=== PATIENT | female | born 1985 | race Caucasian/White ===

== ENCOUNTER 2019-10-21 14:04 | Emergency (ER) | payer OTHER, SELFPAY ==
--- NOTE | 2019-10-21 14:21 | ED.SKABFB ---
HPI - Skin/Abscess/Foreign Bdy General Chief complaint: Skin/Abscess/Foreign Body Stated complaint: Cellulitis under left arm Time Seen by Provider: 10/21/19 14:25 Source: patient and RN notes reviewed Mode of arrival: ambulatory Limitations: no limitations History of Present Illness HPI narrative: 34-year-old female presents with concern for possible cellulitis under her left arm. 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 Reports 2-day history of redness, tenderness under her left arm. MD complaint: abscess/boil Related Data Allergies Allergy/AdvReac Type Severity Reaction Status Date / Time No Known Drug Allergies Allergy Unknown Verified 04/20/18 14:35 Review of Systems Review of Systems: Narrative: CONSTITUTIONAL: Denies malaise, chills, sweats, or fever. CARDIOVASCULAR: Denies chest pain, palpitations, or edema. RESPIRATORY: Denies cough or dyspnea. GASTROINTESTINAL: Denies nausea, vomiting, diarrhea SKIN: Reports redness, tenderness under her left arm MUSCULOSKELETAL: Denies myalgia. NEUROLOGIC: Denies headache. All systems reviewed & are unremarkable except as noted in HPI and below PMFSH Comments At time of signature, agree with nursing past medical, surgical, social and family history. There is no relevant family history pertinent to the presenting complaint Exam Narrative: Exam Narrative: GENERAL: Well-appearing, well-nourished, and in no acute distress. HEAD: Normocephalic EYES: PERRLA, conjunctivae clear ENT: Mucous membranes moist. NECK: Supple. CHEST: No respiratory distress. Speaks in full sentences. HEART: Regular rate and rhythm. No murmur heard. Normal peripheral pulses. AEXTREMITIES: Left arm hands gross normal range of motion, grossly normal strength and sensation. SKIN: Warm, dry. 7 cm x 5 cm area of erythema, warmth, tenderness with palpable nonfluctuant nodule approximate 1.5 cm. NEURO: Alert and oriented x3. PSYCH: Normal mood and affect Course Course Emergency Course: Patient is aware of diagnosis, understands and agrees to treatment plan. Anticipatory guidance given. Patient agrees to follow-up as directed and is aware of reasons to seek care at the emergency department. Portions of this record may have been created with voice recognition software Vital Signs Vital signs: Vital Signs Temperature 97.7 F 10/21/19 14:28 Pulse Rate 98 10/21/19 14:28 Respiratory Rate 16 10/21/19 14:28 Blood Pressure 139/80 10/21/19 14:28 Pulse Oximetry 100 10/21/19 14:28 Temperature 97.7 F 10/21/19 14:28 Pulse Rate 98 10/21/19 14:28 Respiratory Rate 16 10/21/19 14:28 Blood Pressure 139/80 10/21/19 14:28 Pulse Oximetry 100 10/21/19 14:28 Reviewed. Patient has been instructed to follow up with her primary care provider within the next week regarding her elevated blood pressure today. MDM - Skin/Abscess/Foreign Bdy MDM Narrative Medical decision making narrative: Does not appear at this time to be erythema multiforme, bullous, SJS, TEN; no evidence at this time to suggest RMSF, endocarditis or Lyme disease; patient looks well, nontoxic and is tolerating oral intake; no neurologic signs or symptoms; no headache, photophobia or neck pain; afebrile; appropriate for initial outpatient treatment; discussed the importance of follow-up, patient agrees; question, viral exanthema, contact dermatitis, allergic dermatitis, eczema, urticaria, cellulitis, abscess. No soft palate or uvula edema, no tongue, lip edema or other mucosal involvement, no respiratory compromise, no stridor, no wheezing, no wheezing, no history of syncope, no hypotension, no nausea, vomiting, or diarrhea. Instructed patient to go to nearest ER immediately for any worsening symptoms including but not limited to: fever, spreading rash, pain, sore throat, headache, dizziness, chest pain, trouble breathing, or any symptoms concerning to the patient. Critical Care Time Critical Care Time Critical Car
[2019-10-21 14:28] VITALS: BP 139/80; PULSE 98; RESP 16; TEMP 36.5; O2SAT 100
== END 2019-10-21 14:37 | disposition home or self-care (01) ==
PROVIDERS: Emergency Provider Nurse Practitioner; PCP Nurse Practitioner Family
DX: L03.112 Cellulitis of left axilla (principal); R03.0 Elevated blood-pressure reading, without diagnosis of hypertension
CPT/HCPCS: 99213; G0463

== ENCOUNTER 2020-03-04 09:48 | Emergency (ER) | payer OTHER, SELFPAY ==
[2020-03-04 09:54] VITALS: BP 148/85; PULSE 110; RESP 16; TEMP 37.5; O2SAT 99
--- NOTE | 2020-03-04 10:13 | ED.GENADULT ---
HPI - General Adult General Chief complaint: Upper Respiratory Infection Stated complaint: sore throat/chest congestion/cough Source: patient and RN notes reviewed Mode of arrival: ambulatory Limitations: no limitations History of Present Illness HPI narrative: 34-year-old female presents with complaints of sore throat, body aches, fever, and post nasal drainage for the past 3 days. Josselyn says she received a NEGATIVE COVID-19 test this morning. Tylenol and Noelle with little to no relief. High fevers, highest 102 Fahrenheit, orally. No drooling, neck or throat swelling. Pain is bilateral. Hurts to swallow. Exacerbation factors consist of eating and drinking. No rhinorrhea. Nasal congestion. No voice change. No nausea, vomiting, or abdominal pain. Tolerating liquids well. Denies chills, dyspnea, difficulty swallowing, jaw pain, dental pain, facial pain, foreign body sensation, and rash. LMP 3 weeks ago. Remains active. The patient reports she have not been diagnosed with COVID-19. The patient reports she is not waiting for the results of a COVID-19 lab test. The patient reports she do not have chills, weakness, or fatigue. The patient reports she do not have a new or worsening cough or shortness of breath. Denies chest pain. The patient reports she do not have any loss of taste or diarrhea. Denies recent traveling. Denies concerns for COVID-19 or exposures been home with limited outdoor exposure except for essential household needs, work, and return home. At this time, patient is not suspected of having COVID-19. Some parts of this dictation were generated by voice recognition software and may contain typographical and/or grammatical inaccuracies. Related Data Allergies Allergy/AdvReac Type Severity Reaction Status Date / Time No Known Allergies Allergy Verified 03/04/20 10:07 Review of Systems Review of Systems: Narrative: CONSTITUTIONAL: Denies chills, sweats. Complains of fever. EYES: Denies visual changes, redness, discharge. ENT: Denies rhinorrhea, otalgia. Complains of sore throat, congestion. CARDIOVASCULAR: Denies chest pain, palpitations, edema. RESPIRATORY: Denies dyspnea, wheezing, cough. GASTROINTESTINAL: Denies abdominal pain, nausea, vomiting, diarrhea. GENITOURINARY: Denies dysuria, hematuria, abnormal discharge. SKIN: Denies rash or itching. MUSCULOSKELETAL: Denies acute back pain or myalgia. Complains of body aches. NEUROLOGIC: Denies numbness or focal weakness. PSYCHIATRIC: Denies anxiety or depression. All systems reviewed & are unremarkable except as noted in HPI and below. [facility] Past Medical History Medical History (Updated 03/05/20 @ 00:00 by Aaron Becker) Acid reflux Allergies Migraines Vaginal delivery 03/19/08, , full term, male, 8#3 09/23/11, , full term, male, 9#15 09/10/14, , full term, female, 8#13 Surgical History Surgical History (Updated 03/04/20 @ 11:27 by SHIVA Montaño) History of adenoidectomy History of ovarian cystectomy History of tonsillectomy Family History Family History Mother Cancer when she was diagnosed it was spread all over her body, origin unknown Grandparent Cervical cancer Breast cancer Ovarian cancer Social History Social History (Updated 03/04/20 @ 11:27 by SHIVA Montaño) Smoking status: Former smoker Tobacco type: cigarettes Second hand tobacco smoke exposure: No Additional smoking assessment comments: Off and on since 2009 Alcohol intake: current Drinks per week: 1 Substance use: never Living arrangements: with family Occupation/Education: occupation Gender identity (if verbalized by the patient): Female Comments At time of signature, agree with nurse past medical, surgical, social, and family history. There is no relevant family history pertinent to the presenting complaint. Exam Narrative: Exam Na
== END 2020-03-04 10:40 | disposition home or self-care (01) ==
PROVIDERS: Emergency Provider Nurse Practitioner Family; PCP Nurse Practitioner Family
DX: J02.9 Acute pharyngitis, unspecified (principal); Z87.891 Personal history of nicotine dependence; K21.9 Gastro-esophageal reflux disease without esophagitis
CPT/HCPCS: 87081; 87804; 87880; 99213; G0463

== ENCOUNTER 2024-04-30 14:37 | Emergency (ER) | payer OTHER, SELFPAY ==
[2024-04-30] VITALS (9 sets, daily range): BP systolic 121–157; BP diastolic 63–105; PULSE 89–108; RESP 12–19; TEMP 36.4; O2SAT 96–100
--- NOTE | ~2024-04-30 | XR_ITS ---
EXAMINATION: XR chest 1V portable Exam Date/Time: 04/30/2024 16:44 [employer] SERVICES CONSULTANT HISTORY: cough Comparison: 08/13/2023. RESULT: Lines, tubes, and devices: None. Lungs and pleura: Clear. Cardiomediastinal silhouette: Stable. Other: No acute osseous or upper abdominal finding. IMPRESSION: No acute cardiopulmonary process. Reviewed, dictated and finalized at location [facility]. [employer]
--- NOTE | 2024-04-30 15:44 | ED_ITS ---
HPI - General Adult General Chief complaint: Allergic Reaction Stated complaint: allergic reaction to clindamycin Time Seen by Provider: 04/30/24 15:26 History of Present Illness HPI narrative: patient is a 38-year-old female who presents ER with skin rash. Mainly over the trunk and arms and also proximal legs. She also has it over the dorsums of her feet. Began 2 hours after taking clindamycin. Originally diagnosed with walking pneumonia given prednisone and azithromycin. On day 4 she was switched to clindamycin for possible strep throat as well as influenza being here infection. She is not on Tamiflu. She was then switched to amoxicillin yesterday. No difficulty breathing/swallowing. Related Data Allergies Allergy/AdvReac Type Severity Reaction Status Date / Time No Known Allergies Allergy Verified 03/04/20 10:07 Review of Systems 2 Review of Systems: All systems reviewed & are unremarkable except as noted in HPI and below Constitutional: Constitutional: Reports no additional constitutional complaints Cardiovascular: Cardiovascular: Reports no additional cardiovascular complaints Respiratory: Respiratory: Reports no additional respiratory complaints Gastrointestinal: Gastrointestinal: Reports no additional gastrointestinal complaints Integumentary/Breasts: Skin/Breast: Reports pruritus, Reports erythema and Reports rash PMFSH Past Medical History Medical History (Updated 04/30/24 @ 18:19 by Wes Reese MD) Allergies Vaginal delivery 03/19/08, , full term, male, 8#3 09/23/11, , full term, male, 9#15 09/10/14, , full term, female, 8#13 Migraines Acid reflux Surgical History Surgical History (Updated 03/04/20 @ 11:27 by SHIVA Montaño) History of adenoidectomy History of tonsillectomy History of ovarian cystectomy Family History Family History Mother Cancer when she was diagnosed it was spread all over her body, origin unknown Grandparent Cervical cancer Breast cancer Ovarian cancer Social History Social History (Updated 03/04/20 @ 11:27 by SHIVA Montaño) Smoking status: Former smoker Tobacco type: cigarettes Second hand tobacco smoke exposure: No Additional smoking assessment comments: Off and on since 2009 Alcohol intake: current Drinks per week: 1 Substance use: never Living arrangements: with family Occupation/Education: occupation Gender identity (if verbalized by the patient): Female Exam 2 Narrative: GENERAL: Well-appearing, well-nourished, and in no acute distress. HEAD: Normocephalic, atraumatic. ENT: Mucous membranes moist. NECK: Supple. CHEST: Clear to auscultation. No respiratory distress. HEART: Regular rate and rhythm. Normal peripheral pulses. EXTREMITIES: Normal range of motion. No edema. SKIN: Warm, dry,. Diffuse erythematous rash that is blanching. No papules / pustules/ vesicles /plaques. No petechiae or bullae. NEURO: No focal deficits. Alert and oriented x3. PSYCH: Normal mood and affect. Course Course Emergency Course: Informed of results. Rash improving. Continue steroids (taper), benadryl, pepcid, and add zyrtec. D/c abx. Vital Signs Vital signs: Vital Signs Temperature 97.6 F 04/30/24 14:40 Pulse Rate 108 H 04/30/24 14:40 Respiratory Rate 18 04/30/24 14:40 Blood Pressure 148/98 H 04/30/24 14:40 Pulse Oximetry 100 04/30/24 14:40 Oxygen Delivery Room Air 04/30/24 14:40 Temperature 97.6 F 04/30/24 14:40 Pulse Rate 99 04/30/24 17:46 Respiratory Rate 12 04/30/24 17:46 Blood Pressure 136/97 H 04/30/24 17:46 Pulse Oximetry 98 04/30/24 17:46 Oxygen Delivery Room Air 04/30/24 16:16 Medical Decision Making Vital Signs Vital Signs: Vital Signs Temperature 97.6 F 04/30/24 14:40 Pulse Rate 108 H 04/30/24 14:40 Respiratory Rate 18 04/30/24 14:40 Blood Pressure 148/98 H 04/30/24 14:40 Pulse Oximetry 100 04/30/24 14:40 Oxygen Delivery Room Air 04/30/24 14:40 Temperature 97.6 F 04/30/24 14:40 Pulse Rate 99 04/30/24 17:46 Respiratory Rate 12 04/30/24 17:46 Blood Pressure 136/97 H 04/30/24 17:46 Pulse Oximetry 98 04/30/24 17:46 Oxygen Delivery Room Air 01/01/25 16:16 Lab Data 04/30/24 16:12 04/30/24 16:12 Labs: Lab Results 04/30/24 Range/Units 16:12 WBC 17.9 H (4.5-10.0) K/mm3 RBC 5.66 H (4.2-5.4) M/mm3 Hgb 15.4 H (12.0-15.0) g/dL Hct 45.6 (37.0-47.0) % MCV 80.6 (80-100) fl MCH 27.2 (26-34) pg MCHC 33.8 (32-36) g/dl RDW 13.5 (11.5-14.5) % Plt Count 361 (150-375) k/mm3 MPV 9.7 (7.4-10.4) fl Immature Gran % (Auto) 0.5 (0-0.5) % Neut % (Auto) 73.5 H (45.5-73.1) % Lymph % (Auto) 18.9 (18.3-44.2) % [place] % (Auto) 6.0 (2.6-8.5) % Eos % (Auto) 0.9 (0-4.4) % Baso % (Auto) 0.2 (0.2-1.2) % Lymph # (Auto) 3.39 H (0.9-3.2) K/mm3 [place] # (Auto) 1.1 H (0.1-0.6) K/mm3 Eos # (Auto) 0.2 (0-0.3) K/mm3 Baso # (Auto) 0.0 (0.0-0.1) K/mm3 Abs Immat Gran (auto) 0.09 H (0.00-0.031) K/mm3 Absolute Neuts (auto) 13.2 H (1.3-6.7) K/mm3 Absolute Nucleated RBC 0.000 (0.0-0.012) K/mm3 Nucleated RBC % 0.0 (0.0-0.2) % Sodium 133 L (137-145) mmol/L Potassium 3.5 (3.4-5.0) mmol/L Chloride 102 (98-107) mmol/L Carbon Dioxide 25 (22-30) mmol/L Anion Gap 6 (4-12) mmol/L BUN 14 (7-17) mg/dL Creatinine 0.80 (0.7-1.0) mg/dL Estim Creat Clear Calc 125 ml/min Estimated GFR > 60 (59 - ) Glucose 105 (65-110) mg/dL Calcium 8.7 (8.4-10.2) mg/dL Total Bilirubin 0.8 (0.2-1.3) mg/dL AST 22 (14-36) U/L ALT 23 (6-35) U/L Alkaline Phosphatase 62 (38-126) U/L Total Protein 7.0 (6.3-8.2) g/dL Albumin 4.0 (3.5-5.1) g/dL Imaging Data Radiologist's impression: ITS Impressions Chest X-Ray 04/30/24 16:56 IMPRESSION: No acute cardiopulmonary process. Discharge Plan Discharge Clinical Impression: Drug rash Patient Disposition: Home, Self-Care Condition: Stable Instructions: Acute Rash (ED) Additional Instructions: Return to the ER if you cannot breathe, you cannot swallow, you lose consciousness, or have other concerns. Patient Language: Slovenian Prescriptions: New famotidine [Pepcid] 20 mg tablet 20 mg PO BID Qty: 14 0RF diphenhydramine HCl [Benadryl Allergy] 25 mg tablet 25 mg PO TID PRN (Reason: allergic reaction) Qty: 20 0RF prednisone 10 mg tablet See Rx Instructions .Route .COMPLEX Qty: 45 0RF Rx Instructions: 50 mg x 3 days, then 40 mg x 3 days, then 30 mg x 3 days, then 20 mg x 3 days, then 10 mg x 3 days. prednisone 10 mg tablet See Rx Instructions .ROUTE .COMPLEX Qty: 45 0RF Rx Instructions: 50 mg x 3 days, then 40 mg x 3 days, then 30 mg x 3 days, then 20 mg x 3 days, then 10 mg x 3 days. No Action fluticasone propionate [Allergy Relief (fluticasone)] 50 mcg/actuation spray,suspension 1 spray NASAL BID Qty: 16 0RF Rx Instructions: administer into each nostril penicillin V potassium 500 mg tablet 500 mg PO BID 10 Days Qty: 20 0RF Follow-up/Referrals: Best,ELODIA Ware [Primary Care Provider] - 1 Week
[2024-04-30] MEDS: SODIUM CHLORIDE 0.9% IV 1,000 ML 999 ML IV CONT (16:06)
[2024-04-30] MEDS: methylPREDNISolone SOD SUCC 125 MG VIAL IV PUSH (16:07)
[2024-04-30] MEDS: diphenhydrAMINE HCl INJ 50 MG/ML VIAL 25 MG IV PUSH (16:08)
[2024-04-30] MEDS: FAMOTIDINE 20 MG/2 ML VIAL IV PUSH (16:11)
[2024-04-30 16:20] LABS: Basophils Percent Auto 0.2 % (0.2-1.2); Eosinophils Absolute Auto 0.2 K/mm3 (0-0.3); Eosinophils Percent Auto 0.9 % (0-4.4); Hematocrit 45.6 % (37.0-47.0); Hemoglobin 15.4 g/dL (12.0-15.0); Immature Granulocyte Absolute 0.09 K/mm3 (0.00-0.031); Immature Granulocyte Percent A 0.5 % (0-0.5); Lymphocytes Absolute Auto 3.39 K/mm3 (0.9-3.2); Lymphocytes Percent Auto 18.9 % (18.3-44.2); Mean Corpuscular HGB Conc 33.8 g/dl (32-36); Mean Corpuscular Hemoglobin 27.2 pg (26-34); Mean Corpuscular Volume 80.6 fl (80-100); Mean Platelet Volume 9.7 fl (7.4-10.4); Monocytes Absolute Auto 1.1 K/mm3 (0.1-0.6); Neutrophils Absolute Auto 13.2 K/mm3 (1.3-6.7); Neutrophils Percent Auto 73.5 % (45.5-73.1); Platelet Count Result 361 k/mm3 (150-375); Red Blood Count 5.66 M/mm3 (4.2-5.4); Red Cell Distribution Width 13.5 % (11.5-14.5); White Blood Count 17.9 K/mm3 (4.5-10.0)
[2024-04-30 16:32] LABS: Alanine Aminotransferase 23 U/L (6-35); Alkaline Phosphatase 62 U/L (38-126); Anion Gap 6 mmol/L (4-12); Aspartate Amino Transferase 22 U/L (14-36); Bilirubin,Total 0.8 mg/dL (0.2-1.3); Blood Urea Nitrogen 14 mg/dL (7-17); Calcium 8.7 mg/dL (8.4-10.2); Carbon Dioxide 25 mmol/L (22-30); Chloride 102 mmol/L (98-107); Estimated CRCL calculation 125 ml/min; Estimated Glomerular Filt Rate > 60; Glucose 105 mg/dL (65-110); Potassium 3.5 mmol/L (3.4-5.0); Sodium 133 mmol/L (137-145)
--- OUTSIDE RECORDS SUMMARY | 2024-05-07 12:16 | XMS_ITS | Clinical Summary ---
Author Organization [facility] Address [address] [place] [address] Phone Care Team Providers Care Astrobiologist Name Role Phone Unavailable Unavailable Unavailable Reason for Visit and Chief Complaint The Chief Complaint is: IUD Check--pt c/o partner feeling string during sex Problems Includes: Problems addressed during this encounter and other active Problems All Visits Onset Date Resolved Date Provider Condition S tatus Ovarian Cyst 05/14/2013 NIEVES TURNER NP-BC Active Last Documented On 05/14/2013 1:06PM ; [facility] Note: History of Obesity 02/12/2013 NIEVES TURNER NP-BC Active Last Documented On 3 10:08AM ; [facility] Plan of Treatment No Plan of Treatment Recorded Assessments Includes: Assessments from this encounter Findings - Contraceptive management - Last Documented On 08/28/2017 10:14AM ; [facility] Medical Equipment - Implanted Devices Includes: Current Devices No Medical Equipment Recorded Medications Includes: Medications discussed during this encounter and other current Medications Current Medications (continue as prescribed) HydroCHLOROthiazide 50MG Oral Tablet 07/31/2017 Prov ider: Diagnosis: Last Documented On 8 9:16AM By JERROD STEPHENS ; [facility] Mirena (52 MG) 20MCG/24HR Intrauterine Intrauterine de vice 07/31/2017 Provider: Diagnosis: Last Documented On 8 10:45AM By JERROD STEPHENS ; [facility] Losartan Potassium 25MG Oral Tablet 06/26/2017 Provi akilah: Diagnosis: Last Documented On 06/26/2017 1:28PM By Kamilah Badillo MA ; [facility] ProAir HFA 108 (90 Base)MCG/ACT Inhalation Aeros ol Solution 06/26/2017 Provider: Diagnosis: PRN-while she is sick. Last Documented On 06/26/2017 1:30PM By Kamilah Badillo MA ; [facility] Past Medications on file Fannie 0.35 MG Tablet 04/17/2016 - 03/19/2017 Provider : REMBERTO ESQUEDA MD Diagnosis: Other ovarian cy sts One tablet daily Last Documented On 04/17/2016 10:21AM By REMBERTO ESQUEDA MD ; [facility] Ferrous Sulfate 325 (65 Fe) MG OR TABS 06/12/2014 - 12/09/2014 Provider: REMBERTO ESQUEDA MD Diagnosis: one po daily at a different time than pnv was phoned to [facility]. Last Documented On 5 3:11PM By XUAN MORALES LPN ; [facility] Colace 100 MG OR CAPS 06/11/2014 - 10/09/2014 Provider : REMBERTO ESQUEDA MD Diagnosis: Last Documented On 06/11/2014 11:09AM By REMBERTO ESQUEDA MD ; [facility] 19 OR TABS 02/19/2014 - 02/14/2015 Provider: REMBERTO ESQUEDA MD Diagnosis: Last Documented On 02/19/2014 10:29AM By REMBERTO ESQUDEA MD ; [facility] Diflucan 150 MG OR TABS 05/14/2013 - 05/15/2013 Provider: NIEVES WINKLER-BC Diagnosis: CANDIDAL VULVOVA GINITIS 1 po x 1 and rpt. in 3 days Last Documented On 4 1:28PM By NIEVES WINKLER-BC ; [facility] Terazol 7 0.4% VA CREA 08/24/2011 - 09/23/2011 Provide r: NIEVES WINKLER-BC Diagnosis: insert 1 applicator vaginally q hs x 7 nocs Last Documented On 2 10:25AM By NIEVES WINKLER-BC ; [facility] Augmentin 875-125 MG OR TABS 08/24/2011 - 09/03/2011 P rovider: NIEVES WINKLER-BC Diagnosis: Last Documented On 2 10:26AM By NIEVES TURNER [facility] ; [facility] Fioricet 50-325-40 MG OR TABS 06/30/2011 - 07/30/2011 Provider: REMBERTO ESQUEDA MD Diagnosis: i-ii po Q 4 hours prn headac he, do not exceed 6 tabs/24 hours Last Documented On 06/30/2011 1:48PM By REMBERTO ESQUEDA MD ; [facility] Zithromax Z-Lincoln 250 MG OR TABS 05/08/2011 - 05/13/2011 Provider: REMBERTO ESQUEDA MD Diagnosis: Last Documented On 05/08/2011 4:52PM By REMBERTO ESQUEDA MD ; [facility] Vitamin B-6 25 MG OR TABS 05/02/2011 - 07/01/2011 Prov ider: REMBERTO ESQUEDA MD Diagnosis: Last Documented On 05/02/2011 1:24PM By REMBERTO ESQUEDA MD ; [facility] Zofran 8 MG OR TABS 05/02/2011 - 06/01/2011 Provider: REMBERTO ESQUEDA MD Diagnosis: Last Documented On 05/02/2011 1:23PM By REMBERTO ESQUEDA MD ; [facility] Flagyl 500 MG OR TABS 08/22/2010 - 08/29/2010 Provider : FABIOLA CRISTOBAL Diagnosis: VAGINITIS NOS no alcohol Last Documented On 08/22/2010 8:22AM By FABIOLA CRISTOBAL ; [facility] NuvaRing 0.12-0.015 MG/24HR VA RING 08/17/2010 - 09/16/2010 Provider: FABIOLA CRISTOBAL Diagnosis: OTHER FAMILY PLANNING ADVICE NEC One ring intravaginally x 3 weeks Last Documented On 08/17/2010 9:04AM By FABIOLA CRISTOBAL ; [facility] Diflucan 150 MG OR TABS 08/16/2010 - 08/17/2010 Provid er: REMBERTO ESQUEDA MD Diagnosis: Last Documented On 08/16/2010 11:50AM By REMBERTO ESQUEDA MD ; [facility] Darvocet-N 100 100-650 MG OR TABS 08/05/2009 - 010 Provider: REMBERTO ESQUEDA MD Diagnosis: Last Documented On 08/05/2009 2:45PM By REMBERTO ESQUEDA MD ; [facility] Medications Administered Includes: Administered Medications from this encounter No Administered Medications Recorded Vital Signs Includes: Vital Signs from this encounter Vital Name 08/28/2017 09:26A 08/28/2017 09: 25A Blood Pressure Sitting (mmHg) 132/90 Height (in) 68 68 Weight (lb) 282.2 Body Mass Index (kg/m2) 42.9 Body Surface Area (m2) 2.4 Last Documented: On 08/28/2017 9:31AM ; [facility] On 08/28/2017 9:25AM ; [facility] Results Includes: Results discussed during this encounter No Results Recorded For Specified Dates History of Present Illness Includes: History of Present Illness from this encounter HPI REMBERTO TRAVIS is a 32 year old female. - Unusual bleeding spotting off and on, not heavy. - No pelvic pain. - No vaginal discharge. c/o partner feeling string during sex and making a red farida on him Social History Description Last Updated Alcohol use: 2 drinks or less per day oc c 08/28/2017 Last Documented On 8 10:14AM ; [facility] Non-smoker 08/28/2017 Last Documented On 8 10:14AM ; [facility] Sexually active 08/28/2017 Last Documented On 8 10:14AM ; [facility] Smoking status : Former smoker 8 Last Documented On 8 10:14AM ; [facility] Procedures and Surgical History Includes: Procedures from this encounter Procedures Code Diagnosis Performing Provider Service L ocation Service Date follow-up visit for annual exam Last Documented On 8 9:43AM ; [facility] Patient reassured IUD in cor rect position and she may rely on it for contraception Last Documented On 8 9:43AM ; [facility] Clinical summary provided to patient Last Documented On 8 9:43AM ; [facility] Medical History Includes: Medical History addressed during this encounter Description Last Updated LMP: 08/02/2017 08/28/2017 Last Documented On 8 10:14AM ; [facility] Contraception: Mirena 08/28/2017 Last Documented On 8 10:14AM ; [facility] 3 08/28/2017 Last Documented On 8 10:14AM ; [facility] Last pap smear date 04/17/2016 8 Last Documented On 8 10:14AM ; [facility] Para 3 08/28/2017 Last Documented On 8 10:14AM ; [facility] Family History Includes: Family History addressed during this encounter Description Last Updated Family history of heart disease mgm 04/30 Last Documented On 8 9:25AM ; [facility] Family history of hypercholesterolemia m gm 05/14/2013 Last Documented On 8 9:25AM ; [facility] Family history of hypertension maternal grandparents, pgf 05/14/2013 Last Documented On 8 9:25AM ; [facility] Family history of malignant neoplasm of the ovary mother at age 36, maternal grandmother, paternal grandmother 05/14/2013 Last Documented On 8 9:25AM ; [facility] Family history of diabetes m ellitus maternal grandmother, paternal grandmother, paternal grandfather 01/05/2011 Last Documented On 8 9:25AM ; [facility] Family history of malignant female breas t neoplasm maternal grandmother 01/05/2011 Last Documented On 8 9:25AM ; [facility] Family history unchanged 01/05/2011 Last Documented On 8 9:25AM ; [facility] Family history of Diabetes 05/12/2009 Last Documented On 8 9:25AM ; [facility] Review of Systems Includes: Review of Systems from this encounter No Review of Systems Recorded Mental Status Includes: Mental Status from this encounter No Mental Status Recorded Functional Status Includes: Functional Status from this encounter No Functional Status Recorded Physical Exam Includes: Physical Exam from this encounter Allergies Includes: Active Allergies No Known Allergies Encounters Encounter Provider Location Date Check-In Time Check-Out Time Diagnosis 1 MONTH CHECK REMBERTO ESQUEDA MD [facility] RADIO STATION ENGINEER 08/29/19 18 9:22AM 10:13AM Contraceptive Management Clinical Notes Includes: Clinical Notes from this encounter No Clinical Notes Recorded
--- OUTSIDE RECORDS SUMMARY | 2024-05-07 12:16 | XMS_ITS | Clinical Summary ---
Author Organization [facility] Address [address] [place] [address] Phone Care Team Providers Care Mobile Solutions Architect Name Role Phone Unavailable Unavailable Unavailable Reason for Visit and Chief Complaint visit for: IUD Insertion - The Chief Complaint is: Mirena insertion Problems Includes: Problems addressed during this encounter and other active Problems All Visits Onset Date Resolved Date Provider Condition S tatus Ovarian Cyst 05/14/2013 NIEVES TURNER ELODIA-BC Active Last Documented On 05/14/2013 1:06PM ; [facility] Note: History of Obesity 02/12/2013 NIEVES TURNER ELODIA-BC Active Last Documented On 3 10:08AM ; [facility] Plan of Treatment Pending Tests Order Diagnosis Results Due Ordering Danielito rodriguez In office procedures - OB IUD Insertion Encounter for insertion of intrauterine contraceptive device 08/14/17 REMBERTO ESQUEDA MD Last Documented On 8 9:36AM ; [facility] Assessments Includes: Assessments from this encounter Findings - Contraceptive management: Insertion of IUD - Last Documented On 07/31/2017 9:36AM ; [facility] Medical Equipment - Implanted Devices Includes: Current Devices No Medical Equipment Recorded Medications Includes: Medications discussed during this encounter and other current Medications Current Medications (continue as prescribed) HydroCHLOROthiazide 50MG Oral Tablet 07/31/2017 Prov ider: Diagnosis: Last Documented On 8 9:16AM By JERROD STEPHENS ; [facility] Mirena (52 MG) 20MCG/24HR Intrauterine Intrauterine de vice 07/31/2017 Provider: Diagnosis: Last Documented On 8 10:45AM By JERROD STEPHENS ; [facility] Losartan Potassium 25MG Oral Tablet 06/26/2017 Provi akilah: Diagnosis: Last Documented On 06/26/2017 1:28PM By Kamilah Badillo MA ; [facility] ProAir HFA 108 (90 Base)MCG/ACT Inhalation Aeros ol Solution 06/26/2017 Provider: Diagnosis: PRN-while she is sick. Last Documented On 06/26/2017 1:30PM By Kamilah Badillo MA ; [facility] Past Medications on file Fannie 0.35 MG Tablet 04/17/2016 - 03/19/2017 Provider : REMBERTO ESQUEDA MD Diagnosis: Other ovarian cy sts One tablet daily Last Documented On 04/17/2016 10:21AM By REMBERTO ESQUEDA MD ; [facility] Ferrous Sulfate 325 (65 Fe) MG OR TABS 06/12/2014 - 12/09/2014 Provider: REMBERTO ESQUEDA MD Diagnosis: one po daily at a different time than pnv was phoned to [facility]. Last Documented On 5 3:11PM By XUAN MORALES LPN ; [facility] Colace 100 MG OR CAPS 06/11/2014 - 10/09/2014 Provider : REMBERTO ESQUEDA MD Diagnosis: Last Documented On 06/11/2014 11:09AM By REMBERTO ESQUEDA MD ; [facility] 19 OR TABS 02/19/2014 - 02/14/2015 Provider: REMBERTO ESQUEDA MD Diagnosis: Last Documented On 02/19/2014 10:29AM By REMBERTO ESQUEDA MD ; [facility] Diflucan 150 MG OR TABS 05/14/2013 - 05/15/2013 Provider: NIEVES WINKLER-BC Diagnosis: CANDIDAL VULVOVA GINITIS 1 po x 1 and rpt. in 3 days Last Documented On 4 1:28PM By NIEVES QUEEN ; [facility] Terazol 7 0.4% VA CREA 08/24/2011 - 09/23/2011 Provide r: NIEVES WINKLER-BC Diagnosis: insert 1 applicator vaginally q hs x 7 nocs Last Documented On 2 10:25AM [facility] Augmentin 875-125 MG OR TABS 08/24/2011 - 09/03/2011 P rovider: NIEVES TURNER [facility] Diagnosis: Last Documented On 2 10:26AM [facility] Fioricet 50-325-40 MG OR TABS 06/30/2011 - 07/30/2011 Provider: REMBERTO ESQUEDA MD Diagnosis: i-ii po Q 4 hours prn headac he, do not exceed 6 tabs/24 hours Last Documented On 06/30/2011 1:48PM By REMBERTO ESQUEDA MD ; [facility] Zithromax Z-Lincoln 250 MG OR TABS 05/08/2011 - 05/13/2011 Provider: REMBERTO ESQUEDA MD Diagnosis: Last Documented On 05/08/2011 4:52PM By REMBERTO ESQUEDA MD ; [facility] Vitamin B-6 25 MG OR TABS 05/02/2011 - 07/01/2011 Prov ider: REMBERTO ESQUEDA MD Diagnosis: Last Documented On 05/02/2011 1:24PM By REMBERTO ESQUEDA MD ; [facility] Zofran 8 MG OR TABS 05/02/2011 - 06/01/2011 Provider: REMBERTO ESQUEDA MD Diagnosis: Last Documented On 05/02/2011 1:23PM By REMBERTO ESQUEDA MD ; [facility] Flagyl 500 MG OR TABS 08/22/2010 - 08/29/2010 Provider : FABIOLA CRISTOBAL Diagnosis: VAGINITIS NOS no alcohol Last Documented On 08/22/2010 8:22AM By FABIOLA CRISTOBAL ; [facility] NuvaRing 0.12-0.015 MG/24HR VA RING 08/17/2010 - 09/16/2010 Provider: FABIOLA CRISTOBAL Diagnosis: OTHER FAMILY PLANNING ADVICE NEC One ring intravaginally x 3 weeks Last Documented On 08/17/2010 9:04AM By FABIOLA CRISTOBLA ; [facility] Diflucan 150 MG OR TABS 08/16/2010 - 08/17/2010 Provid er: REMBERTO ESQUEDA MD Diagnosis: Last Documented On 08/16/2010 11:50AM By REMBERTO ESQUEDA MD ; [facility] Darvocet-N 100 100-650 MG OR TABS 08/05/2009 - 010 Provider: REMBERTO ESQUEDA MD Diagnosis: Last Documented On 08/05/2009 2:45PM By REMBERTO ESQUEDA MD ; [facility] Medications Administered Includes: Administered Medications from this encounter No Administered Medications Recorded Vital Signs Includes: Vital Signs from this encounter Vital Name 07/31/2017 09:16A 07/31/2017 09:12A 07/31 09:11A Blood Pressure Sitting (mmHg) 140/90 Height (in) 68 68 68 Weight (lb) 290.8 290.8 Body Mass Index (kg/m2) 44.2 44.2 Body Surface Area (m2) 2.4 2.4 Last Documented: On 07/31/2017 9:19AM ; [facility] On 07/31/2017 9:16AM ; [facility] On 07/31/2017 9:12AM ; [facility] Results Includes: Results discussed during this encounter No Results Recorded For Specified Dates History of Present Illness Includes: History of Present Illness from this encounter HPI She hasn't had sex in at least 6 months (currently on day 10-11 of cycle) Social History Description Last Updated Smoking status : Former smoker 8 Last Documented On 8 9:36AM ; [facility] Non-smoker 07/31/2017 Last Documented On 8 9:36AM ; [facility] Not sexually active 07/31/2017 Last Documented On 8 9:36AM ; [facility] Procedures and Surgical History Includes: Procedures from this encounter Procedures Code Diagnosis Performing Provider Service L ocation Service Date insertion of intrauterine device (IUD) .Risks versus benefits discussed. Consent signed [id number] Last Documented On 8 9:24AM ; [facility] Sterile speculum inserted Last Documented On 8 9:24AM ; [facility] Cervix easily visualized , cervix swabbe d with Betadine Last Documented On 8 9:24AM ; [facility] Uterus sounded to 9 cm Last Documented On 8 9:35AM ; [facility] Mirena industrial maintenance manager introduced through cervi x to 7 cm Last Documented On 8 9:35AM ; [facility] Mirena released and industrial maintenance manager advanced to 9 cm Last Documented On 8 9:35AM ; [facility] Bar Steward removed. Last Documented On 8 9:24AM ; [facility] IUD strings trimmed to 3-4 cm. Last Documented On 8 9:24AM ; [facility] Patient tolerated procedure well Last Documented On 8 9:24AM ; [facility] Instructed to use non-hormonal, back-up method of control x 1 month Last Documented On 8 9:24AM ; [facility] Patient verbalizes understanding Last Documented On 8 9:24AM ; [facility] RTO in month for IUD check. Last Documented On 8 9:24AM ; [facility] Encouraged to call office with any IUD c oncerns Last Documented On 8 9:24AM ; [facility] Clinical summary provided to patient Last Documented On 8 9:24AM ; [facility] Medical History Includes: Medical History addressed during this encounter Description Last Updated Contraception: none 07/31/2017 Last Documented On 8 9:36AM ; [facility] LMP: 07/21/2017 07/31/2017 Last Documented On 8 9:36AM ; [facility] 3 07/31/2017 Last Documented On 8 9:36AM ; [facility] Last pap smear date 04/17/2016 8 Last Documented On 8 9:36AM ; [facility] Para 3 07/31/2017 Last Documented On 8 9:36AM ; [facility] Family History Includes: Family History addressed during this encounter Description Last Updated Family history of heart disease mgm 04/30 Last Documented On 8 9:11AM ; [facility] Family history of hypercholesterolemia m gm 05/14/2013 Last Documented On 8 9:11AM ; [facility] Family history of hypertension maternal grandparents, pgf 05/14/2013 Last Documented On 8 9:11AM ; [facility] Family history of malignant neoplasm of the ovary mother at age 36, maternal grandmother, paternal grandmother 05/14/2013 Last Documented On 8 9:11AM ; [facility] Family history of diabetes m ellitus maternal grandmother, paternal grandmother, paternal grandfather 01/05/2011 Last Documented On 8 9:11AM ; [facility] Family history of malignant female breas t neoplasm maternal grandmother 01/05/2011 Last Documented On 8 9:11AM ; [facility] Family history unchanged 01/05/2011 Last Documented On 8 9:11AM ; [facility] Family history of Diabetes 05/12/2009 Last Documented On 8 9:11AM ; [facility] Review of Systems Includes: Review of Systems [...] Location Date Check-In Time Check-Out Time Diagnosis PROCEDURE OFFICE REMBERTO ESQUEDA MD [facility] HEDIS ABSTRACTOR 08/01/19 18 9:10AM 9:38AM Contraceptive Management: Insertion of Iud Clinical Notes Includes: Clinical Notes from this encounter No Clinical Notes Recorded
--- OUTSIDE RECORDS SUMMARY | 2024-05-07 12:16 | XMS_ITS ---
Author Organization [facility] Address [address] [place] [address] Phone Care Team Providers Care Property Accountant Name Role Phone Unavailable Unavailable Unavailable Problems Includes: Active, inactive, and resolved Problems All Visits Onset Date Resolved Date Provider Condition S tatus History of Surgical Complications: From General Anesthesia 02/19/2014 Unknown REMBERTO ESQUEDA MD Resolved Last Documented On 10/29/2014 3:39PM ; [facility] Note: was Closed. Ovarian Cyst 05/14/2013 NIEVES TURNER WHNP-BC Active Last Documented On 05/14/2013 1:06PM ; [facility] Note: History of Obesity 02/12/2013 NIEVES TSENP-BC Active Last Documented On 3 10:08AM ; [facility] Exposure To Tuberculosis 03/29/2011 Unknown REMBERTO ROBLES MD Resolved Last Documented On 01/04/2012 11:32AM ; [facility] Note: was Closed. Gestational Hypertension 03/29/2011 Unknown REMBERTO ROBLES MD Resolved Last Documented On 01/04/2012 11:32AM ; [facility] Note: was Closed. Obesity 03/29/2011 Unknown NIEVES TSENP-BC Resolved Last Documented On 01/04/2012 11:32AM ; [facility] Note: was Closed. Tobacco Use 03/29/2011 Unknown REMBERTO ESQUEDA MD Resolve d Last Documented On 01/04/2012 11:32AM ; [facility] Note: was Closed. History of Surgical Complications: From General Anesthesia 09/02/2009 Unknown REMBERTO ESQUEDA MD Resolved Last Documented On 01/04/2012 11:32AM ; [facility] Note: was Closed. History of Essential Hypertension 11/27/2007 Unknown REMBERTO ESQUEDA MD Resolved Last Documented On 01/04/2012 11:32AM ; [facility] Note: was Closed. Plan of Treatment Findings Encounter Date Ordered Clinical summary pro vided to patient POST VISIT with ENRIQUE SCHWARTZ RN [facility] 10/29/2014 Last Documented On 5 10:37AM ; [facility] Ordered Clinical summary pro vided to patient RETURN OB EXAM with NIEVES TURNER [facility] 08/20/2014 Last Documented On 5 9:52AM ; [facility] Ordered Clinical summary pro vided to patient RETURN OB EXAM with NIEVES TURNER [facility] 07/23/2014 Last Documented On 5 9:51AM ; [facility] Ordered Clinical summary pro vided to patient RETURN OB EXAM with NIEVES TURNER [facility] 05/22/2014 Last Documented On 5 10:15AM ; [facility] Ordered Clinical summary pro vided to patient RETURN OB EXAM with NIEVES TURNER [facility] 03/19/2014 Last Documented On 4 11:24AM ; [facility] Ordered Clinical summary pro vided to patient LEAN CONSULTANT EXAM with NIEVSE TURNER [facility] 05/14/2013 Last Documented On 4 1:29PM ; [facility] Ordered follow-up visit 1 ye ar or as needed LEAN CONSULTANT EXAM with NIEVES TURNER [facility] 05/14/2013 Last Documented On 4 1:29PM ; [facility] Ordered a pelvic ultrasound PROBLEM VISIT with Azeb TURNER [facility] 02/12/2013 Last Documented On 3 10:26AM ; [facility] Ordered Clinical summary pro vided to patient ANNUAL WELL WOMEN EXAM with NIEVES TURNER [facility] 03/01/2012 Last Documented On 2 2:15PM ; [facility] Finish antibiotics given to patient in ER. Patient to schedule an appointment with Dr. Esqueda after her ultrasound to go over her results, and discuss with her the possibility of removing the Mirena due to recurrent ovarian cysts PROBLEM VISIT with FABIOLA CRISTOBAL 12/22/2009 Last Documented On 0 2:30PM ; [facility] Instructions to patient Instructions for patient : B reast Self Exam discussed Last Documented On 8 2:35PM ; [facility] Instructions for patient : B reast Self Exam discussed Last Documented On 6 9:49AM ; [facility] Instructions for patient : B reast Self Exam discussed Last Documented On 4 12:59PM ; [facility] Instructions for patient : K eep the area around the vulva dry. Allow the area to have exposure to air. Avoid irritants such as fabric softeners and perfumed soaps.~ Last Documented On 4 1:26PM ; [facility] Lose weight Last Documented On 4 1:00PM ; [facility] Advised d/c scented bath pro ducts Last Documented On 4 1:26PM ; [facility] Gardasil information given a nd series encouraged Last Documented On 4 1:01PM ; [facility] Safe sex counseling Last Documented On 4 1:01PM ; [facility] Instructions for patient : K eep the area around the vulva dry. Allow the area to have exposure to air. Avoid irritants such as fabric softeners and perfumed soaps.~ Last Documented On 3 10:08AM ; [facility] Return to the clinic if cond ition worsens or new symptoms arise Last Documented On 3 10:07AM ; [facility] Advised d/c scented bath pro ducts Last Documented On 3 10:08AM ; [facility] ER/ Pain Precautions Last Documented On 3 10:07AM ; [facility] Instructions for patient : B reast Self Exam discussed Last Documented On 2 1:30PM ; [facility] Lose weight Last Documented On 2 1:31PM ; [facility] Gardasil information given a nd series encouraged Last Documented On 2 1:53PM ; [facility] Instructions for patient : B reast Self Exam discussed Last Documented On 1 4:25PM ; [facility] Recommend annual pap smear e xamination or every three year Last Documented On 1 8:43AM ; [facility] Instructions for patient : B reast Self Exam discussed Last Documented On 0 11:37AM ; [facility] Education and Decision Aids were provided during visit for: STD screening offered and de clined Last Documented On 8 2:35PM ; [facility] STD screening offered and de clined Last Documented On 6 9:49AM ; [facility] Patient Education: Daily jessica cium and vitamin D Last Documented On 4 12:59PM ; [facility] Patient Education: weight be aring exercise Last Documented On 4 12:59PM ; [facility] Candidiasis Vulvovaginitis I nformation Sheet Given Last Documented On 4 1:26PM ; [facility] Patient Education: Daily jessica cium and vitamin D Last Documented On 2 1:30PM ; [facility] Patient Education: weight be aring exercise Last Documented On 2 1:30PM ; [facility] STD screening offered and de clined Last Documented On 1 4:25PM ; [facility] Patient counseling : STD pre vention. I discussed with the patient that condoms can reduce the chance of getting an STD but not eliminate it. Increased exposure from multiple sex partners also discussed Last Documented On 1 8:43AM ; [facility] HPV handout given Last Documented On 1 8:43AM ; [facility] Gardasil handout given Last Documented On 1 8:43AM ; [facility] Counseling for abnormal pap smear Last Documented On 1 8:43AM ; [facility] HIV counseling given d/C yanci strin and start nuva ring ~20 minute appointment with more than 50% face to face time Last Documented On 1 9:06AM ; [facility] STD screening offered and de clined Last Documented On 0 11:37AM ; [facility] Assessments Includes: Assessments for all patient encounters Findings Encounter Date Contraceptive management 1 MONTH CHECK with REMBERTO ESQUEDA MD 08/28/2017 Last Documented On 8 10:14AM ; [facility] Contraceptive management: In sertion of IUD PROCEDURE OFFICE with REMBERTO ESQUEDA MD 07/31/2017 Last Documented On 8 9:36AM ; [facility] Menometrorrhagia LEAN CONSULTANT EXAM with REMBERTO ESQUEDA MD 06/26/2017 Last Documented On 8 2:39PM ; [facility] Routine pelvic exam LEAN CONSULTANT EXAM with REMBERTO ESQUEDA MD 06/26/2017 Last Documented On 8 2:39PM ; [facility] Routine pelvic exam LEAN CONSULTANT EXAM with REMBERTO ESQUEDA MD 04/17/2016 Last Documented On 6 10:11AM ; [facility] Dyspareunia PROBLEM VISIT with REMBERTO ESQUEDA MD 02/07/2016 Last Documented On 6 10:01AM ; [facility] Female pelvic pain PROBLEM VISIT with REMBERTO ACKERMAN MD 02/07/2016 Last Documented On 6 10:01AM ; [facility] Menometrorrhagia PROBLEM VISIT with REMBERTO Lopez MD 02/07/2016 Last Documented On 6 10:01AM ; [facility] Ovarian cyst PROBLEM VISIT with REMBERTO ESQUEDA MD 02/07/2016 Last Documented On 6 10:01AM ; [facility] Contraceptive management POST VISIT with ENRIQUE WINKLER 10/29/2014 Last Documented On 5 10:37AM ; [facility] Normal routine history and p hysical - POST VISIT with ENRIQUE WINKLER 10/29/2014 Last Documented On 5 10:37AM ; [facility] Urinary incontinence POST VISIT with EDGAR WINKLER 10/29/2014 Last Documented On 5 10:37AM ; [facility] Normal checkup (6 - 42 wk) RETURN OB EX AM with REMBERTO ESQUEDA MD 09/08/2014 Last Documented On 5 4:43PM ; [facility] Normal checkup (6 - 42 wk) RETURN OB EX AM with REMBERTO ESQUEDA MD 09/01/2014 Last Documented On 5 10:08AM ; [facility] Normal checkup (6 - 42 wk) RETURN OB EX AM with REMBERTO ESQUEDA MD 08/28/2014 Last Documented On 5 2:13PM ; [facility] Normal checkup (6 - 42 wk) * PHONE CALL with REMBERTO ESQUEDA MD 08/25/2014 Last Documented On 5 11:43AM ; [facility] Normal checkup (6 - 42 wk) * PHONE CALL with REMBERTO ESQUEDA MD 08/24/2014 Last Documented On 5 4:24PM ; [facility] Normal checkup (6 - 42 wk) RETU RN OB EXAM with NIEVES QUEEN 08/20/2014 Last Documented On 5 9:52AM ; [facility] Normal checkup (6 - 42 wk) [Pat ient Encounter] with REMBERTO ESQUEDA MD 08/07/2014 Last Documented On 5 11:41AM ; [facility] Normal checkup (6 - 42 wk) RETURN OB EX AM with REMBERTO ESQUEDA MD 08/06/2014 Last Documented On 5 9:17AM ; [facility] Normal checkup (6 - 42 wk) * PHONE CALL with REMBERTO ESQUEDA MD 07/28/2014 Last Documented On 5 4:28PM ; [facility] Normal checkup (6 - 42 wk) RETU RN OB EXAM with NIEVES QUEEN 07/23/2014 Last Documented On 5 9:51AM ; [facility] Normal checkup (6 - 42 wk) [Pat ient Encounter] with REMBERTO ESQUEDA MD 07/14/2014 Last Documented On 5 9:07AM ; [facility] Normal checkup (6 - 42 wk) RETURN OB EX AM with REMBERTO ESQUEDA MD 07/09/2014 Last Documented On 5 10:26AM ; [facility] Normal checkup (6 - 42 wk) RETU RN OB EXAM with NIEVES QUEEN 06/26/2014 Last Documented On 5 9:34AM ; [facility] Normal checkup (6 - 42 wk) [Pat ient Encounter] with REMBERTO ESQUEDA MD 06/15/2014 Last Documented On 5 11:40AM ; [facility] Normal checkup (6 - 42 wk) RETURN OB EX AM with REMBERTO ESQUEDA MD 06/11/2014 Last Documented On 5 11:31AM ; [facility] Normal checkup (6 - 42 wk) RETU RN OB EXAM with NIEVES QUEEN 05/22/2014 Last Documented On 5 10:15AM ; [facility] Normal checkup (6 - 42 wk) * PHONE CALL with REMBERTO ESQUEDA MD 05/11/2014 Last Documented On 5 2:29PM ; [facility] Normal checkup (6 - 42 wk) * PHONE CALL with REMBERTO ESQUEDA MD 05/08/2014 Last Documented On 5 10:46AM ; [facility] Normal checkup (6 - 42 wk) RETURN OB EX AM with REMBERTO ESQUEDA MD 04/24/2014 Last Documented On 4 1:50PM ; [facility] Normal checkup (6 - 42 wk) RETU RN OB EXAM with NIEVES QUEEN 03/19/2014 Last Documented On 4 11:24AM ; [facility] Normal checkup (6 - 42 wk) * PHONE CALL with REMBERTO ESQUEDA MD 03/05/2014 Last Documented On 4 11:57AM ; [facility] Normal checkup (6 - 42 wk) NEW OB EXAM with REMBERTO ESQUEDA MD 02/19/2014 Last Documented On 4 11:23AM ; [facility] Contraceptive surveillance IMPLANON with REMBERTO ESQUEDA MD 06/10/2013 Last Documented On 4 3:49PM ; [facility] Tegan albicans vulvovaginitis LEAN CONSULTANT EXAM with CA JYOTI QUEEN 05/14/2013 Last Documented On 4 1:29PM ; [facility] NORMAL FEMALE EXAM LEAN CONSULTANT EXAM with NIEVES Black [facility] 05/14/2013 Last Documented On 4 1:29PM ; [facility] Female pelvic pain PROBLEM VISIT with NIEVES LEE [facility] 02/12/2013 Last Documented On 3 10:26AM ; [facility] NORMAL FEMALE EXAM ANNUAL WELL WOMEN EXAM with Azeb TURNER [facility] 03/01/2012 Last Documented On 2 2:15PM ; [facility] Contraceptive surveillance POST VISIT wit yvette ESQUEDA MD 12/12/2011 Last Documented On 2 1:28PM ; [facility] Normal checkup (6 - 42 wk) RETURN OB EX AM with REMBERTO ESQUEDA MD 10/23/2011 Last Documented On 2 10:10AM ; [facility] Normal checkup (6 - 42 wk) RETU RN OB EXAM with KOBY MCKINNON M.D. 10/19/2011 Last Documented On 2 11:19AM ; [facility] Normal checkup (6 - 42 wk) RETU RN OB EXAM with KOBY MCKINNON M.D. 10/12/2011 Last Documented On 2 11:13AM ; [facility] Normal checkup (6 - 42 wk) RETURN OB EX AM with REMBERTO ESQUEDA MD 10/05/2011 Last Documented On 2 3:52PM ; [facility] Normal checkup (6 - 42 wk) * PH ONE CALL with KOBY MCKINNON M.D. 10/04/2011 Last Documented On 2 11:26AM ; [facility] Normal checkup (6 - 42 wk) [Pat ient Encounter] with REMBERTO ESQUEDA MD 09/29/2011 Last Documented On 2 2:21PM ; [facility] Normal checkup (6 - 42 wk) RETURN OB EX AM with REMBERTO ESQUEDA MD 09/28/2011 Last Documented On 2 11:14AM ; [facility] Normal checkup (6 - 42 wk) [Pat ient Encounter] with NIEVES TURNER DEDRICKNP-BC 09/26/2011 Last Documented On 2 11:52AM ; [facility] Normal checkup (6 - 42 wk) RETU RN OB EXAM with NIEVES TURNER NP-BC 09/21/2011 Last Documented On 2 1:41PM ; [facility] Normal checkup (6 - 42 wk) * PH ONE CALL with NIEVES TURNER NP-BC 09/19/2011 Last Documented On 2 12:21PM ; [facility] Normal checkup (6 - 42 wk) RETURN OB EX AM with REMBERTO ESQUEDA MD 09/14/2011 Last Documented On 2 10:19AM ; [facility] Normal checkup (6 - 42 wk) [Pat ient Encounter] with REMBERTO ESQUEDA MD 09/01/2011 Last Documented On 2 3:47PM ; [facility] Normal checkup (6 - 42 wk) RETURN OB EX AM with REMBERTO ESQUEDA MD 08/31/2011 Last Documented On 2 1:36PM ; [facility] Normal checkup (6 - 42 wk) RETU RN OB EXAM with NIEVES TURNER ELODIA-BC 08/24/2011 Last Documented On 2 10:25AM ; [facility] Normal checkup (6 - 42 wk) RETU RN OB EXAM with NIEVES Vaughan YUE NP-BC 08/18/2011 Last Documented On 2 2:36PM ; [facility] Normal checkup (6 - 42 wk) RETURN OB EX AM with REMBERTO ESQUEDA MD 08/04/2011 Last Documented On 2 2:30PM ; [facility] Normal checkup (6 - 42 wk) [Pat ient Encounter] with NIEVES TURNER NP-BC 07/31/2011 Last Documented On 2 10:42AM ; [facility] Normal checkup (6 - 42 wk) RETU RN OB EXAM with NIEVES TURNER NP-BC 07/21/2011 Last Documented On 2 10:21AM ; [facility] Normal checkup (6 - 42 wk) RETURN OB EX AM with REMBERTO ESQUEDA MD 06/30/2011 Last Documented On 2 1:49PM ; [facility] Normal checkup (6 - 42 wk) * PHONE CALL with REMBERTO ESQUEDA MD 06/01/2011 Last Documented On 2 11:22AM ; [facility] Normal checkup (6 - 42 wk) [facility] Last Documented On 2 9:44AM ; [facility] Normal checkup (6 - 42 wk) * PHONE CALL with REMBERTO ESQUEDA MD 05/25/2011 Last Documented On 2 4:48PM ; [facility] Normal checkup (6 - 42 wk) * PHONE CALL with REMBERTO ESQUEDA MD 05/08/2011 Last Documented On 2 4:52PM ; [facility] Normal checkup (6 - 42 wk) NEW OB EXAM with REMBERTO ESQUEDA MD 05/02/2011 Last Documented On 2 3:27PM ; [facility] Normal checkup (6 - 42 wk) * PHONE CALL with REMBERTO ESQUEDA MD 04/10/2011 Last Documented On 1 4:04PM ; [facility] Normal checkup (6 - 42 wk) MISS ED MENSES with NIEVES TERRELL 03/29/2011 Last Documented On 2 1:28PM ; [facility] Routine pelvic exam LEAN CONSULTANT EXAM with REMBERTO ESQUEDA MD 01/05/2011 Last Documented On 1 4:43PM ; [facility] Amenorrhea PROBLEM VISIT with FABIOLA BISWAS 08/17/2010 Last Documented On 1 9:06AM ; [facility] Contraceptive management PROBLEM VISIT with NOE CRISTOBAL 08/17/2010 Last Documented On 1 9:06AM ; [facility] SCREENING FOR STD PROBLEM VISIT with FABIOLA CRISTOBAL 08/17/2010 Last Documented On 1 9:06AM ; [facility] Contraceptive management CONSULTATION with REMBERTO ESQUEDA MD 05/13/2010 Last Documented On 1 2:36PM ; [facility] Female pelvic pain CONSULTATION with REMBERTO ROBLES MD 05/13/2010 Last Documented On 1 2:36PM ; [facility] Ovarian cyst CONSULTATION with REMBERTO ESQUEDA MD 05/13/2010 Last Documented On 1 2:36PM ; [facility] Contraceptive management LEAN CONSULTANT EXAM with REMBERTO KLEIN MD 12/24/2009 Last Documented On 0 11:59AM ; [facility] Routine pelvic exam LEAN CONSULTANT EXAM with REMBERTO ESQUEDA MD 12/24/2009 Last Documented On 0 11:59AM ; [facility] Female pelvic pain PROBLEM VISIT with FABIOLA CRISTOBAL 12/22/2009 Last Documented On 0 2:30PM ; [facility] Ruptured ovarian cyst PROBLEM VISIT with DORON CRISTOBAL 12/22/2009 Last Documented On 0 2:30PM ; [facility] SCREENING FOR STD PROBLEM VISIT with FABIOLA CRISTOBAL 12/22/2009 Last Documented On 0 2:30PM ; [facility] POST OP VISIT doing very wel l, possible mild cellulitis but improved with abx. She knows to finish entire abx rx POST OP VISIT with REMBERTO ESQUEDA MD 09/16/2009 Last Documented On 0 3:40PM ; [facility] Female pelvic pain PROBLEM VISIT with REMBERTO ACKERMAN MD 08/24/2009 Last Documented On 0 9:53AM ; [facility] Ovarian cyst PROBLEM VISIT with REMBERTO ESQUEDA MD 08/24/2009 Last Documented On 0 9:53AM ; [facility] Contraceptive management PROBLEM VISIT with REMBERTO ESQUEDA MD 08/05/2009 Last Documented On 0 2:51PM ; [facility] Female pelvic pain PROBLEM VISIT with REMBERTO ACKERMAN MD 08/05/2009 Last Documented On 0 2:51PM ; [facility] Metrorrhagia PROBLEM VISIT with REMBERTO ESQUEDA MD 08/05/2009 Last Documented On 0 2:51PM ; [facility] Ovarian cyst PROBLEM VISIT with REMBERTO ESQUEDA MD 08/05/2009 Last Documented On 0 2:51PM ; [facility] Instructions Includes: Instructions for all patient encounters Instructions to patient Instructions for patient : B reast Self Exam discussed Last Documented On 8 2:35PM ; [facility] Instructions for patient : B reast Self Exam discussed Last Documented On 6 9:49AM ; [facility] Instructions for patient : B reast Self Exam discussed Last Documented On 4 12:59PM ; [facility] Instructions for patient : K eep the area around the vulva dry. Allow the area to have exposure to air. Avoid irritants such as fabric softeners and perfumed soaps.~ Last Documented On 4 1:26PM ; [facility] Lose weight Last Documented On 4 1:00PM ; [facility] Advised d/c scented bath pro ducts Last Documented On 4 1:26PM ; [facility] Gardasil information given a nd series encouraged Last Documented On 4 1:01PM ; [facility] Safe sex counseling Last Documented On 4 1:01PM ; [facility] Instructions for patient : K eep the area around the vulva dry. Allow the area to have exposure to air. Avoid irritants such as fabric softeners and perfumed soaps.~ Last Documented On 3 10:08AM ; [facility] Return to the clinic if cond ition worsens or new symptoms arise Last Documented On 3 10:07AM ; [facility] Advised d/c scented bath pro ducts Last Documented On 3 10:08AM ; [facility] ER/ Pain Precautions Last Documented On 3 10:07AM ; [facility] Instructions for patient : B reast Self Exam discussed Last Documented On 2 1:30PM ; [facility] Lose weight Last Documented On 2 1:31PM ; [facility] Gardasil information given a nd series encouraged Last Documented On 2 1:53PM ; [facility] Instructions for patient : B reast Self Exam discussed Last Documented On 1 4:25PM ; [facility] Recommend annual pap smear e xamination or every three year Last Documented On 1 8:43AM ; [facility] Instructions for patient : B reast Self Exam discussed Last Documented On 0 11:37AM ; [facility] Education and Decision Aids were provided during visit for: STD screening offered and de clined Last Documented On 8 2:35PM ; [facility] STD screening offered and de clined Last Documented On 6 9:49AM ; [facility] Patient Education: Daily jessica cium and vitamin D Last Documented On 4 12:59PM ; [facility] Patient Education: weight be aring exercise Last Documented On 4 12:59PM ; [facility] [facility] Candidiasis Vulvovaginitis I nformation Sheet Given Last Documented On 4 1:26PM ; [facility] Patient Education: Daily jessica cium and vitamin D Last Documented On 2 1:30PM ; [facility] Patient Education: weight be aring exercise Last Documented On 2 1:30PM ; [facility] STD screening offered and de clined Last Documented On 1 4:25PM ; [facility] Patient counseling : STD pre vention. I discussed with the patient that condoms can reduce the chance of getting an STD but not eliminate it. Increased exposure from multiple sex partners also discussed Last Documented On 1 8:43AM ; [facility] HPV handout given Last Documented On 1 8:43AM ; [facility] Gardasil handout given Last Documented On 1 8:43AM ; [facility] Counseling for abnormal pap smear Last Documented On 1 8:43AM ; [facility] HIV counseling given d/C yanci strin and start nuva ring ~20 minute appointment with more than 50% face to face time Last Documented On 1 9:06AM ; [facility] STD screening offered and de clined Last Documented On 0 11:37AM ; [facility] Medical Equipment - Implanted Devices Includes: Current and historical Devices No Medical Equipment Recorded Medications Includes: Current and historical Medications Current Medications (continue as prescribed) HydroCHLOROthiazide 50MG Oral Tablet 07/31/2017 Prov ider: Diagnosis: Last Documented On 8 9:16AM By JERROD STPEHENS ; [facility] Mirena (52 MG) 20MCG/24HR Intrauterine Intrauterine de vice 07/31/2017 Provider: Diagnosis: Last Documented On 8 10:45AM By JERROD STEPHENS ; [facility] Losartan Potassium 25MG Oral Tablet 06/26/2017 Provi akilah: Diagnosis: Last Documented On 06/26/2017 1:28PM By Kamilah Badillo MA ; [facility] ProAir HFA 108 (90 Base)MCG/ACT Inhalation Aeros ol Solution 06/26/2017 Provider: Diagnosis: PRN-while she is sick. Last Documented On 06/26/2017 1:30PM By Kamilah Badillo MA ; [facility] Past Medications on file Fannie 0.35 MG Tablet 04/17/2016 - 03/19/2017 Provider : REMBERTO ESQUEDA MD Diagnosis: Other ovarian cy sts One tablet daily Last Documented On 04/17/2016 10:21AM By REMBERTO ESQUEDA MD ; [facility] One Daily Womens Tablet 02/07/2016 - 04/17/2016 Provid er: Diagnosis: Last Documented On 6 9:39AM By JERROD STEPHENS ; [facility] Fannie 0.35 MG Tablet 02/07/2016 - 04/17/2016 Provider : REMBERTO ESQUEDA MD Diagnosis: Other ovarian cy sts One tablet daily Last Documented On 04/17/2016 10:08AM By REMBERTO ESQUEDA MD ; [facility] Ferrous Sulfate 325 (65 Fe) MG OR TABS 06/12/2014 - 12/09/2014 Provider: REMBERTO ESQUEDA MD Diagnosis: one po daily at a different time than pnv was phoned to [place]. Last Documented On 5 3:11PM By XUAN MORALES LPN ; [facility] Colace 100 MG OR CAPS 06/11/2014 - 10/09/2014 Provider : REMBERTO ESQUEDA MD Diagnosis: Last Documented On 06/11/2014 11:09AM By REMBERTO ESQUEDA MD ; [facility] 19 OR TABS 02/19/2014 - 02/14/2015 Provider: REMBERTO ESQUEDA MD Diagnosis: Last Documented On 02/19/2014 10:29AM By REMBERTO ESQUEDA MD ; [facility] 19 OR TABS 02/19/2014 - 02/19/2014 Provider: Diagnosis: Last Documented On 02/19/2014 10:28AM By REMBERTO ESQUEDA MD ; [facility] Lo Loestrin Fe 1 MG-10 MCG / 10 MCG OR TABS 10/13/2013 - 02/19/2014 Provider: REMBERTO ESQUEDA MD Diagnosis: Last Documented On 02/19/2014 9:52AM By ARTHUR STEPHENS ; [facility] Diflucan 150 MG OR TABS 05/14/2013 - 05/15/2013 Provider: NIEVES QUEEN Diagnosis: CANDIDAL VULVOVA GINITIS 1 po x 1 and rpt. in 3 days Last Documented On 4 1:28PM By NIEVES QUEEN ; [facility] Ferrous Sulfate 325 (65 Fe) MG OR TABS 12/12/2011 - Provider: Diagnosis: Last Documented On 05/14/2013 1:13PM By SIERRA STEPHENS ; [facility] Implanon 68 MG SC IMPL 12/12/2011 - 07/17/2013 Provide r: REMBERTO ESQUEDA MD Diagnosis: inserted today. Last Documented On 07/17/2013 10:34AM By WINDY PICHARDO ; [facility] Terazol 7 0.4% VA CREA 08/24/2011 - 09/23/2011 Provide r: NIEVES QUEEN Diagnosis: insert 1 applicator vaginally q hs x 7 nocs Last Documented On 2 10:25AM By NIEVES QUEEN ; [facility] Augmentin 875-125 MG OR TABS 08/24/2011 - 09/03/2011 P rovider: NIEVES QUEEN Diagnosis: Last Documented On 2 10:26AM By NIEVES QUEEN ; [facility] Fioricet 50-325-40 MG OR TABS 06/30/2011 - 07/30/2011 Provider: REMBERTO ESQUEDA MD Diagnosis: i-ii po Q 4 hours prn headac he, do not exceed 6 tabs/24 hours Last Documented On 06/30/2011 1:48PM By REMBERTO ESQUEDA MD ; [facility] Zithromax Z-Lincoln 250 MG OR TABS 05/08/2011 - 05/13/2011 Provider: REMBERTO ESQUEDA MD Diagnosis: Last Documented On 05/08/2011 4:52PM By REMBERTO ESQUEDA MD ; [facility] Vitamin B-6 25 MG OR TABS 05/02/2011 - 07/01/2011 Prov ider: REMBERTO ESQUEDA MD Diagnosis: Last Documented On 05/02/2011 1:24PM By REMBERTO ESQUEDA MD ; [facility] Fioricet 50-325-40 MG OR TABS 05/02/2011 - 06/30/2011 Provider: REMBERTO ESQUEDA MD Diagnosis: i-ii po Q 4 hours prn headac he, do not exceed 6 tabs/24 hours Last Documented On 06/30/2011 1:48PM By REMBERTO ESQUEDA MD ; [facility] Zofran 8 MG OR TABS 05/02/2011 - 06/01/2011 Provider: REMBERTO ESQUEDA MD Diagnosis: Last Documented On 05/02/2011 1:23PM By REMBERTO ESQUEDA MD ; [facility] 19 OR TABS 02/28/2011 - 12/12/2011 Provider: REMBERTO ESQUEDA MD Diagnosis: Last Documented On 2 1:29PM By XUAN MORALES LPN ; [facility] Flagyl 500 MG OR TABS 08/22/2010 - 08/29/2010 Provider : FABIOLA CRISTOBAL Diagnosis: VAGINITIS NOS no alcohol Last Documented On 08/22/2010 8:22AM By FABIOLA CRISTOBAL ; [facility] NuvaRing 0.12-0.015 MG/24HR VA RING 08/17/2010 - 09/16/2010 Provider: FABIOLA CRISTOBAL Diagnosis: OTHER FAMILY PLANNING ADVICE NEC One ring intravaginally x 3 weeks Last Documented On 08/17/2010 9:04AM By FABIOLA CRISTOBAL ; [facility] Diflucan 150 MG OR TABS 08/17/2010 - 05/14/2013 Provider: FABIOLA CRISTOBAL Diagnosis: CANDIDAL VULVOVA GINITIS 1 po x 1 day Last Documented On 4 1:28PM By [facility] ; [facility] Diflucan 150 MG OR TABS 08/16/2010 - 08/17/2010 Provid er: REMBERTO ESQUEDA MD Diagnosis: Last Documented On 08/16/2010 11:50AM By REMBERTO ESQUEDA MD ; [facility] Loestrin 24 Fe 1-20 MG-MCG OR TABS 05/13/2010 - 2010 Provider: REMBERTO ESQUEDA MD Diagnosis: Last Documented On 01/05/2011 4:14PM By WINDY PICHARDO ; [facility] Doxycycline Hyclate 100 MG OR CAPS 12/24/2009 - 2010 Provider: Diagnosis: Last Documented On 01/05/2011 4:14PM By WINDY PICHARDO ; [facility] Flagyl 250 MG OR TABS 12/24/2009 - 01/05/2011 Provider : Diagnosis: Last Documented On 01/05/2011 4:14PM By WINDY PICHARDO ; [facility] Darvocet-N 100 100-650 MG OR TABS 08/05/2009 - 010 Provider: REMBERTO ESQUEDA MD Diagnosis: Last Documented On 08/05/2009 2:45PM By REMBERTO ESQUEDA MD ; [facility] Mirena (52 MG) 20 MCG/24HR IU IUD 2008 - 011 Provider: Diagnosis: Last Documented On 08/17/2010 8:29AM By WINDY PICHARDO ; [facility] Medications Administered Includes: Administered Medications in patient's chart Medications Administered Diagnosis Date Pro vider influenza vaccine IM INJ 02/19/2014 DILLON ESQUEDA MD pt tolerated well Last Documented On 4 10:32AM By ARTHUR STEPHENS ; [facility] Gardasil IM SUSP VACCN/INOC VIRAL DIS NEC 09/02/2012 NIEVES TURNER ELODIA- Last Documented On 3 2:41PM By SIERRA STEPHENS ; [facility] Results Includes: Results from 05/07/2023 through 05/07/2024 No Results Recorded For Specified Dates History of Present Illness History of Present Illness not supported for this document type No History of Present Illness Recorded Social History Description Last Updated Alcohol use: 2 drinks or less per day oc c 08/28/2017 Last Documented On 8 10:14AM ; [facility] Non-smoker 08/28/2017 Last Documented On 8 10:14AM ; [facility] Sexually active 08/28/2017 Last Documented On 8 10:14AM ; [facility] Smoking status : Former smoker 8 Last Documented On 8 10:14AM ; [facility] In monogamous relationship 06/26/2017 Last Documented On 8 2:39PM ; [facility] Cigarette smoking Former smoker 06/26/19 18 Last Documented On 8 2:39PM ; [facility] Alcohol use occ 10/29/2014 Last Documented On 5 10:37AM ; [facility] control method Implanon 10/29/2014 Last Documented On 5 10:37AM ; [facility] Exercising regularly 10/29/2014 Last Documented On 5 10:37AM ; [facility] Not sexually active 5 Last Documented On 5 10:37AM ; [facility] Not using drugs 10/29/2014 Last Documented On 5 10:37AM ; [facility] Sexually active with 0 partn ers in the last year has not been sexually active since last child concieved (2 years ago) 10/29/2014 Last Documented On 5 10:37AM ; [facility] Single 10/29/2014 Last Documented On 5 10:37AM ; [facility] Social history unchanged 10/29/2014 Last Documented On 5 10:37AM ; [facility] The racial background white 10/29/2014 Last Documented On 5 10:37AM ; [facility] Procedures and Surgical History Surgical History Last Updated History of surgical complications: from general anesthesia surgery 2009 08/20/2014 Last Documented On 5 9:52AM ; [facility] Surgical / procedural history LT ovarian cystectomy, tonsillectomy 08/20/2014 Last Documented On 5 9:52AM ; [facility] History of surgery 03/01/2012 Last Documented On 2 1:55PM ; [facility] Medical History Includes: Medical History in patient's chart Description Last Updated LMP: 08/02/2017 08/28/2017 Last Documented On 8 10:14AM ; [facility] Contraception: Mirena 08/28/2017 Last Documented On 8 10:14AM ; [facility] 3 08/28/2017 Last Documented On 8 10:14AM ; [facility] Last pap smear date 04/17/2016 8 Last Documented On 8 10:14AM ; [facility] Para 3 08/28/2017 Last Documented On 8 10:14AM ; [facility] Result: normal 06/26/2017 Last Documented On 8 2:39PM ; [facility] Not sexually active ABSTAINING 5 Last Documented On 5 10:37AM ; [facility] RUPTURED CYST 3 DAYS AGO 08/20/2014 Last Documented On 5 9:52AM ; [facility] 1 living children 08/20/2014 Last Documented On 5 9:52AM ; [facility] Condoms 08/20/2014 Last Documented On 5 9:52AM ; [facility] History of Gardasil 08/20/2014 Last Documented On 5 9:52AM ; [facility] IUD 08/20/2014 Last Documented On 5 9:52AM ; [facility] No exposure to STD 08/20/2014 Last Documented On 5 9:52AM ; [facility] No recent change in medical history 07/30 Last Documented On 5 9:52AM ; [facility] Oral contraceptives 08/20/2014 Last Documented On 5 9:52AM ; [facility] Vaginal delivery 08/20/2014 Last Documented On 5 9:52AM ; [facility] History of surgical complications: from general anesthesia surgery 2009 02/19/2014 Last Documented On 4 9:20AM ; [facility] Family History Includes: Family History in patient's chart Description Last Updated Family history of heart disease mgm 04/30 Last Documented On 4 1:29PM ; [facility] Family history of hypercholesterolemia m gm 05/14/2013 Last Documented On 4 1:29PM ; [facility] Family history of hypertension maternal grandparents, pgf 05/14/2013 Last Documented On 4 1:29PM ; [facility] Family history of malignant neoplasm of the ovary mother at age 36, maternal grandmother, paternal grandmother 05/14/2013 Last Documented On 4 1:29PM ; [facility] Family history of diabetes m ellitus maternal grandmother, paternal grandmother, paternal grandfather 01/05/2011 Last Documented On 1 4:43PM ; [facility] Family history of malignant female breas t neoplasm maternal grandmother 01/05/2011 Last Documented On 1 4:43PM ; [facility] Family history unchanged 01/05/2011 Last Documented On 1 4:43PM ; [facility] Family history of Diabetes 05/12/2009 Last Documented On 0 10:23AM ; [facility] Review of Systems Review of Systems not supported for this document type No Review of Systems Recorded Mental Status No Mental Status Recorded Functional Status No Functional Status Recorded Physical Exam Physical Exam not supported for this document type No Physical Exam Recorded Immunizations Includes: Immunizations in patient's chart Vaccine Dose # Date Site Reaction(s) Status Source HPV, (quadrivalent) Gardasil 1 03/01/2012 Right Arm Complete (Administered) [facility] Last Documented On 2 1:57PM ; [facility] HPV, (quadrivalent) Gardasil 2 05/02/2012 Right Arm Complete (Administered) [facility] Last Documented On 3 2:54PM ; [facility] Influenza (Quadrivalent)36 m o.& older PF 0.5ml (SD) 1 02/19/2014 Complete (Reported) Harshad nt Last Documented On 4 10:32AM ; [facility] Allergies Includes: Active, inactive, and resolved Allergies No Known Allergies Clinical Notes Includes: Signed Clinical Notes starting from 05/19/2022 No Clinical Notes Recorded
--- OUTSIDE RECORDS SUMMARY | 2024-05-07 12:16 | XMS_ITS | Clinical Summary ---
Author Organization [facility] Address [address] [place] [address] Phone Care Team Providers Care Bark Scaler Name Role Phone Unavailable Unavailable Unavailable Reason for Visit and Chief Complaint PELVIC W/TVT Problems Includes: Problems addressed during this encounter and other active Problems All Visits Onset Date Resolved Date Provider Condition S tatus Ovarian Cyst 05/14/2013 NIEVES TURNER WHNP-BC Active Last Documented On 05/14/2013 1:06PM ; [facility] Note: History of Obesity 02/12/2013 NIEVES TURNER NP-BC Active Last Documented On 3 10:08AM ; [facility] Plan of Treatment No Plan of Treatment Recorded Assessments Includes: Assessments from this encounter No Assessments Recorded Medical Equipment - Implanted Devices Includes: Current Devices No Medical Equipment Recorded Medications Includes: Medications discussed during this encounter and other current Medications Current Medications (continue as prescribed) HydroCHLOROthiazide 50MG Oral Tablet 07/31/2017 Prov ider: Diagnosis: Last Documented On 8 9:16AM By JERROD STEPHENS ; [facility] Mirena (52 MG) 20MCG/24HR Intrauterine Intrauterine de vice 07/31/2017 Provider: Diagnosis: Last Documented On 8 10:45AM By JERROD STEPHENS ; [facility] Losartan Potassium 25MG Oral Tablet 06/26/2017 Provi akilah: Diagnosis: Last Documented On 06/26/2017 1:28PM By Kamilah Badillo MA ; [facility] ProAir HFA 108 (90 Base)MCG/ACT Inhalation Aeros ol Solution 06/26/2017 Provider: Diagnosis: PRN-while she is sick. Last Documented On 06/26/2017 1:30PM By Kamilah Badillo MA ; [facility] Medications Administered Includes: Administered Medications from this encounter No Administered Medications Recorded Results Includes: Results discussed during this encounter No Results Recorded For Specified Dates History of Present Illness Includes: History of Present Illness from this encounter No History of Present Illness Recorded Social History No Social History Recorded - Smoking Status Unknown Medical History Includes: Medical History addressed during this encounter No Medical History Recorded Family History Includes: Family History addressed during this encounter No Family History Recorded Review of Systems Includes: Review of Systems from this encounter No Review of Systems Recorded Mental Status Includes: Mental Status from this encounter No Mental Status Recorded Functional Status Includes: Functional Status from this encounter No Functional Status Recorded Physical Exam Includes: Physical Exam from this encounter No Physical Exam Recorded Allergies Includes: Active Allergies No Known Allergies Encounters Encounter Provider Location Date Check-In Time Check-Out Time Diagnosis PELVIC W/TVT REMBERTO ESQUEDA MD [facility] [employer] 8 10:48AM 11:05AM Clinical Notes Includes: Clinical Notes from this encounter No Clinical Notes Recorded
--- OUTSIDE RECORDS SUMMARY | 2024-05-07 12:16 | XMS_ITS ---
Care Plan - [facility] Created on: May 07, 2024 THADDEUS REMBERTO R : 1985 Sex: Female Author Organization [facility] Address [address] [place] [id number] Phone Care Team Providers Care Qa Software Test Engineer Name Role Phone Unavailable Unavailable Unavailable
--- OUTSIDE RECORDS SUMMARY | 2024-05-07 12:17 | XMS_ITS | Referral Summary ---
Author Organization [facility] Address [address] [place] [address] Care Team Providers Care Wood Scaler Name Role Phone Jo Cardenas MD Primary Care Provider [phone] Source Comments [facility],non-owned Affiliates and Associated Physician Practices is amultiple site organization consisting of ambulatory clinics and hospital sitesin [place], [place], [place] and [place]. This disclosure is being madepursuant to the Care Everywhere program and may not contain all information available regarding this patient. Last updated 18.[facility] Allergies No known active allergies Medications * Be aware that medications may not be up to date on this document. Alwaysverify current medications with the patient. Medication Sig Dispensed Refills Start Date End Date Status Vit-Fe Fumarate-FA ( VITAMIN) 28-0.8 MG tablet Take 1 Tab by mouth once daily. 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
--- OUTSIDE RECORDS SUMMARY | 2024-05-07 12:17 | XMS_ITS | Data Portability ---
Author Organization [facility] TIMTawana Address [address] [place] [address] Assessment No assessment recorded. Plan of Treatment Reminders Order Date Submit Date Provider Last Modified By Organization Details Last Modified Time Details Appointments None recorded. Lab SARS CoV 2 RNA (COVID-19), QL, jewel diameter gauger-PCR, respiratory specimen - denies having any COVID-19 symptoms. 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 [place].02/03@1200 2019 020 [facility] (Lab), [address] [place], [address], 0 20:21:40 SARS CoV 2 RNA (COVID-19), QL, jewel diameter gauger-PCR, respiratory specimen - cough, sore throat, exposed to pos COVID person. [facility] 1230 2019 020 [facility] (Lab), [address] [place], [address], 0 08:46:03 Referral None recorded. Procedures None recorded. Surgeries None recorded. Imaging None recorded. Medication Orders None recorded. Patient TargetsNo targets recorded. Patient Instructions Encounter Date Encounter Id Patient Instructions Last Modified By Organization Details Last Modified Time 02/03/2020 [id number] Reviewed the following recommendations: -Stay home and separate from others as much as possible. -Monitor your symptoms and seek medical attention for trouble breathing, persistent chest pain, confusion, or bluish lips or face. -Wear a mask if you must be around other people. -Wash your hands often for 20 seconds with soap and water and clean high-touch surfaces daily -You may discontinue home isolation if your symptoms are improving and it has been 10 days since symptoms started. [email or web address] Not available 02/03/2020 14:47:44 03/03/2020 [id number] Reviewed the following recommendations: -Stay home and separate from others as much as possible. -Monitor your symptoms and seek medical attention for trouble breathing, persistent chest pain, confusion, or bluish lips or face. -Wear a mask if you must be around other people. -Wash your hands often for 20 seconds with soap and water and clean high-touch surfaces daily -You may discontinue home isolation if your symptoms are improving and it has been 10 days since symptoms started. [email or web address] Not available 03/03/2020 10:43:43 Reason for Referral None Reported. Results Created Date Observation Date Name Description Value Unit Range Abnormal Flag Note LastModifiedBy Organization Detail LastModifiedTime 02/04/2002/04/2020 SARS CoV 2 RNA (COVI D-19) , QL, jewel diameter gauger-P CR, respi rator y speci men sars - cov - 2 PCR NEGATI VE mL Not Available [facility] (Lab) [address] [place], [address], 02/05/2020 20:21:39 02/04/20 20 02/04/2020 SARS CoV 2 RNA (COVI D-19) , QL, jewel diameter gauger-P CR, respi rator y speci men covidcom1 COMME NTS: This assay is desig justin to detec t the RdRp and N genes of SARS- CoV-2 using nucle ic acid ampli ficat ion. A negat barbara resul t does not precl ude the possi bilit y of 2019- nCoV infec tion since the adequ acy of sampl e colle ction and/o r low viral burde n may resul t in the prese nce of viral nucle ic acids level s below the alondra tical sensi tivit y of this test metho d. Not Available [facility] (Lab) [address] [facility], [place], [address], 02/05/2020 20:21:39 02/04/20 20 02/04/2020 SARS CoV 2 RNA (COVI D-19) , QL, jewel diameter gauger-P CR, respi rator y speci men covidcom2 Posit barbara resul ts are indic ative of the prese nce of SARS- CoV-2 RNA and do not rule out bacte rial infec tion or co-in fecti on with other virus es. Not Available [facility] (Lab) [address] [place], [address], 02/05/2020 20:21:39 02/04/20 20 02/04/2020 SARS CoV 2 RNA (COVI D-19) , QL, jewel diameter gauger-P CR, respi rator y speci men covidcom3 Test resul ts shoul d be used along with other clini jessica obser vatio ns, patie nt histo ry, epide miolo gical infor matio n and labor atory data in [facility] diagn osis. Not Available [facility] (Lab) [address] [facility], [place], [address], 02/05/2020 20:21:39 02/04/20 20 02/04/2020 SARS CoV 2 RNA (COVI D-19) , QL, jewel diameter gauger-P CR, respi rator y speci men covidcom4 This test has recei edu FDA Emerg ency Use Autho rizat ion and has been verif ied by [facility] . This test is only autho rized for the durat ion of the decla ratio n and the circu mstan lisa that exist to justi fy the autho rizat ion of the emerg ency use of in vitro diagn ostic tests for the detec tion of SARS- CoV-2 virus and/o r diagn osis of COVID -19 infec tion under secti on 564 (b) (1) of the Act. 11 U.S.C . 360bb b-3 (b) (1), unles s the autho rizat ion is termi nated or revok ed soone r. Not Available [facility] (Lab) [address] [place], [address], 02/05/2020 20:21:39 02/04/20 20 02/04/2020 SARS CoV 2 RNA (COVI D-19) , QL, jewel diameter gauger-P CR, respi rator y speci men covidcom5 [facility] is certi fied under CLIA- 88 as quali fied to perfo rm high compl exity testi ng. This testi ng was perfo rmed in the [facility] [place] [address] (CLIA Licen se #[id number] [id number], CAP #[id number], AU-ID #[id number]). Not Available [facility] (Lab) [address] [place], [address], 02/05/2020 20:21:39 02/04/20 20 02/04/2020 SARS CoV 2 RNA (COVI D-19) , QL, jewel diameter gauger-P CR, respi rator y speci men covidcom6 Facts heet for healt hcare provi ders: https ://ww w.fda .gov/ media /1362 56/do wnloa d Facts heet for patie nts: https ://Vortal w.fda .gov/ media /1362 57/do wnloa d Not Available [facility] (Lab) [address] [facility], [place], [address], 02/05/2020 20:21:39 03/03/20 20 03/03/2020 SARS CoV 2 RNA (COVI D-19) , QL, jewel diameter gauger-P CR, respi rator y speci men sars - cov - 2 PCR NEGATI VE mL Not Available [facility] (Lab) [address] [place], [address], 03/08/2020 08:46:03 03/03/20 20 03/03/2020 SARS CoV 2 RNA (COVI D-19) , QL, jewel diameter gauger-P CR, respi rator y speci men covidcom1 COMME NTS: This assay is desig justin to detec t the RdRp and N genes of SARS- CoV-2 using nucle ic acid ampli ficat ion. A negat barbara resul t does not precl ude the possi bilit y of 2019- nCoV infec tion since the adequ acy of sampl e colle ction and/o r low viral burde n may resul t in the prese nce of viral nucle ic acids level s below the alondra tical sensi tivit y of this test metho d. Not Available [facility] (Lab) [address] [facility], [place], [address], 03/08/2020 08:46:03 03/03/20 20 03/03/2020 SARS CoV 2 RNA (COVI D-19) , QL, jewel diameter gauger-P CR, respi rator y speci men covidcom2 Posit barbara resul ts are indic ative of the prese nce of SARS- CoV-2 RNA and do not rule out bacte rial infec tion or co-in fecti on with other virus es. Not Available [facility] (Lab) [address] [facility], [place], [address], 03/08/2020 08:46:03 03/03/20 20 03/03/2020 SARS CoV 2 RNA (COVI D-19) , QL, jewel diameter gauger-P CR, respi rator y speci men covidcom3 Test resul ts shoul d be used along with other clini jessica obser vatio ns, patie nt histo ry, epide miolo gical infor matio n and labor atory data in makin g the diagn osis. Not Available [facility] (Lab) [address] [facility], [place], [address], 03/08/2020 08:46:03 03/03/20 20 03/03/2020 SARS CoV 2 RNA (COVI D-19) , QL, jewel diameter gauger-P CR, respi rator y speci men covidcom4 This test has recei edu FDA Emerg ency Use Autho rizat ion and has been verif ied by [facility] . This test is only autho rized for the durat ion of the decla ratio n and the circu mstan lisa that exist to justi fy the autho rizat ion of the emerg ency use of in vitro diagn ostic tests for the detec tion of SARS- CoV-2 virus and/o r diagn osis of COVID -19 infec tion under secti on 564 (b) (1) of the Act. 11 U.S.C . 360bb b-3 (b) (1), unles s the autho lia callejas is termi nated or revok ed soone r. Not Available [facility] (Lab) [address] [place], [address], 03/08/2020 08:46:03 03/03/20 20 03/03/2020 SARS CoV 2 RNA (COVI D-19) , QL, jewel diameter gauger-P CR, respi rator y speci men covidcom5 [facility] certi f[facility] under CLIA- 88 as quali fied to perfo rm high compl exity testi ng. This testi ng was perfo rmed in the [facility] [place] [address] (CLIA Licen se #[id number] 5, CAP #[id number], AU-ID #[id number]). Not Available [facility] (Lab) [address] [place], [address], 03/08/2020 08:46:03 03/03/20 20 03/03/2020 SARS CoV 2 RNA (COVI D-19) , QL, jewel diameter gauger-P CR, respi rator y speci men covidcom6 Facts heet for healt hcare provi ders: https ://ww w.fda .gov/ media /1362 56/do wnloa d Facts heet for patie nts: https ://ww w.fda .gov/ media /1362 57/do wnloa d Not Available [facility] (Lab) [address] [place], [address], 03/08/2020 08:46:03 Result Notes None recorded. Medical Equipment None Reported. Medications Name Sig Start Date Stop Date Status Note LastModified by Organization Details LastModified Time azithromycin 250 mg tablet active Not Available Not Available No t Available fluconazole 150 mg tablet active Not Available Not Available Not Available ciprofloxacin 500 mg tablet active Not Available Not Available No t Available sulfamethoxazole 800 mg-trimethoprim 160 mg tablet active Not Available Not Availabl e Not Available amoxicillin 875 mg tablet active Not Available Not Available Not Available Fluzone Quad (PF) 60 mcg (15 mcg x 4)/0.5 mL IM syringe active Not Available Not Available Not Available Vitals None Recorded Social History None recorded. Functional Status None recorded. Mental Status None recorded. Family History Nothing Reported. Medical History No medical history recorded. Gynecological HistoryNo gynecological history recorded. Obstetrics History GPAL:G 0 P 0 0 0 0 Past Encounters Encounter ID Performer Location Encounter Start Date Encounter Closed Date Diagnosis/Indication Diagnosis SNOMED-CT Code Diagnosis ICD10 Code Diagnosis Note [id number] ELODIA Eason [address] [place] [address] 02/03/2020 14:23:25 02/05/2020 07:32:41 Viral screening 549303375 Z11.59 D/w pt the current pandemic of COVID-19 and call for social isolation in order to blunt the curve and minimize risk and spread. Encouraged patient and family to take restrictio ns seriously. They have verbalized understand ing of such. Viral syndrome 460951563 B34.9 [id number] ELODIA Eason [address] [place] [address] 03/03/2020 09:01:02 03/05/2020 10:35:01 Viral screening 050927960 Z11.59 D/w pt the current pandemic of COVID-19 and call for social isolation in order to blunt the curve and minimize risk and spread. Encouraged patient and family to take restrictio ns seriously. They have verbalized understand ing of such. Health Concerns Section Related Observation LastModified by Organization Detai ls LastModified Time None Recorded Concern Status LastModified by Organization Details LastModified Time None Recorded Advance Directives Directive None Recorded Payers Encounter Date Sequence Insurance Name Policy Number Policy De León Covered Member ID De León Member ID Guarantor Name 02/03/2020 1 [facility] - DOS PRIOR TO 2020 (MEDICAID REPLACEMENT - HMO) Josselyn Arndt [id number] Josselyn Arndt 03/03/2020 1 [facility] - DOS PRIOR TO 2020 (MEDICAID REPLACEMENT - HMO) Josselyn Arndt [id number] Josselyn Arndt Notes Date Note Type Note Provider Name and Address Organization Details Recorded Time 02/03/2020 text/html COVID ScreeningReported bypatient.Onset/Durati on of fever:no fever Associated Symptoms:no cough; no shortness of breathCOVID-19 Symptoms August 2019Reported bypatient.COVID-19 Signs and Symptomscough resolved; fever resolved; shortness of breath resolved; chills resolved; repeated shaking with chills resolved; muscle pain resolved; headache resolved; sore throat resolved; loss of taste or smell resolved; vomiting or diarrhea resolved; fatigue resolved; anorexia resolved 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 ZAHRA Cruz NP Attn: Accounting,[address] [place], [address], [facility] 02/03/2020 14:48:11 03/03/2020 text/html COVID ScreeningReported bypatient.Associated Symptoms:coughCOVID-19 Symptoms August 2019Reported bypatient.COVID-19 Signs and Symptomscough resolved; cough same; fever resolved; shortness of breath resolved; chills resolved; repeated shaking with chills resolved; muscle pain resolved; headache resolved; sore throat resolved; sore throat same; loss of taste or smell resolved; vomiting or diarrhea resolved; fatigue resolved; anorexia resolved Contacts and Exposurepotential exposure in specific settings where COVID-19 cases have been reported Context:chronic bronchitis Associated Symptoms:no sputum production; no wheezing; no runny nose; no vomiting; no diarrhea; no body aches; no nausea; no change in mental status; no hypotension; no tachycardia 34 yo female ,spoke via phone with C/O, cough, sore throat, exposed to pos COVID person. ZAHRA Cruz NP Attn: Accounting,[address] [facility], [place], [address], [facility] 03/03/2020 10:44:11 OBGyn Episode No OBEpisode recorded.
--- OUTSIDE RECORDS SUMMARY | 2024-05-07 12:17 | XMS_ITS | Encounter Summary ---
Author Organization [facility] Address [address] [place] [address] Care Team Providers Care Team Primary Care Physician Name Role Phone Jo Cardenas MD Primary Care Provider [phone] Reason for Visit * Reason Comments Nausea pt is 4 months pregn ant, here with son, very nauseas and having h/a. Encounter Details Date Type Department Care Team (Late st Contact Info) Description 04/02/2014 1:53 PM FUR STORAGE CLERK - 04/02/2014 3:34 PM FUR STORAGE CLERK Emergency ER at [address] [address] Greer Moreland DO [address] [place] [id number] Gastroenteritis Discharge Disposition: Home or Self Care Social History Tobacco Use Types Packs/Day Years Used Date Smoking Tobacco: Never Alcohol Use Standard Drinks/Week Comments No 0 (1 standard drink = 0.6 oz pur e alcohol) Comments Yes Sex and Gender Information Value Date Recorded Sex Assigned at Not on file Gender Identity Not on file Sexual Orientation Not on file documented as of this encounter Last Filed Vital Signs Vital Sign Reading Time Taken Comments Blood Pressure 122/64 04/02/2014 3:33 PM FUR STORAGE CLERK Pulse 124 04/02/2014 3:33 PM FUR STORAGE CLERK Temperature 37.1 ??C (98.8 ??F) 04/02/2014 3:33 PM CS T Respiratory Rate 16 04/02/2014 3:33 PM FUR STORAGE CLERK Oxygen Saturation - - Inhaled Oxygen Concentration - - Weight 131.5 kg (290 lb) 04/02/2014 1:53 PM FUR STORAGE CLERK Height - - Body Mass Index - - documented in this encounter Discharge Instructions * Discharge Instructions* Wes Badillo MD - 04/02/2014 3:13 PM FUR STORAGE CLERK Images from the original note were not included. Follow a BRAT diet. Take your home medication, zofran, as needed. Phone Dr. Dias within 1 days. Follow up in office within 5 days. B.R.A.T. Diet Your doctor has recommended the B.R.A.T. diet for you or your child until the condition improves. This is often used to help control diarrhea and vomiting symptoms. If you or your child can tolerate clear liquids, you may have: ?? Bananas. ?? Rice. ?? Applesauce. ?? [place] (and other simple starches such as crackers, potatoes, noodles). Be sure to avoid dairy products, meats, and fatty foods until symptoms are better. Fruit juices such as apple, grape, and prune juice can make diarrhea worse. Avoid these. Continue this diet for 2 days or as instructed by your caregiver. Document Released: 04/16/2006 Document Revised: 07/08/2012 Document Reviewed: 10/03/2007 ExitCare?? Patient Information ??2013 [employer]. STORAGE CLERK documented in this encounter Medications at Time of Discharge Medication Sig Dispensed Refills Start Date End Date Vit-Fe Fumarate-FA ( VITAMIN) 28-0.8 MG tablet Take 1 Tab by mouth once daily. documented as of this encounter ED Notes * Divine Reyes RN - 04/02/2014 3:33 PM CST Pt active, alert, oriented upon discharge. Discharge instructions given/reiviewed with pt. Pt denied any questions or concerns upon discharge. STORAGE CLERK * Divine Reyes RN - 04/02/2014 3:07 PM CST at . STORAGE CLERK * Wes Badillo MD - 04/02/2014 2:37 PM CST EMERGENCY DEPARTMENT 04/02/2014 Dear Doctor, We had the pleasure of caring for your patient, Josselyn Arndt in our emergency department on 04/02/2014. A note from the provider(s) who cared for your patient is attached. Should you wish to access any laboratory results, please call . Should you wish to access any radiology results, please call , option 3. In addition, you can access patient information 24 hours a day, from any computer, through [employer], the online version of our electronic medical record. If you would like to use this service, please call Neela Martines, Connectivity Coordinator, at . We appreciate the opportunity to care for your patients. If you would like additional information, please call the emergency department directly at . Sincerely, Wes Badillo MD Division of Emergency Medicine [place], [place] [facility] [place] Provider contact with the patient: 04/02/2014 14:37 Josselyn Arndt [id number] [facility] EMERGENCY DEPARTMENT History Chief Complaint Patient presents with ??? Nausea pt is 4 months , here with son, very nauseas and having h/a. HPI Comments: Josselyn Arndt is a 28 y.o. female at 16 weeks gestation who presents with nausea and vomiting. Onset of N/V at 0000 this morning after working a 16 hours shift and then taking her son to the ER for illness. The patient denies pain, loss of fluid, vaginal bleeding, abdominal cramping, vaginal discharge, or fever. She reports 2 episodes of vomiting. First was at midnight, only food. The next was this am. Reports yellow/clear emesis. No past medical history on file. Past Surgical History Procedure Laterality Date ??? Ovarian cystectomy L side in 2008 History Social History ??? Marital Status: Single Spouse Name: N/A Number of Children: N/A ??? Years of Education: N/A Occupational History ??? Not on file. Social History Main Topics ??? Smoking status: Never Smoker ??? Smokeless tobacco: Not on file ??? Alcohol Use: No ??? Drug Use: No ??? Sexual Activity: Not on file Other Topics Concern ??? Not on file Social History Narrative Medications Current Outpatient Prescriptions Medication Sig Dispense Refill ??? Vit-Fe Fumarate-FA ( VITAMIN) 28-0.8 MG tablet Take 1 Tab by mouth once daily. Review of Systems Review of Systems Constitutional: Negative for fever and chills. HENT: Positive for sinus pressure. Negative for ear pain, sneezing, sore throat and voice change. Eyes: Negative for pain, discharge and redness. Respiratory: Negative for shortness of breath. Cardiovascular: Negative for palpitations. Gastrointestinal: Positive for nausea and vomiting. Negative for abdominal pain, diarrhea, constipation and blood in stool. Skin: Negative for rash. Psychiatric/Behavioral: Negative for suicidal ideas and self-injury. BP 98/42 Pulse 120 Temp(Src) 98.8 ??F Resp 24 Wt 131.543 kg (290 lb) Physical Exam Physical Exam Constitutional: She appears well-developed and well-nourished. No distress. HENT: Head: Normocephalic and atraumatic. Right Ear: External ear normal. Left Ear: External ear normal. Eyes: Conjunctivae are normal. Pupils are equal, round, and reactive to light. Cardiovascular: Normal rate, regular rhythm and normal heart sounds. No murmur heard. Blood pressure normal Pulmonary/Chest: Effort normal and breath sounds normal. Abdominal: Soft. Bowel sounds are normal. She exhibits no distension and no mass. There is no tenderness. There is no rebound and no guarding. No hernia. Gravid, obese. Doppler 140bpm. Vitals reviewed. Procedures Procedures ECG Interpretation ECG Interpretation Lab/SPO2 Interpretation Progress Notes ED Course 3:03 PM: Patient was much improved after 1 dose of zofran. Likely gastroenteritis or hyperemesis gravidarum. History is not consistent with concern for demise. Doppler okay at 140bpm. Discussedwith patient and attending, Dr. Moreland. Discharge to home with close follow up with Dr. Dias within 5 days. Medical Decision Making Clinical Impression Final diagnoses: Gastroenteritis STORAGE CLERK * Greer Moreland, - 04/02/2014 2:33 PM CST Provider contact with the patient: 04/02/2014 14:33 Josselyn Arndt [id number] [facility] EMERGENCY DEPARTMENT History Chief Complaint Patient presents with ??? Nausea pt is 4 months , here with son, very nauseas and having h/a. I have read the resident/COPY CUTTER history. Unless appended by me below, I agree with findings as documented. HPI Comments: CC: nausea Pt here with child who is a pt in ED States she has not had zofran here with her Is now c/o worsening nausea Review of Systems All relevant systems reviewed and all negative except as noted in resident and attending HPI/ROS Review of Systems Eyes: Negative for visual disturbance. Gastrointestinal: Positive for nausea and vomiting. BP 98/42 Pulse 120 Temp(Src) 98.8 ??F Resp 24 Wt 131.543 kg (290 lb) Physical Exam I have reviewed the resident/COPY CUTTER physical exam. Unless appended by me below, I agree with the PE as documented. Physical Exam Constitutional: She appears well-developed and well-nourished. No distress. HENT: Head: Normocephalic and atraumatic. Cardiovascular: Normal rate. Pulmonary/Chest: Effort normal and breath sounds normal. Abdominal: Obese, gravid abdomen Neurological: She is alert. Skin: Skin is warm and dry. Procedures Procedures ECG Interpretation ECG Interpretation Progress Notes ED Course Given dose of zofran here and reports symptoms have resolved FHT doppled at 140s Medical Decision Making I have reviewed the: Nursing Notes and Vitals. The total time providing critical care (excluding time spent for procedures) was 0 minutes. I have personally seen and examined this patient. I have fully participated in the care of this patient. I have reviewed all pertinent clinical information available to me during this encounter, including history, physical exam and plan. I have reviewed nursing notes, available labs and radiographic studies. With respect to physicians in training and mid-level providers, I agree with the assessment and plan except if revised in my note. Clinical Impression 1. Nausea 2. STORAGE CLERK * Divine Reyes RN - 04/02/2014 2:[address] Moreland aware of pt. STORAGE CLERK documented in this encounter Plan of Treatment Not on file documented as of this encounter Visit Diagnoses Diagnosis Gastroenteritis Other and unspecified noninfectious gastroenteritis and colitis documented in this encounter Administered Medications Inactive Administered Medications - up to 3 most recent administrations Medication Order MAR Action Action Date Dose Rate Site ondansetron (disintegrating) (ZOFRAN ODT) tablet 4 mg 4 mg, Sublingual, ONCE, 1 dose, On Maria Fernanda 04/02/14 at 1500 $ Given 04/02/2014 2:49 PM FUR STORAGE CLERK 4 mg documented in this encounter Active and Recently Administered Medications Times are shown in FUR STORAGE CLERK. Scheduled Medication Order 03/31/2014 04/01/2014 04/02/2014 ondansetron (disintegrating) (ZOFRAN ODT) tablet 4 mg (COMPLETED) 4 mg, Sublingual, ONCE, 1 dose, On Maria Fernanda 04/02/14 at 1500 1449 ($ Given - Prov ider: Bianca Davila RN) documented in this encounter Care Teams Team Primary Care Physician Relationship Specialty Start Date End Date Jo Cardenas MD PCP - General Family Medicine 04/02/14 documented as of this encounter
--- OUTSIDE RECORDS SUMMARY | 2024-05-07 12:17 | XMS_ITS | Patient Health Summary ---
Author Organization [facility] Address [address] [place] [address] Care Team Providers Care Party Bus Driver Name Role Phone Jo Cardenas MD Primary Care Provider [phone] Note from [facility],non-owned Affiliates and Associated Physician Practices is amultiple site organization consisting of ambulatory clinics and hospital sitesin [place], [place], [place] and [place]. This disclosure is being madepursuant to the Care Everywhere program and may not contain all information available regarding this patient. Last updated 18.[facility] Allergies No known active allergies Medications * Be aware that medications may not be up to date on this document. Alwaysverify current medications with the patient. * Vit-Fe Fumarate-FA ( VITAMIN) 28-0.8 MG tablet Take 1 Tab by mouth once daily. Social History Tobacco Use Types Packs/Day Years [...] Comments Blood Pressure 122/64 04/02/2014 3:33 PM SOFTWARE CONFIGURATION ANALYST Pulse 124 04/02/2014 3:33 PM SOFTWARE CONFIGURATION ANALYST Temperature 37.1 ??C (98.8 ??F) 04/02/2014 3:33 PM CS T Respiratory Rate 16 04/02/2014 3:33 PM SOFTWARE CONFIGURATION ANALYST Oxygen Saturation - - Inhaled Oxygen Concentration - - Weight 131.5 kg (290 lb) 04/02/2014 1:53 PM SOFTWARE CONFIGURATION ANALYST Height - - Body Mass Index - - Care Teams Party Bus Driver Relationship Specialty Start Date End Date Jo Cardenas MD PCP - General Family Medicine 04/02/14
--- OUTSIDE RECORDS SUMMARY | 2024-05-07 12:17 | XMS_ITS | Clinical Summary ---
Author Organization [facility] [employer] Address [address] [place] [address] Care Team Providers Care Design Printer Balloon Name Role Phone Jo Cardenas MD Primary Care Provider [phone] Source Comments [facility] [employer],non-owned Affiliates and Associated Physician Practices is amultiple site organization consisting of ambulatory clinics and hospital sitesin [place], [place], [place] and [place]. This disclosure is being madepursuant to the Care Everywhere program and may not contain all information available regarding this patient. Last updated 18.[facility] [employer] Allergies No known active allergies Medications * [...] Comments Blood Pressure 122/64 04/02/2014 3:33 PM AUTOMOBILE ASSEMBLY SUPERVISOR Pulse 124 04/02/2014 3:33 PM AUTOMOBILE ASSEMBLY SUPERVISOR Temperature 37.1 ??C (98.8 ??F) 04/02/2014 3:33 PM CS T Respiratory Rate 16 04/02/2014 3:33 PM AUTOMOBILE ASSEMBLY SUPERVISOR Oxygen Saturation - - Inhaled Oxygen Concentration - - Weight 131.5 kg (290 lb) 04/02/2014 1:53 PM AUTOMOBILE ASSEMBLY SUPERVISOR Height - - Body Mass Index - - Plan of Treatment Health Maintenance Due Date Last Done Comments PAP SMEAR 1987 HIV SCREENING 2002 HEPATITIS C SCREENING 04/30/2005 DTAP/TDAP/TD VACCINES (1 - Tdap) 2006 HEPATITIS B VACCINE (1 of 3 - 19+ 3-dose series) 2006 DEPRESSION SCREENING 04/30/2023 COVID-19 VACCINE (1 - 2023-2 5 season) 2023 INFLUENZA VACCINE (#1) 2023 ZOSTER VACCINE (1 of 2) 2037 Respiratory Syncytial Virus (RSV) Vaccine Pt: or over 60 yrs (1 - 1-dose 75+ series) 2062 HIB VACCINE Aged Out No longer eligi ble based on patient's age to complete this topic HPV VACCINE Aged Out No longer eligi ble based on patient's age to complete this topic MENINGOCOCCAL VACCINE Aged Out No nellie channing eligible based on patient's age to complete this topic PNEUMOCOCCAL VACCINE Aged Out No long er eligible based on patient's age to complete this topic Care Teams Design Printer Balloon Relationship Specialty Start Date End Date Jo Cardenas MD PCP - General Family Medicine 04/02/14
--- OUTSIDE RECORDS SUMMARY | 2024-05-07 12:17 | XMS_ITS | Clinical Summary ---
Author Organization [facility] Address [address] [place] [address] Phone Care Team Providers Care Renovation Plant Supervisor Name Role Phone Jeanei Jewell APRN, MARY Primary Care Provider Allergies No known active allergies Medications traMADol (ULTRAM) 50 MG Tablet Take 1-2 Tabs by mouth every 6 hours as needed for Pain. 20 Tab 0 10/05/2015 Active ondansetron (ZOFRAN) 4 MG Tablet Take 1-2 Tabs by mouth every 8 hours as needed for Nausea. 10 Tab 0 10/05/2015 Active Multiple Vitamins-Mineral s (MULTIVITAMIN PO) Take 1 Tab by mouth daily. Active HYDROcodone-acet aminophen (NORCO) 5-325 MG Tablet Take 1-2 Tabs by mouth every 6 hours as needed for Pain. 20 Tab 0 01/26/2016 Active baclofen (LIORESAL) 10 MG Tablet Take 1 Tab by mouth 3 times daily. 90 Tab 0 01/26/2016 Active hydroCHLOROthiaz ayaan 25 MG Tablet Take 25 mg by mouth daily. Active LOSARTAN POTASSIUM PO Take 25 mg by mouth daily. Active Active Problems No known active problems Social History Tobacco Use Types Packs/Day Years Used Date Smoking Tobacco: Every Day Cigarettes Smokeless Tobacco: Never Alcohol Use Standard Drinks/Week Comments No 0 (1 standard drink = 0.6 oz pur e alcohol) socially Comments No Sex and Gender Information Value Date Recorded Sex Assigned at Not on file Legal Sex Female 8:59 PM CDT Gender Identity Not on file Sexual Orientation Not on file Last Filed Vital Signs Vital Sign Reading Time Taken Comments Blood Pressure 129/85 07/19/2017 1:07 PM CDT Pulse 104 07/19/2017 10:06 AM CDT Temperature 36.3 ??C (97.4 ??F) 07/19/2017 10:06 AM C DT Respiratory Rate 18 07/19/2017 10:06 AM CDT Oxygen Saturation 99% 07/19/2017 10:06 AM CDT Inhaled Oxygen Concentration - - Weight 124.7 kg (275 lb) 07/19/2017 10:06 AM CDT Height 172.7 cm (5' 8 ) 07/19/2017 10:06 AM CDT Body Mass Index 41.81 07/19/2017 10:06 AM CDT Plan of Treatment Health Maintenance Due Date Last Done Comments Hepatitis C Virus (HCV) Screening 1987 Hepatitis B Immunization (1 of 3 - 19+ 3-dose series) 2006 Pap Smear 2008 Cervical Cancer Screening (CCS) 2017 HPV/Cotest 2017 Influenza Immunization (#1) 2023 SARS-COV-2 Immunization ( season) 2023 Respiratory Syncytial Virus (RSV) Immunization (Adult) (1 - 1-dose 75+ series) 2062 DTaP/Tdap/Td Immunization Discontinued 09/11/2014 TdaP Immunization Completed 09/11/2014 Meningococcal Immunization (ACWY) Aged Out No longer eligible based on patient's age to complete this topic Pneumococcal Immunization Combined Aged Out No longer eligible b ased on patient's age to complete this topic Rotavirus Immunization Aged Out No lo nger eligible based on patient's age to complete this topic Insurance MEDICAID [employer] [facility] Care Teams Renovation Plant Supervisor Relationship Specialty Start Date End Date Jeanie Jewell, SEED LABORATORY ASSISTANT, REGULATORY COMPLIANCE SPECIALIST [address] [place] [address] [place] [address] PCP - General Certified Nurse Practitioner 10/05/15
--- OUTSIDE RECORDS SUMMARY | 2024-05-07 12:17 | XMS_ITS | Clinical Summary ---
Author Organization [facility] Address [address] [place] [address] Phone Care Team Providers Care Palliative Care Nurse Name Role Phone Unavailable Unavailable Unavailable Reason for Visit and Chief Complaint The Chief Complaint is: Annual Exam...patient is having two full cycles a . of the month it last 7-10 days. The second is between 3-4 week of the month and lasting 7-10 days as well Problems Includes: Problems addressed during this encounter and other active Problems All Visits Onset Date Resolved Date Provider Condition S tatus Ovarian Cyst 05/14/2013 NIEVES TURNER WHNP-BC Active Last Documented On 05/14/2013 1:06PM ; [facility] Note: History of Obesity 02/12/2013 NIEVES TURNER WHNP-BC Active Last Documented On 3 10:08AM ; [facility] Plan of Treatment Heavy periods: we discussed POP, depo provera, or Mirena. She had trouble losing weight with POP in past and had Mirena before but got ovarian cyst requiring surgery while on it. She is not good candidate for estrogen due to HTN. She has been trying to lose weight, so she wants to try Mirena again. U/S ordered due to heavy frequent periods and to make sure no significant ovarian cyst prior to IUD insertion - Last Documented On 06/26/2017 2:39PM ; [facility] Instructions to patient Instructions for patient : B reast Self Exam discussed Last Documented On 8 2:35PM ; [facility] Education and Decision Aids were provided during visit for: STD screening offered and de clined Last Documented On 8 2:35PM ; [facility] Assessments Includes: Assessments from this encounter Findings - Routine pelvic exam - Last Documented On 06/26/2017 2:39PM ; [facility] - Menometrorrhagia - Last Documented On 06/26/2017 2:39PM ; [facility] Instructions Includes: Instructions from this encounter Instructions to patient Instructions for patient : B reast Self Exam discussed Last Documented On 8 2:35PM ; [facility] Education and Decision Aids were provided during visit for: STD screening offered and de clined Last Documented On 8 2:35PM ; [facility] Medical Equipment - Implanted Devices Includes: Current Devices No Medical Equipment Recorded Medications Includes: Medications discussed during this encounter and other current Medications Current Medications (continue as prescribed) HydroCHLOROthiazide 50MG Oral Tablet 07/31/2017 Prov ider: Diagnosis: Last Documented On 8 9:16AM By JERROD STEPHENS ; [facility] Mirena (52 MG) 20MCG/24HR Intrauterine Intrauterine de vice 07/31/2017 Provider: Diagnosis: Last Documented On 8 10:45AM By JERROD STEHPENS ; [facility] Losartan Potassium 25MG Oral Tablet 06/26/2017 Provi akilah: Diagnosis: Last Documented On 06/26/2017 1:28PM By Kamilah Badillo MA ; [facility] ProAir HFA 108 (90 Base)MCG/ACT Inhalation Aeros ol Solution 06/26/2017 Provider: Diagnosis: PRN-while she is sick. Last Documented On 06/26/2017 1:30PM By Kamilah Badillo MA ; [facility] Past Medications on file Fannie 0.35 MG Tablet 04/17/2016 - 03/19/2017 Provider : REMBERTO ESQUEDA MD Diagnosis: Other ovarian cy sts One tablet daily Last Documented On 04/17/2016 10:21AM By REMBERTO ESQUEDA MD ; [facility] Ferrous Sulfate 325 (65 Fe) MG OR TABS 06/12/2014 - 12/09/2014 Provider: REMBERTO ESQUEDA MD Diagnosis: one po daily at a different time than pnv was phoned to [facility] Last Documented On 5 3:11PM By XUAN MORALES LPN ; [facility] Colace 100 MG OR CAPS 06/11/2014 - 10/09/2014 Provider : REMBERTO ESQUEDA MD Diagnosis: Last Documented On 06/11/2014 11:09AM By REMBERTO ESQUEDA MD ; [facility] 19 OR TABS 02/19/2014 - 02/14/2015 Provider: REMBERTO ESQUEDA MD Diagnosis: Last Documented On 02/19/2014 10:29AM By REMBERTO ESQUEDA MD ; [facility] Diflucan 150 MG OR TABS 05/14/2013 - 05/15/2013 Provider: NIEVES TURNER ELODIA- Diagnosis: CANDIDAL VULVOVA GINITIS 1 po x 1 and rpt. in 3 days Last Documented On 4 1:28PM By NIEVES TURNER ELODIA- ; [facility] Terazol 7 0.4% VA CREA 08/24/2011 - 09/23/2011 Provide r: NIEVES TURNER ELODIA-BC Diagnosis: insert 1 applicator vaginally q hs x 7 nocs Last Documented On 2 10:25AM By NIEVES TURNER ELODIA- ; [facility] Augmentin 875-125 MG OR TABS 08/24/2011 - 09/03/2011 P rovider: NIEVES TURNER ELODIA- Diagnosis: Last Documented On 2 10:26AM By NIEVES TURNER ELODIA- ; [facility] Fioricet 50-325-40 MG OR TABS 06/30/2011 - 07/30/2011 Provider: REMBERTO ESQUEDA MD Diagnosis: i-ii po Q 4 hours prn headac he, do not exceed 6 tabs/24 hours Last Documented On 06/30/2011 1:48PM By REMBERTO ESQUEDA MD ; [facility] Zithromax Z-Lincoln 250 MG OR TABS 05/08/2011 - 05/13/2011 Provider: REMBERTO ESQUEDA MD Diagnosis: Last Documented On 05/08/2011 4:52PM By REMBERTO ESQUEDA MD ; [facility] Vitamin B-6 25 MG OR TABS 05/02/2011 - 07/01/2011 Prov ider: REMBERTO ESQUEDA MD Diagnosis: Last Documented On 05/02/2011 1:24PM By REMBERTO ESQUEDA MD ; [facility] Zofran 8 MG OR TABS 05/02/2011 - 06/01/2011 Provider: REMBERTO ESQUEDA MD Diagnosis: Last Documented On 05/02/2011 1:23PM By REMBERTO ESQUEDA MD ; [facility] Flagyl 500 MG OR TABS 08/22/2010 - 08/29/2010 Provider : FABIOLA CRISTOBAL Diagnosis: VAGINITIS NOS no alcohol Last Documented On 08/22/2010 8:22AM By FABIOLA CRISTOBAL ; [facility] NuvaRing 0.12-0.015 MG/24HR VA RING 08/17/2010 - 09/16/2010 Provider: FABIOLA CRISTOBAL Diagnosis: OTHER FAMILY PLANNING ADVICE NEC One ring intravaginally x 3 weeks Last Documented On 08/17/2010 9:04AM By FABIOLA CRISTOBAL ; [facility] Diflucan 150 MG OR TABS 08/16/2010 - 08/17/2010 Provid er: REMBERTO ESQUEDA MD Diagnosis: Last Documented On 08/16/2010 11:50AM By REMBERTO ESQUEDA MD ; [facility] Darvocet-N 100 100-650 MG OR TABS 08/05/2009 - 010 Provider: REMBERTO ESQUEDA MD Diagnosis: Last Documented On 08/05/2009 2:45PM By REMBERTO ESQUEDA MD ; [facility] Medications Administered Includes: Administered Medications from this encounter No Administered Medications Recorded Vital Signs Includes: Vital Signs from this encounter Vital Name 06/26/2017 01:28P Blood Pressure Sitting (mmHg) 136/78 Pulse Rate-Sitting (bpm) 86 Height (in) 68 Weight (lb) 286.4 Body Mass Index (kg/m2) 43.5 Body Surface Area (m2) 2.4 Last Documented: On 06/26/2017 1:33PM ; [facility] Results Includes: Results discussed during this encounter No Results Recorded For Specified Dates History of Present Illness Includes: History of Present Illness from this encounter HPI REMBERTO TRAVIS is a 32 year old female. - Medication list reviewed. - Unusual bleeding periods Q2 - 2 1/2 weeks lasting 7-10 days since March, approximately once a month prior to that. - Pelvic pain both lower quadrants at times, not taking any pain meds. - No vaginal discharge. She's not currently in a relationship Social History Description Last Updated In monogamous relationship 06/26/2017 Last Documented On 8 2:39PM ; [facility] Alcohol use: 2 drinks or less per day oc c 06/26/2017 Last Documented On 8 2:39PM ; [facility] Cigarette smoking Former smoker 06/26/19 18 Last Documented On 8 2:39PM ; [facility] Non-smoker 06/26/2017 Last Documented On 8 2:39PM ; [facility] Sexually active 06/26/2017 Last Documented On 8 2:39PM ; [facility] Smoking status : Never smoker 06/26/2017 Last Documented On 8 2:39PM ; [facility] Procedures and Surgical History Includes: Procedures from this encounter Procedures Code Diagnosis Performing Provider Service L ocation Service Date Clinical summary provided to patient Last Documented On 8 2:35PM ; [facility] Medical History Includes: Medical History addressed during this encounter Description Last Updated Contraception: condoms 06/26/2017 Last Documented On 8 2:39PM ; [facility] LMP: 06/23/2017 06/26/2017 Last Documented On 8 2:39PM ; [facility] Result: normal 06/26/2017 Last Documented On 8 2:39PM ; [facility] 3 06/26/2017 Last Documented On 8 2:39PM ; [facility] Last pap smear date 04/17/2016 8 Last Documented On 8 2:39PM ; [facility] Para 3 06/26/2017 Last Documented On 8 2:39PM ; [facility] Family History Includes: Family History addressed during this encounter Description Last Updated Family history of heart disease mgm 04/30 Last Documented On 8 1:22PM ; [facility] Family history of hypercholesterolemia m gm 05/14/2013 Last Documented On 8 1:22PM ; [facility] Family history of hypertension maternal grandparents, pgf 05/14/2013 Last Documented On 8 1:22PM ; [facility] Family history of malignant neoplasm of the ovary mother at age 36, maternal grandmother, paternal grandmother 05/14/2013 Last Documented On 8 1:22PM ; [facility] Family history of diabetes m ellitus maternal grandmother, paternal grandmother, paternal grandfather 01/05/2011 Last Documented On 8 1:22PM ; [facility] Family history of malignant female breas t neoplasm maternal grandmother 01/05/2011 Last Documented On 8 1:22PM ; [facility] Family history unchanged 01/05/2011 Last Documented On 8 1:22PM ; [facility] Family history of Diabetes 05/12/2009 Last Documented On 8 1:22PM ; [facility] Review of Systems Includes: Review of Systems from this encounter Systemic: No recent weight change. Head: No headache. Eyes: No vision problems. Otolaryngeal: No hoarseness. Cardiovascular: No chest pain or discomfort and no palpitations. Pulmonary: No shortness of breath. Gastrointestinal: Normal appetite. No nausea, no vomiting, and no hematochezia. No diarrhea and no constipation. Genitourinary: No nocturia. No urinary loss of control and no dysuria. Musculoskeletal: No arthralgias and no localized joint swelling. Neurological: No tingling and no numbness. Psychological: No anxiety, no depression, and no sleep disturbances. Mental Status Includes: Mental Status from this encounter Description No anxiety Functional Status Includes: Functional Status from this encounter No Functional Status Recorded Physical Exam Includes: Physical Exam from this encounter Allergies Includes: Active Allergies No Known Allergies Encounters Encounter Provider Location Date Check-In Time Check-Out Time Diagnosis [facility] EXAM REMBERTO ESQUEDA MD [facility] HELICOPTER PILOT 8 1:20PM 2:41PM Menometrorrha myron,Routine Pelvic Exam Clinical Notes Includes: Clinical Notes from this encounter No Clinical Notes Recorded
--- OUTSIDE RECORDS SUMMARY | 2024-05-07 12:17 | XMS_ITS | Clinical Summary ---
Author Organization [facility] Address [address] [place] [address] Phone Care Team Providers Care Corporate Associate Name Role Phone Unavailable Unavailable Unavailable Reason for Visit and Chief Complaint gynecologic annual exam - The Chief Complaint is: Annual exam Problems Includes: Problems addressed during this encounter and other active Problems All Visits Onset Date Resolved Date Provider Condition S tatus Ovarian Cyst 05/14/2013 NIEVES TURNER NP-BC Active Last Documented On 05/14/2013 1:06PM ; [facility] Note: History of Obesity 02/12/2013 NIEVES TURNER NP-BC Active Last Documented On 3 10:08AM ; [facility] Plan of Treatment Contraception: partner s/p vasectomy Continue POP for cycle control/ovarian cysts - Last Documented On 04/17/2016 10:11AM ; [facility] Instructions to patient Instructions for patient : B reast Self Exam discussed Last Documented On 6 9:49AM ; [facility] Education and Decision Aids were provided during visit for: STD screening offered and de clined Last Documented On 6 9:49AM ; [facility] Assessments Includes: Assessments from this encounter Findings - Routine pelvic exam - Last Documented On 04/17/2016 10:11AM ; [facility] Instructions Includes: Instructions from this encounter Instructions to patient Instructions for patient : B reast Self Exam discussed Last Documented On 6 9:49AM ; [facility] Education and Decision Aids were provided during visit for: STD screening offered and de clined Last Documented On 6 9:49AM ; [facility] Medical Equipment - Implanted Devices Includes: Current Devices No Medical Equipment Recorded Medications Includes: Medications discussed during this encounter and other current Medications Discontinued / Stopped on this date on 02/07/2016 One Daily Womens Tablet Provider: Diagnosis: Last Documented On 6 9:39AM By JERROD STEPHENS ; [facility] New / Renewed during this visit REMBERTO ESQUEDA MD on 04/17/2016 Fannie 0.35 MG Tablet Provider: REMBERTO ESQUEDA MD 84 day supply: 84 tablet, 3 refills Diagnosis: Other ovarian cysts One tablet daily Pharmacy: [facility] [address], [phone] Last Documented On 04/17/2016 10:21AM By REMBERTO ESQUEDA MD ; [facility] Current Medications (continue as prescribed) HydroCHLOROthiazide 50MG Oral Tablet 07/31/2017 Prov ider: Diagnosis: Last Documented On 8 9:16AM By JERROD STEPHENS ; [facility] Mirena (52 MG) 20MCG/24HR Intrauterine Intrauterine de vice 07/31/2017 Provider: Diagnosis: Last Documented On 8 10:45AM By JERROD STEPHENS ; [facility] Losartan Potassium 25MG Oral Tablet 06/26/2017 Provi akilah: Diagnosis: Last Documented On 06/26/2017 1:28PM By Kamilah Badillo MA ; [facility] ProAir HFA 108 (90 Base)MCG/ACT Inhalation Aeros ol Solution 06/26/2017 Provider: Diagnosis: PRN-while she is sick. Last Documented On 06/26/2017 1:30PM By Kamilah Badillo MA ; [facility] Past Medications on file Ferrous Sulfate 325 (65 Fe) MG OR TABS 06/12/2014 - 12/09/2014 Provider: REMBERTO ESQUEDA MD Diagnosis: one po daily at a different time than pnv was phoned to [place]. Last Documented On 5 3:11PM By XUAN MORALES LPN ; [facility] Colace 100 MG OR CAPS 06/11/2014 - 10/09/2014 Provider : REMBERTO ESQUEDA MD Diagnosis: Last Documented On 06/11/2014 11:09AM By REMBERTO ESQUEDA MD ; [facility] 19 OR TABS 02/19/2014 - 02/14/2015 Provider: REMBERTO ESQUEDA MD Diagnosis: Last Documented On 02/19/2014 10:29AM By REMBERTO ESQUEDA MD ; [facility] Diflucan 150 MG OR TABS 05/14/2013 - 05/15/2013 Provider: NIEVES WINKLER- Diagnosis: CANDIDAL VULVOVA GINITIS 1 po x 1 and rpt. in 3 days Last Documented On 4 1:28PM By NIEVES TURNER ELODIA- ; [facility] Terazol 7 0.4% VA CREA 08/24/2011 - 09/23/2011 Provide r: NIEVES WINKLER-BC Diagnosis: insert 1 applicator vaginally q hs x 7 nocs Last Documented On 2 10:25AM By NIEVES TURNER ELODIA- ; [facility] Augmentin 875-125 MG OR TABS 08/24/2011 - 09/03/2011 P rovider: NIEVES WINKLER-BC Diagnosis: Last Documented On 2 10:26AM By NIEVES TURNER ARIANNE ; [facility] Fioricet 50-325-40 MG OR TABS 06/30/2011 - 07/30/2011 Provider: REMBERTO ESQUEDA MD Diagnosis: i-ii po Q 4 hours prn headac he, do not exceed 6 tabs/24 hours Last Documented On 06/30/2011 1:48PM By REMBERTO ESQUEDA MD ; [facility] Zithromax Z-Lincoln 250 MG OR TABS 05/08/2011 - 05/13/2011 Provider: REMBERTO ESQUEDA MD Diagnosis: Last Documented On 05/08/2011 4:52PM By REMBERTO ESQUEDA MD ; [facility] Vitamin B-6 25 MG OR TABS 05/02/2011 - 07/01/2011 Prov ider: REMBERTO ESQUEDA MD Diagnosis: Last Documented On 05/02/2011 1:24PM By REMBERTO ESQUEDA MD ; [facility] Zofran 8 MG OR TABS 05/02/2011 - 06/01/2011 Provider: REMBERTO ESQUEDA MD Diagnosis: Last Documented On 05/02/2011 1:23PM By REMBERTO ESQUEDA MD ; [facility] Flagyl 500 MG OR TABS 08/22/2010 - 08/29/2010 Provider : FABIOLA CRISTOBAL Diagnosis: VAGINITIS NOS no alcohol Last Documented On 08/22/2010 8:22AM By FABIOLA CRISTOBAL ; [facility] NuvaRing 0.12-0.015 MG/24HR VA RING 08/17/2010 - 09/16/2010 Provider: FABIOLA CRISTOBAL Diagnosis: OTHER FAMILY PLANNING ADVICE NEC One ring intravaginally x 3 weeks Last Documented On 08/17/2010 9:04AM By FABIOLA CRISTOBAL ; [facility] Diflucan 150 MG OR TABS 08/16/2010 - 08/17/2010 Provid er: REMBERTO ESQUEDA MD Diagnosis: Last Documented On 08/16/2010 11:50AM By REMBERTO ESQUEDA MD ; [facility] Darvocet-N 100 100-650 MG OR TABS 08/05/2009 - 010 Provider: REMBERTO ESQUEDA MD Diagnosis: Last Documented On 08/05/2009 2:45PM By REMBERTO ESQUEDA MD ; [facility] Medications Administered Includes: Administered Medications from this encounter No Administered Medications Recorded Vital Signs Includes: Vital Signs from this encounter Vital Name 04/17/2016 09:35A Blood Pressure Sitting (mmHg) 140/84 Pulse Rate-Sitting (bpm) 88 Weight (lb) 291.6 Last Documented: On 04/17/2016 9:40AM ; [facility] Results Includes: Results discussed during this encounter No Results Recorded For Specified Dates History of Present Illness Includes: History of Present Illness from this encounter HPI REMBERTO TRAVIS is a 30 year old female. - Medication list reviewed. - Unusual bleeding periods very short and light, sometimes none on POP, much better than earlier this year (they had been 7-10 days and heavy up until October). - No pelvic pain. - No vaginal discharge. Social History Description Last Updated In monogamous relationship 04/17/2016 Last Documented On 6 10:11AM ; [facility] Alcohol use: 2 drinks or less per day 2 times a year 04/17/2016 Last Documented On 6 10:11AM ; [facility] Non-smoker 04/17/2016 Last Documented On 6 10:11AM ; [facility] Sexually active 04/17/2016 Last Documented On 6 10:11AM ; [facility] Smoking status : Never smoker 04/17/2016 Last Documented On 6 10:11AM ; [facility] Procedures and Surgical History Includes: Procedures from this encounter Procedures Code Diagnosis Performing Provider Service L ocation Service Date Clinical summary provided to patient Last Documented On 6 9:49AM ; [facility] cervical Pap smear 99362 Last Documented On 6 9:49AM ; [facility] Medical History Includes: Medical History addressed during this encounter Description Last Updated Contraception: pill 04/17/2016 Last Documented On 6 10:11AM ; [facility] LMP: 11/15/2015 04/17/2016 Last Documented On 6 10:11AM ; [facility] 3 04/17/2016 Last Documented On 6 10:11AM ; [facility] Last pap smear date 03/01/2012 6 Last Documented On 6 10:11AM ; [facility] Para 3 04/17/2016 Last Documented On 6 10:11AM ; [facility] Family History Includes: Family History addressed during this encounter Description Last Updated Family history of heart disease mgm 04/30 Last Documented On 6 9:34AM ; [facility] Family history of hypercholesterolemia m gm 05/14/2013 Last Documented On 6 9:34AM ; [facility] Family history of hypertension maternal grandparents, pgf 05/14/2013 Last Documented On 6 9:34AM ; [facility] Family history of malignant neoplasm of the ovary mother at age 36, maternal grandmother, paternal grandmother 05/14/2013 Last Documented On 6 9:34AM ; [facility] Family history of diabetes m ellitus maternal grandmother, paternal grandmother, paternal grandfather 01/05/2011 Last Documented On 6 9:34AM ; [facility] Family history of malignant female breas t neoplasm maternal grandmother 01/05/2011 Last Documented On 6 9:34AM ; [facility] Family history unchanged 01/05/2011 Last Documented On 6 9:34AM ; [facility] Family history of Diabetes 05/12/2009 Last Documented On 6 9:34AM ; [facility] Review of Systems Includes: Review of Systems [...] Location Date Check-In Time Check-Out Time Diagnosis PLASTIC SEWER EXAM REMBERTO ESQUEDA MD [facility] AGILE BUSINESS ANALYST 6 9:31AM 10:11AM Routine Pelvic Exam Clinical Notes Includes: Clinical Notes from this encounter No Clinical Notes Recorded
--- OUTSIDE RECORDS SUMMARY | 2024-05-07 12:18 | XMS_ITS | Clinical Summary ---
Author Organization [facility] Address [address] [place] [address] Care Team Providers Care Poultice Machine Operator Name Role Phone Jeanie Jewell NP Primary Care Provider [phone] Jeanie Jewell NP Unavailable [phone] Allergies No known active allergies Medications losartan (COZAAR) 25 mg tablet Take 25 mg by mouth daily. Active hydroCHLOROthiazi de (HYDRODIURIL) 25 mg tablet Take 25 mg by mouth daily. Active levonorgestrel (MIRENA) IUD 1 each by intrauterine route once Active aspirin 81 mg enteric coated tablet Take 81 mg by mouth daily Active ondansetron ODT (ZOFRAN-ODT) 4 mg disintegrating tablet Dissolve 1 tablet oral every 4 hours as needed for nausea or vomiting. 15 tablet 07/23/19 20 Active prochlorperazine (COMPAZINE) 25 mg suppository Insert 1 suppository (25 mg total) into the rectum every 12 (twelve) hours as needed for nausea or vomiting 12 suppository 07/23/19 20 Active Active Problems Problem Noted Date Diagnosed Date Lung mass 06/06/2019 Immunizations Name Administration Dates Next Due HPV, Quadrivalent 05/02/2012,03/01/2012 Influenza, Quadrivalent, Spl it, Preservative Free, Intramuscular 02/19/2014 Tdap 09/11/2014 Varicella 09/12/2014 Surgical History Surgery Date Site/Laterality Comments OVARIAN CYST SURGERY Medical History Medical History Date Comments Hypertension Anemia Family History Medical History Relation Name Comments No Known Problems Father No Known Problems Mother Relation Name Status Comments Father Alive Mother Alive Social History Tobacco Use Types Packs/Day Years Used Date Smoking Tobacco: Every Day Cigarettes 0.5 10 Smokeless Tobacco: Never Alcohol Use Standard Drinks/Week Comments Yes 2 (1 standard drink = 0.6 oz pur e alcohol) Personal Safety Answer Date Recorded Getting School Help Needed Not on file 07/12 Comments No Sex and Gender Information Value Date Recorded Sex Assigned at Not on file 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 Gender Identity Not on file Sexual Orientation Not on file Obstetrics History Last Filed Vital Signs Vital Sign Reading Time Taken Comments Blood Pressure 149/81 07/23/2019 8:05 PM CDT Pulse 102 07/23/2019 8:05 PM CDT Temperature 37.1 ??C (98.7 ??F) 07/23/2019 8:05 PM CD T Respiratory Rate 17 07/23/2019 8:05 PM CDT Oxygen Saturation 95% 07/23/2019 8:05 PM CDT Inhaled Oxygen Concentration - - Weight 129.3 kg (285 lb) 07/23/2019 8:05 PM CDT Height 172.7 cm (5' 8 ) 07/23/2019 8:05 PM CDT Body Mass Index 43.33 07/23/2019 8:05 PM CDT Plan of Treatment Not on file Insurance Care Teams Poultice Machine Operator Relationship Specialty Start Date End Date Jeanie Jewell NP PCP - General 06/17/19 Jeanie Jewell NP 06/17/19
--- OUTSIDE RECORDS SUMMARY | 2024-05-07 12:18 | XMS_ITS | Encounter Summary ---
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
--- OUTSIDE RECORDS SUMMARY | 2024-05-07 12:18 | XMS_ITS | Encounter Summary ---
Author Organization [facility] Address [address] [place] [address] Care Team Providers Care Mine Engineering Supervisor Name Role Phone Jeanie Jewell NP Primary Care Provider [phone] Reason for Visit * Reason Comments Leg Pain Encounter Details Date Type Department Care Team (Late st Contact Info) Description 06/12/2018 5:51 PM FARMWORKER DIVERSIFIED CROPS - 06/12/2018 7:29 PM FARMWORKER DIVERSIFIED CROPS Emergency [facility] Emergency Department [address] [place] [id number] Left hamstring strain, initial encounter (Primary Dx) Discharge Disposition: Discharge to home or self care Social History Tobacco Use Types Packs/Day Years Used Date Smoking Tobacco: Every Day Smokeless Tobacco: Never Comments No Sex and Gender Information Value Date Recorded Sex Assigned at Not on file Legal Sex Female 9:05 AM FARMWORKER DIVERSIFIED CROPS Gender Identity Not on file Sexual Orientation Not on file documented as of this encounter Last Filed Vital Signs Vital Sign Reading Time Taken Comments Blood Pressure 161/99 06/12/2018 5:32 PM FARMWORKER DIVERSIFIED CROPS Pulse 102 06/12/2018 5:32 PM FARMWORKER DIVERSIFIED CROPS Temperature 36.4 ??C (97.6 ??F) 06/12/2018 5:32 PM CS T Respiratory Rate 20 06/12/2018 5:32 PM FARMWORKER DIVERSIFIED CROPS Oxygen Saturation 99% 06/12/2018 5:32 PM FARMWORKER DIVERSIFIED CROPS Inhaled Oxygen Concentration - - Weight 124.7 kg (275 lb) 06/12/2018 5:32 PM FARMWORKER DIVERSIFIED CROPS Height 172.7 cm (5' 8 ) 06/12/2018 5:32 PM FARMWORKER DIVERSIFIED CROPS Body Mass Index 41.81 06/12/2018 5:32 PM FARMWORKER DIVERSIFIED CROPS documented in this encounter Discharge Instructions * Attachments The following attachments cannot be sent through Care Everywhere. * Muscle Strain (Ornamental Plasterer Helper) ([place] Citizen) documented in this encounter Medications at Time of Discharge hydroCHLOROthiazid e (HYDRODIURIL) 25 mg tablet Take 25 mg by mouth daily. losartan (COZAAR) 25 mg tablet Take 25 mg by mouth daily. documented as of this encounter Discharge Disposition Disposition Code Departure Means Destination Discharge to home or self care documented in this encounter ED Notes * Lisa Mcclelland REGIONAL ENVIRONMENTAL MANAGER - 06/12/2018 7:23 PM CST HPI Chief Complaint Patient presents with ??? Leg Pain Pt is a 33 y/o CF, hx of HTN and DVT (8 years ago), presents to ED with two day hx of left posterior thigh pain that acutely worsened today in the popliteal region today. Her mother was concerned shecould have another DVT, prompting her visit. She cannot recall any injury. Pain increases with movement and improves with rest. She describes her discomfort as burning . She does endorse hx of chronic back pain with occasional radicular symptoms. She smokes and takes OCP's as well. She has no family hx of clotting disorders and denies otherwise associated symptoms. She has not taken any medications for symptom relief. Patient History There are no active problems to display for this patient. Past Medical History: Diagnosis Date ??? Edema ??? Hypertension History reviewed. No pertinent surgical history. History reviewed. No pertinent family history. Social History Substance Use Topics ??? Smoking status: Current Every Day Smoker ??? Smokeless tobacco: Never Used ??? Alcohol use Not on file Social History Social History Narrative ??? No narrative on file Review of Systems Review of Systems Constitutional: Negative. Negative for chills and fatigue. HENT: Negative for congestion, dental problem, ear discharge, ear pain, facial swelling, rhinorrhea, sinus pressure, sore throat, trouble swallowing and voice change. Eyes: Negative for pain and discharge. Respiratory: Negative for cough, chest tightness, shortness of breath and wheezing. Cardiovascular: Negative for chest pain and palpitations. Gastrointestinal: Negative for abdominal pain, constipation, diarrhea, nausea and vomiting. Endocrine: Negative for polydipsia, polyphagia and polyuria. Genitourinary: Negative for dysuria, flank pain and urgency. Musculoskeletal: Positive for myalgias. Negative for arthralgias and back pain. Skin: Negative for color change, pallor and rash. Neurological: Negative for dizziness, syncope, speech difficulty, weakness, numbness and headaches. Hematological: Negative for adenopathy. Psychiatric/Behavioral: Negative for agitation. The patient is not nervous/anxious. Physical Exam ED Triage Vitals [06/12/18 1732] Temp Pulse Resp BP SpO2 36.4 ??C (97.6 ??F) 102 20 161/99 99 % Temp src Heart Rate Source Patient Position BP Location FiO2 (%) Temporal -- Sitting Right arm -- Physical Exam Constitutional: She is oriented to person, place, and time. She appears well- developed and well-nourished. No distress. Body mass index is 41.81 kg/m??. Pt is morbidly obese Non toxic appearing, in NAD HENT: Head: Normocephalic and atraumatic. Right Ear: External ear normal. Left Ear: External ear normal. Nose: Nose normal. Mouth/Throat: Oropharynx is clear and moist. No oropharyngeal exudate. Eyes: Conjunctivae are normal. Neck: Normal range of motion. Neck supple. No thyromegaly present. Cardiovascular: Normal rate and regular rhythm. No murmur heard. Pulmonary/Chest: Effort normal and breath sounds normal. No respiratory distress. Abdominal: Soft. There is no tenderness. Musculoskeletal: Normal range of motion. She exhibits tenderness. She exhibits no edema or deformity. Pt has no calf tenderness or swelling There is focal TTP over the left lateral popliteal area. No erythema or palpable cord noted SLR increases pain in the focal area of tenderness however, no radicular symptoms occur below the level of the knee Lymphadenopathy: She has no cervical adenopathy. Neurological: She is alert and oriented to person, place, and time. No cranial nerve deficit or sensory deficit. Coordination normal. Normal sensation in saddle region Skin: Skin is warm and dry. Psychiatric: She has a normal mood and affect. Nursing note and vitals reviewed. MDM MDM Number of Diagnoses or Management Options Left hamstring strain, initial encounter: Diagnosis management comments: DIFF DX: DVT, muscle strain, sciatica Risk of Complications, Morbidity, and/or Mortality Presenting problems: low Diagnostic procedures: minimal Management options: minimal Patient Progress Patient progress: stable Admission on 06/12/2018, Discharged on 06/12/2018 Component Date Value Ref Range Status ??? WBC 06/12/2018 12.1* 3.8 - 9.9 K/cumm Final ??? Hgb 06/12/2018 12.8 11.9 - 15.5 g/dL Final ??? Hct 06/12/2018 38.7 35.6 - 45.5 % Final ??? Plt 06/12/2018 326 150 - 400 K/cumm Final ??? MPV 06/12/2018 9.2 9.1 - 12.3 fL Final ??? RBC 06/12/2018 4.83 3.90 - 5.20 M/cumm Final ??? MCV 06/12/2018 80.1* 81.3 - 96.4 fL Final ??? MCH 06/12/2018 26.5* 27.1 - 33.3 pg Final ??? MCHC 06/12/2018 33.1 32.3 - 35.7 g/dL Final ??? RDW CV 06/12/2018 13.6 11.1 - 14.9 % Final ??? RDW SD 06/12/2018 39.3 35.7 - 48.1 fL Final ??? NRBC Abs 06/12/2018 0.00 0.00 - 0.01 K/cumm Final ??? Sodium 06/12/2018 138 135 - 145 mmol/L Final ??? Potassium, pl 06/12/2018 3.7 3.3 - 4.9 mmol/L Final ??? Chloride 06/12/2018 101 97 - 110 mmol/L Final ??? CO2 06/12/2018 29 22 - 32 mmol/L Final ??? Anion Gap 06/12/2018 9 2 - 15 mmol/L Final ??? BUN 06/12/2018 11 8 - 25 mg/dL Final ??? Creatinine 06/12/2018 0.67 0.60 - 1.10 mg/dL Final ??? Glucose 06/12/2018 95 70 - 199 mg/dL Final Comment: Interpretive Data Fasting glucose >/= 126 mg/dl is diagnostic for diabetes. Fasting is defined as no caloric intake for at least 8 hours. Fasting glucose between 100 mg/dl to 125 mg/dl is diagnostic of prediabetes. In a patient with classic symptoms of hyperglycemia or hyperglycemic crisis, a random glucose >/= 200 mg/dl is diagnostic for diabetes. In the absence of unequivocal hyperglycemia, results should be confirmed by repeat testing. The classification and Diagnosis of Diabetes Diabetes Care 2017;40 (Suppl. 1):S11. Current interpretive data was last revised 2017. ??? Calcium 06/12/2018 9.3 8.5 - 10.3 mg/dL Final ??? Bilirubin, total 06/12/2018 0.2 0.1 - 1.2 mg/dL Final ??? Protein, pl 06/12/2018 7.3 6.5 - 8.5 g/dL Final ??? Albumin 06/12/2018 4.2 3.5 - 5.0 g/dL Final ??? Alk phos 06/12/2018 49 40 - 130 Units/L Final ??? ALT 06/12/2018 19 7 - 45 Units/L Final ??? AST 06/12/2018 14 10 - 45 Units/L Final ? ? D-dimer 06/12/2018 <150* 150 - 230 ng/mL D-DU Final Comment: Interpretive Data This D-dimer test is approved by the FDA to exclude suspected PE and DVT in outpatients when the result is <230 ng/mL in conjunction with a pre-test probability score of low or moderate using the Wells criteria. Current Interpretive Data was last revised on 2014. ??? PT 06/12/2018 14.1* 9.5 - 13.0 sec Final ??? INR 06/12/2018 1.25* 0.90 - 1.20 Final Comment: Interpretive Data Recommended ranges for Protime INR: 2.0 - 3.0 Most indications for Warfarin therapy (e.g. Treatment of DVT, PE, bioprosthetic valve replacement, prophylaxis venous thrombosis, atrial fibrillation). 2.5 - 3.5 Mechanical mitral valve or dual mechanical mitral and Aortic valve replacement. Current Interpretive Data was last revised on 2014. ??? Neutrophil absolute 06/12/2018 8.4* 1.7 - 6.5 K/cumm Final ??? Immature granulocyte absolute 06/12/2018 0.0 0.0 - 0.1 K/cumm Final ??? Lymphocytes absolute 06/12/2018 2.8 0.8 - 3.3 K/cumm Final ??? Monocyte absolute 06/12/2018 0.7 0.2 - 0.8 K/cumm Final ??? Eosinophils absolute 06/12/2018 0.1 0.0 - 0.5 K/cumm Final ??? Basophils, abs 06/12/2018 0.0 0.0 - 0.1 K/cumm Final ??? Neutrophils 06/12/2018 69.8 % Final Comment: Interpretive Data Percent cell count reference ranges are not reported, since discordance with absolute values may lead to misinterpretation of CBC data. Current Interpretive Data was last revised on 2017. ??? Immature granulocytes 06/12/2018 0.2 % Final Comment: Interpretive Data Percent cell count reference ranges are not reported, since discordance with absolute values may lead to misinterpretation of CBC data. Current Interpretive Data was last revised on 2017. ??? Lymphocytes 06/12/2018 23.1 % Final Comment: Interpretive Data Percent cell count reference ranges are not reported, since discordance with absolute values may lead to misinterpretation of CBC data. Current Interpretive Data was last revised on 2017. ??? Monocytes 06/12/2018 5.7 % Final Comment: Interpretive Data Percent cell count reference ranges are not reported, since discordance with absolute values may lead to misinterpretation of CBC data. Current Interpretive Data was last revised on 2017. ??? Eosinophils 06/12/2018 0.9 % Final Comment: Interpretive Data Percent cell count reference ranges are not reported, since discordance with absolute values may lead to misinterpretation of CBC data. Current Interpretive Data was last revised on 2017. ??? Basophils 06/12/2018 0.3 % Final Comment: Interpretive Data Percent cell count reference ranges are not reported, since discordance with absolute values may lead to misinterpretation of CBC data. Current Interpretive Data was last revised on 2017. ??? GFR 06/12/2018 117 mL/min/1.73 m2 Final Comment: Interpretive Data Reference Interval Normal >/= 90 mL/min/1.73m2 Mildly decreased* 60 - 89 mL/min/1.73m2 Mildly to moderately decreased 45 - 59 mL/min/1.73m2 Moderately to severely decreased 30 - 44 mL/min/1.73m2 Severely decreased 15 - 29 mL/min/1.73m2 Kidney Failure < 15 mL/min/1.73m2 *Relative to young adult level If -Slovenian multiply value by 1.16. Estimated glomerular filtration rate is determined by the CKD-EPI equation recommended by the National Kidney Foundation (KDIGO 2012 Clinical Practice Guideline for the Evaluation and Management of Chronic Kidney Disease. Kidney Intnl Suppl Apr 2012;3:1). The CKD-EPI equation should not be used for patients with unstable renal function and has not been validated in children and those over 70. Current interpretive data was last reviewed 2015. ED Course as of Jun 12 1933 Time: 06/12 1931 Comment: Pt is advised her d dimer is negative, lowering suspicion her pain is secondary to DVT. She is encouraged to take OTC NSAIDS and muscle relaxants in the event this is radicular discomfort caused by pre-existing disc problems. She is agreeable with plan and declines prescriptions, noting she has medications at home and will contact her PCP for further treatment as indciated. By: Lisa Mcclelland NP Left hamstring strain, initial encounter Lisa Mcclelland NP 06/12/181933 Cosigned by Yasir Morales MD at 06/12/2018 9:19 PM FARMWORKER DIVERSIFIED CROPS WORKER DIVERSIFIED CROPS WORKER DIVERSIFIED CROPS Associated attestation - Yasir Morales MD - 06/12/2018 9:19 PM FARMWORKER DIVERSIFIED CROPS ED Attestation Based on the medical record the care appears appropriate. * Afua Bonilla, VIDAL - 06/12/2018 5:58 PM CST 33 y.o. Female pt to ED with complaint of L leg pain that began 2 days ago. Pt reports she has had a blood clot before and is concerned for that reason. Pain is behind upper calf and shooting pain upand down L leg. Pt denies and falls or injury. WORKER DIVERSIFIED CROPS documented in this encounter Plan of Treatment Not on file documented as of this encounter Procedures Procedure Name Priority Date/Time Associated Diagnosis Comments EGFR STAT 06/12/2018 6:46 PM FARMWORKER DIVERSIFIED CROPS DIFFERENTIAL AUTO STAT 06/12/2018 6:4 6 PM FARMWORKER DIVERSIFIED CROPS CBC WITH AUTO DIFFERENTIAL STAT 06/12/2018 6:46 PM FARMWORKER DIVERSIFIED CROPS PROTIME-INR STAT 06/12/2018 6:46 PM FARMWORKER DIVERSIFIED CROPS D-DIMER, QUANTITATIVE STAT 06/12/2018 6:46 PM FARMWORKER DIVERSIFIED CROPS COMPREHENSIVE METABOLIC PANEL STAT 06/12/2018 6:46 PM FARMWORKER DIVERSIFIED CROPS documented in this encounter Results * eGFR (06/12/2018 6:46 PM FARMWORKER DIVERSIFIED CROPS) eGFR 117 mL/min/1.7 3 m2 [facility] ([place]) Comment: Interpretive Data Reference Interval Normal ?>/= 90 mL/min/1.73m2 Mildly decreased* ? 60 - 89 mL/min/1.73m2 Mildly to moderately decreased ?45 - 59 mL/min/1.73m2 Moderately to severely decreased ??30 - 44 mL/min/1.73m2 Severely decreased ?15 - 29 mL/min/1.73m2 Kidney Failure ?< 15 ??mL/min/1.73m2 *Relative to young adult level If -Slovenian multiply value by 1.16. Estimated glomerular filtration rate is determined by the CKD-EPI equation recommended by the National Kidney Foundation (KDIGO 2012 Clinical Practice Guideline for the Evaluation and Management of Chronic Kidney Disease. Kidney Intnl Suppl Apr 2012;3:1). The CKD-EPI equation should not be used for patients with unstable renal function and has not been validated in children and those over 70. Current interpretive data was last reviewed 2015. Blood specimen (specimen) 06/12/2018 6:46 PM FARMWORKER DIVERSIFIED CROPS 06/12/2018 6:50 PM FARMWORKER DIVERSIFIED CROPS Narrative [facility] ([place]) - 06/12/2018 7:12 PM FARMWORKER DIVERSIFIED CROPS us Lisa Mcclelland REGIONAL ENVIRONMENTAL MANAGER LAB BLOOD ORDERABLES Final Result [facility] ([place]) 1 [facility] Department [place] [address] * (ABNORMAL) Differential, auto (06/12/2018 6:46 PM FARMWORKER DIVERSIFIED CROPS) Neutrophil abs 8.4(H) 1.7 - 6.5 K/cumm [facility] ([place]) Imm gran abs 0.0 0.0 - 0.1 K/cumm [facility] ([place]) Lymphocyte abs 2.8 0.8 - 3.3 K/cumm [facility] ([place]) Monocyte abs 0.7 0.2 - 0.8 K/cumm [facility] ([place]) Eosinophil abs 0.1 0.0 - 0.5 K/cumm [facility] ([place]) Basophil abs 0.0 0.0 - 0.1 K/cumm [facility] ([place]) Neutrophil pct 69.8 % [facility] ([place]) Comment: Interpretive Data Percent cell count reference ranges are not reported, since discordance with absolute values may lead to misinterpretation of CBC data. Current Interpretive Data was last revised on 2017. Imm gran pct 0.2 % [facility] ([place]) Comment: Interpretive Data Percent cell count reference ranges are not reported, since discordance with absolute values may lead to misinterpretation of CBC data. Current Interpretive Data was last revised on 2017. Lymphocyte pct 23.1 % [facility] ([place]) Comment: Interpretive Data Percent cell count reference ranges are not reported, since discordance with absolute values may lead to misinterpretation of CBC data. Current Interpretive Data was last revised on 2017. Monocyte pct 5.7 % [facility] ([place]) Comment: Interpretive Data Percent cell count reference ranges are not reported, since discordance with absolute values may lead to misinterpretation of CBC data. Current Interpretive Data was last revised on 2017. Eosinophil pct 0.9 % [facility] ([place]) Comment: Interpretive Data Percent cell count reference ranges are not reported, since discordance with absolute values may lead to misinterpretation of CBC data. Current Interpretive Data was last revised on 2017. Basophil pct 0.3 % [facility] ([place]) Comment: Interpretive Data Percent cell count reference ranges are not reported, since discordance with absolute values may lead to misinterpretation of CBC data. Current Interpretive Data was last revised on 2017. Blood specimen (specimen) 06/12/2018 6:46 PM FARMWORKER DIVERSIFIED CROPS 06/12/2018 6:50 PM FARMWORKER DIVERSIFIED CROPS Narrative [facility] ([place]) - 06/12/2018 6:53 PM FARMWORKER DIVERSIFIED CROPS us Lisa Mcclelland NP LAB BLOOD ORDERABLES Final Result [facility] ([place]) 1 [facility] Department [place] [address] * (ABNORMAL) Protime-INR (06/12/2018 6:46 PM FARMWORKER DIVERSIFIED CROPS) PT 14.1(H) 9.5 - 13.0 sec [facility] ([place]) INR 1.25(H) 0.90 - 1.20 [facility] ([place]) Comment: Interpretive Data Recommended ranges for Protime INR: 2.0 - 3.0 Most indications for Warfarin therapy (e.g. Treatment of DVT, PE, bioprosthetic valve replacement, prophylaxis venous thrombosis, atrial fibrillation). 2.5 - 3.5 Mechanical mitral valve or dual mechanical mitral and Aortic valve replacement. Current Interpretive Data was last revised on 2014. Blood specimen (specimen) 06/12/2018 6:46 PM FARMWORKER DIVERSIFIED CROPS 06/12/2018 6:50 PM FARMWORKER DIVERSIFIED CROPS Narrative [facility] ([place]) - 06/12/2018 7:01 PM FARMWORKER DIVERSIFIED CROPS Lisa Mcclelland REGIONAL ENVIRONMENTAL MANAGER LAB BLOOD ORDERABLES Final Result [facility] ([place]) 1 [facility] [place] [address] * (ABNORMAL) D-dimer, quantitative (06/12/2018 6:46 PM FARMWORKER DIVERSIFIED CROPS) D-dimer <150(L) 150 - 230 ng/mL D-DU [facility] ([place]) Comment: Interpretive Data This D-dimer test is approved by the FDA to exclude suspected PE and DVT in outpatients when the result is <230 ng/mL in conjunction with a pre-test probability score of low or moderate using the Wells criteria. Current Interpretive Data was last revised on 2014. Blood specimen (specimen) 06/12/2018 6:46 PM FARMWORKER DIVERSIFIED CROPS 06/12/2018 6:50 PM FARMWORKER DIVERSIFIED CROPS Narrative [facility] ([place]) - 06/12/2018 7:03 PM FARMWORKER DIVERSIFIED CROPS Lisa Mcclelland REGIONAL ENVIRONMENTAL MANAGER LAB BLOOD ORDERABLES Final Result [facility] ([place]) 1 [facility] [place] [address] * Comprehensive metabolic panel (06/12/2018 6:46 PM FARMWORKER DIVERSIFIED CROPS) Sodium 138 135 - 145 mmol/L [facility] Potassium, pl 3.7 3.3 - 4.9 mmol/L [facility] ([place]) Chloride 101 97 - 110 mmol/L [facility] ([place]) CO2 29 22 - 32 mmol/L [facility] ([place]) Anion gap 9 2 - 15 mmol/L [facility] ([place]) BUN 11 8 - 25 mg/dL [facility] ([place]) Creatinine 0.67 0.60 - 1.10 mg/dL [facility] ([place]) Glucose 95 70 - 199 mg/dL [facility] ([place]) Comment: Interpretive Data Fasting glucose >/= 126 mg/dl is diagnostic for diabetes. ?? Fasting is defined as no caloric intake for at least 8 hours. Fasting glucose between 100 mg/dl to 125 mg/dl is diagnostic of prediabetes. In a patient with classic symptoms of hyperglycemia or hyperglycemic crisis, a random glucose >/= 200 mg/dl is diagnostic for diabetes. In the absence of unequivocal hyperglycemia, results should be confirmed by repeat testing. The classification and Diagnosis of Diabetes Diabetes Care 2017;40 (Suppl. 1):S11. Current interpretive data was last revised 2017. Calcium 9.3 8.5 - 10.3 mg/dL [facility] ([place]) Bilirubin, total 0.2 0.1 - 1.2 mg/dL [facility] ([place]) Protein, pl 7.3 6.5 - 8.5 g/dL [facility] ([place]) Albumin 4.2 3.5 - 5.0 g/dL [facility] ([place]) Alk phos 49 40 - 130 Units/L [facility] ([place]) ALT 19 7 - 45 Units/L [facility] ([place]) AST 14 10 - 45 Units/L [facility] ([place]) Blood specimen (specimen) 06/12/2018 6:46 PM FARMWORKER DIVERSIFIED CROPS 06/12/2018 6:50 PM FARMWORKER DIVERSIFIED CROPS Narrative [facility] ([place]) - 06/12/2018 7:12 PM FARMWORKER DIVERSIFIED CROPS us Lisa Mcclelland REGIONAL ENVIRONMENTAL MANAGER LAB BLOOD ORDERABLES Final Result [facility] ([place]) 1 [facility] Department of Laboratories [place], [place] [id number] * (ABNORMAL) CBC with auto differential (06/12/2018 6:46 PM FARMWORKER DIVERSIFIED CROPS) WBC 12.1(H) 3.8 - 9.9 K/cumm [facility] ([place]) Hgb 12.8 11.9 - 15.5 g/dL [facility] ([place]) Hct 38.7 35.6 - 45.5 % [facility] ([place]) Plt 326 150 - 400 K/cumm [facility] ([place]) MPV 9.2 9.1 - 12.3 fL [facility] ([place]) RBC 4.83 3.90 - 5.20 M/cumm [facility] ([place]) MCV 80.1(L) 81.3 - 96.4 fL [facility] ([place]) MCH 26.5(L) 27.1 - 33.3 pg [facility] ([place]) MCHC 33.1 32.3 - 35.7 g/dL [facility] ([place]) RDW CV 13.6 11.1 - 14.9 % [facility] ([place]) RDW SD 39.3 35.7 - 48.1 fL [facility] ([place]) NRBC abs 0.00 0.00 - 0.01 K/cumm [facility] ([place]) Blood specimen (specimen) 06/12/2018 6:46 PM FARMWORKER DIVERSIFIED CROPS 06/12/2018 6:50 PM FARMWORKER DIVERSIFIED CROPS Narrative [facility] ([place]) - 06/12/2018 6:53 PM FARMWORKER DIVERSIFIED CROPS us Lisa Mcclelland NP LAB BLOOD ORDERABLES Final Result [facility] ([place]) 1 [facility] Department [place] [address] documented in this encounter Visit Diagnoses Diagnosis Left hamstring strain, initial encounter- Primary documented in this encounter Historical Medications * This list may reflect changes made after this encounter. hydroCHLOROthiazid e (HYDRODIURIL) 25 mg tablet Take 25 mg by mouth daily. losartan (COZAAR) 25 mg tablet Take 25 mg by mouth daily. added in this encounter Care Teams Mine Engineering Supervisor Relationship Specialty Start Date End Date Jeanie Jewell NP PCP - General 03/28/17 06/16/19 documented as of this encounter
--- OUTSIDE RECORDS SUMMARY | 2024-05-07 12:18 | XMS_ITS | Encounter Summary ---
Author Organization [facility] Facility Care Team Providers Care Knotter Name Role Phone Jeanie Jewell NP Primary Care Provider [phone] Jaenie Jewell ESTHETICIAN/SKIN THERAPIST Unavailable [phone] Encounter Details Date Type Department Care Team (Latest Contact Info) Description 07/23/2019 Travel Social History Tobacco Use Types Packs/Day Years Used Date Smoking Tobacco: Every Day Cigarettes 0.5 10 Smokeless Tobacco: Never Alcohol Use Standard Drinks/Week Comments Yes 2 (1 standard drink = 0.6 oz pur e alcohol) Comments No Sex and Gender Information Value Date Recorded Sex Assigned at Not on file Legal Sex Female 9:05 AM MECHANICAL DETAILER Gender Identity Not on file Sexual Orientation Not on file COVID-19 Exposure Response Date Recorded In the last month, have you been in contact with someone who was confirmed or suspected to have Coronavirus / COVID-19? No / Unsure 07/23/2019 8:04 PM CDT documented as of this encounter Plan of Treatment Not on file documented as of this encounter Visit Diagnoses Not on filedocumented in this encounter Care Teams Knotter Relationship Specialty Start Date End Date Jeanie Jewell NP PCP - General 06/17/19 Jeanie Jewell NP 06/17/19 documented as of this encounter
--- OUTSIDE RECORDS SUMMARY | 2024-05-07 12:18 | XMS_ITS | Encounter Summary ---
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 Primary Care Provider [phone] Reason for Visit * Reason Comments Consult * Oncology (Routine) - Closed Specialty Diagnoses / Procedures Referred By Audi t Referred To Contact Oncology Diagnoses Lung mass Jeanie Jewell NP Phone: tel: fax: [facility] [address] [place] [phone] Phone: tel: fax: Referral ID Status Reason Start Date Expiration Date V isits Requested Visits Authorized [id number] Closed Specialty Services Required 05/23/2019 12/01/2020 99 [id number] Encounter Details Date Type Department Care Team (Late st Contact Info) Description 06/09/2019 4:00 PM TIE MAN Office Visit [facility] [address] [place] [phone] Scotty Tejada, [address] [place] [phone] Lung mass (Primary Dx); Pulmonary nodule Social History Tobacco Use Types Packs/Day Years Used Date Smoking Tobacco: Every Day Cigarettes 0.5 10 Smokeless Tobacco: Never Alcohol Use Standard Drinks/Week Comments Yes 2 (1 standard drink = 0.6 oz pur e alcohol) Comments No Sex and Gender Information Value Date Recorded Sex Assigned at Not on file Legal Sex Female 9:05 AM TIE MAN Gender Identity Not on file Sexual Orientation Not on file documented as of this encounter Last Filed Vital Signs Vital Sign Reading Time Taken Comments Blood Pressure 148/82 06/09/2019 4:03 PM TIE MAN Pulse 110 06/09/2019 4:03 PM TIE MAN Temperature 37.2 ??C (98.9 ??F) 06/09/2019 4:03 PM CS T Respiratory Rate 20 06/09/2019 4:03 PM TIE MAN Oxygen Saturation 99% 06/09/2019 4:03 PM TIE MAN Inhaled Oxygen Concentration - - Weight 152.9 kg (337 lb) 06/09/2019 4:03 PM TIE MAN Height 172.7 cm (5' 7.99 ) 06/09/2019 4:03 PM CS T Body Mass Index 51.25 06/09/2019 4:03 PM TIE MAN documented in this encounter Progress Notes * Scotty Tejada, DO - 06/09/2019 4:00 PM CST Patient ID: Josselyn Arndt is a 34 y.o. female. Referring Physician: Jeanie Jewell NP [address] [place] [address] Primary Care Provider: Jeanie Jewell NP Assessment/Plan Indeterminate nodule of the middle lobe of the right lung. 1. Etiology is more than likely infectious in nature whether it is due to histoplasmosis or bacterial infection. 2. I do not suspect she has underlying bronchogenic carcinoma. 3. However, I would like to proceed with a PET-CT scan for this solitary pulmonary nodule in the next 1-2 weeks. 4. She will see me after that for further recommendations. 5. Due to the small size of this pleural base nodule, it may be very difficult to obtain biopsy if the PET-CT scan is abnormal. Patient Active Problem List Diagnosis ??? Lung mass Diagnoses and all orders for this visit: Lung mass (Primary) - Ambulatory referral to Oncology Pulmonary nodule - PET/CT FDG Skull to Thigh; Future Subjective History of Present Illness: Ms. Arndt, 34-year-old female, presents to my office for further evaluation of a newly diagnosed pulmonary nodule. Patient presented to [facility] on May 08 with chest pain, pleuritic pain, heart palpitations. Patient did undergo a chest x-ray followed by D-dimer which was elevated. At that point she did undergo CT scan angiogram of the chest to evaluate for PE. CT scan showed a 4.5 x 6 mm pleural-based right middle lobe density that was indeterminate. Her primary care physician has refer the patient to me for further evaluation. Over the past 6 months, patient has complained of deteriorating health with recurrent respiratory infections. Recently she has had some intermittent heart palpitations requiring a heart monitor. She does complain of dyspnea on exertion to the point of having a near syncopal episode when she exercises. She denies any paralysis or numbness but does complain of dizziness and headaches upon exertion. When she walks she cannot take a deep breath. She does have a productive cough of yellow to brown to clear phlegm. She has exertional wheezing. Her appetite has declined but her weight has increased. She does smoke about 10 cigarettes a day and she works full-time. Past Medical History: Diagnosis Date ??? Anemia ??? Hypertension Past Surgical History: Procedure Laterality Date ??? OVARIAN CYST SURGERY Family History Problem Relation Age of Onset ??? No Known Problems Mother ??? No Known Problems Father Family Status Relation Name Status ??? Mother Alive ??? Father Alive Social History Occupational History ??? Not on file Tobacco Use ??? Smoking status: Current Every Day Smoker Packs/day: 0.50 Years: 10.00 Pack years: 5.00 ??? Smokeless tobacco: Never Used Substance and Sexual Activity ??? Alcohol use: Yes Alcohol/week: 2.0 standard drinks Types: 2 Glasses of wine per week ??? Drug use: Never ??? Sexual activity: Defer No Known Allergies Current Outpatient Medications Medication Sig Dispense Refill ??? aspirin 81 mg enteric coated tablet Take 81 mg by mouth daily ??? levonorgestrel (MIRENA) IUD 1 each by intrauterine route once ??? hydroCHLOROthiazide (HYDRODIURIL) 25 mg tablet Take 25 mg by mouth daily. ??? losartan (COZAAR) 25 mg tablet Take 25 mg by mouth daily. No current facility-administered medications for this visit. I have reviewed: allergies, current medications, past family history, past medical history, past social history, past surgical history and problem list HPI Review of Systems Constitutional: Positive for appetite change ( decline), chills, diaphoresis, fatigue and malaise. HENT: Positive for sore throat, tinnitus and voice change. Respiratory: Positive for cough ( productive cough of yellow to clear phlegm), shortness of breath (On exertion) and wheezing. Cardiovascular: Positive for palpitations. Negative for chest pain. Gastrointestinal: Positive for constipation. Negative for blood in stool. Endocrine: Positive for hot flashes. Genitourinary: Positive for dyspareunia. Musculoskeletal: Positive for arthralgias, back pain, gait problem and myalgias. Skin: Positive for dryness. Neurological: Positive for dizziness, extremity weakness, gait problem, headaches and numbness. Psychiatric/Behavioral: Positive for depression. The patient is nervous/anxious. Objective Physical Exam: Vital Signs for this encounter: BSA: 2.71 meters squared BP 148/82 (BP Location: Left arm) Pulse 110 Temp 37.2 ??C (98.9 ??F) (Oral) Resp 20 Ht 172.7 cm (5' 7.99 ) Wt (!) 152.9 kg (337 lb) SpO2 99% BMI 51.25 kg/m?? Physical Exam Constitutional: Appearance: She is well-developed. She is obese. HENT: Head: Normocephalic and atraumatic. Right Ear: External ear normal. Left Ear: External ear normal. Nose: Nose normal. Eyes: Conjunctiva/sclera: Conjunctivae normal. Pupils: Pupils are equal, round, and reactive to light. Neck: Musculoskeletal: Normal range of motion and neck supple. Cardiovascular: Rate and Rhythm: Normal rate and regular rhythm. Heart sounds: Normal heart sounds. Pulmonary: Effort: Pulmonary effort is normal. Breath sounds: Normal breath sounds. Abdominal: General: Bowel sounds are normal. Palpations: Abdomen is soft. Musculoskeletal: Normal range of motion. Skin: General: Skin is warm and dry. Neurological: Mental Status: She is alert and oriented to person, place, and time. Psychiatric: Behavior: Behavior normal. Performance Status: Asymptomatic Results: WBC Date Value Ref Range Status 03/31/2019 12.7 (H) 3.8 - 9.9 K/cumm Final Hgb Date Value Ref Range Status 03/31/2019 13.4 11.9 - 15.5 g/dL Final Hct Date Value Ref Range Status 03/31/2019 40.6 35.6 - 45.5 % Final Plt Date Value Ref Range Status 03/31/2019 363 150 - 400 K/cumm Final Creatinine Date Value Ref Range Status 03/31/2019 0.61 0.60 - 1.10 mg/dL Final AST Date Value Ref Range Status 03/31/2019 32 10 - 45 Units/L Final MAN documented in this encounter Plan of Treatment Not on file documented as of this encounter Visit Diagnoses Diagnosis Lung mass- Primary Swelling, mass, or lump in chest Pulmonary nodule Other diseases of lung, not elsewhere classified documented in this encounter Historical Medications * This list may reflect changes made after this encounter. aspirin 81 mg enteric coated tablet Take 81 mg by mouth daily levonorgestrel (MIRENA) IUD 1 each by intrauterine route once added in this encounter Orders Outpatient Referral Count Last Ordered Date Fir st Ordered Date AMB REFERRAL TO ONCOLOGY 1 06/09/2019 documented in this encounter Care Teams Technical Sme Relationship Specialty Start Date End Date Jeanie Jewell NP PCP - General 03/28/17 06/16/19 documented as of this encounter
--- OUTSIDE RECORDS SUMMARY | 2024-05-07 12:18 | XMS_ITS | Encounter Summary ---
Author Organization [facility] Address [address] [place] [address] Phone Care Team Providers Care Protection Engineer Name Role Phone Jeanie Jewell NP Primary Care Provider [phone] Jeanie Jewell CRIME SPECIALIST Unavailable [phone] Encounter Details Date Type Department Care Team (Late st Contact Info) Description 11/21/2019 1:15 PM CDT Office Visit [facility] [address] [facility] [address] [place] [address] Scotty Tejada, DO [facility] [address] Lung mass (Primary Dx) Social History Tobacco Use Types Packs/Day Years Used Date Smoking Tobacco: Every Day Cigarettes 0.5 10 Smokeless Tobacco: Never Alcohol Use Standard Drinks/Week Comments Yes 2 (1 standard drink = 0.6 oz pur e alcohol) Comments No Sex and Gender Information Value Date Recorded Sex Assigned at Not on file 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 This was a telemedicine visit with Josselyn Arndt alone which took place via Telephone. During the visit, I was located in the office and the patient was located in her car in [place] in the [facility] [place]. The patient visit started at 1:35 pm and ended at 1:40 pm. Total encounter time was 10 min minutes, which includes time spent today on pre charting, the patient encounter, and post charting. The patient: has been informed that the visit may not be secure and acknowledged the information. The option of participating in a telephone or video visit during the [facility] [place] [address] emergencywas explained to them. After being given an opportunity to ask questions about and discuss this type of visit, they verbally consented to proceeding with the telephone/video visit and understand thatthis service replaces an office visit. HPI Indeterminate nodule of the middle lobe of the right lung. 1. Etiology is more than likely infectious in nature whether it is due to histoplasmosis or bacterial infection. 2. I do not suspect she has underlying bronchogenic carcinoma. 3. 3 month F/u visit via telemedicine. She has no new complaints or respiratory problems Diagnostic test: [place] [facility] [place] 7 mm nodule of left lung near pleura with min. Scarring of LLL. No change Impression & Plan: Probable benign left lung nodule High risk for lung cancer Rec,. 1. She has stable left lung nodule on recent CT scan 2. Will continue to monitor nodule and repeat another CT scan in 3 months. If at that time, CT scanshows continued stability, then I will spread out the surveillance CT imaging to yearly. 3. Pt agreed with recs Scotty Tejada DO Asst. Professor [facility] Division of Medical Oncology Scotty Tejada DO documented in this encounter Plan of Treatment Not on file documented as of this encounter Visit Diagnoses Diagnosis Lung mass- Primary Swelling, mass, or lump in chest documented in this encounter Care Teams Protection Engineer Relationship Specialty Start Date End Date Jeanie Jewell NP PCP - General 06/17/19 Jeanie Jewell NP 06/17/19 documented as of this encounter
--- OUTSIDE RECORDS SUMMARY | 2024-05-07 12:18 | XMS_ITS | Encounter Summary ---
Author Organization [facility] Healthcare Address [address] [place] [address] Care Team Providers Care Subcontracts Manager Name Role Phone Jeanie Jewell NP Primary Care Provider [phone] Reason for Visit * Reason Comments Chest Pain Encounter Details Date Type Department Care Team (Late st Contact Info) Description 03/31/2019 3:24 PM ELECTRONIC ENGINEERING TECHNICIAN - 03/31/2019 5:21 PM ELECTRONIC ENGINEERING TECHNICIAN Emergency [facility] Emergency Department [address] [place] [id number] Chest pain, unspecified type (Primary Dx) Discharge Disposition: Discharge to home or self care Social History Tobacco Use Types Packs/Day Years Used Date Smoking Tobacco: Every Day Smokeless Tobacco: Never Comments No Sex and Gender Information Value Date Recorded Sex Assigned at Not on file Legal Sex Female 9:05 AM ELECTRONIC ENGINEERING TECHNICIAN Gender Identity Not on file Sexual Orientation Not on file documented as of this encounter Last Filed Vital Signs Vital Sign Reading Time Taken Comments Blood Pressure 162/95 03/31/2019 5:12 PM ELECTRONIC ENGINEERING TECHNICIAN Pulse 87 03/31/2019 5:12 PM ELECTRONIC ENGINEERING TECHNICIAN Temperature 36.9 ??C (98.4 ??F) 03/31/2019 1:32 PM CS T Respiratory Rate 20 03/31/2019 5:12 PM ELECTRONIC ENGINEERING TECHNICIAN Oxygen Saturation 99% 03/31/2019 5:12 PM ELECTRONIC ENGINEERING TECHNICIAN Inhaled Oxygen Concentration - - Weight 124.7 kg (275 lb) 03/31/2019 1:32 PM ELECTRONIC ENGINEERING TECHNICIAN Height 172.7 cm (5' 8 ) 03/31/2019 1:32 PM ELECTRONIC ENGINEERING TECHNICIAN Body Mass Index 41.81 03/31/2019 1:32 PM ELECTRONIC ENGINEERING TECHNICIAN documented in this encounter Discharge Diagnoses Diagnosis Chest pain, unspecified - CHEST PAIN, UNSPECIFIED Essential (primary) hypertension - ESSENTIAL (PRIMARY) HYPERTENSION Unspecified essential hypertension Nicotine dependence, unspecified, uncomplicated - NICOTINE DEPENDENCE, UNSPECIFIED, UNCOMPLICATED Other terminal carman (current) drug therapy - OTHER PROCESSING SPEC (CURRENT) DRUG THERAPY documented in this encounter Discharge Instructions * Discharge Instructions* Eve Barnett NP - 03/31/2019 4:54 PM ELECTRONIC ENGINEERING TECHNICIAN Use over the counter Tylenol and Motrin per manufacturers guidelines for relief of pain and fever. Follow up with Dr. Reyes and Dr. Jewell without fail. TRONIC ENGINEERING TECHNICIAN TRONIC ENGINEERING TECHNICIAN * Attachments The following attachments cannot be sent through Care Everywhere. * Chest Pain (AfterCare(R) Instructions(ER/ED)) (Luxembourger) documented in this encounter Medications at Time of Discharge hydroCHLOROthiazid e (HYDRODIURIL) 25 mg tablet Take 25 mg by mouth daily. losartan (COZAAR) 25 mg tablet Take 25 mg by mouth daily. documented as of this encounter Discharge Disposition Disposition Code Departure Means Destination Comment s Discharge to home or self care Pt ambulated out without difficulty documented in this encounter ED Notes * Eve Barnett NP - 03/31/2019 3:45 PM CST HPI Chief Complaint Patient presents with ??? Chest Pain 33 y.o. year old female with PMHX Edema Hypertension; accompanied by Mother presents to ED with c/o Chest Pain Denies fever, chills, nausea, vomiting, diarrhea, SOB, numbness, tingling. Chest pain started 2 days ago with radiation down right arm. Denies SOB. Pt has not taken OTC medication for relief of pain. No other complaint at this time. Patient History There are no active problems to display for this patient. Past Medical History: Diagnosis Date ??? Edema ??? Hypertension History reviewed. No pertinent surgical history. History reviewed. No pertinent family history. Social History Tobacco Use ??? Smoking status: Current Every Day Smoker ??? Smokeless tobacco: Never Used Substance Use Topics ??? Alcohol use: Not on file ??? Drug use: Not on file Social History Patient does not qualify to have social determinant information on file (likely too young). Social History Narrative ??? Not on file Review of Systems Review of Systems Constitutional: Negative. Negative for chills and fever. HENT: Negative. Negative for ear pain and sore throat. Eyes: Negative. Negative for pain and visual disturbance. Respiratory: Negative. Negative for cough and shortness of breath. Cardiovascular: Positive for chest pain. Negative for palpitations. Gastrointestinal: Negative. Negative for abdominal pain and vomiting. Genitourinary: Negative. Negative for dysuria and hematuria. Musculoskeletal: Negative. Negative for arthralgias and back pain. Skin: Negative. Negative for color change and rash. Neurological: Negative. Negative for seizures and syncope. Psychiatric/Behavioral: Negative. All other systems reviewed and are negative. Physical Exam ED Triage Vitals Temp Pulse Resp BP SpO2 03/31/19 1332 03/31/19 1332 03/31/19 1332 03/31/19 1332 03/31/19 1332 36.9 ??C (98.4 ??F) 103 26 161/100 99 % Temp src Heart Rate Source Patient Position BP Location FiO2 (%) 03/31/19 1332 -- 03/31/19 1458 03/31/19 1458 -- Temporal Sitting Left arm Physical Exam Vitals signs and nursing note reviewed. Constitutional: General: She is awake. She is not in acute distress. Appearance: Normal appearance. She is well-developed. She is not ill-appearing, toxic-appearing or diaphoretic. HENT: Head: Normocephalic and atraumatic. Right Ear: Hearing and external ear normal. Left Ear: Hearing and external ear normal. Nose: Nose normal. Mouth/Throat: Lips: [place]. Mouth: Mucous membranes are moist. Eyes: General: Lids are normal. Conjunctiva/sclera: Conjunctivae normal. Neck: Musculoskeletal: Full passive range of motion without pain, normal range of motion and neck supple. Trachea: Trachea and phonation normal. Cardiovascular: Rate and Rhythm: Normal rate and regular rhythm. Chest Wall: PMI is not displaced. No thrill. Pulses: Normal pulses. No decreased pulses. Heart sounds: Normal heart sounds. No murmur. Pulmonary: Effort: Pulmonary effort is normal. No respiratory distress. Breath sounds: Normal breath sounds and air entry. No stridor, decreased air movement or transmitted upper airway sounds. No decreased breath sounds, wheezing, rhonchi or rales. Abdominal: General: Bowel sounds are normal. There is no distension. Palpations: Abdomen is soft. Tenderness: There is no tenderness. There is no guarding. Lymphadenopathy: Cervical: No cervical adenopathy. Skin: General: Skin is warm and dry. Capillary Refill: Capillary refill takes less than 2 seconds. Neurological: Mental Status: She is alert, oriented to person, place, and time and easily aroused. Psychiatric: Attention and Perception: Attention normal. Mood and Affect: Mood normal. Speech: Speech normal. Behavior: Behavior normal. Behavior is cooperative. Thought Content: Thought content normal. Cognition and Memory: Cognition normal. Judgment: Judgment normal. [facility] ED Course as of Apr 15 2239 Time: 03/31 1652 Comment: Discussed lab work and x-ray results with patient. Advised to use Tylenol and Motrin for relief of fever and pain, to follow up with PMD for further evaluation and treatment. Pt verbalized understanding. All questions answered at this time. By: Eve Barnett NP Chest pain, unspecified type Eve Barnett NP 03/31/191654 Eve Barnett NP 04/15/192238 Cosigned by Yasir Trinidad MD at 04/17/2019 3:50 PM ELECTRONIC ENGINEERING TECHNICIAN TRONIC ENGINEERING TECHNICIAN TRONIC ENGINEERING TECHNICIAN TRONIC ENGINEERING TECHNICIAN TRONIC ENGINEERING TECHNICIAN Associated attestation - Yasir Trinidad MD - 04/17/2019 3:50 PM ELECTRONIC ENGINEERING TECHNICIAN ED Attestation I agree with management. * Carrie Duckworth, VIDAL - 03/31/2019 1:30 PM CST Chest pain x 2 days that radiates down left arm TRONIC ENGINEERING TECHNICIAN documented in this encounter Plan of Treatment Not on file documented as of this encounter Procedures Procedure Name Priority Date/Time Associated Diagnosis Comments INFLUENZA A/B AND RSV PCR STAT 03/31/2019 3:54 PM ELECTRONIC ENGINEERING TECHNICIAN ECG 12-LEAD STAT 03/31/2019 2:55 PM ELECTRONIC ENGINEERING TECHNICIAN EGFR STAT 03/31/2019 2:02 PM ELECTRONIC ENGINEERING TECHNICIAN DIFFERENTIAL AUTO STAT 03/31/2019 2:0 2 PM ELECTRONIC ENGINEERING TECHNICIAN PRO B-TYPE NATRIURETIC PEPTIDE STAT 03/31/2019 2:02 PM ELECTRONIC ENGINEERING TECHNICIAN CBC WITH AUTO DIFFERENTIAL STAT 03/31/2019 2:02 PM ELECTRONIC ENGINEERING TECHNICIAN APTT STAT 03/31/2019 2:02 PM ELECTRONIC ENGINEERING TECHNICIAN TROPONIN T STAT 03/31/2019 2:02 PM ELECTRONIC ENGINEERING TECHNICIAN TSH STAT 03/31/2019 2:02 PM ELECTRONIC ENGINEERING TECHNICIAN COMPREHENSIVE METABOLIC PANEL STAT 03/31/2019 2:02 PM ELECTRONIC ENGINEERING TECHNICIAN ECG 12-LEAD STAT 03/31/2019 1:59 PM ELECTRONIC ENGINEERING TECHNICIAN XR CHEST PA LATERAL 2 VIEWS ED 03/31/2019 1:53 PM ELECTRONIC ENGINEERING TECHNICIAN documented in this encounter Results * Influenza A/B and RSV PCR Nasopharyngeal (03/31/2019 3:54 PM ELECTRONIC ENGINEERING TECHNICIAN) Influenza A RNA Not Detected Not Detected [facility] ([place]) Influenza B RNA Not Detected Not Detected [facility] ([place]) RSV RNA Not Detected Not Detected [facility] ([place]) Nasopharyngeal 03/31/2019 3: 54 PM ELECTRONIC ENGINEERING TECHNICIAN 03/31/2019 4:02 PM ELECTRONIC ENGINEERING TECHNICIAN Narrative [facility] ([place]) - 03/31/2019 4:48 PM ELECTRONIC ENGINEERING TECHNICIAN This test is performed using the [employer] Xpert Flu/RSV Assay. This is a multiplex, real-time reverse transcriptase PCR assay that detects influenza A, influenza B, and respiratory syncytial virus RNA. This assay has been cleared by the US Food and Drug Administration, and its performance characteristics have been verified by the [facility]. Eve Barnett NP LAB MICROBIOLOGY - GENERAL ORDERABLES Final Result Performing Organization Address City/[facility]/ZIP Co de Phone Number [facility]NETTA [facility]) 1 [facility] Department [place] [address] * ECG 12 lead (03/31/2019 2:55 PM ELECTRONIC ENGINEERING TECHNICIAN) 03/31/2019 2:55 PM ELECTRONIC ENGINEERING TECHNICIAN Narrative [facility] - 04/01/2019 12:43 PM ELECTRONIC ENGINEERING TECHNICIAN Vent Rate: 95 bpm RR Interval: 627 msec NM Interval: 129 msec QRS Duration: 86 msec QT Interval: 328 msec QTC Interval: 381 msec P-R-T Ramey: 33 - 11 - 18 degrees SINUS RHYTHM NORMAL ECG WARNING: DATA QUALITY MAY AFFECT INTERPRETATION Compared to 03/31/2019 no change Electronically Signed By: Dr Scotty Nova Doreen Blanc MD ECG ORDERABLES Final Res ult Performing Organization Address City/[facility]/ZIP Co de Phone Number [facility] [employer] [facility] * eGFR (03/31/2019 2:02 PM ELECTRONIC ENGINEERING TECHNICIAN) eGFR 121 mL/min/1.7 3 m2 [facility] ([place]) Comment: Interpretive Data Reference Interval Normal ?>/= 90 mL/min/1.73m2 Mildly decreased* ? 60 - 89 mL/min/1.73m2 Mildly to moderately decreased ?45 - 59 mL/min/1.73m2 Moderately to severely decreased ??30 - 44 mL/min/1.73m2 Severely decreased ?15 - 29 mL/min/1.73m2 Kidney Failure ?< 15 ??mL/min/1.73m2 *Relative to young adult level If -[place] Islander multiply value by 1.16. Estimated glomerular filtration [...] was last reviewed 2015. Blood specimen (specimen) 03/31/2019 2:02 PM ELECTRONIC ENGINEERING TECHNICIAN 03/31/2019 2:10 PM ELECTRONIC ENGINEERING TECHNICIAN us Doreen Blanc MD LAB BLOOD ORDERABLES Cheryl farias Result [facility]) 1 [facility] Department [place] [address] * (ABNORMAL) Differential, auto (03/31/2019 2:02 PM ELECTRONIC ENGINEERING TECHNICIAN) Neutrophil abs 9.4(H) 1.7 - 6.5 K/cumm [facility] ([place]) Imm gran abs 0.0 0.0 - 0.1 K/cumm [facility] ([place]) Lymphocyte abs 2.3 0.8 - 3.3 K/cumm [facility] ([place]) Monocyte abs 0.8 0.2 - 0.8 K/cumm [facility] ([place]) Eosinophil abs 0.2 0.0 - 0.5 K/cumm [facility] ([place]) Basophil abs 0.0 0.0 - 0.1 K/cumm [facility] ([place]) Neutrophil pct 74.2 % [facility] ([place]) Comment: Interpretive Data Percent cell count reference ranges are not reported, since discordance with absolute values may lead to misinterpretation of CBC data. Current Interpretive Data was last revised on 2017. Imm gran pct 0.4 % [facility] ([place]) Comment: Interpretive Data Percent cell count reference ranges are not reported, since discordance with absolute values may lead to misinterpretation of CBC data. Current Interpretive Data was last revised on 2017. Lymphocyte pct 18.0 % [facility] ([place]) Comment: Interpretive Data Percent cell count reference ranges are not reported, since discordance with absolute values may lead to misinterpretation of CBC data. Current Interpretive Data was last revised on 2017. Monocyte pct 5.9 % [facility] ([place]) Comment: Interpretive Data Percent cell count reference ranges are not reported, since discordance with absolute values may lead to misinterpretation of CBC data. Current Interpretive Data was last revised on 2017. Eosinophil pct 1.3 % [facility] ([place]) Comment: Interpretive Data Percent cell count reference ranges are not reported, since discordance with absolute values may lead to misinterpretation of CBC data. Current Interpretive Data was last revised on 2017. Basophil pct 0.2 % [facility] ([place]) Comment: Interpretive Data Percent cell count reference ranges are not reported, since discordance with absolute values may lead to misinterpretation of CBC data. Current Interpretive Data was last revised on 2017. Blood specimen (specimen) 03/31/2019 2:02 PM ELECTRONIC ENGINEERING TECHNICIAN 03/31/2019 2:10 PM ELECTRONIC ENGINEERING TECHNICIAN us Doreen Blanc MD LAB BLOOD ORDERABLES Cheryl l Result [facility] ([place]) 1 [facility] Department of Laboratories [place], [place] [id number] * Pro B-type natriuretic peptide (03/31/2019 2:02 PM ELECTRONIC ENGINEERING TECHNICIAN) NT-proBNP 43 <=300 pg/mL [facility] ([place]) Comment: Interpretive Comments: A. Dyspnea in Acute Care Setting All Ages: ?< 300 pg/ml, acute heart failure unlikely. < 50 yrs: ?300 - 450 pg/ml, further investigation warranted. ? > 450 pg/ml, acute heart failure likely. 50 - 74 yrs: ? 300 - 900 pg/ml, further investigation warranted. ? > 900 pg/ml, acute heart failure likely . > or = 75 yrs: ? 450 - 1800 pg/ml, further investigation warranted. ? > 1800 pg/ml, acute heart failure likely. B. Non-acute Setting < 75 yrs ? < 125 pg/ml, rules out heart failure. ? > or = 125 pg/ml, further investigation warranted. > or = 75 yrs ?< 450 pg/ml, rules out heart failure. ? > or = 450 pg/ml, further investigation warranted. - Knowledge of each individual patient's NT-proBNP range may be more useful than using similar cut-points for every patient. Please note that marked elevations in NT-proBNP levels may be observed in state other than Left Ventricular Congestive Failure, including: acute coronary syndromes, right heart strain/failure (including pulmonary embolism and cor pulmonale), critical illness, renal failure, as well as advanced age. - References: 1. Deisi BUTLER et.al. Eur Heart J. 2006:27:330-337. 2. Bina RW, Ollie AM. J. AM Paul Cardiol: Cardiovasc Imag. 2009;2: 216- 225. Interpretive Data Last Revised Date: 2017. Blood specimen (specimen) 03/31/2019 2:02 PM ELECTRONIC ENGINEERING TECHNICIAN 03/31/2019 2:10 PM ELECTRONIC ENGINEERING TECHNICIAN Doreen Blanc MD LAB BLOOD ORDERABLES Cheryl l Result [facility] ([place]) 1 [facility] [employer] [place] [address] * TSH (03/31/2019 2:02 PM ELECTRONIC ENGINEERING TECHNICIAN) Thyroid Stimulating Hormone 3.11 0.30 - 4.20 mcIUnit/mL [facility] ([place]) Blood specimen (specimen) 03/31/2019 2:02 PM ELECTRONIC ENGINEERING TECHNICIAN 03/31/2019 2:10 PM ELECTRONIC ENGINEERING TECHNICIAN Doreen Blanc MD LAB BLOOD ORDERABLES Cheryl l Result Performing Organization Address City/[facility]/ZIP Co de Phone Number [facility] ([place]) 1 [facility] [employer] [place] [address] * aPTT (03/31/2019 2:02 PM ELECTRONIC ENGINEERING TECHNICIAN) Pathologist [facility] aPTT 32.2 25.0 - 37.0 sec [facility] ([place]) Blood specimen (specimen) 03/31/2019 2:02 PM ELECTRONIC ENGINEERING TECHNICIAN 03/31/2019 2:10 PM ELECTRONIC ENGINEERING TECHNICIAN Doreen Blanc MD LAB BLOOD ORDERABLES Cheryl l Result Performing Organization Address City/[facility] Co de Phone Number [facility] ([place]) 1 [facility] [place] [place] [address] * Troponin T (03/31/2019 2:02 PM ELECTRONIC ENGINEERING TECHNICIAN) Troponin T <0.01 0.00 - 0.01 ng/mL [facility] ([place]) Comment: Interpretive Data Reference ranges for children <18 years of age have not been established. - > or = 18 years: Serial determinations are recommended for the diagnosis of myocardial infarction. ??Temporal rise and fall are consistent with myocardial infarction when at least one value is above the 99th percentile upper reference limit for troponin assay. ??Journal of the [place] College of Cardiology 2012;60:1581-98. Current Interpretive Data Last Revised Date: 2017. Blood specimen (specimen) 03/31/2019 2:02 PM ELECTRONIC ENGINEERING TECHNICIAN 03/31/2019 2:10 PM ELECTRONIC ENGINEERING TECHNICIAN Doreen Blanc MD LAB BLOOD ORDERABLES Cheryl dinora Result [facility]) 1 [facility] Department [place] [address] * Comprehensive metabolic panel (03/31/2019 2:02 PM ELECTRONIC ENGINEERING TECHNICIAN) Sodium 137 135 - 145 mmol/L [facility] ([place]) Potassium, pl 3.8 3.3 - 4.9 mmol/L [facility] ([place]) Chloride 99 97 - 110 mmol/L [facility]) CO2 25 22 - 32 mmol/L [facility] ([place]) Anion gap 13 2 - 15 mmol/L [facility] ([place]) BUN 10 8 - 25 mg/dL [facility] ([place]) Creatinine 0.61 0.60 - 1.10 mg/dL [facility] ([place]) Glucose 108 70 - 199 mg/dL [facility] ([place]) [...] interpretive data was last revised 2017. Calcium 8.8 8.5 - 10.3 mg/dL [facility] ([place]) Bilirubin, total <0.2 0.1 - 1.2 mg/dL [facility] ([place]) Protein, pl 7.1 6.5 - 8.5 g/dL [facility] ([place]) Albumin 4.2 3.5 - 5.0 g/dL [facility] ([place]) Alk phos 56 40 - 130 Units/L [facility] ([place]) ALT 39 7 - 45 Units/L [facility]) AST 32 10 - 45 Units/L [facility] ([place]) Blood specimen (specimen) 03/31/2019 2:02 PM ELECTRONIC ENGINEERING TECHNICIAN 03/31/2019 2:10 PM ELECTRONIC ENGINEERING TECHNICIAN Doreen Blanc MD LAB BLOOD ORDERABLES Cheryl l Result Performing Organization Address City/[facility]/ZIP Co de Phone Number [facility] ([place]) 1 [facility] [place] [address] * (ABNORMAL) CBC with auto differential (03/31/2019 2:02 PM ELECTRONIC ENGINEERING TECHNICIAN) WBC 12.7(H) 3.8 - 9.9 K/cumm [facility] ([place]) Hgb 13.4 11.9 - 15.5 g/dL [facility] ([place]) Hct 40.6 35.6 - 45.5 % [facility] ([place]) Plt 363 150 - 400 K/cumm [facility] ([place]) MPV 9.1 9.1 - 12.3 fL [facility] ([place]) RBC 4.94 3.90 - 5.20 M/cumm [facility] ([place]) MCV 82.2 81.3 - 96.4 fL [facility] ([place]) MCH 27.1 27.1 - 33.3 pg [facility] ([place]) MCHC 33.0 32.3 - 35.7 g/dL [facility] ([place]) RDW CV 13.4 11.1 - 14.9 % [facility] ([place]) RDW SD 39.8 35.7 - 48.1 fL [facility] ([place]) NRBC abs 0.00 0.00 - 0.01 K/cumm [facility] ([place]) Blood specimen (specimen) 03/31/2019 2:02 PM ELECTRONIC ENGINEERING TECHNICIAN 03/31/2019 2:10 PM ELECTRONIC ENGINEERING TECHNICIAN Doreen Blanc MD LAB BLOOD ORDERABLES Cheryl l Result Performing Organization Address City/[facility]/ZIP Co de Phone Number [facility] ([place]) [address] Department [place] [address] * ECG 12 lead (03/31/2019 1:59 PM ELECTRONIC ENGINEERING TECHNICIAN) 03/31/2019 1:59 PM ELECTRONIC ENGINEERING TECHNICIAN Narrative [facility] - 04/01/2019 1:21 PM ELECTRONIC ENGINEERING TECHNICIAN Vent Rate: 96 bpm RR Interval: 624 msec NM Interval: 124 msec QRS Duration: 86 msec QT Interval: 319 msec QTC Interval: 372 msec P-R-T Ramey: 18 - 14 - 16 degrees SINUS RHYTHM NORMAL ECG NO PREVIOUS TRACING IS AVAILABLE FOR COMPARISON Electronically Signed By: Dr Mark Reyes Doreen Blanc MD ECG ORDERABLES Final Res ult [facility] * XR Chest Pa Lateral 2 Views (03/31/2019 1:53 PM ELECTRONIC ENGINEERING TECHNICIAN) Anatomical Region Laterality Modality Body, Chest N/A Computed Radiogr aphy 03/31/2019 1:58 PM ELECTRONIC ENGINEERING TECHNICIAN Impressions 03/31/2019 2:03 PM ELECTRONIC ENGINEERING TECHNICIAN NO ACTIVE DISEASE. Electronically signed by: Carl Vera M.D. Narrative 03/31/2019 2:03 PM ELECTRONIC ENGINEERING TECHNICIAN XR CHEST PA LATERAL 2 VIEWS HISTORY: Chest pain. ??Shortness of breath COMPARISON: 09/09/2009 FINDINGS: Heart size is normal. ??Lungs are clear. Procedure Note Carl Vera MD - 03/31/2019 XR CHEST PA LATERAL 2 VIEWS HISTORY: Chest pain. Shortness of breath COMPARISON: 09/09/2009 FINDINGS: Heart size is normal. Lungs are clear. IMPRESSION: NO ACTIVE DISEASE. Electronically signed by: Carl Vera M.D. Doreen Blanc MD IMG XR PROCEDURES Final R esult documented in this encounter Visit Diagnoses Diagnosis Chest pain, unspecified type- Primary documented in this encounter Administered Medications Inactive Administered Medications - up to 3 most recent administrations Medication Order MAR Action Action Date Dose Rate Site aspirin 81 mg chewable tablet - ADS Override Pull Starting on 03/31/19 at 1337, For 1 dose, Created by tracy posey aspirin chewable tablet 324 mg 324 mg, oral, Once, On 03/31/19 at 1337, For 1 dose, Indications: Acute Coronary SyndromeIndications:Acute Coronary Syndrome Given 03/31/2019 1:41 PM ELECTRONIC ENGINEERING TECHNICIAN 324 mg documented in this encounter Active and Recently Administered Medications Times are shown in ELECTRONIC ENGINEERING TECHNICIAN. Scheduled Medication Order 03/29/2019 03/30/2019 03/31/2019 aspirin chewable tablet 324 mg (COMPLETED) 324 mg, oral, Once, On Sun03/31/19 at 1337, For 1 dose, Indications: Acute Coronary Syndrome 1341 (Given - Provid er: Carrie Duckworth RN) documented in this encounter Care Teams Subcontracts Manager Relationship Specialty Start Date End Date Jeanie Jewell NP PCP - General 03/28/17 06/16/19 documented as of this encounter
--- OUTSIDE RECORDS SUMMARY | 2024-05-07 12:18 | XMS_ITS | Encounter Summary ---
Author Organization [facility] Healthcare Address [address] [place] [address] Care Team Providers Care Ibm Websphere Commerce Developer Name Role Phone Unavailable Primary Care Provider Unavailabl e Encounter Details Date Type Department Care Team (Late st Contact Info) Description 02/22/2012 8:17 PM CDT - 02/22/2012 8:42 PM CDT Hospital Encounter [facility] Aliza Batres MD [address] [place] [address] [place] [address] Disorder of teeth and supporting structures Social History Tobacco Use Types Packs/Day Years Used Date Smoking Tobacco: Never Assessed Comments Unknown Sex and Gender Information Value Date Recorded Sex Assigned at Not on file Legal Sex Female 9:05 AM PROPERTY INSPECTOR Gender Identity Not on file Sexual Orientation Not on file documented as of this encounter Plan of Treatment Not on file documented as of this encounter Visit Diagnoses Diagnosis Disorder of teeth and supporting structures Unspecified disorder of the teeth and supporting structures documented in this encounter
--- OUTSIDE RECORDS SUMMARY | 2024-05-07 12:18 | XMS_ITS | Encounter Summary ---
Author Organization [facility] Address [address] [place] [address] Phone Care Team Providers Care Senior Payroll Administrator Name Role Phone Jeanie Jewell NP Primary Care Provider [phone] Jeanie Jewell SKIN CARVER Unavailable [phone] Encounter Details Date Type Department Care Team (Late st Contact Info) Description 02/05/2020 Telephone [facility] Oncology [address] [place] [address] [place] [phone] Yanni Alvarenga, VIDAL Social History Tobacco Use Types Packs/Day Years Used Date Smoking Tobacco: Every Day Cigarettes 0.5 10 Smokeless Tobacco: Never Alcohol Use Standard Drinks/Week Comments Yes 2 (1 standard drink = 0.6 oz pur e alcohol) Comments No Sex and Gender Information Value Date Recorded Sex Assigned at Not on file Legal Sex Female 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 Advised that Dr. Tejada would like her to have a chest xray done now. Patient v/u and will have this done at [facility]. documented in this encounter Plan of Treatment Not on file documented as of this encounter Visit Diagnoses Diagnosis Pulmonary nodule- Primary Other diseases of lung, not elsewhere classified documented in this encounter Care Teams Senior Payroll Administrator Relationship Specialty Start Date End Date Jeanie Jewell NP PCP - General 06/17/19 Jeanie Jewell NP 06/17/19 documented as of this encounter
--- OUTSIDE RECORDS SUMMARY | 2024-05-07 12:18 | XMS_ITS | CONTINUITY OF CARE DOCUMENT ---
Author Name sanjay grace Address Unknown Organization [facility] Address [address] [place] [address] Phone [phone] Care Team Providers Care Job Service Specialist Name Role Phone Richard ORELLANA, Mejia Unavailable [phone] Mejia Ramos MD Unavailable [phone] PROBLEMS Condition Status Date Provider Notes Leg edema, bilateral active Mejia Ramos MD PVC's active Mejia Ramos MD Near syncope active Mejia Ramos MD Abnormal glucose active Mejia Ramos MD Family Hx premature heart disease active Kavin Ramos MD Snoring active Mejia Ramos MD Fatigue active Mejia Ramos MD Abnormal EKG active Mejia Ramos MD Smoker active Mejia Ramos MD Chest pain active Mejia Ramos MD HTN essential active Mejia Ramos MD Morbid obesity active Mejia Ramos MD ENCOUNTERS Date Type Provider Location Encounter Diag nosis - In-person encounter Office Visit Mejia Ramos MD [facility] Morbid obesityHTN essentialChest painSmokerAbnormal EKGFatigueSnoringFamily Hx premature heart diseaseAbnormal glucoseNear syncopePVC'sLeg edema, bilateral VITAL SIGNS Date Observation Value Provider weight E&M 337 [lb_av] Cara Oscoda Body Mass Index (Ratio) 51.24 kg/m2 Terrie Ramos MD blood pressure, cuff size regular Cy leonel Mcclelland blood pressure, diastolic 98 mm[Hg] Cy leonel Stas blood pressure, systolic 140 mm[Hg] Silva rankin Stas oxygen saturation, oximetry 97 % Karley Mcclelland respiratory rate E&M 16 /min Karley Mcclelland pulse rate 101 /min Karley farias height E&M 68 [in_i] Karley farias weight E&M 337 [lb_av] Karley farias ALLERGIES Allergy Name Onset Date Reaction Criticality Status LOSARTAN High Criticality active RESULTS Date Observation Value Provider Reference Range Interpretation Location D-dimer quantitative mcg/mL 0.62 MG/L FEU [facility] 0.00-0.49 High hemoglobin A1C, blood, as % of total hemoglobin 6.4 % [facility] 4.8-5.6 High lipoprotein, beta, serum, point, quantitative, calculated 83 mg/dL [facility] 0-99 very low density lipoproteins 25 mg/dL [facility] 5-40 HDL cholesterol, serum 33 mg/dL [facility] >39 Low triglyceride, serum, random 124 mg/dL [facility] 0-149 cholesterol, serum 141 mg/dL [facility] 100-199 HISTORY OF MEDICATION USE No Known Medication SOCIAL HISTORY Date Observation Value Provider number of grandchildren Mejia Ramos MD social history E&M S moking History: Danielito ortiz is a former smoker. Mejia Ramos MD social history reviewed E&M revi ewed - no changes required Mejia Ramos MD smoking history, total pack/day 1/2 PPD Karley Mcclelland smoking, year quit 2006 Karley thakur cigarette use yes Karley saldivar smoking status Former smoker Karley gomes FAMILY HISTORY Family Member Condition Maternal Grandfather Family History of C ongestive Heart Failure: Maternal Grandfather Family History of C oronary Artery Disease: Maternal Grandmother Family History of C ongestive Heart Failure: Maternal Grandmother Family History of C oronary Artery Disease: Maternal Grandmother Family History of D iabetes: Father Family History of CV A or Stroke: INSURANCE PROVIDERS Payer name Policy type / Coverage type Shantelle red alliance party ID [employer] MEDICAID (2) Medicaid [id number] ADVANCE DIRECTIVES Name Date DISCUSSED - NO DECISION MADE TREATMENT PLAN Date Name Performer Cardiology New Patient Mejia carlson MD Cardiology New Patient Mejia carlson MD Cardiology New Patient Mejia carlson MD Cardiology New Patient Mejia carlson MD Cardiology New Patient Mejia carlson MD Cardiology New Patient Mejia carlson MD Cardiology New Patient Mejia carlson MD Date Name Venous Doppler Bilat eral LE Venous Doppler Bilat eral LE - Reflux HEMOGLOBIN A1c LIPID PANEL D-DIMER, QUANTITATIV E Mobile Cardiac Tele Sleep Study Home Stress Routine Complete Echo HISTORY OF PROCEDURES Procedure Date Procedure Name Provider Procedure Notes S tatus Stress EKG Mejia Ramos MD complet ed Event Monitor Mejia Ramos MD comp leted EKG Mejia Ramos MD complet ed
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
--- OUTSIDE RECORDS SUMMARY | 2024-05-07 12:18 | XMS_ITS | Encounter Summary ---
Author Organization [facility] Healthcare Address [address] [place] [address] Care Team Providers Care Transportation Worker Name Role Phone Unavailable Primary Care Provider Unavailabl e Encounter Details Date Type Department Care Team (Latest Contact Info) Description 01/26/2012 11:44 AM CDT - 01/26/2012 2:00 PM CDT Hospital Encounter [facility] Hadley Arredondo MD [address] [place] [address] Other specified noninflammatory disorder of vagina Social History Tobacco Use Types Packs/Day Years Used Date Smoking Tobacco: Never Assessed Comments Unknown Sex and Gender Information Value Date Recorded Sex Assigned at Not on file Legal Sex Female 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
--- OUTSIDE RECORDS SUMMARY | 2024-05-07 12:18 | XMS_ITS | Encounter Summary ---
Author Organization [facility] Healthcare Address [address] [place] [address] Care Team Providers Care Dent Remover Name Role Phone Unavailable Primary Care Provider Unavailabl e Encounter Details Date Type Department Care Team (Late st Contact Info) Description 09/10/2013 11:03 PM CDT - 09/11/2013 2:03 AM CDT Hospital Encounter [facility] Eugene Matthew MD [address] [facility] [address] [place] [address] Urticaria; Personal history of methicillin resistant Staphylococcus aureus; Tobacco use disorder Social History Tobacco Use Types Packs/Day Years Used Date Smoking Tobacco: Never Assessed Comments Unknown Sex and Gender Information Value Date Recorded Sex Assigned at Not on file Legal Sex Female 9:05 AM 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
--- OUTSIDE RECORDS SUMMARY | 2024-05-07 12:18 | XMS_ITS | Encounter Summary ---
Author Organization [facility] Address [address] [place] [address] Phone Care Team Providers Care Box Fabricator Name Role Phone Jeanie Jewell NP Primary Care Provider [phone] Jeanie Jewell BOTTOM TURNING LATHE TURNER Unavailable [phone] Encounter Details Date Type Department Care Team (Late st Contact Info) Description 11/06/2019 Documentation [facility] Oncology [address] [facility] [address] [place] [phone] Jaclyn Sloan CMA Social History Tobacco Use Types Packs/Day Years Used Date Smoking Tobacco: Every Day Cigarettes 0.5 10 Smokeless Tobacco: Never Alcohol Use Standard Drinks/Week Comments Yes 2 (1 standard drink = 0.6 oz pur e alcohol) Comments No Sex and Gender Information Value Date Recorded Sex Assigned at Not on file Legal Sex Female 9:05 AM BRICK MASON Gender Identity Not on file Sexual Orientation Not on file documented as of this encounter Progress Notes * Jaclyn Sloan CMA - 11/06/2019 12:38 PM CDT YELENA WITH [employer] CALLED IN REGARDS OF PT CT SCAN. LOOKS LIKE DR RANDOLPH HAD PT SCHEDULED FOR TESTING BACK IN 06/2019 OR 07/2019. THERE IS A NOTE IN CHART FROM MELISSA Alejandro ABOUT CT SCAN BEING SCHEDULED FOR 11/14/2019. LOOKS LIKE DR DINAH PAZ TRIED TO PRE CERT FOR CT CHEST WO CONTRAST ON 10/06/2019. CT SCAN WASDENIED ON 10/09/2019. OUR OFFICE CANNOT GET AUTH FOR SAME TESTING.NOT SURE IF PT DID NOT HAVE SCAN'S DONE WHEN ORDERED BY DR RANDOLPH.[facility] documented in this encounter Plan of Treatment Not on file documented as of this encounter Visit Diagnoses Not on filedocumented in this encounter Care Teams Box Fabricator Relationship Specialty Start Date End Date Jeanie Jewell NP PCP - General 06/17/19 Jeanie Jewell NP 06/17/19 documented as of this encounter
--- OUTSIDE RECORDS SUMMARY | 2024-05-07 12:18 | XMS_ITS | Encounter Summary ---
Author Organization [facility] Healthcare Address [address] [place] [address] Care Team Providers Care Lighting Equipment Operator Name Role Phone Jeanie Jewell NP Primary Care Provider [phone] Jeanie Jewell NP Unavailable [phone] Reason for Visit * Reason Comments Flu Symptoms Encounter Details Date Type Department Care Team ([facility] st Contact Info) Description 07/23/2019 7:41 PM CDT - 07/23/2019 10:22 PM CDT Emergency [facility] Emergency Department [address] [place] [id number] Nausea vomiting and diarrhea (Primary Dx); Body aches; Viral syndrome Discharge Disposition: Discharge to home or self care Social History Tobacco Use Types Packs/Day Years Used Date Smoking Tobacco: Every Day Cigarettes 0.5 10 Smokeless Tobacco: Never Alcohol Use Standard Drinks/Week Comments Yes 2 (1 standard drink = 0.6 oz pur e alcohol) Comments No Sex and Gender Information Value Date Recorded Sex Assigned at Not on file 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 No / Unsure 07/23/2019 8:04 PM CDT documented as of this encounter Last Filed [...] Mass Index 43.33 07/23/2019 8:05 PM CDT documented in this encounter Discharge Diagnoses Diagnosis Viral infection, unspecified - VIRAL INFECTION, UNSPECIFIED Essential (primary) hypertension - ESSENTIAL (PRIMARY) HYPERTENSION Unspecified essential hypertension Nicotine dependence, cigarettes, uncomplicated - NICOTINE DEPENDENCE, CIGARETTES, UNCOMPLICATED documented in this encounter Discharge Instructions * Discharge Instructions* Eve aBrnett NP - 07/23/2019 9:34 PM CDT Use over the counter Tylenol and Motrin per manufacturers guidelines for relief of pain and fever. Follow up with Jeanie Jewell without fail. * Attachments The following attachments cannot be sent through Care Everywhere. * Viral Syndrome (AfterCare(R) Instructions(ER/ED)) (Togolese) * Acute Nausea and Vomiting (AfterCare(R) Instructions(ER/ED)) (Togolese) * Musculoskeletal Pain (References) (Togolese) documented in this encounter Medications at Time of Discharge aspirin 81 mg enteric coated tablet Take 81 mg by mouth daily hydroCHLOROthiazide (HYDRODIURIL) 25 mg tablet Take 25 mg by mouth daily. levonorgestrel (MIRENA) IUD 1 each by intrauterine route once losartan (COZAAR) 25 mg tablet Take 25 mg by mouth daily. ondansetron ODT (ZOFRAN-ODT) 4 mg disintegrating tablet Dissolve 1 tablet oral every 4 hours as needed for nausea or vomiting. 15 tablet 0 prochlorperazine (COMPAZINE) 25 mg suppository Insert 1 suppository (25 mg total) into the rectum every 12 (twelve) hours as needed for nausea or vomiting 12 suppository 0 documented as of this encounter Ordered Prescriptions Prescription Sig Dispense Quantity Refills Last Filled Start Date End Date prochlorperazine (COMPAZINE) 25 mg suppository Insert 1 suppository (25 mg total) into the rectum every 12 (twelve) hours as needed for nausea or vomiting 12 suppository 0 ondansetron ODT (ZOFRAN-ODT) 4 mg disintegrating tablet Dissolve 1 tablet oral every 4 hours as needed for nausea or vomiting. 15 tablet 0 documented in this encounter Discharge Disposition Disposition Code Departure Means Destination Discharge to home or self care documented in this encounter ED Notes * Shu Evans RN - 07/23/2019 7:58 PM CDT Patient presents to the Ed with c.o. flu like symptoms. Patient states yesterday she developed bodyaches fever, and a sore throat, cough, and nasal congestion. Patient states today she started with the nausea and vomiting. Patient states she called her DR and they called her in a zpac but 20 minutes after she took the first dosage she threw up and states she feels dehydrated. Patient's mucus membranes are moist. * Eve Barnett NP - 07/23/2019 7:42 PM CDT HPI Chief Complaint Patient presents with ??? Flu Symptoms 34 y.o. year old female with PMHX Anemia Hypertension; accompanied by family presents to ED with c/o Nausea, vomiting, fever, bodyaches Denies fever, chills, diarrhea, SOB, CP, numbness, tingling. Pt was prescribed a Z-pack today by PMD. Pt states approximately 20 minutes after taking medicationshe began vomiting. Pt has not been able to keep food or liquid down. Generalized body aches. No other complaint at this time. Patient History Patient Active Problem List Diagnosis Date Noted ??? Lung mass 06/06/2019 Past Medical History: Diagnosis Date ??? Anemia ??? Hypertension Past Surgical History: Procedure Laterality Date ??? OVARIAN CYST SURGERY Family History Problem Relation Age of Onset ??? No Known Problems Mother ??? No Known Problems Father Social History Tobacco Use ??? Smoking status: Current Every Day Smoker Packs/day: 0.50 Years: 10.00 Pack years: 5.00 ??? Smokeless tobacco: Never Used Substance Use Topics ??? Alcohol use: Yes Alcohol/week: 2.0 standard drinks Types: 2 Glasses of wine per week ??? Drug use: Never Social History Social History Narrative ??? Not on file Review of Systems Review of Systems Constitutional: Negative for chills and fever. Generalized bodyaches HENT: Negative. Negative for ear pain and sore throat. Eyes: Negative. Negative for pain and visual disturbance. Respiratory: Negative. Negative for cough and shortness of breath. Cardiovascular: Negative. Negative for chest pain and palpitations. Gastrointestinal: Positive for diarrhea, nausea and vomiting. Negative for abdominal pain. Genitourinary: Negative. Negative for dysuria and hematuria. Musculoskeletal: Negative. Negative for arthralgias and back pain. Skin: Negative. Negative for color change and rash. Neurological: Negative. Negative for seizures and syncope. All other systems reviewed and are negative. Physical Exam ED Triage Vitals [07/23/192004] Temp Pulse Resp BP SpO2 37.1 ??C (98.7 ??F) 102 17 149/81 95 % Temp src Heart Rate Source Patient Position BP Location FiO2 (%) Oral -- -- -- -- Physical Exam Vitals signs and nursing note reviewed. Constitutional: General: She is not in acute distress. Appearance: Normal appearance. She is well-developed. She is not ill-appearing, toxic-appearing or diaphoretic. HENT: Head: Normocephalic and atraumatic. Right Ear: Hearing, tympanic membrane, ear canal and external ear normal. Left Ear: Hearing, tympanic membrane, ear canal and external ear normal. Nose: Nose normal. Right Sinus: No maxillary sinus tenderness or frontal sinus tenderness. Left Sinus: No maxillary sinus tenderness or frontal sinus tenderness. Mouth/Throat: Lips: [place]. Mouth: Mucous membranes are moist. Pharynx: Oropharynx is clear. Uvula midline. No posterior oropharyngeal erythema or uvula swelling. Tonsils: No tonsillar exudate or tonsillar abscesses. [place]+ on the right. 1+ on the left. Eyes: General: Lids are normal. Conjunctiva/sclera: Conjunctivae normal. Neck: Musculoskeletal: Full passive range of motion without pain, normal range of motion and neck supple. Trachea: Trachea and phonation normal. Cardiovascular: Rate and Rhythm: Normal rate and regular rhythm. Pulses: Normal pulses. No decreased pulses. Heart [...] Abdomen is soft. Tenderness: There is no abdominal tenderness. There is no guarding. Lymphadenopathy: Cervical: No cervical adenopathy. Skin: General: Skin is warm and dry. Capillary Refill: Capillary refill takes less than 2 seconds. Neurological: General: No focal deficit present. Mental Status: She is alert and oriented to person, place, and time. Psychiatric: Attention and Perception: Attention normal. Mood and Affect: Mood normal. Speech: Speech normal. Behavior: Behavior normal. Behavior is cooperative. Thought Content: Thought content normal. Cognition and Memory: Cognition normal. Judgment: Judgment normal. [facility] ED Course as of Jul 22 2132 Time: 07/22 1941 Comment: Discussed with pt benefits of stop smoking and encouraged to stop smoking. Pt was counseled on smoking sensation. By: Eve Barnett NP Time: 07/23 2131 Comment: Pt is able to tolerate PO fluids. Will discharge home with antiemetic medication and follow up with PMD. Pt verbalized understanding. All questions answered at this time. By: Eve Barnett NP Final diagnoses: Nausea vomiting and diarrhea Body aches Viral syndrome Eve Barnett NP 07/23/192132 Cosigned by Jaiden Carl MD at 07/23/2019 10:36 PM CDT Associated attestation - Jaiden Carl MD - 07/23/2019 10:36 PM CDT ED Attestation Based on the medical record the care appears appropriate. documented in this encounter Plan of Treatment Not on file documented as of this encounter Visit Diagnoses Diagnosis Nausea vomiting and diarrhea- Primary Body aches Generalized pain Viral syndrome Unspecified viral infection, in conditions classified elsewhere and of unspecified site documented in this encounter Administered Medications Inactive Administered Medications - up to 3 most recent administrations Medication Order MAR Action Action Date Dose Rate Site ondansetron ODT (ZOFRAN-ODT) disintegrating tablet 4 mg 4 mg, oral, Once, On Sun07/23/19 at 2007, For 1 dose Given 07/23/2019 8:13 PM CDT 4 mg prochlorperazine (COMPAZINE) injection 10 mg 10 mg, intramuscular, Administer over 2 Minutes, Once, On Sun07/23/19 at 2048, For 1 dose, For IV push, administer at a rate of 5 mg/minute Given 07/23/2019 8:53 PM CDT 10 mg Right Ventrogluteal documented in this encounter Active and Recently Administered Medications Times are shown in CDT. Scheduled Medication Order 07/21/2019 07/22/2019 07/23/2019 ondansetron ODT (ZOFRAN-ODT) disintegrating tablet 4 mg (COMPLETED) 4 mg, oral, Once, On Sun07/23/19 at 2007, For 1 dose 2012 (Given - Provid er: Shu Evans RN) prochlorperazine (COMPAZINE) injection 10 mg (COMPLETED) 10 mg, intramuscular, Administer over 2 Minutes, Once, On Sun07/23/19 at 2048, For 1 dose, For IV push, administer at a rate of 5 mg/minute 2052 (Given - Provid er: Shu Evans RN) documented in this encounter Orders Medications Ordered That Dudley ht Not Have Been Administered Count Last Ordered Date First Ordered Date ketorolac (TORADOL) injection 30 mg 1 07/22 ondansetron (ZOFRAN) injection 4 mg 1 07/22 sodium chloride 0.9% bolus 1,000 mL 1 07/22 Nursing Count Last Ordered Date First Orde red Date NURSING COMMUNICATION 1 07/23/2019 documented in this encounter Care Teams Lighting Equipment Operator Relationship Specialty Start Date End Date Jeanie Jewell NP PCP - General 06/17/19 Jeanie Jewell NP 06/17/19 documented as of this encounter
--- OUTSIDE RECORDS SUMMARY | 2024-05-07 12:18 | XMS_ITS | Encounter Summary ---
Author Organization [facility] Address [address] [place] [address] Phone Care Team Providers Care Detective Lieutenant Name Role Phone Jeanie Jewell INVENTORY CONTROLLER Primary Care Provider [phone] Jeanie Jewell INVENTORY CONTROLLER Unavailable [phone] Encounter Details Date Type Department Care Team (Late st Contact Info) Description 11/24/2019 Orders Only [facility] Physicians [facility] Oncology [address] [phone] Scotty Tejada DO [address] [facility] [address] [place], [place] [phone] Pulmonary nodule (Primary Dx) Social History Tobacco Use Types Packs/Day Years Used Date Smoking Tobacco: Every Day Cigarettes 0.5 10 Smokeless Tobacco: Never Alcohol Use Standard Drinks/Week Comments Yes 2 (1 standard drink = 0.6 oz pur e alcohol) Comments No Sex and Gender Information Value Date Recorded Sex Assigned at Not on file 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
--- OUTSIDE RECORDS SUMMARY | 2024-05-07 12:18 | XMS_ITS | Encounter Summary ---
Author Organization [facility] Address [address] [place] [address] Phone Care Team Providers Care Trade Union Official Name Role Phone Jeanie Jewell NP Primary Care Provider [phone] Jeanie Jewell CASHIER CREDIT Unavailable [phone] Encounter Details Date Type Department Care Team (Late st Contact Info) Description 06/17/2019 Telephone [facility] Oncology [address] [phone] Scotty Tejada DO 1418 [facility] [address] [place], [place] [phone] Social History Tobacco Use Types Packs/Day Years Used Date Smoking Tobacco: Every Day Cigarettes 0.5 10 Smokeless Tobacco: Never Alcohol Use Standard Drinks/Week Comments Yes 2 (1 standard drink = 0.6 oz pur e alcohol) Comments No Sex and Gender Information Value Date Recorded Sex Assigned at Not on file Legal Sex Female 9:05 AM HIP HOP PERFORMERS Gender Identity Not on file Sexual Orientation Not on file documented as of this encounter Miscellaneous Notes * Telephone Encounter - Yanni Alvarenga RN - 06/17/2019 10:01 AM HIP HOP PERFORMERS Spoke with patient and advised that PET has been denied by Ángel on appeal. Advised that Dr. Tejada would like to do repeat CT chest without contrast in mid June with a follow after scan is done. Patient v/u. HOP PERFORMERS documented in this encounter Plan of Treatment Not on file documented as of this encounter Visit Diagnoses Diagnosis Pulmonary nodule- Primary Other diseases of lung, not elsewhere classified documented in this encounter Care Teams Trade Union Official Relationship Specialty Start Date End Date Jeanie Jewell NP PCP - General 06/17/19 Jeanie Jewell NP 06/17/19 documented as of this encounter
--- OUTSIDE RECORDS SUMMARY | 2024-05-07 12:18 | XMS_ITS | Encounter Summary ---
Author Organization [facility] Address [address] [place] [address] Phone Care Team Providers Care Contract Associate Name Role Phone Jeanie Jewell NP Primary Care Provider [phone] Jeanie Jewell HOT CAR OPERATOR Unavailable [phone] Encounter Details Date Type Department Care Team (Late st Contact Info) Description 11/06/2019 Telephone [facility] Oncology [address] [place] [address] [place] [phone] Antonella Wu, [facility] Social History Tobacco Use Types Packs/Day Years Used Date Smoking Tobacco: Every Day Cigarettes 0.5 10 Smokeless Tobacco: Never Alcohol Use Standard Drinks/Week Comments Yes 2 (1 standard drink = 0.6 oz pur e alcohol) Comments No Sex and Gender Information Value Date Recorded Sex Assigned at Not on file 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 At [facility] no prep patient needs to go to outpatient registration. With her insurance card and ID and make sure she has a mask and she has to come by herself . I then scheduled her for a doctors apt on October in [place] at 1:15pm. Asked patient to call back and confirm she got the message and to let us know if this all worked ok for her. Antonella STEPHENS * Telephone Encounter - Antonella Wu MA - 11/06/2019 8:34 AM CDT ----- Message from Yanni Alvarenga RN sent at 11/05/2019 4:37 PM CDT ----- Please call [facility] and schedule patient for a CT chest Order is from June. Not sure what happened with this. Patient was never contacted. Please schedule after 4:00 pm and she would like it [facility]. Theywere already closed. Sorry. Zayas documented in this encounter Plan of Treatment Not on file documented as of this encounter Visit Diagnoses Not on filedocumented in this encounter Care Teams Contract Associate Relationship Specialty Start Date End Date Jeanie Jewell NP PCP - General 06/17/19 Jeanie Jewell NP 06/17/19 documented as of this encounter
--- OUTSIDE RECORDS SUMMARY | 2024-05-07 12:18 | XMS_ITS | Encounter Summary ---
Author Organization [facility] Healthcare Address [address] [place] [address] Care Team Providers Care Slag Motor Operator Name Role Phone Unavailable Primary Care Provider Unavailabl e Encounter Details Date Type Department Care Team (Latest Contact Info) Description 10/20/2011 11:24 PM CDT - 10/21/2011 5:35 AM CDT Hospital Encounter [facility] Josselyn Lucero MD [address] [facility] [address] [place] [id number] Other threatened labor, antepartum; Infection of genitourinary tract antepartum; Urinary tract infection Social History Tobacco Use Types Packs/Day Years Used Date Smoking Tobacco: Never Assessed Comments Unknown Sex and Gender Information Value Date Recorded Sex Assigned at Not on file 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
--- OUTSIDE RECORDS SUMMARY | 2024-05-07 12:18 | XMS_ITS | Encounter Summary ---
Author Organization [facility] Healthcare Address [address] [place] [address] Care Team Providers Care Admissions Evaluator Name Role Phone Unavailable Primary Care Provider Unavailabl e Encounter Details Date Type Department Care Team (Late st Contact Info) Description 09/05/2013 12:00 PM CDT - 09/05/2013 2:10 PM CDT Hospital Encounter [facility] Batool Mai MD [address] [place] [address] Cellulitis and abscess of trunk; Personal history of methicillin resistant Staphylococcus aureus; Tobacco use disorder Social History Tobacco Use Types Packs/Day Years Used Date Smoking Tobacco: Never Assessed Comments Unknown Sex and Gender Information Value Date Recorded Sex Assigned at Not on file Legal Sex Female 9:05 AM TWISTER TENDER Gender Identity Not on file Sexual Orientation Not on file documented as of this encounter Plan of Treatment Not on file documented as of this encounter Procedures Procedure Name Priority Date/Time Associated Diagnosis Comments DISCHARGE CUMULATIVE SUMMARY ADDENDUM Routine 09/09/2013 12:37 AM CDT MICROBIOLOGY SUMMARY Routine 09/05/2013 12:00 AM CDT DISCHARGE LABORATORY CUMULATIVE REPORT Routine 09/05/2013 12:00 AM CDT documented in this encounter Results * Discharge Cumulative Summary Addendum (09/09/2013 12:37 AM CDT) 09/09/2013 12:3 7 AM CDT Narrative HISTORICAL RESULTS - 09/09/2013 12:37 AM CDT Patient No: [id number] ? [facility] Patient Name: JOSSELYN ARNDT ?[facility] Age: 28 YRS ?: 1985 ?Sex:F ?[address] )[id number] ?? Adm Dt: 09/05/2013 ?[place], [place] ??[address] Created: 09/09/2013 ??0037 ?? Pt. Type: E ? Discharge Dt: 09/05/2013 ? Pathologists: Emily Bates MD Admit Attend Dr: BATOOL GAINES MD ? MICRO - WOUND WOUND CULTURE ? Collected: 09/05/13 1305 ? Received: 09/05/13 1342 Source: WOUND ? Started: 09/05/13 1353 ?UPPER BACK ABSCESS ? PRELIMINARY REPORT ?09/06/13921 ? MODERATE GROWTH OF STAPHYLOCOCCUS SPECIES ?(IDENTIFICATION AND SENSITIVITIES TO FOLLOW) ?09/07/13746 ? MODERATE GROWTH OF STAPHYLOCOCCUS SPECIES IDENTIFIED : ? METHICILLIN SENSITIVE STAPH AUREUS (SENSITIVITIES ?PERFORMED) ? FINAL REPORT ?09/08/13702 ? MODERATE GROWTH OF METHICILLIN SENSITIVE STAPH AUREUS ?(SENSITIVITIES PERFORMED) SUSCEPTIBILITY TESTING MSSA ? ABHI ABHI INTERP ?____ ? ___ ?AMOX/KCLAV ? <=4/2 ?S ?CEFAZOLIN ?<=4 ?S ?CEFOXITIN SCR ?<=4 ?S ?CIPROFLOXACIN ?<=1 ?S ?CLINDAMYCIN ?<=0.5 ?S ?ERYTHROMYCIN ? <=0.5 ?S ?MOXIFLOXACIN ? <=0.5 ?S ?OXACILLIN ? <=0.25 ?S ?RIFAMPIN 1.0 ? <=1 ?S ?TETRACYCLINE ? <=4 ?S ?TRIMETH/SULF ?<=.5/9.5 ?S ?VANCOMYCIN ? N/A ?N/A ?? END OF CHART ? Page: ?? 1 us Historical Provider MD LAB MICROBIOLOGY - GENERA L ORDERABLES Final Result HISTORICAL RESULTS * Microbiology Summary (09/05/2013 12:00 AM CDT) 09/05/2013 Narrative HISTORICAL RESULTS - 09/09/2013 12:37 AM CDT ? [facility] ?CLINICAL LABORATORIES ? MICROBIOLOGY REPORT PATIENT NAME: ??JOSSELYN ARNDT ?MED RECORD#: ??[id number] BIRTHDATE: ??1985 ?? AGE: ??28 YRS SEX: F ?PATIENT#: ? [id number] ADMITTING DR: ??BATOOL GAINES MD ? ATTENDING DR: ??BATOOL GAINES MD ? ACCESSION#: ?? [id number] CREATED: ??09/09/13 ?? 0036 ? ADMIT DATE: ?? 09/05/13 ? MICRO - WOUND WOUND CULTURE ? Collected: 09/05/13 1305 ? Received: 09/05/13 1342 Source: WOUND ? Started: 09/05/13 1353 ?UPPER BACK ABSCESS ?09/06/13 0922 ? MODERATE GROWTH OF STAPHYLOCOCCUS SPECIES ?(IDENTIFICATION AND SENSITIVITIES TO FOLLOW) ?09/07/13 07 ? MODERATE GROWTH OF STAPHYLOCOCCUS SPECIES IDENTIFIED : ? METHICILLIN SENSITIVE STAPH AUREUS (SENSITIVITIES ?PERFORMED) ?09/08/13 07 ? MODERATE GROWTH OF METHICILLIN SENSITIVE STAPH AUREUS ?(SENSITIVITIES PERFORMED) MSSA ? ABHI ABHI INTERP ____ ? ___ ?AMOX/KCLAV ? <=4/2 ?S ?CEFAZOLIN ?<=4 ?S ?CEFOXITIN SCR ?<=4 ?S ?CIPROFLOXACIN ?<=1 ?S ?CLINDAMYCIN ?<=0.5 ?S ?ERYTHROMYCIN ? <=0.5 ?S ?MOXIFLOXACIN ? <=0.5 ?S ?OXACILLIN ? <=0.25 ?S ?RIFAMPIN 1.0 ? <=1 ?S ?TETRACYCLINE ? <=4 ?S ?TRIMETH/SULF ?<=.5/9.5 ?S ?VANCOMYCIN ? N/A ?N/A ?? END OF CHART us Historical Provider MD LAB MICROBIOLOGY - GENERA L ORDERABLES Final Result HISTORICAL RESULTS * Discharge Laboratory Cumulative Report (09/05/2013 12:00 AM CDT) 09/05/2013 Narrative HISTORICAL RESULTS - 09/07/2013 2:33 AM CDT Patient No: [id number] ? [facility] Patient Name: JOSSELYN ARNDT ?[facility] Age: 28 YRS ?: 1985 ?Sex:F ?[address] )[id number] ?? Adm Dt: 09/05/2013 ?[place], [place] ??[address] Created: 09/07/2013 ??0233 ?? Pt. Type: E ? Discharge Dt: 09/05/2013 ? Pathologists: Emily Bates MD Admit Attend Dr: BATOOL GAINES MD ? MICRO - WOUND WOUND CULTURE ? Collected: 09/05/13 1305 ? Received: 09/05/13 1342 Source: WOUND ? Started: 09/05/13 1353 ?UPPER BACK ABSCESS ? PRELIMINARY REPORT ?09/06/13 09 ? MODERATE GROWTH OF STAPHYLOCOCCUS SPECIES ?(IDENTIFICATION AND SENSITIVITIES TO FOLLOW) ?? END OF CHART ? Page: ?? 1 us Historical Provider LAB BLOOD ORDERABLES Cheryl farias Result HISTORICAL RESULTS documented in this encounter Visit Diagnoses Diagnosis Cellulitis and abscess of trunk Personal history of methicillin resistant Staphylococcus aureus Personal history of Methicillin resistant Staphylococcus aureus Tobacco use disorder documented in this encounter
--- OUTSIDE RECORDS SUMMARY | 2024-05-07 12:18 | XMS_ITS | Encounter Summary ---
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
--- OUTSIDE RECORDS SUMMARY | 2024-05-07 12:18 | XMS_ITS | Encounter Summary ---
Author Organization [facility] Healthcare Address [address] [place] [address] Care Team Providers Care Geology Associate Name Role Phone Jeanie Jewell NP Primary Care Provider [phone] Encounter Details Date Type Department Care Team (Latest Contact Info) Description 03/31/2019 1:37 PM ATG ARCHITECT - 03/31/2019 3:23 PM ATG ARCHITECT Hospital Encounter [facility] [address] [place] [address] Doreen Blanc MD 1 [facility] [place] [address] Discharge Disposition: Discharge to home or self care Social History Tobacco Use Types Packs/Day Years Used Date Smoking Tobacco: Every Day Smokeless Tobacco: Never Comments No Sex and Gender Information Value Date Recorded Sex Assigned at Not on file Legal Sex Female 9:05 AM ATG ARCHITECT Gender Identity Not on file Sexual Orientation Not on file documented as of this encounter Medications at Time of Discharge [...] Name Priority Date/Time Associated Diagnosis Comments XR CHEST PA LATERAL 2 VIEWS ED 03/31/2019 1:53 PM ATG ARCHITECT documented in this encounter Results * XR Chest Pa Lateral 2 Views (03/31/2019 1:53 PM ATG ARCHITECT) Anatomical Region Laterality Modality Body, Chest N/A Computed Radiogr aphy 03/31/2019 1:58 PM ATG ARCHITECT Impressions 03/31/2019 2:03 PM ATG ARCHITECT NO ACTIVE DISEASE. Electronically signed by: Carl Vera M.D. Narrative 03/31/2019 2:03 PM ATG ARCHITECT XR CHEST PA LATERAL 2 VIEWS HISTORY: [...] esult documented in this encounter Visit Diagnoses Not on filedocumented in this encounter Care Teams Geology Associate Relationship Specialty Start Date End Date Jeanie Jewell NP PCP - General 03/28/17 06/16/19 documented as of this encounter
--- OUTSIDE RECORDS SUMMARY | 2024-05-07 12:19 | XMS_ITS | Encounter Summary ---
Author Organization [facility] Healthcare Address [address] [place] [address] Care Team Providers Care Social Work Professor Name Role Phone Unavailable Primary Care Provider Unavailabl e Encounter Details Date Type Department Care Team (Late st Contact Info) Description 09/19/2011 2:15 PM CDT - 09/19/2011 3:45 PM CDT Hospital Encounter [facility] Josselyn Lucero MD [address] [address] Other and unspecified uterine inertia, antepartum Social History Tobacco Use Types Packs/Day Years Used Date Smoking Tobacco: Never Assessed Comments Unknown Sex and Gender Information Value Date Recorded Sex Assigned at Not on file Legal Sex Female 9:05 AM WEB OPERATIONS SPECIALIST Gender Identity Not on file Sexual Orientation Not on file documented as of this encounter Plan of Treatment Not on file documented as of this encounter Visit Diagnoses Diagnosis Other and unspecified uterine inertia, antepartum documented in this encounter
--- OUTSIDE RECORDS SUMMARY | 2024-05-07 12:19 | XMS_ITS | Encounter Summary ---
Author Organization [facility] Healthcare Address [address] [place] [address] Care Team Providers Care Occupational Nurse Name Role Phone Unavailable Primary Care Provider Unavailabl e Encounter Details Date Type Department Care Team (Late st Contact Info) Description 10/09/2011 2:24 PM CDT - 10/09/2011 3:55 PM CDT Hospital Encounter [facility] Josselyn Lucero MD [address] [facility] [address] [place] [address] Other threatened labor, antepartum Social History Tobacco Use Types Packs/Day Years Used Date Smoking Tobacco: Never Assessed Comments Unknown Sex and Gender Information Value Date Recorded Sex Assigned at Not on file Legal Sex Female 9:05 AM LIBRARY MONITOR Gender Identity Not on file Sexual Orientation Not on file documented as of this encounter Plan of Treatment Not on file documented as of this encounter Visit Diagnoses Diagnosis Other threatened labor, antepartum documented in this encounter
--- OUTSIDE RECORDS SUMMARY | 2024-05-07 12:19 | XMS_ITS | Encounter Summary ---
Author Organization [facility] Healthcare Address [address] [place] [address] Care Team Providers Care Financial Cost Analyst Name Role Phone Unavailable Primary Care Provider Unavailabl e Encounter Details Date Type Department Care Team (Late st Contact Info) Description 10/15/2011 1:34 PM CDT - 10/15/2011 4:01 PM CDT Hospital Encounter [facility] Tyrese Padgett Decreased movements affecting management of mother, antepartum; Other threatened labor, antepartum Social History Tobacco Use Types Packs/Day Years Used Date Smoking Tobacco: Never Assessed Comments Unknown Sex and Gender Information Value Date Recorded Sex Assigned at Not on file Legal Sex Female 9:05 AM RAG ROOM SUPERVISOR Gender Identity Not on file Sexual Orientation Not on file documented as of this encounter Plan of Treatment Not on file documented as of this encounter Visit Diagnoses Diagnosis Decreased movements affecting management of mother, antepartum Other threatened labor, antepartum documented in this encounter
--- OUTSIDE RECORDS SUMMARY | 2024-05-07 12:19 | XMS_ITS | Encounter Summary ---
Author Organization [facility] Healthcare Address [address] [place] [address] Care Team Providers Care Lead Athlete Name Role Phone Unavailable Primary Care Provider Unavailabl e Encounter Details Date Type Department Care Team (Late st Contact Info) Description 03/18/2008 6:07 PM DRUG ABUSE TECHNICIAN - 03/21/2008 12:10 PM DRUG ABUSE TECHNICIAN Hospital Encounter [facility] Josselyn Lucero MD [address] [facility] [address] [place] [address] Social History Tobacco Use Types Packs/Day Years Used Date Smoking Tobacco: Never Assessed Comments Unknown Sex and Gender Information Value Date Recorded Sex Assigned at Not on file Legal Sex Female 9:05 AM DRUG ABUSE TECHNICIAN Gender Identity Not on file Sexual Orientation Not on file documented as of this encounter Plan of Treatment Not on file documented as of this encounter Visit Diagnoses Not on filedocumented in this encounter
--- OUTSIDE RECORDS SUMMARY | 2024-05-07 12:19 | XMS_ITS | Encounter Summary ---
Author Organization [facility] Healthcare Address [address] [place] [address] Care Team Providers Care Electric Meter Installer Helper Name Role Phone Unavailable Primary Care Provider Unavailabl e Encounter Details Date Type Department Care Team (Late st Contact Info) Description 01/09/2010 5:59 AM CDT - 01/09/2010 7:32 AM CDT Hospital Encounter [facility] Андрей Mendez MD [address] [place] [address] Mejia Dominguez MD [address] [place] [address] Sprain and strain of shoulder and upper arm; Accident; External cause status Social History Tobacco Use Types Packs/Day Years Used Date Smoking Tobacco: Never Assessed Comments Unknown Sex and Gender Information Value Date Recorded Sex Assigned at Not on file Legal Sex Female 9:05 AM SOLUTIONS ANALYST Gender Identity Not on file Sexual Orientation Not on file documented as of this encounter Plan of Treatment Not on file documented as of this encounter Visit Diagnoses Diagnosis Sprain and strain of shoulder and upper arm Accident Unspecified accident External cause status documented in this encounter
--- OUTSIDE RECORDS SUMMARY | 2024-05-07 12:19 | XMS_ITS | Encounter Summary ---
Author Organization [facility] Healthcare Address [address] [place] [address] Care Team Providers Care Precision Printing Worker Name Role Phone Unavailable Primary Care Provider Unavailabl e Encounter Details Date Type Department Care Team (Late st Contact Info) Description 01/11/2011 6:21 PM CDT - 01/11/2011 7:45 PM CDT Hospital Encounter [facility] NINAV Paolo Albert MD [address] [place] [address] Augie Herman Inflammatory disease of breast; Rash and other nonspecific skin eruption Social History Tobacco Use Types Packs/Day Years Used Date Smoking Tobacco: Never Assessed Comments Unknown Sex and Gender Information Value Date Recorded Sex Assigned at Not on file Legal Sex Female 9:05 AM DIRECTOR OF DEMENTIA OPERATIONS Gender Identity Not on file Sexual Orientation Not on file documented as of this encounter Plan of Treatment Not on file documented as of this encounter Visit Diagnoses Diagnosis Inflammatory disease of breast Rash and other nonspecific skin eruption documented in this encounter
--- OUTSIDE RECORDS SUMMARY | 2024-05-07 12:19 | XMS_ITS | Encounter Summary ---
Author Organization [facility] Healthcare Address [address] [place] [address] Care Team Providers Care Platinum Smith Name Role Phone Unavailable Primary Care Provider Unavailabl e Encounter Details Date Type Department Care Team (Late st Contact Info) Description 09/09/2009 5:54 PM CDT - 09/09/2009 11:59 PM CDT Hospital Encounter [facility]INCON[facility] Herman Augie Bronchitis; Other dyspnea and respiratory abnormality Social History Tobacco Use Types Packs/Day Years Used Date Smoking Tobacco: Never Assessed Comments Unknown Sex and Gender Information Value Date Recorded Sex Assigned at Not on file Legal Sex Female 9:05 AM FASHION INTERN Gender Identity Not on file Sexual Orientation Not on file documented as of this encounter Plan of Treatment Not on file documented as of this encounter Visit Diagnoses Diagnosis Bronchitis Bronchitis, not specified as acute or chronic Other dyspnea and respiratory abnormality documented in this encounter
--- OUTSIDE RECORDS SUMMARY | 2024-05-07 12:19 | XMS_ITS | Encounter Summary ---
Author Organization [facility] Healthcare Address [address] [place] [address] Care Team Providers Care Cardiac Care Nurse Name Role Phone Unavailable Primary Care Provider Unavailabl e Encounter Details Date Type Department Care Team (Late st Contact Info) Description 01/10/2007 8:37 AM CDT - 01/10/2007 11:59 PM CDT Hospital Encounter [facility]INCON[facility] Social History Tobacco Use Types Packs/Day Years Used Date Smoking Tobacco: Never Assessed Comments Unknown Sex and Gender Information Value Date Recorded Sex Assigned at Not on file Legal Sex Female 9:05 AM TIPPLE GREASER Gender Identity Not on file Sexual Orientation Not on file documented as of this encounter Plan of Treatment Not on file documented as of this encounter Visit Diagnoses Not on filedocumented in this encounter
--- OUTSIDE RECORDS SUMMARY | 2024-05-07 12:19 | XMS_ITS | Encounter Summary ---
Author Organization [facility] Healthcare Address [address] [place] [address] Care Team Providers Care Bridge Inspector Name Role Phone Unavailable Primary Care Provider Unavailabl e Encounter Details Date Type Department Care Team (Late st Contact Info) Description 12/11/2006 3:47 PM CDT - 12/11/2006 4:20 PM CDT Hospital Encounter [facility]IN[facility] Yrn Lim Social History Tobacco Use Types Packs/Day Years Used Date Smoking Tobacco: Never Assessed Comments Unknown Sex and Gender Information Value Date Recorded Sex Assigned at Not on file Legal Sex Female 9:05 AM BRASS RECLAIMER Gender Identity Not on file Sexual Orientation Not on file documented as of this encounter Plan of Treatment Not on file documented as of this encounter Visit Diagnoses Not on filedocumented in this encounter
--- OUTSIDE RECORDS SUMMARY | 2024-05-07 12:19 | XMS_ITS | Encounter Summary ---
Author Organization [facility] Healthcare Address [address] [place] [address] Care Team Providers Care Sales Trainee Name Role Phone Unavailable Primary Care Provider Unavailabl e Encounter Details Date Type Department Care Team (Late st Contact Info) Description 07/23/2010 6:49 PM CDT - 07/23/2010 7:27 PM CDT Hospital Encounter [facility] NINA Paolo Albert MD [address] [place] [address] Augie Herman Chronic sinusitis; Otitis media; Infective otitis externa Social History Tobacco Use Types Packs/Day Years Used Date Smoking Tobacco: Never Assessed Comments Unknown Sex and Gender Information Value Date Recorded Sex Assigned at Not on file Legal Sex Female 9:05 AM DONOR RELATIONS MANAGER Gender Identity Not on file Sexual Orientation Not on file documented as of this encounter Plan of Treatment Not on file documented as of this encounter Visit Diagnoses Diagnosis Chronic sinusitis Unspecified sinusitis (chronic) Otitis media Unspecified otitis media Infective otitis externa documented in this encounter
--- OUTSIDE RECORDS SUMMARY | 2024-05-07 12:19 | XMS_ITS | Encounter Summary ---
Author Organization [facility] Healthcare Address [address] [place] [address] Care Team Providers Care Middle School Resource Teacher Name Role Phone Unavailable Primary Care Provider Unavailabl e Encounter Details Date Type Department Care Team (Late st Contact Info) Description 02/23/2011 3:41 PM CDT - 02/23/2011 6:36 PM CDT Hospital Encounter [facility] Deepak Cancino Urinary tract infection; Tobacco use disorder Social History Tobacco Use Types Packs/Day Years Used Date Smoking Tobacco: Never Assessed Comments Unknown Sex and Gender Information Value Date Recorded Sex Assigned at Not on file Legal Sex Female 9:05 AM HOURLY SIGN LANGUAGE INTERPRETER Gender Identity Not on file Sexual Orientation Not on file documented as of this encounter Plan of Treatment Not on file documented as of this encounter Visit Diagnoses Diagnosis Urinary tract infection Urinary tract infection, site not specified Tobacco use disorder documented in this encounter
--- OUTSIDE RECORDS SUMMARY | 2024-05-07 12:19 | XMS_ITS | Encounter Summary ---
Author Organization [facility] Healthcare Address [address] [place] [address] Care Team Providers Care Wireless Sales Representative Name Role Phone Unavailable Primary Care Provider Unavailabl e Encounter Details Date Type Department Care Team (Late st Contact Info) Description 03/05/2011 5:38 PM FLOOR SUPERVISOR - 03/05/2011 8:01 PM FLOOR SUPERVISOR Hospital Encounter [facility] Андрей Mendez MD [address] [facility] [place] [address] Diarrhea Social History Tobacco Use Types Packs/Day Years Used Date Smoking Tobacco: Never Assessed Comments Unknown Sex and Gender Information Value Date Recorded Sex Assigned at Not on file Legal Sex Female 9:05 AM FLOOR SUPERVISOR Gender Identity Not on file Sexual Orientation Not on file documented as of this encounter Plan of Treatment Not on file documented as of this encounter Visit Diagnoses Diagnosis Diarrhea documented in this encounter
--- OUTSIDE RECORDS SUMMARY | 2024-05-07 12:19 | XMS_ITS | Encounter Summary ---
Author Organization [facility] Healthcare Address [address] [place] [address] Care Team Providers Care Key Account Representative Name Role Phone Unavailable Primary Care Provider Unavailabl e Encounter Details Date Type Department Care Team (Late st Contact Info) Description 09/20/2011 2:00 PM CDT - 09/20/2011 11:59 PM CDT Hospital Encounter [facility] Carlito Lynne MD [address] [place] [address] [address] Personal history of methicillin resistant Staphylococcus aureus Social History Tobacco Use Types Packs/Day Years Used Date Smoking Tobacco: Never Assessed Comments Unknown Sex and Gender Information Value Date Recorded Sex Assigned at Not on file Legal Sex Female 9:05 AM DIRECTOR INDUSTRIAL RELATIONS Gender Identity Not on file Sexual Orientation Not on file documented as of this encounter Plan of Treatment Not on file documented as of this encounter Visit Diagnoses Diagnosis Personal history of methicillin resistant Staphylococcus aureus Personal history of Methicillin resistant Staphylococcus aureus documented in this encounter
--- OUTSIDE RECORDS SUMMARY | 2024-05-07 12:19 | XMS_ITS | Encounter Summary ---
Author Organization [facility] Healthcare Address [address] [place] [address] Care Team Providers Care Assembler Engine Name Role Phone Unavailable Primary Care Provider Unavailabl e Encounter Details Date Type Department Care Team (Late st Contact Info) Description 01/18/2008 3:27 PM CDT - 01/18/2008 11:59 PM CDT Hospital Encounter [facility] Josselyn Lucero MD [address] [address] Social History Tobacco Use Types Packs/Day Years Used Date Smoking Tobacco: Never Assessed Comments Unknown Sex and Gender Information Value Date Recorded Sex Assigned at Not on file Legal Sex Female 9:05 AM GEODETIC ADVISOR Gender Identity Not on file Sexual Orientation Not on file documented as of this encounter Plan of Treatment Not on file documented as of this encounter Visit Diagnoses Not on filedocumented in this encounter
--- OUTSIDE RECORDS SUMMARY | 2024-05-07 12:19 | XMS_ITS | Encounter Summary ---
Author Organization [facility] Healthcare Address [address] [place] [address] Care Team Providers Care Embryology Teacher Name Role Phone Unavailable Primary Care Provider Unavailabl e Encounter Details Date Type Department Care Team (Late st Contact Info) Description 02/20/2011 6:58 PM CDT - 02/20/2011 11:59 PM CDT Hospital Encounter [facility]IN[facility] Prema Hernandez Urinary tract infection Social History Tobacco Use Types Packs/Day Years Used Date Smoking Tobacco: Never Assessed Comments Unknown Sex and Gender Information Value Date Recorded Sex Assigned at Not on file Legal Sex Female 9:05 AM STRATEGIC ALLIANCES MANAGER Gender Identity Not on file Sexual Orientation Not on file documented as of this encounter Plan of Treatment Not on file documented as of this encounter Visit Diagnoses Diagnosis Urinary tract infection Urinary tract infection, site not specified documented in this encounter
--- OUTSIDE RECORDS SUMMARY | 2024-05-07 12:19 | XMS_ITS | Encounter Summary ---
Author Organization [facility] Healthcare Address [address] [place] [address] Care Team Providers Care Put In Beat Adjuster Name Role Phone Unavailable Primary Care Provider Unavailabl e Encounter Details Date Type Department Care Team (Late st Contact Info) Description 01/17/2008 1:42 PM CDT - 01/17/2008 4:00 PM CDT Hospital Encounter [facility] Josselyn Lucero MD [address] [address] Social History Tobacco Use Types Packs/Day Years Used Date Smoking Tobacco: Never Assessed Comments Unknown Sex and Gender Information Value Date Recorded Sex Assigned at Not on file Legal Sex Female 9:05 AM PSYCHOLOGIST RESEARCH ASSISTANT Gender Identity Not on file Sexual Orientation Not on file documented as of this encounter Plan of Treatment Not on file documented as of this encounter Visit Diagnoses Not on filedocumented in this encounter
--- OUTSIDE RECORDS SUMMARY | 2024-05-07 12:19 | XMS_ITS | Encounter Summary ---
Author Organization [facility] Healthcare Address [address] [place] [address] Care Team Providers Care Poultry Sexer Name Role Phone Unavailable Primary Care Provider Unavailabl e Encounter Details Date Type Department Care Team (Late st Contact Info) Description 01/25/2007 4:01 PM CDT - 01/25/2007 4:40 PM CDT Hospital Encounter [facility] CLINCONV Tim aG Social History Tobacco Use Types Packs/Day Years Used Date Smoking Tobacco: Never Assessed Comments Unknown Sex and Gender Information Value Date Recorded Sex Assigned at Not on file Legal Sex Female 9:05 AM DIRECTOR OF ENTERTAINMENT Gender Identity Not on file Sexual Orientation Not on file documented as of this encounter Plan of Treatment Not on file documented as of this encounter Visit Diagnoses Not on filedocumented in this encounter
--- OUTSIDE RECORDS SUMMARY | 2024-05-07 12:19 | XMS_ITS | Encounter Summary ---
Author Organization [facility] Healthcare Address [address] [place] [address] Care Team Providers Care Restaurant Host/Hostess Name Role Phone Unavailable Primary Care Provider Unavailabl e Encounter Details Date Type Department Care Team (Late st Contact Info) Description 01/17/2007 4:08 PM CDT - 01/17/2007 11:59 PM CDT Hospital Encounter [facility] CLINCONV Social History Tobacco Use Types Packs/Day Years Used Date Smoking Tobacco: Never Assessed Comments Unknown Sex and Gender Information Value Date Recorded Sex Assigned at Not on file Legal Sex Female 9:05 AM PELLETIZER TENDER Gender Identity Not on file Sexual Orientation Not on file documented as of this encounter Plan of Treatment Not on file documented as of this encounter Visit Diagnoses Not on filedocumented in this encounter
--- OUTSIDE RECORDS SUMMARY | 2024-05-07 12:19 | XMS_ITS | Encounter Summary ---
Author Organization [facility] Healthcare Address [address] [place] [address] Care Team Providers Care Videotape Recording Engineer Name Role Phone Unavailable Primary Care Provider Unavailabl e Encounter Details Date Type Department Care Team (Late st Contact Info) Description 08/05/2010 8:20 PM CDT - 08/05/2010 9:19 PM CDT Hospital Encounter [facility] Paolo Burns MD [address] [place] [address] Augie Herman Otitis media Social History Tobacco Use Types Packs/Day Years Used Date Smoking Tobacco: Never Assessed Comments Unknown Sex and Gender Information Value Date Recorded Sex Assigned at Not on file Legal Sex Female 9:05 AM BROOM MAN Gender Identity Not on file Sexual Orientation Not on file documented as of this encounter Plan of Treatment Not on file documented as of this encounter Visit Diagnoses Diagnosis Otitis media Unspecified otitis media documented in this encounter
--- OUTSIDE RECORDS SUMMARY | 2024-05-07 13:54 | XMS_ITS | CONTINUITY OF CARE DOCUMENT ---
Author Name sanjay grace Address Unknown Organization [facility] Address [address] [facility] [address] [place] [address] Phone [phone] Care Team Providers Care Geek Squad Manager Name Role Phone Richard ORELLANA, Mejia Unavailable [phone] Mejia Ramos MD Unavailable PROBLEMS Condition Status Date Provider Notes Morbid obesity active Mejia Ramos MD HTN essential active Mejia Ramos MD Chest pain active Mejia Ramos MD Smoker active Mejia Ramos MD Abnormal EKG active Mejia Ramos MD Fatigue active Mejia Ramos MD Snoring active Mejia Ramos MD Family Hx premature heart disease active Kavin Ramos MD Abnormal glucose active Mejia Ramos MD Near syncope active Mejia Ramos MD PVC's active Mejia Ramos MD Leg edema, bilateral active Mejia Ramos MD ENCOUNTERS Date Type Provider Location Encounter Diag nosis - In-person encounter Office Visit Mejia Ramos MD [place] [facility] Morbid obesityHTN essentialChest painSmokerAbnormal EKGFatigueSnoringFamily Hx premature heart diseaseAbnormal glucoseNear syncopePVC'sLeg edema, bilateral VITAL SIGNS Date Observation Value Provider weight E&M 337 [[id number]] Cara Colusa Body Mass Index (Ratio) 51.24 kg/m2 Terrie [...] alliance party ID [place] MEDICAID (2) Medicaid [id number] ADVANCE DIRECTIVES Name Date DISCUSSED - NO [...]
--- OUTSIDE RECORDS SUMMARY | 2024-05-07 13:54 | XMS_ITS ---
Author Organization [facility] Address [address] [place] [address] Phone Care Team Providers Care Mother Helper Name Role Phone Unavailable Unavailable Unavailable Problems Includes: Active, inactive, and resolved Problems All Visits Onset Date Resolved Date Provider Condition S tatus History of Surgical Complications: From General Anesthesia 02/19/2014 Unknown REMBERTO ESQUEDA MD Resolved Last Documented On 10/29/2014 3:39PM ; [facility] Note: was Closed. Ovarian Cyst 05/14/2013 NIEVES TURNER WHNP-BC Active Last Documented On 05/14/2013 1:06PM ; [facility] Note: History of Obesity 02/12/2013 NIEVES TSENP-BC Active Last Documented On 3 10:08AM ; [facility] Exposure To Tuberculosis 03/29/2011 Unknown REMBERTO ROBLES MD Resolved Last Documented On 01/04/2012 11:32AM ; [facility] Note: was Closed. Gestational Hypertension 03/29/2011 Unknown REMBERTO ROBLES MD Resolved Last Documented On 01/04/2012 11:32AM ; [facility] Note: was Closed. Obesity 03/29/2011 Unknown NIEVES TSENP-BC Resolved Last Documented On 01/04/2012 11:32AM ; [facility] Note: was Closed. Tobacco Use 03/29/2011 Unknown REMBERTO ESQUEDA MD Resolve d Last Documented On 01/04/2012 11:32AM ; [facility] Note: was Closed. History of Surgical Complications: From General Anesthesia 09/02/2009 Unknown REMBERTO ESQUEDA MD Resolved Last Documented On 01/04/2012 11:32AM ; [facility] Note: was Closed. History of Essential Hypertension 11/27/2007 Unknown REMBERTO ESQUEDA MD Resolved Last Documented On 01/04/2012 11:32AM ; [facility] Note: was Closed. Plan of Treatment Findings Encounter Date Ordered Clinical summary pro vided to patient POST VISIT with ENRIQUE SCHWARTZ RN [facility] 10/29/2014 Last Documented On 5 10:37AM ; [facility] Ordered Clinical summary pro vided to patient RETURN OB EXAM with NIEVES TURNER [facility] 08/20/2014 Last Documented On 5 9:52AM ; [facility] Ordered Clinical summary pro vided to patient RETURN OB EXAM with NIEVES TURNER [facility] 07/23/2014 Last Documented On 5 9:51AM ; [facility] Ordered Clinical summary pro vided to patient RETURN OB EXAM with NIEVES TURNER [facility] 05/22/2014 Last Documented On 5 10:15AM ; [facility] Ordered Clinical summary pro vided to patient RETURN OB EXAM with NIEVES TURNER [facility] 03/19/2014 Last Documented On 4 11:24AM ; [facility] Ordered Clinical summary pro vided to patient BRAZER CRAWLER TORCH EXAM with NIEVES TURNER [facility] 05/14/2013 Last Documented On 4 1:29PM ; [facility] Ordered follow-up visit 1 ye ar or as needed BRAZER CRAWLER TORCH EXAM with NIEVES TURNER [facility] 05/14/2013 Last Documented On 4 1:29PM ; [facility] Ordered a pelvic ultrasound PROBLEM VISIT with Azeb TURNER [facility] 02/12/2013 Last Documented On 3 10:26AM ; [facility] Ordered Clinical summary pro vided to patient ANNUAL WELL WOMEN EXAM with NIEVES TURNER [facility] 03/01/2012 Last Documented On 2 2:15PM ; [facility] Finish antibiotics given to patient in ER. Patient to schedule an appointment with Dr. Esqueda after her ultrasound to go over her results, and discuss with her the possibility of removing the Mirena due to recurrent ovarian cysts PROBLEM VISIT with FABIOLA CRISTOBAL 12/22/2009 Last Documented On 0 2:30PM ; [facility] Instructions to patient Instructions for patient : B reast Self Exam discussed Last Documented On 8 2:35PM ; [facility] Instructions for patient : B reast Self Exam discussed Last Documented On 6 9:49AM ; [facility] Instructions for patient : B reast Self Exam discussed Last Documented On 4 12:59PM ; [facility] Instructions for patient : K eep the area around the vulva dry. Allow the area to have exposure to air. Avoid irritants such as fabric softeners and perfumed soaps.~ Last Documented On 4 1:26PM ; [facility] Lose weight Last Documented On 4 1:00PM ; [facility] Advised d/c scented bath pro ducts Last Documented On 4 1:26PM ; [facility] Gardasil information given a nd series encouraged Last Documented On 4 1:01PM ; [facility] Safe sex counseling Last Documented On 4 1:01PM ; [facility] Instructions for patient : K eep the area around the vulva dry. Allow the area to have exposure to air. Avoid irritants such as fabric softeners and perfumed soaps.~ Last Documented On 3 10:08AM ; [facility] Return to the clinic if cond ition worsens or new symptoms arise Last Documented On 3 10:07AM ; [facility] Advised d/c scented bath pro ducts Last Documented On 3 10:08AM ; [facility] ER/ Pain Precautions Last Documented On 3 10:07AM ; [facility] Instructions for patient : B reast Self Exam discussed Last Documented On 2 1:30PM ; [facility] Lose weight Last Documented On 2 1:31PM ; [facility] Gardasil information given a nd series encouraged Last Documented On 2 1:53PM ; [facility] Instructions for patient : B reast Self Exam discussed Last Documented On 1 4:25PM ; [facility] Recommend annual pap smear e xamination or every three year Last Documented On 1 8:43AM ; [facility] Instructions for patient : B reast Self Exam discussed Last Documented On 0 11:37AM ; [facility] Education and Decision Aids were provided during visit for: STD screening offered and de clined Last Documented On 8 2:35PM ; [facility] STD screening offered and de clined Last Documented On 6 9:49AM ; [facility] Patient Education: Daily jessica cium and vitamin D Last Documented On 4 12:59PM ; [facility] Patient Education: weight be aring exercise Last Documented On 4 12:59PM ; [facility] Candidiasis Vulvovaginitis I nformation Sheet Given Last Documented On 4 1:26PM ; [facility] Patient Education: Daily jessica cium and vitamin D Last Documented On 2 1:30PM ; [facility] Patient Education: weight be aring exercise Last Documented On 2 1:30PM ; [facility] STD screening offered and de clined Last Documented On 1 4:25PM ; [facility] Patient counseling : STD pre vention. I discussed with the patient that condoms can reduce the chance of getting an STD but not eliminate it. Increased exposure from multiple sex partners also discussed Last Documented On 1 8:43AM ; [facility] HPV handout given Last Documented On 1 8:43AM ; [facility] Gardasil handout given Last Documented On 1 8:43AM ; [facility] Counseling for abnormal pap smear Last Documented On 1 8:43AM ; [facility] HIV counseling given d/C yanci strin and start nuva ring ~20 minute appointment with more than 50% face to face time Last Documented On 1 9:06AM ; [facility] STD screening offered and de clined Last Documented On 0 11:37AM ; [facility] Assessments Includes: Assessments for all patient encounters Findings Encounter Date Contraceptive management 1 MONTH CHECK with REMBERTO ESQUEDA MD 08/28/2017 Last Documented On 8 10:14AM ; [facility] Contraceptive management: In sertion of IUD PROCEDURE OFFICE with REMBERTO ESQUEDA MD 07/31/2017 Last Documented On 8 9:36AM ; [facility] Menometrorrhagia BRAZER CRAWLER TORCH EXAM with REMBERTO ESQUEDA MD 06/26/2017 Last Documented On 8 2:39PM ; [facility] Routine pelvic exam BRAZER CRAWLER TORCH EXAM with REMBERTO ESQUEDA MD 06/26/2017 Last Documented On 8 2:39PM ; [facility] Routine pelvic exam BRAZER CRAWLER TORCH EXAM with REMBERTO ESQUEDA MD 04/17/2016 Last Documented On 6 10:11AM ; [facility] Dyspareunia PROBLEM VISIT with REMBERTO ESQUEDA MD 02/07/2016 Last Documented On 6 10:01AM ; [facility] Female pelvic pain PROBLEM VISIT with REMBERTO ACKERMAN MD 02/07/2016 Last Documented On 6 10:01AM ; [facility] Menometrorrhagia PROBLEM VISIT with REMBERTO Lopez MD 02/07/2016 Last Documented On 6 10:01AM ; [facility] Ovarian cyst PROBLEM VISIT with REMBERTO ESQUEDA MD 02/07/2016 Last Documented On 6 10:01AM ; [facility] Contraceptive management POST VISIT with ENRIQUE WINKLER 10/29/2014 Last Documented On 5 10:37AM ; [facility] Normal routine history and p hysical - POST VISIT with ENRIQUE WINKLER 10/29/2014 Last Documented On 5 10:37AM ; [facility] Urinary incontinence POST VISIT with EDGAR WINKLER 10/29/2014 Last Documented On 5 10:37AM ; [facility] Normal checkup (6 - 42 wk) RETURN OB EX AM with REMBERTO ESQUEDA MD 09/08/2014 Last Documented On 5 4:43PM ; [facility] Normal checkup (6 - 42 wk) RETURN OB EX AM with REMBERTO ESQUEDA MD 09/01/2014 Last Documented On 5 10:08AM ; [facility] Normal checkup (6 - 42 wk) RETURN OB EX AM with REMBERTO ESQUEDA MD 08/28/2014 Last Documented On 5 2:13PM ; [facility] Normal checkup (6 - 42 wk) * PHONE CALL with REMBERTO ESQUEDA MD 08/25/2014 Last Documented On 5 11:43AM ; [facility] Normal checkup (6 - 42 wk) * PHONE CALL with REMBERTO ESQUEDA MD 08/24/2014 Last Documented On 5 4:24PM ; [facility] Normal checkup (6 - 42 wk) RETU RN OB EXAM with NIEVES QUEEN 08/20/2014 Last Documented On 5 9:52AM ; [facility] Normal checkup (6 - 42 wk) [Pat ient Encounter] with REMBERTO ESQUEDA MD 08/07/2014 Last Documented On 5 11:41AM ; [facility] Normal checkup (6 - 42 wk) RETURN OB EX AM with REMBERTO ESQUEDA MD 08/06/2014 Last Documented On 5 9:17AM ; [facility] Normal checkup (6 - 42 wk) * PHONE CALL with REMBERTO ESQUEDA MD 07/28/2014 Last Documented On 5 4:28PM ; [facility] Normal checkup (6 - 42 wk) RETU RN OB EXAM with NIEVES QUEEN 07/23/2014 Last Documented On 5 9:51AM ; [facility] Normal checkup (6 - 42 wk) [Pat ient Encounter] with REMBERTO ESQUEDA MD 07/14/2014 Last Documented On 5 9:07AM ; [facility] Normal checkup (6 - 42 wk) RETURN OB EX AM with REMBERTO ESQUEDA MD 07/09/2014 Last Documented On 5 10:26AM ; [facility] Normal checkup (6 - 42 wk) RETU RN OB EXAM with NIEVES QUEEN 06/26/2014 Last Documented On 5 9:34AM ; [facility] Normal checkup (6 - 42 wk) [Pat ient Encounter] with REMBERTO ESQEUDA MD 06/15/2014 Last Documented On 5 11:40AM ; [facility] Normal checkup (6 - 42 wk) RETURN OB EX AM with REMBERTO ESQUEDA MD 06/11/2014 Last Documented On 5 11:31AM ; [facility] Normal checkup (6 - 42 wk) RETU RN OB EXAM with NIEVES QUEEN 05/22/2014 Last Documented On 5 10:15AM ; [facility] Normal checkup (6 - 42 wk) * PHONE CALL with REMBERTO ESQUEDA MD 05/11/2014 Last Documented On 5 2:29PM ; [facility] Normal checkup (6 - 42 wk) * PHONE CALL with REMBERTO ESQUEDA MD 05/08/2014 Last Documented On 5 10:46AM ; [facility] Normal checkup (6 - 42 wk) RETURN OB EX AM with REMBERTO ESQUEDA MD 04/24/2014 Last Documented On 4 1:50PM ; [facility] Normal checkup (6 - 42 wk) RETU RN OB EXAM with NIEVES QUEEN 03/19/2014 Last Documented On 4 11:24AM ; [facility] Normal checkup (6 - 42 wk) * PHONE CALL with REMBERTO ESQUEDA MD 03/05/2014 Last Documented On 4 11:57AM ; [facility] Normal checkup (6 - 42 wk) NEW OB EXAM with REMBERTO ESQUEDA MD 02/19/2014 Last Documented On 4 11:23AM ; [facility] Contraceptive surveillance IMPLANON with REMBERTO ESQUEDA MD 06/10/2013 Last Documented On 4 3:49PM ; [facility] Tegan albicans vulvovaginitis BRAZER CRAWLER TORCH EXAM with [place] JYOTI QUEEN 05/14/2013 Last Documented On 4 1:29PM ; [facility] NORMAL FEMALE EXAM BRAZER CRAWLER TORCH EXAM with NIEVES Black [facility] 05/14/2013 Last Documented On 4 1:29PM ; [facility] Female pelvic pain PROBLEM VISIT with NIEVES LEE [facility] 02/12/2013 Last Documented On 3 10:26AM ; [facility] NORMAL FEMALE EXAM ANNUAL WELL WOMEN EXAM with Azeb TURNER [facility] 03/01/2012 Last Documented On 2 2:15PM ; [facility] Contraceptive surveillance POST VISIT wit yvette ESQUEDA MD 12/12/2011 Last Documented On 2 1:28PM ; [facility] Normal checkup (6 - 42 wk) RETURN OB EX AM with REMBERTO ESQUEDA MD 10/23/2011 Last Documented On 2 10:10AM ; [facility] Normal checkup (6 - 42 wk) RETU RN OB EXAM with KOBY MCKINNON M.D. 10/19/2011 Last Documented On 2 11:19AM ; [facility] Normal checkup (6 - 42 wk) RETU RN OB EXAM with KOBY MCKINNON M.D. 10/12/2011 Last Documented On 2 11:13AM ; [facility] Normal checkup (6 - 42 wk) RETURN OB EX AM with REMBERTO ESQUEDA MD 10/05/2011 Last Documented On 2 3:52PM ; [facility] Normal checkup (6 - 42 wk) * PH ONE CALL with KOBY MCKINNON M.D. 10/04/2011 Last Documented On 2 11:26AM ; [facility] Normal checkup (6 - 42 wk) [Pat ient Encounter] with REMBERTO ESQUEDA MD 09/29/2011 Last Documented On 2 2:21PM ; [facility] Normal checkup (6 - 42 wk) RETURN OB EX AM with REMBERTO ESQUEDA MD 09/28/2011 Last Documented On 2 11:14AM ; [facility] Normal checkup (6 - 42 wk) [Pat ient Encounter] with NIEVES TURNER DEDRICKNP-BC 09/26/2011 Last Documented On 2 11:52AM ; [facility] Normal checkup (6 - 42 wk) RETU RN OB EXAM with NIEVES TURNER NP-BC 09/21/2011 Last Documented On 2 1:41PM ; [facility] Normal checkup (6 - 42 wk) * PH ONE CALL with NIEVES TURNER NP-BC 09/19/2011 Last Documented On 2 12:21PM ; [facility] Normal checkup (6 - 42 wk) RETURN OB EX AM with REMBERTO ESQUEDA MD 09/14/2011 Last Documented On 2 10:19AM ; [facility] Normal checkup (6 - 42 wk) [Pat ient Encounter] with REMBERTO ESQUEDA MD 09/01/2011 Last Documented On 2 3:47PM ; [facility] Normal checkup (6 - 42 wk) RETURN OB EX AM with REMBERTO ESQUEDA MD 08/31/2011 Last Documented On 2 1:36PM ; [facility] Normal checkup (6 - 42 wk) RETU RN OB EXAM with NIEVES TURNER ELODIA-BC 08/24/2011 Last Documented On 2 10:25AM ; [facility] Normal checkup (6 - 42 wk) RETU RN OB EXAM with NIEVES Vaughan YUE NP-BC 08/18/2011 Last Documented On 2 2:36PM ; [facility] Normal checkup (6 - 42 wk) RETURN OB EX AM with REMBERTO ESQUEDA MD 08/04/2011 Last Documented On 2 2:30PM ; [facility] Normal checkup (6 - 42 wk) [Pat ient Encounter] with NIEVES TURNER NP-BC 07/31/2011 Last Documented On 2 10:42AM ; [facility] Normal checkup (6 - 42 wk) RETU RN OB EXAM with NIEVES TURNER NP-BC 07/21/2011 Last Documented On 2 10:21AM ; [facility] Normal checkup (6 - 42 wk) RETURN OB EX AM with REMBERTO ESQUEDA MD 06/30/2011 Last Documented On 2 1:49PM ; [facility] Normal checkup (6 - 42 wk) * PHONE CALL with REMBERTO ESQUEDA MD 06/01/2011 Last Documented On 2 11:22AM ; [facility] Normal checkup (6 - 42 wk) [facility] Last Documented On 2 9:44AM ; [facility] Normal checkup (6 - 42 wk) * PHONE CALL with REMBERTO ESQUEDA MD 05/25/2011 Last Documented On 2 4:48PM ; [facility] Normal checkup (6 - 42 wk) * PHONE CALL with REMBERTO ESQUEDA MD 05/08/2011 Last Documented On 2 4:52PM ; [facility] Normal checkup (6 - 42 wk) NEW OB EXAM with REMBERTO ESQUEDA MD 05/02/2011 Last Documented On 2 3:27PM ; [facility] Normal checkup (6 - 42 wk) * PHONE CALL with REMBERTO ESQUEDA MD 04/10/2011 Last Documented On 1 4:04PM ; [facility] Normal checkup (6 - 42 wk) MISS ED MENSES with NIEVES TERRELL 03/29/2011 Last Documented On 2 1:28PM ; [facility] Routine pelvic exam BRAZER CRAWLER TORCH EXAM with REMBERTO ESQUEDA MD 01/05/2011 Last Documented On 1 4:43PM ; [facility] Amenorrhea PROBLEM VISIT with FABIOLA BISWAS 08/17/2010 Last Documented On 1 9:06AM ; [facility] Contraceptive management PROBLEM VISIT with NOE CRISTOBAL 08/17/2010 Last Documented On 1 9:06AM ; [facility] SCREENING FOR STD PROBLEM VISIT with FABIOLA CRISTOBAL 08/17/2010 Last Documented On 1 9:06AM ; [facility] Contraceptive management CONSULTATION with REMBERTO ESQUEDA MD 05/13/2010 Last Documented On 1 2:36PM ; [facility] Female pelvic pain CONSULTATION with REMBERTO ROBLES MD 05/13/2010 Last Documented On 1 2:36PM ; [facility] Ovarian cyst CONSULTATION with REMBERTO ESQUEDA MD 05/13/2010 Last Documented On 1 2:36PM ; [facility] Contraceptive management BRAZER CRAWLER TORCH EXAM with REMBERTO KLEIN MD 12/24/2009 Last Documented On 0 11:59AM ; [facility] Routine pelvic exam BRAZER CRAWLER TORCH EXAM with REMBERTO ESQUEDA MD 12/24/2009 Last Documented On 0 11:59AM ; [facility] Female pelvic pain PROBLEM VISIT with FABIOLA CRISTOBAL 12/22/2009 Last Documented On 0 2:30PM ; [facility] Ruptured ovarian cyst PROBLEM VISIT with DORON CRISTOBAL 12/22/2009 Last Documented On 0 2:30PM ; [facility] SCREENING FOR STD PROBLEM VISIT with FABIOLA CRISTOBAL 12/22/2009 Last Documented On 0 2:30PM ; [facility] POST OP VISIT doing very wel l, possible mild cellulitis but improved with abx. She knows to finish entire abx rx POST OP VISIT with REMBERTO ESQUEDA MD 09/16/2009 Last Documented On 0 3:40PM ; [facility] Female pelvic pain PROBLEM VISIT with REMBERTO ACKERMAN MD 08/24/2009 Last Documented On 0 9:53AM ; [facility] Ovarian cyst PROBLEM VISIT with REMBERTO ESQUEDA MD 08/24/2009 Last Documented On 0 9:53AM ; [facility] Contraceptive management PROBLEM VISIT with REMBERTO ESQUEDA MD 08/05/2009 Last Documented On 0 2:51PM ; [facility] Female pelvic pain PROBLEM VISIT with REMBERTO ACKERMAN MD 08/05/2009 Last Documented On 0 2:51PM ; [facility] Metrorrhagia PROBLEM VISIT with REMBERTO ESQUEDA MD 08/05/2009 Last Documented On 0 2:51PM ; [facility] Ovarian cyst PROBLEM VISIT with REMBERTO ESQUEDA MD 08/05/2009 Last Documented On 0 2:51PM ; [facility] Instructions Includes: Instructions for all patient encounters Instructions to patient Instructions for patient : B reast Self Exam discussed Last Documented On 8 2:35PM ; [facility] Instructions for patient : B reast Self Exam discussed Last Documented On 6 9:49AM ; [facility] Instructions for patient : B reast Self Exam discussed Last Documented On 4 12:59PM ; [facility] Instructions for patient : K eep the area around the vulva dry. Allow the area to have exposure to air. Avoid irritants such as fabric softeners and perfumed soaps.~ Last Documented On 4 1:26PM ; [facility] Lose weight Last Documented On 4 1:00PM ; [facility] Advised d/c scented bath pro ducts Last Documented On 4 1:26PM ; [facility] Gardasil information given a nd series encouraged Last Documented On 4 1:01PM ; [facility] Safe sex counseling Last Documented On 4 1:01PM ; [facility] [facility] Instructions for patient : K eep the area around the vulva dry. Allow the area to have exposure to air. Avoid irritants such as fabric softeners and perfumed soaps.~ Last Documented On 3 10:08AM ; [facility] Return to the clinic if cond ition worsens or new symptoms arise Last Documented On 3 10:07AM ; [facility] Advised d/c scented bath pro ducts Last Documented On 3 10:08AM ; [facility] ER/ Pain Precautions Last Documented On 3 10:07AM ; [facility] Instructions for patient : B reast Self Exam discussed Last Documented On 2 1:30PM ; [facility] Lose weight Last Documented On 2 1:31PM ; [facility] Gardasil information given a nd series encouraged Last Documented On 2 1:53PM ; [facility] Instructions for patient : B reast Self Exam discussed Last Documented On 1 4:25PM ; [facility] Recommend annual pap smear e xamination or every three year Last Documented On 1 8:43AM ; [facility] Instructions for patient : B reast Self Exam discussed Last Documented On 0 11:37AM ; [facility] Education and Decision Aids were provided during visit for: STD screening offered and de clined Last Documented On 8 2:35PM ; [facility] STD screening offered and de clined Last Documented On 6 9:49AM ; [facility] Patient Education: Daily jessica cium and vitamin D Last Documented On 4 12:59PM ; [facility] Patient Education: weight be aring exercise Last Documented On 4 12:59PM ; [facility] Candidiasis Vulvovaginitis I nformation Sheet Given Last Documented On 4 1:26PM ; [facility] Patient Education: Daily jessica cium and vitamin D Last Documented On 2 1:30PM ; [facility] Patient Education: weight be aring exercise Last Documented On 2 1:30PM ; [facility] STD screening offered and de clined Last Documented On 1 4:25PM ; [facility] Patient counseling : STD pre vention. I discussed with the patient that condoms can reduce the chance of getting an STD but not eliminate it. Increased exposure from multiple sex partners also discussed Last Documented On 1 8:43AM ; [facility] HPV handout given Last Documented On 1 8:43AM ; [facility] Gardasil handout given Last Documented On 1 8:43AM ; [facility] Counseling for abnormal pap smear Last Documented On 1 8:43AM ; [facility] HIV counseling given d/C yanci strin and start nuva ring ~20 minute appointment with more than 50% face to face time Last Documented On 1 9:06AM ; [facility] STD screening offered and de clined Last Documented On 0 11:37AM ; [facility] Medical Equipment - Implanted Devices Includes: Current and historical Devices No Medical Equipment Recorded Medications Includes: Current and historical Medications Current Medications (continue as prescribed) HydroCHLOROthiazide 50MG Oral Tablet 07/31/2017 Prov ider: Diagnosis: Last Documented On 8 9:16AM By JERROD STEPHENS ; [facility] Mirena (52 MG) 20MCG/24HR Intrauterine Intrauterine de vice 07/31/2017 Provider: Diagnosis: Last Documented On 8 10:45AM By JERROD STEPHENS ; [facility] Losartan Potassium 25MG Oral Tablet 06/26/2017 Provi akilah: Diagnosis: Last Documented On 06/26/2017 1:28PM By Kamilah Badillo MA ; [facility] ProAir HFA 108 (90 Base)MCG/ACT Inhalation Aeros ol Solution 06/26/2017 Provider: Diagnosis: PRN-while she is sick. Last Documented On 06/26/2017 1:30PM By Kamilah Badillo MA ; [facility] Past Medications on file Fannie 0.35 MG Tablet 04/17/2016 - 03/19/2017 Provider : REMBERTO ESQUEDA MD Diagnosis: Other ovarian cy sts One tablet daily Last Documented On 04/17/2016 10:21AM By REMBERTO ESQUEDA MD ; [facility] One Daily Womens Tablet 02/07/2016 - 04/17/2016 Provid er: Diagnosis: Last Documented On 6 9:39AM By JERROD STEPHENS ; [facility] Fannie 0.35 MG Tablet 02/07/2016 - 04/17/2016 Provider : REMBERTO ESQUEDA MD Diagnosis: Other ovarian cy sts One tablet daily Last Documented On 04/17/2016 10:08AM By REMBERTO ESQUEDA MD ; [facility] Ferrous Sulfate 325 (65 Fe) MG OR TABS 06/12/2014 - 12/09/2014 Provider: REMBERTO ESQUEDA MD Diagnosis: one po daily at a different time than pnv was phoned to [facility]. Last Documented On 5 3:11PM By XUAN MORALES LPN ; [facility] Colace 100 MG OR CAPS 06/11/2014 - 10/09/2014 Provider : REMBERTO ESQUEDA MD Diagnosis: Last Documented On 06/11/2014 11:09AM By REMBERTO ESQUEDA MD ; [facility] 19 OR TABS 02/19/2014 - 02/14/2015 Provider: REMBERTO ESQUEDA MD Diagnosis: Last Documented On 02/19/2014 10:29AM By REMBERTO ESUQEDA MD ; [facility] 19 OR TABS 02/19/2014 - 02/19/2014 Provider: Diagnosis: Last Documented On 02/19/2014 10:28AM By REMBERTO ESQUEDA MD ; [facility] Lo Loestrin Fe 1 MG-10 MCG / 10 MCG OR TABS 10/13/2013 - 02/19/2014 Provider: REMBERTO ESQUEDA MD Diagnosis: Last Documented On 02/19/2014 9:52AM By ARTHUR STEPHENS ; [facility] Diflucan 150 MG OR TABS 05/14/2013 - 05/15/2013 Provider: NIEVES QUEEN Diagnosis: CANDIDAL VULVOVA GINITIS 1 po x 1 and rpt. in 3 days Last Documented On 4 1:28PM By NIEVES QUEEN ; [facility] Ferrous Sulfate 325 (65 Fe) MG OR TABS 12/12/2011 - Provider: Diagnosis: Last Documented On 05/14/2013 1:13PM By SIERRA STEPHENS ; [facility] Implanon 68 MG SC IMPL 12/12/2011 - 07/17/2013 Provide r: REMBERTO ESQUEDA MD Diagnosis: inserted today. Last Documented On 07/17/2013 10:34AM By WINDY PICHARDO ; [facility] Terazol 7 0.4% VA CREA 08/24/2011 - 09/23/2011 Provide r: NIEVES QUEEN Diagnosis: insert 1 applicator vaginally q hs x 7 nocs Last Documented On 2 10:25AM By NIEVES QUEEN ; [facility] Augmentin 875-125 MG OR TABS 08/24/2011 - 09/03/2011 P rovider: NIEVES QUEEN Diagnosis: Last Documented On 2 10:26AM By NIEVES QUEEN ; [facility] Fioricet 50-325-40 MG OR TABS 06/30/2011 - 07/30/2011 Provider: REMBERTO ESQUEDA MD Diagnosis: i-ii po Q 4 hours prn headac he, do not exceed 6 tabs/24 hours Last Documented On 06/30/2011 1:48PM By REMBERTO ESQUEDA MD ; [facility] Zithromax Z-Lincoln 250 MG OR TABS 05/08/2011 - 05/13/2011 Provider: REMBERTO ESQUEDA MD Diagnosis: Last Documented On 05/08/2011 4:52PM By REMBERTO ESQUEDA MD ; [facility] Vitamin B-6 25 MG OR TABS 05/02/2011 - 07/01/2011 Prov ider: REMBERTO ESQUEDA MD Diagnosis: Last Documented On 05/02/2011 1:24PM By REMBERTO ESQUEDA MD ; [facility] Fioricet 50-325-40 MG OR TABS 05/02/2011 - 06/30/2011 Provider: REMBERTO ESQUEDA MD Diagnosis: i-ii po Q 4 hours prn headac he, do not exceed 6 tabs/24 hours Last Documented On 06/30/2011 1:48PM By REMBERTO ESQUEDA MD ; [facility] Zofran 8 MG OR TABS 05/02/2011 - 06/01/2011 Provider: REMBERTO ESQUEDA MD Diagnosis: Last Documented On 05/02/2011 1:23PM By REMBERTO ESQUEDA MD ; [facility] 19 OR TABS 02/28/2011 - 12/12/2011 Provider: REMBERTO ESQUEDA MD Diagnosis: Last Documented On 2 1:29PM By XUAN MORALES LPN ; [facility] Flagyl 500 MG OR TABS 08/22/2010 - 08/29/2010 Provider : FABIOLA CRISTOBAL Diagnosis: VAGINITIS NOS no alcohol Last Documented On 08/22/2010 8:22AM By FABIOLA CRISTOBAL ; [facility] NuvaRing 0.12-0.015 MG/24HR VA RING 08/17/2010 - 09/16/2010 Provider: FABIOLA CRISTOBAL Diagnosis: OTHER FAMILY PLANNING ADVICE NEC One ring intravaginally x 3 weeks Last Documented On 08/17/2010 9:04AM By FABIOLA CRISTOBAL ; [facility] Diflucan 150 MG OR TABS 08/17/2010 - 05/14/2013 Provider: FABIOLA CRISTOBAL Diagnosis: CANDIDAL VULVOVA GINITIS 1 po x 1 day Last Documented On 4 1:28PM By [facility] ; [facility] Diflucan 150 MG OR TABS 08/16/2010 - 08/17/2010 Provid er: REMBERTO ESQUEDA MD Diagnosis: Last Documented On 08/16/2010 11:50AM By REMBERTO ESQUEDA MD ; [facility] Loestrin 24 Fe 1-20 MG-MCG OR TABS 05/13/2010 - 2010 Provider: REMBERTO ESQUEDA MD Diagnosis: Last Documented On 01/05/2011 4:14PM By WINDY PICHARDO ; [facility] Doxycycline Hyclate 100 MG OR CAPS 12/24/2009 - 2010 Provider: Diagnosis: Last Documented On 01/05/2011 4:14PM By WINDY PICHARDO ; [facility] Flagyl 250 MG OR TABS 12/24/2009 - 01/05/2011 Provider : Diagnosis: Last Documented On 01/05/2011 4:14PM By WINDY PICHARDO ; [facility] Darvocet-N 100 100-650 MG OR TABS 08/05/2009 - 010 Provider: REMBERTO ESQUEDA MD Diagnosis: Last Documented On 08/05/2009 2:45PM By REMBERTO ESQUEDA MD ; [facility] Mirena (52 MG) 20 MCG/24HR IU IUD 2008 - 011 Provider: Diagnosis: Last Documented On 08/17/2010 8:29AM By WINDY PICHARDO ; [facility] Medications Administered Includes: Administered Medications in patient's chart Medications Administered Diagnosis Date Pro vider influenza vaccine IM INJ 02/19/2014 DILLON ESQUEDA MD pt tolerated well Last Documented On 4 10:32AM By ARTHUR STEPHENS ; [facility] Gardasil IM SUSP VACCN/INOC VIRAL DIS NEC 09/02/2012 NIEVES TURNER ELODIA- Last Documented On 3 2:41PM By SIERRA STEPHENS ; [facility] Results Includes: Results from 05/07/2023 through 05/07/2024 No Results Recorded For Specified Dates History of Present Illness History of Present Illness not supported for this document type No History of Present Illness Recorded Social History Description Last Updated Alcohol use: 2 drinks or less per day oc c 08/28/2017 Last Documented On 8 10:14AM ; [facility] Non-smoker 08/28/2017 Last Documented On 8 10:14AM ; [facility] Sexually active 08/28/2017 Last Documented On 8 10:14AM ; [facility] Smoking status : Former smoker 8 Last Documented On 8 10:14AM ; [facility] In monogamous relationship 06/26/2017 Last Documented On 8 2:39PM ; [facility] Cigarette smoking Former smoker 06/26/19 18 Last Documented On 8 2:39PM ; [facility] Alcohol use occ 10/29/2014 Last Documented On 5 10:37AM ; [facility] control method Implanon 10/29/2014 Last Documented On 5 10:37AM ; [facility] Exercising regularly 10/29/2014 Last Documented On 5 10:37AM ; [facility] Not sexually active 5 Last Documented On 5 10:37AM ; [facility] Not using drugs 10/29/2014 Last Documented On 5 10:37AM ; [facility] Sexually active with 0 partn ers in the last year has not been sexually active since last child concieved (2 years ago) 10/29/2014 Last Documented On 5 10:37AM ; [facility] Single 10/29/2014 Last Documented On 5 10:37AM ; [facility] Social history unchanged 10/29/2014 Last Documented On 5 10:37AM ; [facility] The racial background white 10/29/2014 Last Documented On 5 10:37AM ; [facility] Procedures and Surgical History Surgical History Last Updated History of surgical complications: from general anesthesia surgery 2009 08/20/2014 Last Documented On 5 9:52AM ; [facility] Surgical / procedural history LT ovarian cystectomy, tonsillectomy 08/20/2014 Last Documented On 5 9:52AM ; [facility] History of surgery 03/01/2012 Last Documented On 2 1:55PM ; [facility] Medical History Includes: Medical History in patient's chart Description Last Updated LMP: 08/02/2017 08/28/2017 Last Documented On 8 10:14AM ; [facility] Contraception: Mirena 08/28/2017 Last Documented On 8 10:14AM ; [facility] 3 08/28/2017 Last Documented On 8 10:14AM ; [facility] Last pap smear date 04/17/2016 8 Last Documented On 8 10:14AM ; [facility] Para 3 08/28/2017 Last Documented On 8 10:14AM ; [facility] Result: normal 06/26/2017 Last Documented On 8 2:39PM ; [facility] Not sexually active ABSTAINING 5 Last Documented On 5 10:37AM ; [facility] RUPTURED CYST 3 DAYS AGO 08/20/2014 Last Documented On 5 9:52AM ; [facility] 1 living children 08/20/2014 Last Documented On 5 9:52AM ; [facility] Condoms 08/20/2014 Last Documented On 5 9:52AM ; [facility] History of Gardasil 08/20/2014 Last Documented On 5 9:52AM ; [facility] IUD 08/20/2014 Last Documented On 5 9:52AM ; [facility] No exposure to STD 08/20/2014 Last Documented On 5 9:52AM ; [facility] No recent change in medical history 07/30 Last Documented On 5 9:52AM ; [facility] Oral contraceptives 08/20/2014 Last Documented On 5 9:52AM ; [facility] Vaginal delivery 08/20/2014 Last Documented On 5 9:52AM ; [facility] History of surgical complications: from general anesthesia surgery 2009 02/19/2014 Last Documented On 4 9:20AM ; [facility] Family History Includes: Family History in patient's chart Description Last Updated Family history of heart disease mgm 04/30 Last Documented On 4 1:29PM ; [facility] Family history of hypercholesterolemia m gm 05/14/2013 Last Documented On 4 1:29PM ; [facility] Family history of hypertension maternal grandparents, pgf 05/14/2013 Last Documented On 4 1:29PM ; [facility] Family history of malignant neoplasm of the ovary mother at age 36, maternal grandmother, paternal grandmother 05/14/2013 Last Documented On 4 1:29PM ; [facility] Family history of diabetes m ellitus maternal grandmother, paternal grandmother, paternal grandfather 01/05/2011 Last Documented On 1 4:43PM ; [facility] Family history of malignant female breas t neoplasm maternal grandmother 01/05/2011 Last Documented On 1 4:43PM ; [facility] Family history unchanged 01/05/2011 Last Documented On 1 4:43PM ; [facility] Family history of Diabetes 05/12/2009 Last Documented On 0 10:23AM ; [facility] Review of Systems Review of Systems not [...] Gardasil 1 03/01/2012 Right Arm Complete (Administered) [facility] Last Documented On 2 1:57PM ; [facility] HPV, (quadrivalent) Gardasil 2 05/02/2012 Right Arm Complete (Administered) [facility] Last Documented On 3 2:54PM ; [facility] Influenza (Quadrivalent)36 m o.& older PF 0.5ml (SD) 1 02/19/2014 Complete (Reported) Harshad nt Last Documented On 4 10:32AM ; [facility] Allergies Includes: Active, inactive, and resolved Allergies No Known Allergies Clinical Notes Includes: Signed Clinical Notes starting from 05/19/2022 No Clinical Notes Recorded
--- OUTSIDE RECORDS SUMMARY | 2024-05-07 13:54 | XMS_ITS | Clinical Summary ---
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 Name Role Phone Unavailable Unavailable Unavailable Reason for Visit and Chief Complaint The Chief Complaint is: IUD Check--pt c/o partner feeling string during sex Problems Includes: Problems addressed during this encounter and other active Problems All Visits Onset Date Resolved Date Provider Condition S tatus Ovarian Cyst 05/14/2013 NIEVES TURNER NP-BC Active Last Documented On 05/14/2013 1:06PM ; [facility] Note: History of Obesity 02/12/2013 NIEVES TURNER NP-BC Active Last Documented On 3 10:08AM ; [facility] Plan of Treatment No Plan of Treatment Recorded Assessments Includes: Assessments from this encounter Findings - Contraceptive management - Last Documented On 08/28/2017 10:14AM ; [facility] Medical Equipment - Implanted Devices Includes: Current Devices No Medical Equipment Recorded Medications Includes: Medications discussed during this encounter and other current Medications Current Medications (continue as prescribed) HydroCHLOROthiazide 50MG Oral Tablet 07/31/2017 Prov ider: Diagnosis: Last Documented On 8 9:16AM By JERROD STEPHENS ; [facility] Mirena (52 MG) 20MCG/24HR Intrauterine Intrauterine de vice 07/31/2017 Provider: Diagnosis: Last Documented On 8 10:45AM By JERROD STEPHENS ; [facility] Losartan Potassium 25MG Oral Tablet 06/26/2017 Provi akilah: Diagnosis: Last Documented On 06/26/2017 1:28PM By Kamilah Badillo MA ; [facility] ProAir HFA 108 (90 Base)MCG/ACT Inhalation Aeros ol Solution 06/26/2017 Provider: Diagnosis: PRN-while she is sick. Last Documented On 06/26/2017 1:30PM By Kamilah Badillo MA ; [facility] Past Medications on file Fannie 0.35 MG Tablet 04/17/2016 - 03/19/2017 Provider : REMBERTO ESQUEDA MD Diagnosis: Other ovarian cy sts One tablet daily Last Documented On 04/17/2016 10:21AM By REMBERTO ESQUEDA MD ; [facility] Ferrous Sulfate 325 (65 Fe) MG OR TABS 06/12/2014 - 12/09/2014 Provider: REMBERTO ESQUEDA MD Diagnosis: one po daily at a different time than pnv was phoned to [facility]. Last Documented On 5 3:11PM By XUAN MORALES LPN ; [facility] Colace 100 MG OR CAPS 06/11/2014 - 10/09/2014 Provider : REMBERTO ESQUEDA MD Diagnosis: Last Documented On 06/11/2014 11:09AM By REMBERTO ESQUEDA MD ; [facility] 19 OR TABS 02/19/2014 - 02/14/2015 Provider: REMBERTO ESQUEDA MD Diagnosis: Last Documented On 02/19/2014 10:29AM By REMBERTO ESQUEDA MD ; [facility] Diflucan 150 MG OR TABS 05/14/2013 - 05/15/2013 Provider: NIEVES WINKLER-BC Diagnosis: CANDIDAL VULVOVA GINITIS 1 po x 1 and rpt. in 3 days Last Documented On 4 1:28PM By NIEVES WINKLER-BC ; [facility] Terazol 7 0.4% VA CREA 08/24/2011 - 09/23/2011 Provide r: NIEVES WINKLER-BC Diagnosis: insert 1 applicator vaginally q hs x 7 nocs Last Documented On 2 10:25AM By NIEVES WNIKLER-BC ; [facility] Augmentin 875-125 MG OR TABS 08/24/2011 - 09/03/2011 P rovider: NIEVES WINKLER-BC Diagnosis: Last Documented On 2 10:26AM By NIEVES TURNER [facility] ; [facility] Fioricet [...] 2.4 Last Documented: On 08/28/2017 9:31AM ; [facility] On 08/28/2017 9:25AM ; [facility] Results Includes: Results discussed during [...] 08/28/2017 Last Documented On 8 10:14AM ; [facility] Non-smoker 08/28/2017 Last Documented On 8 10:14AM ; [facility] Sexually active 08/28/2017 Last Documented On 8 10:14AM ; [facility] Smoking status : Former smoker 8 Last Documented On 8 10:14AM ; [facility] Procedures and Surgical History Includes: Procedures from this encounter Procedures Code Diagnosis Performing Provider Service L ocation Service Date follow-up visit for annual exam Last Documented On 8 9:43AM ; [facility] Patient reassured IUD in cor rect position and she may rely on it for contraception Last Documented On 8 9:43AM ; [facility] Clinical summary provided to patient Last Documented On 8 9:43AM ; [facility] Medical History Includes: Medical History addressed during this encounter Description Last Updated LMP: 08/02/2017 08/28/2017 Last Documented On 8 10:14AM ; [facility] Contraception: Mirena 08/28/2017 Last Documented On 8 10:14AM ; [facility] 3 08/28/2017 Last Documented On 8 10:14AM ; [facility] Last pap smear date 04/17/2016 8 Last Documented On 8 10:14AM ; [facility] Para 3 08/28/2017 Last Documented On 8 10:14AM ; [facility] Family History Includes: Family History addressed during this encounter Description Last Updated Family history of heart disease mgm 04/30 Last Documented On 8 9:25AM ; [facility] Family history of hypercholesterolemia m gm 05/14/2013 Last Documented On 8 9:25AM ; [facility] Family history of hypertension maternal grandparents, pgf 05/14/2013 Last Documented On 8 9:25AM ; [facility] Family history of malignant neoplasm of the ovary mother at age 36, maternal grandmother, paternal grandmother 05/14/2013 Last Documented On 8 9:25AM ; [facility] Family history of diabetes m ellitus maternal grandmother, paternal grandmother, paternal grandfather 01/05/2011 Last Documented On 8 9:25AM ; [facility] Family history of malignant female breas t neoplasm maternal grandmother 01/05/2011 Last Documented On 8 9:25AM ; [facility] Family history unchanged 01/05/2011 Last Documented On 8 9:25AM ; [facility] Family history of Diabetes 05/12/2009 Last Documented On 8 9:25AM ; [facility] Review of Systems Includes: Review of Systems [...] Diagnosis 1 MONTH CHECK REMBERTO ESQUEDA MD [facility] 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
--- OUTSIDE RECORDS SUMMARY | 2024-05-07 13:54 | XMS_ITS | Clinical Summary ---
Author Organization [facility] Address [address] [place] [address] Phone Care Team Providers Care Taker Off Drying Kiln Name Role Phone Unavailable Unavailable Unavailable Reason for Visit and Chief Complaint gynecologic annual exam - The Chief Complaint is: Annual exam Problems Includes: Problems addressed during this encounter and other active Problems All Visits Onset Date Resolved Date Provider Condition S tatus Ovarian Cyst 05/14/2013 NIEVES TURNER NP-BC Active Last Documented On 05/14/2013 1:06PM ; [facility] Note: History of Obesity 02/12/2013 NIEVES TURNER NP-BC Active Last Documented On 3 10:08AM ; [facility] Plan of Treatment Contraception: partner s/p vasectomy Continue POP for cycle control/ovarian cysts - Last Documented On 04/17/2016 10:11AM ; [facility] Instructions to patient Instructions for patient : B reast Self Exam discussed Last Documented On 6 9:49AM ; [facility] Education and Decision Aids were provided during visit for: STD screening offered and de clined Last Documented On 6 9:49AM ; [facility] Assessments Includes: Assessments from this encounter Findings - Routine pelvic exam - Last Documented On 04/17/2016 10:11AM ; [facility] Instructions Includes: Instructions from this encounter Instructions to patient Instructions for patient : B reast Self Exam discussed Last Documented On 6 9:49AM ; [facility] Education and Decision Aids were provided during visit for: STD screening offered and de clined Last Documented On 6 9:49AM ; [facility] Medical Equipment - Implanted Devices Includes: Current Devices No Medical Equipment Recorded Medications Includes: Medications discussed during this encounter and other current Medications Discontinued / Stopped on this date on 02/07/2016 One Daily Womens Tablet Provider: Diagnosis: Last Documented On 6 9:39AM By JERROD STEPHENS ; [facility] New / Renewed during this visit REMBERTO ESQUEDA MD on 04/17/2016 Fannie 0.35 MG Tablet Provider: REMBERTO ESQUEDA MD 84 day supply: 84 tablet, 3 refills Diagnosis: Other ovarian cysts One tablet daily Pharmacy: [facility] [address], [phone] Last Documented On 04/17/2016 10:21AM By REMBERTO ESQUEDA MD ; [facility] Current Medications (continue as prescribed) HydroCHLOROthiazide 50MG Oral Tablet 07/31/2017 Prov ider: Diagnosis: Last Documented On 8 9:16AM By JERROD STEPHENS ; [facility] Mirena (52 MG) 20MCG/24HR Intrauterine Intrauterine de vice 07/31/2017 Provider: Diagnosis: Last Documented On 8 10:45AM By JERROD STEPHENS ; [facility] Losartan Potassium 25MG Oral Tablet 06/26/2017 Provi akilah: Diagnosis: Last Documented On 06/26/2017 1:28PM By Kamilah Badillo MA ; [facility] ProAir HFA 108 (90 Base)MCG/ACT Inhalation Aeros ol Solution 06/26/2017 Provider: Diagnosis: PRN-while she is sick. Last Documented On 06/26/2017 1:30PM By Kamilah Badillo MA ; [facility] Past Medications on file Ferrous Sulfate 325 (65 Fe) MG OR TABS 06/12/2014 - 12/09/2014 Provider: REMBERTO ESQUEDA MD Diagnosis: one po daily at a different time than pnv was phoned to [facility]. Last Documented On 5 3:11PM By XUAN MORALES LPN ; [facility] Colace 100 MG OR CAPS 06/11/2014 - 10/09/2014 Provider : REMBERTO ESQUEDA MD Diagnosis: Last Documented On 06/11/2014 11:09AM By REMBERTO ESQUEDA MD ; [facility] 19 OR TABS 02/19/2014 - 02/14/2015 Provider: REMBERTO ESQUEDA MD Diagnosis: Last Documented On 02/19/2014 10:29AM By REMBERTO ESQUEDA MD ; [facility] Diflucan 150 MG OR TABS 05/14/2013 - 05/15/2013 Provider: NIEVES WINKLER- Diagnosis: CANDIDAL VULVOVA GINITIS 1 po x 1 and rpt. in 3 days Last Documented On 4 1:28PM By NIEVES TURNER ELODIA- ; [facility] Terazol 7 0.4% VA CREA 08/24/2011 - 09/23/2011 Provide r: NIEVES WINKLER-BC Diagnosis: insert 1 applicator vaginally q hs x 7 nocs Last Documented On 2 10:25AM By NIEVES TURNER ELODIA- ; [facility] Augmentin 875-125 MG OR TABS 08/24/2011 - 09/03/2011 P rovider: NIEVES WINKLER-BC Diagnosis: Last Documented On 2 10:26AM By NIEVES TURNER ARIANNE ; [facility] Fioricet 50-325-40 MG OR TABS 06/30/2011 - 07/30/2011 Provider: REMBERTO ESQUEDA MD Diagnosis: i-ii po Q 4 hours prn headac he, do not exceed 6 tabs/24 hours Last Documented On 06/30/2011 1:48PM By REMBERTO ESQUEDA MD ; [facility] Zithromax Z-Lincoln 250 MG OR TABS 05/08/2011 - 05/13/2011 Provider: REMBERTO ESQUEDA MD Diagnosis: Last Documented On 05/08/2011 4:52PM By REMBERTO ESQUEDA MD ; [facility] Vitamin B-6 25 MG OR TABS 05/02/2011 - 07/01/2011 Prov ider: REMBERTO ESQUEDA MD Diagnosis: Last Documented On 05/02/2011 1:24PM By REMBERTO ESQUEDA MD ; [facility] Zofran 8 MG OR TABS 05/02/2011 - 06/01/2011 Provider: REMBERTO ESQUEDA MD Diagnosis: Last Documented On 05/02/2011 1:23PM By REMBERTO ESQUEDA MD ; [facility] Flagyl 500 MG OR TABS 08/22/2010 - 08/29/2010 Provider : FABIOLA CRISTOBAL Diagnosis: VAGINITIS NOS no alcohol Last Documented On 08/22/2010 8:22AM By FABIOLA CRISTOBAL ; [facility] NuvaRing 0.12-0.015 MG/24HR VA RING 08/17/2010 - 09/16/2010 Provider: FABIOLA CRISTOBAL Diagnosis: OTHER FAMILY PLANNING ADVICE NEC One ring intravaginally x 3 weeks Last Documented On 08/17/2010 9:04AM By FABIOLA CRISTOBAL ; [facility] Diflucan 150 MG OR TABS 08/16/2010 - 08/17/2010 Provid er: REMBERTO ESQUEDA MD Diagnosis: Last Documented On 08/16/2010 11:50AM By REMBERTO ESQUEDA MD ; [facility] Darvocet-N 100 100-650 MG OR TABS 08/05/2009 - 010 Provider: REMBERTO ESQUEDA MD Diagnosis: Last Documented On 08/05/2009 2:45PM By REMBERTO ESQUEDA MD ; [facility] Medications Administered Includes: Administered Medications from this encounter No Administered Medications Recorded Vital Signs Includes: Vital Signs from this encounter Vital Name 04/17/2016 09:35A Blood Pressure Sitting (mmHg) 140/84 Pulse Rate-Sitting (bpm) 88 Weight (lb) 291.6 Last Documented: On 04/17/2016 9:40AM ; [facility] Results Includes: Results discussed [...] 04/17/2016 Last Documented On 6 10:11AM ; [facility] Alcohol use: 2 drinks or less per day 2 times a year 04/17/2016 Last Documented On 6 10:11AM ; [facility] Non-smoker 04/17/2016 Last Documented On 6 10:11AM ; [facility] Sexually active 04/17/2016 Last Documented On 6 10:11AM ; [facility] Smoking status : Never smoker 04/17/2016 Last Documented On 6 10:11AM ; [facility] Procedures and Surgical History Includes: Procedures from this encounter Procedures Code Diagnosis Performing Provider Service L ocation Service Date Clinical summary provided to patient Last Documented On 6 9:49AM ; [facility] cervical Pap smear 51214 Last Documented On 6 9:49AM ; [facility] Medical History Includes: Medical History addressed during this encounter Description Last Updated Contraception: pill 04/17/2016 Last Documented On 6 10:11AM ; [facility] LMP: 11/15/2015 04/17/2016 Last Documented On 6 10:11AM ; [facility] 3 04/17/2016 Last Documented On 6 10:11AM ; [facility] Last pap smear date 03/01/2012 6 Last Documented On 6 10:11AM ; [facility] Para 3 04/17/2016 Last Documented On 6 10:11AM ; [facility] Family History Includes: Family History addressed during this encounter Description Last Updated Family history of heart disease mgm 04/30 Last Documented On 6 9:34AM ; [facility] Family history of hypercholesterolemia m gm 05/14/2013 Last Documented On 6 9:34AM ; [facility] Family history of hypertension maternal grandparents, pgf 05/14/2013 Last Documented On 6 9:34AM ; [facility] Family history of malignant neoplasm of the ovary mother at age 36, maternal grandmother, paternal grandmother 05/14/2013 Last Documented On 6 9:34AM ; [facility] Family history of diabetes m ellitus maternal grandmother, paternal grandmother, paternal grandfather 01/05/2011 Last Documented On 6 9:34AM ; [facility] Family history of malignant female breas t neoplasm maternal grandmother 01/05/2011 Last Documented On 6 9:34AM ; [facility] Family history unchanged 01/05/2011 Last Documented On 6 9:34AM ; [facility] Family history of Diabetes 05/12/2009 Last Documented On 6 9:34AM ; [facility] Review of Systems Includes: Review of [...] Location Date Check-In Time Check-Out Time Diagnosis 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
--- OUTSIDE RECORDS SUMMARY | 2024-05-07 13:54 | XMS_ITS | Clinical Summary ---
Author Organization [facility] Address [address] [place] [address] Phone Care Team Providers Care Hot Pipe Gauger Name Role Phone Unavailable Unavailable Unavailable Reason for Visit and Chief Complaint PELVIC W/TVT Problems Includes: Problems addressed during this encounter and other active Problems All Visits Onset Date Resolved Date Provider Condition S tatus Ovarian Cyst 05/14/2013 NIEVES TURNER WHNP-BC Active Last Documented On 05/14/2013 1:06PM ; [facility] Note: History of Obesity 02/12/2013 NIEVES TURNER NP-BC Active Last Documented On 3 10:08AM ; [facility] Plan of Treatment No Plan of Treatment Recorded Assessments Includes: Assessments from this encounter No Assessments Recorded Medical Equipment - Implanted Devices Includes: Current Devices No Medical Equipment Recorded Medications Includes: Medications discussed during this encounter and other current Medications Current Medications (continue as prescribed) HydroCHLOROthiazide 50MG Oral Tablet 07/31/2017 Prov ider: Diagnosis: Last Documented On 8 9:16AM By JERROD STEPHENS ; [facility] Mirena (52 MG) 20MCG/24HR Intrauterine Intrauterine de vice 07/31/2017 Provider: Diagnosis: Last Documented On 8 10:45AM By JERROD STEPHENS ; [facility] Losartan Potassium 25MG Oral Tablet 06/26/2017 Provi akilah: Diagnosis: Last Documented On 06/26/2017 1:28PM By Kamilah Badillo MA ; [facility] ProAir HFA 108 (90 Base)MCG/ACT Inhalation Aeros ol Solution 06/26/2017 Provider: Diagnosis: PRN-while she is sick. 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
--- OUTSIDE RECORDS SUMMARY | 2024-05-07 13:54 | XMS_ITS | Clinical Summary ---
Author Organization [facility] Address [address] [place] [address] Phone Care Team Providers Care Dredge Lever Operator Name Role Phone Unavailable Unavailable Unavailable Reason for Visit and Chief Complaint visit for: IUD Insertion - The Chief Complaint is: Mirena insertion Problems Includes: Problems addressed during this encounter and other active Problems All Visits Onset Date Resolved Date Provider Condition S tatus Ovarian Cyst 05/14/2013 NIEVES TURNER ELODIA-BC Active Last Documented On 05/14/2013 1:06PM ; [facility] Note: History of Obesity 02/12/2013 NIEVES TURNER ELODIA-BC Active Last Documented On 3 10:08AM ; [facility] Plan of Treatment Pending Tests Order Diagnosis Results Due Ordering Danielito rodriguez In office procedures - OB IUD Insertion Encounter for insertion of intrauterine contraceptive device 08/14/17 REMBERTO ESQUEDA MD Last Documented On 8 9:36AM ; [facility] Assessments Includes: Assessments from this encounter Findings - Contraceptive management: Insertion of IUD - Last Documented On 07/31/2017 9:36AM ; [facility] Medical Equipment - Implanted Devices Includes: Current Devices No Medical Equipment Recorded Medications Includes: Medications discussed during this encounter and other current Medications Current Medications (continue as prescribed) HydroCHLOROthiazide 50MG Oral Tablet 07/31/2017 Prov ider: Diagnosis: Last Documented On 8 9:16AM By JERROD STEPHENS ; [facility] Mirena (52 MG) 20MCG/24HR Intrauterine Intrauterine de vice 07/31/2017 Provider: Diagnosis: Last Documented On 8 10:45AM By JERROD STEPHENS ; [facility] Losartan Potassium 25MG Oral Tablet 06/26/2017 Provi akilah: Diagnosis: Last Documented On 06/26/2017 1:28PM By Kamilah Badillo MA ; [facility] ProAir HFA 108 (90 Base)MCG/ACT Inhalation Aeros ol Solution 06/26/2017 Provider: Diagnosis: PRN-while she is sick. Last Documented On 06/26/2017 1:30PM By Kamilah Badillo MA ; [facility] Past Medications on file Fannie 0.35 MG Tablet 04/17/2016 - 03/19/2017 Provider : REMBERTO ESQUEDA MD Diagnosis: Other ovarian cy sts One tablet daily Last Documented On 04/17/2016 10:21AM By REMBERTO ESQUEDA MD ; [facility] Ferrous Sulfate 325 (65 Fe) MG OR TABS 06/12/2014 - 12/09/2014 Provider: REMBERTO ESQUEDA MD Diagnosis: one po daily at a different time than pnv was phoned to [facility]. Last Documented On 5 3:11PM By XUAN MORALES LPN ; [facility] Colace 100 MG OR CAPS 06/11/2014 - 10/09/2014 Provider : REMBERTO ESQUEDA MD Diagnosis: Last Documented On 06/11/2014 11:09AM By REMBERTO ESQUEDA MD ; [facility] 19 OR TABS 02/19/2014 - 02/14/2015 Provider: REMBERTO ESQUEDA MD Diagnosis: Last Documented On 02/19/2014 10:29AM By REMBERTO ESQUEDA MD ; [facility] Diflucan 150 MG OR TABS 05/14/2013 - 05/15/2013 Provider: NIEVES WINKLER-BC Diagnosis: CANDIDAL VULVOVA GINITIS 1 po x 1 and rpt. in 3 days Last Documented On 4 1:28PM By NIEVES QUEEN ; [facility] Terazol 7 0.4% VA CREA 08/24/2011 - 09/23/2011 Provide r: NIEVES WINKLER-BC Diagnosis: insert 1 applicator vaginally q hs x 7 nocs Last Documented On 2 10:25AM [facility] ; [facility] Augmentin 875-125 MG OR TABS 08/24/2011 - 09/03/2011 P rovider: NIEVES TURNER [facility] Diagnosis: Last Documented On 2 10:26AM By [facility]NER [facility] ; [facility] Fioricet 50-325-40 MG OR TABS 06/30/2011 - 07/30/2011 Provider: REMBERTO ESQUEDA MD Diagnosis: i-ii po Q 4 hours prn headac he, do not exceed 6 tabs/24 hours Last Documented On 06/30/2011 1:48PM By REMBERTO ESQUEDA MD ; [facility] Zithromax Z-Lincoln 250 MG OR TABS 05/08/2011 - 05/13/2011 Provider: REMBERTO ESQUEDA MD Diagnosis: Last Documented On 05/08/2011 4:52PM By REMBERTO ESQUEDA MD ; [facility] Vitamin B-6 25 MG OR TABS 05/02/2011 - 07/01/2011 Prov ider: REMBERTO ESQUEDA MD Diagnosis: Last Documented On 05/02/2011 1:24PM By REMBERTO ESQUEDA MD ; [facility] Zofran 8 MG OR TABS 05/02/2011 - 06/01/2011 Provider: REMBERTO ESQUEDA MD Diagnosis: Last Documented On 05/02/2011 1:23PM By REMBERTO ESQUEDA MD ; [facility] Flagyl 500 MG OR TABS 08/22/2010 - 08/29/2010 Provider : FABIOLA CRISTOBAL Diagnosis: VAGINITIS NOS no alcohol Last Documented On 08/22/2010 8:22AM By FABIOLA CRISTOBAL ; [facility] NuvaRing 0.12-0.015 MG/24HR VA RING 08/17/2010 - 09/16/2010 Provider: FABIOLA CRISTOBAL Diagnosis: OTHER FAMILY PLANNING ADVICE NEC One ring intravaginally x 3 weeks Last Documented On 08/17/2010 9:04AM By FABIOLA CRISTOBAL ; [facility] Diflucan 150 MG OR TABS 08/16/2010 - 08/17/2010 Provid er: REMBERTO ESQUEDA MD Diagnosis: Last Documented On 08/16/2010 11:50AM By REMBERTO ESQUEDA MD ; [facility] Darvocet-N 100 100-650 MG OR TABS 08/05/2009 - 010 Provider: REMBERTO ESQUEDA MD Diagnosis: Last Documented On 08/05/2009 2:45PM By REMBERTO ESQUEDA MD ; [facility] Medications Administered Includes: Administered Medications from this encounter No Administered Medications Recorded Vital Signs Includes: Vital Signs from this encounter Vital Name 07/31/2017 09:16A 07/31/2017 09:12A 07/31 09:11A Blood Pressure Sitting (mmHg) 140/90 Height (in) 68 68 68 Weight (lb) 290.8 290.8 Body Mass Index (kg/m2) 44.2 44.2 Body Surface Area (m2) 2.4 2.4 Last Documented: On 07/31/2017 9:19AM ; [facility] On 07/31/2017 9:16AM ; [facility] On 07/31/2017 9:12AM ; [facility] Results Includes: Results discussed during this encounter No Results Recorded For Specified Dates History of Present Illness Includes: History of Present Illness from this encounter HPI She hasn't had sex in at least 6 months (currently on day 10-11 of cycle) Social History Description Last Updated Smoking status : Former smoker 8 Last Documented On 8 9:36AM ; [facility] Non-smoker 07/31/2017 Last Documented On 8 9:36AM ; [facility] Not sexually active 07/31/2017 Last Documented On 8 9:36AM ; [facility] Procedures and Surgical History Includes: Procedures from this encounter Procedures Code Diagnosis Performing Provider Service L ocation Service Date insertion of intrauterine device (IUD) .Risks versus benefits discussed. Consent signed [id number] Last Documented On 8 9:24AM ; [facility] Sterile speculum inserted Last Documented On 8 9:24AM ; [facility] Cervix easily visualized , cervix swabbe d with Betadine Last Documented On 8 9:24AM ; [facility] Uterus sounded to 9 cm Last Documented On 8 9:35AM ; [facility] Mirena prison officer introduced through cervi x to 7 cm Last Documented On 8 9:35AM ; [facility] Mirena released and prison officer advanced to 9 cm Last Documented On 8 9:35AM ; [facility] Argon Tester removed. Last Documented On 8 9:24AM ; [facility] IUD strings trimmed to 3-4 cm. Last Documented On 8 9:24AM ; [facility] Patient tolerated procedure well Last Documented On 8 9:24AM ; [facility] Instructed to use non-hormonal, back-up method of control x 1 month Last Documented On 8 9:24AM ; [facility] Patient verbalizes understanding Last Documented On 8 9:24AM ; [facility] RTO in month for IUD check. Last Documented On 8 9:24AM ; [facility] Encouraged to call office with any IUD c oncerns Last Documented On 8 9:24AM ; [facility] Clinical summary provided to patient Last Documented On 8 9:24AM ; [facility] Medical History Includes: Medical History addressed during this encounter Description Last Updated Contraception: none 07/31/2017 Last Documented On 8 9:36AM ; [facility] LMP: 07/21/2017 07/31/2017 Last Documented On 8 9:36AM ; [facility] 3 07/31/2017 Last Documented On 8 9:36AM ; [facility] Last pap smear date 04/17/2016 8 Last Documented On 8 9:36AM ; [facility] Para 3 07/31/2017 Last Documented On 8 9:36AM ; [facility] Family History Includes: Family History addressed during this encounter Description Last Updated Family history of heart disease mgm 04/30 Last Documented On 8 9:11AM ; [facility] Family history of hypercholesterolemia m gm 05/14/2013 Last Documented On 8 9:11AM ; [facility] Family history of hypertension maternal grandparents, pgf 05/14/2013 Last Documented On 8 9:11AM ; [facility] Family history of malignant neoplasm of the ovary mother at age 36, maternal grandmother, paternal grandmother 05/14/2013 Last Documented On 8 9:11AM ; [facility] Family history of diabetes m ellitus maternal grandmother, paternal grandmother, paternal grandfather 01/05/2011 Last Documented On 8 9:11AM ; [facility] Family history of malignant female breas t neoplasm maternal grandmother 01/05/2011 Last Documented On 8 9:11AM ; [facility] Family history unchanged 01/05/2011 Last Documented On 8 9:11AM ; [facility] Family history of Diabetes 05/12/2009 Last Documented On 8 9:11AM ; [facility] Review of Systems Includes: Review of [...] Time Diagnosis PROCEDURE OFFICE REMBERTO ESQUEDA MD [facility] TICKET COLLECTOR 08/01/19 18 9:10AM 9:38AM Contraceptive Management: Insertion of Iud Clinical Notes Includes: Clinical Notes from this encounter No Clinical Notes Recorded
--- OUTSIDE RECORDS SUMMARY | 2024-05-07 13:54 | XMS_ITS | Clinical Summary ---
Author Organization [facility] Address [address] [place] [address] Phone Care Team Providers Care Deckhand Engineer Name Role Phone Unavailable Unavailable Unavailable Reason [...] Active Last Documented On 05/14/2013 1:06PM ; [facility] Note: History of Obesity 02/12/2013 NIEVES TURNER WHNP-BC Active Last Documented On 3 10:08AM ; [facility] Plan of Treatment Heavy periods: [...] - Last Documented On 06/26/2017 2:39PM ; [facility] Instructions to patient Instructions for patient : B reast Self Exam discussed Last Documented On 8 2:35PM ; [facility] Education and Decision Aids were provided during visit for: STD screening offered and de clined Last Documented On 8 2:35PM ; [facility] Assessments Includes: Assessments from this encounter Findings - Routine pelvic exam - Last Documented On 06/26/2017 2:39PM ; [facility] - Menometrorrhagia - Last Documented On 06/26/2017 2:39PM ; [facility] Instructions Includes: Instructions from this encounter Instructions to patient Instructions for patient : B reast Self Exam discussed Last Documented On 8 2:35PM ; [facility] Education and Decision Aids were provided during visit for: STD screening offered and de clined Last Documented On 8 2:35PM ; [facility] Medical Equipment - Implanted Devices Includes: Current Devices No Medical Equipment Recorded Medications Includes: Medications discussed during this encounter and other current Medications Current Medications (continue as prescribed) HydroCHLOROthiazide 50MG Oral Tablet 07/31/2017 Prov ider: Diagnosis: Last Documented On 8 9:16AM By JERROD STEPHENS ; [facility] Mirena (52 MG) 20MCG/24HR Intrauterine Intrauterine de vice 07/31/2017 Provider: Diagnosis: Last Documented On 8 10:45AM By JERROD STEPHENS ; [facility] Losartan Potassium 25MG Oral Tablet 06/26/2017 Provi akilah: Diagnosis: Last Documented On 06/26/2017 1:28PM By Kamilah Badillo MA ; [facility] ProAir HFA 108 (90 Base)MCG/ACT Inhalation Aeros ol Solution 06/26/2017 Provider: Diagnosis: PRN-while she is sick. Last Documented On 06/26/2017 1:30PM By Kamilah Badillo MA ; [facility] Past Medications on file Fannie 0.35 MG Tablet 04/17/2016 - 03/19/2017 Provider : REMBERTO ESQUEDA MD Diagnosis: Other ovarian cy sts One tablet daily Last Documented On 04/17/2016 10:21AM By REMBERTO ESQUEDA MD ; [facility] Ferrous Sulfate 325 (65 Fe) MG OR TABS 06/12/2014 - 12/09/2014 Provider: REMBERTO ESQUEDA MD Diagnosis: one po daily at a different time than pnv was phoned to [facility] Last Documented On 5 3:11PM By XUAN MORALES LPN ; [facility] Colace 100 MG OR CAPS 06/11/2014 - 10/09/2014 Provider : REMBERTO ESQUEDA MD Diagnosis: Last Documented On 06/11/2014 11:09AM By REMBERTO ESQUEDA MD ; [facility] 19 OR TABS 02/19/2014 - 02/14/2015 Provider: REMBERTO ESQUEDA MD Diagnosis: Last Documented On 02/19/2014 10:29AM By REMBERTO ESQUEDA MD ; [facility] Diflucan 150 MG OR TABS 05/14/2013 - 05/15/2013 Provider: NIVEES TURNER ELODIA- Diagnosis: CANDIDAL VULVOVA GINITIS 1 po x 1 and rpt. in 3 days Last Documented On 4 1:28PM By NIEVES TURNER ELODIA- ; [facility] Terazol 7 0.4% VA CREA 08/24/2011 - 09/23/2011 Provide r: NIEVES TURNER ELODIA-BC Diagnosis: insert 1 applicator vaginally q hs x 7 nocs Last Documented On 2 10:25AM By NIEVES TURNER ELODIA- ; [facility] Augmentin 875-125 MG OR TABS 08/24/2011 - 09/03/2011 P rovider: NIEVES TURNER ELODIA- Diagnosis: Last Documented On 2 10:26AM By NIEVES TURNER ELODIA- ; [facility] Fioricet 50-325-40 MG OR TABS 06/30/2011 - 07/30/2011 Provider: REMBERTO ESQUEDA MD Diagnosis: i-ii po Q 4 hours prn headac he, do not exceed 6 tabs/24 hours Last Documented On 06/30/2011 1:48PM By REMBERTO ESQUEDA MD ; [facility] Zithromax Z-Lincoln 250 MG OR TABS 05/08/2011 - 05/13/2011 Provider: REMBERTO ESQUEDA MD Diagnosis: Last Documented On 05/08/2011 4:52PM By REMBERTO ESQUEDA MD ; [facility] Vitamin B-6 25 MG OR TABS 05/02/2011 - 07/01/2011 Prov ider: REMBERTO ESQUEDA MD Diagnosis: Last Documented On 05/02/2011 1:24PM By REMBERTO SEQUEDA MD ; [facility] Zofran 8 MG OR TABS 05/02/2011 - 06/01/2011 Provider: REMBERTO ESQUEDA MD Diagnosis: Last Documented On 05/02/2011 1:23PM By REMBERTO ESQUEDA MD ; [facility] Flagyl 500 MG OR TABS 08/22/2010 - 08/29/2010 Provider : FABIOLA CRISTOBAL Diagnosis: VAGINITIS NOS no alcohol Last Documented On 08/22/2010 8:22AM By FABIOLA CRISTOBAL ; [facility] NuvaRing 0.12-0.015 MG/24HR VA RING 08/17/2010 - 09/16/2010 Provider: FABIOLA CRISTOBAL Diagnosis: OTHER FAMILY PLANNING ADVICE NEC One ring intravaginally x 3 weeks Last Documented On 08/17/2010 9:04AM By FABIOLA CRISTOBAL ; [facility] Diflucan 150 MG OR TABS 08/16/2010 - 08/17/2010 Provid er: REMBERTO ESQUEDA MD Diagnosis: Last Documented On 08/16/2010 11:50AM By REMBERTO ESQUEDA MD ; [facility] Darvocet-N 100 100-650 MG OR TABS 08/05/2009 - 010 Provider: REMBERTO ESQUEDA MD Diagnosis: Last Documented On 08/05/2009 2:45PM By REMBERTO ESQUEDA MD ; [facility] Medications Administered Includes: Administered Medications from this encounter No Administered Medications Recorded Vital Signs Includes: Vital Signs from this encounter Vital Name 06/26/2017 01:28P Blood Pressure Sitting (mmHg) 136/78 Pulse Rate-Sitting (bpm) 86 Height (in) 68 Weight (lb) 286.4 Body Mass Index (kg/m2) 43.5 Body Surface Area (m2) 2.4 Last Documented: On 06/26/2017 1:33PM ; [facility] Results Includes: Results discussed [...] 8 2:39PM ; [facility] Alcohol use: 2 drinks or less per day oc c 06/26/2017 Last Documented On 8 2:39PM ; [facility] Cigarette smoking Former smoker 06/26/19 18 Last Documented On 8 2:39PM ; [facility] Non-smoker 06/26/2017 Last Documented On 8 2:39PM ; [facility] Sexually active 06/26/2017 Last Documented On 8 2:39PM ; [facility] Smoking status : Never smoker 06/26/2017 Last Documented On 8 2:39PM ; [facility] Procedures and Surgical History Includes: Procedures from this encounter Procedures Code Diagnosis Performing Provider Service L ocation Service Date Clinical summary provided to patient Last Documented On 8 2:35PM ; [facility] Medical History Includes: Medical History addressed during this encounter Description Last Updated Contraception: condoms 06/26/2017 Last Documented On 8 2:39PM ; [facility] LMP: 06/23/2017 06/26/2017 Last Documented On 8 2:39PM ; [facility] Result: normal 06/26/2017 Last Documented On 8 2:39PM ; [facility] 3 06/26/2017 Last Documented On 8 2:39PM ; [facility] Last pap smear date 04/17/2016 8 Last Documented On 8 2:39PM ; [facility] Para 3 06/26/2017 Last Documented On 8 2:39PM ; [facility] Family History Includes: Family History addressed during this encounter Description Last Updated Family history of heart disease mgm 04/30 Last Documented On 8 1:22PM ; [facility] Family history of hypercholesterolemia m gm 05/14/2013 Last Documented On 8 1:22PM ; [facility] Family history of hypertension maternal grandparents, pgf 05/14/2013 Last Documented On 8 1:22PM ; [facility] Family history of malignant neoplasm of the ovary mother at age 36, maternal grandmother, paternal grandmother 05/14/2013 Last Documented On 8 1:22PM ; [facility] Family history of diabetes m ellitus maternal grandmother, paternal grandmother, paternal grandfather 01/05/2011 Last Documented On 8 1:22PM ; [facility] Family history of malignant female breas t neoplasm maternal grandmother 01/05/2011 Last Documented On 8 1:22PM ; [facility] Family history unchanged 01/05/2011 Last Documented On 8 1:22PM ; [facility] Family history of Diabetes 05/12/2009 Last Documented On 8 1:22PM ; [facility] Review of Systems Includes: Review of [...] Location Date Check-In Time Check-Out Time Diagnosis EXCHANGE ARCHITECT EXAM REMBERTO ESQUEDA MD [facility] CELLOPHANE CASTING MACHINE REPAIRER 8 1:20PM 2:41PM Menometrorrha myron,Routine Pelvic Exam Clinical Notes Includes: Clinical Notes from this encounter No Clinical Notes Recorded
--- OUTSIDE RECORDS SUMMARY | 2024-05-07 13:54 | XMS_ITS ---
Care Plan - [facility] Created on: May 07, 2024 THADDEUS REMBERTO R : 1985 Sex: Female Author Organization [facility] Address [address] [place] [id number] Phone Care Team Providers Care Bicycle Subassembler Name Role Phone Unavailable Unavailable Unavailable
--- OUTSIDE RECORDS SUMMARY | 2024-05-07 13:54 | XMS_ITS | Referral Summary ---
Author Organization [facility] [employer] Address [address] [place] [address] Care Team Providers Care Air Conditioning Coil Assembler Name Role Phone Jo Cardenas MD Primary Care Provider [phone] Source Comments [facility] [employer],non-owned Affiliates and Associated Physician Practices is amultiple site organization consisting of ambulatory clinics and hospital sitesin [place], [place], [place]. This disclosure is being madepursuant to the Care Everywhere program and may not contain all information available regarding this patient. Last updated 18.[facility] [employer] Allergies No known active allergies Medications * [...] Comments Blood Pressure 122/64 04/02/2014 3:33 PM VOCATIONAL ED INSTRUCTOR Pulse 124 04/02/2014 3:33 PM VOCATIONAL ED INSTRUCTOR Temperature 37.1 ??C (98.8 ??F) 04/02/2014 3:33 PM CS T Respiratory Rate 16 04/02/2014 3:33 PM VOCATIONAL ED INSTRUCTOR Oxygen Saturation - - Inhaled Oxygen Concentration - - Weight 131.5 kg (290 lb) 04/02/2014 1:53 PM VOCATIONAL ED INSTRUCTOR Height - - Body Mass Index - - Plan of Treatment Not on file Care Teams Air Conditioning Coil Assembler Relationship Specialty Start Date End Date Jo Cardenas MD PCP - General Family Medicine 04/02/14
--- OUTSIDE RECORDS SUMMARY | 2024-05-07 13:54 | XMS_ITS | Clinical Summary ---
Author Organization [facility] [employer] Address [address] [place] [address] Care Team Providers Care Benefit Specialist Name Role Phone Jo Cardenas MD Primary Care Provider [phone] Source Comments [facility] [employer],non-owned Affiliates and Associated Physician Practices is amultiple site organization consisting of ambulatory clinics and hospital sitesin [place], [place], [place] and [place]. This disclosure is being madepursuant to the Care Everywhere program and may not contain all information available regarding this patient. Last updated 18.[facility] [employer] Allergies No known active allergies Medications * [...] Comments Blood Pressure 122/64 04/02/2014 3:33 PM TRUCK OPERATOR Pulse 124 04/02/2014 3:33 PM TRUCK OPERATOR Temperature 37.1 ??C (98.8 ??F) 04/02/2014 3:33 PM CS T Respiratory Rate 16 04/02/2014 3:33 PM TRUCK OPERATOR Oxygen Saturation - - Inhaled Oxygen Concentration - - Weight 131.5 kg (290 lb) 04/02/2014 1:53 PM TRUCK OPERATOR Height - - Body Mass Index - [...] age to complete this topic Care Teams Benefit Specialist Relationship Specialty Start Date End Date Jo Cardenas MD PCP - General Family Medicine 04/02/14
--- OUTSIDE RECORDS SUMMARY | 2024-05-07 13:54 | XMS_ITS | Patient Health Summary ---
Author Organization [facility] [employer] Address [address] [place] [address] Care Team Providers Care Rn Clinical Name Role Phone Jo Cardenas MD Primary Care Provider [phone] Note from [facility],non-owned Affiliates and Associated Physician Practices is amultiple site organization consisting of ambulatory clinics and hospital sitesin [place], [place], [place] and [place]. This disclosure is being madepursuant to the Care Everywhere program and may not contain all information available regarding this patient. Last updated 18.[facility] [employer] Allergies No known active allergies Medications * [...] Comments Blood Pressure 122/64 04/02/2014 3:33 PM SHEET ROCK INSTALLER Pulse 124 04/02/2014 3:33 PM SHEET ROCK INSTALLER Temperature 37.1 ??C (98.8 ??F) 04/02/2014 3:33 PM CS T Respiratory Rate 16 04/02/2014 3:33 PM SHEET ROCK INSTALLER Oxygen Saturation - - Inhaled Oxygen Concentration - - Weight 131.5 kg (290 lb) 04/02/2014 1:53 PM SHEET ROCK INSTALLER Height - - Body Mass Index - - Care Teams Rn Clinical Relationship Specialty Start Date End Date Jo Cardenas MD PCP - General Family Medicine 04/02/14
--- OUTSIDE RECORDS SUMMARY | 2024-05-07 13:55 | XMS_ITS | Referral Summary ---
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
--- OUTSIDE RECORDS SUMMARY | 2024-05-07 13:55 | XMS_ITS | Clinical Summary ---
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
--- OUTSIDE RECORDS SUMMARY | 2024-05-07 13:55 | XMS_ITS | Encounter Summary ---
Author Organization [facility] Address [address] [place] [address] Care Team Providers Care Agricultural Service Technician Name Role Phone Jo Cardenas MD Primary Care Provider [phone] Reason for Visit * Reason Comments Nausea pt is 4 months pregn ant, here with son, very nauseas and having h/a. Encounter Details Date Type Department Care Team (Late st Contact Info) Description 04/02/2014 1:53 PM STEAM STATION SUPERVISOR - 04/02/2014 3:34 PM STEAM STATION SUPERVISOR Emergency ER at [address] [address] Greer Moreland DO [address] [place] [id number] Gastroenteritis Discharge Disposition: Home or Self Care [...] Comments Blood Pressure 122/64 04/02/2014 3:33 PM STEAM STATION SUPERVISOR Pulse 124 04/02/2014 3:33 PM STEAM STATION SUPERVISOR Temperature 37.1 ??C (98.8 ??F) 04/02/2014 3:33 PM CS T Respiratory Rate 16 04/02/2014 3:33 PM STEAM STATION SUPERVISOR Oxygen Saturation - - Inhaled Oxygen Concentration - - Weight 131.5 kg (290 lb) 04/02/2014 1:53 PM STEAM STATION SUPERVISOR Height - - Body Mass Index - - documented in this encounter Discharge Instructions * Discharge Instructions* Wes Badillo MD - 04/02/2014 3:13 PM STEAM STATION SUPERVISOR Images from the original note were not [...] ?? Bananas. ?? Rice. ?? Applesauce. ?? Foley (and other simple starches such as crackers, potatoes, noodles). Be sure to avoid dairy products, meats, and fatty foods until symptoms are better. Fruit juices such as apple, grape, and prune juice can make diarrhea worse. Avoid these. Continue this diet for 2 days or as instructed by your caregiver. Document Released: 04/16/2006 Document Revised: 07/08/2012 Document Reviewed: 10/03/2007 ExitCare?? Patient Information ??2013 [place]. M STATION SUPERVISOR documented in this encounter Medications at Time [...] denied any questions or concerns upon discharge. M STATION SUPERVISOR * Divine Reyes RN - 04/02/2014 3:07 PM CST at . M STATION SUPERVISOR * Wes Badillo MD - 04/02/2014 2:37 [...] hours a day, from any computer, through [employer] Operations, the online version of our electronic medical record. If you would like to use this service, please call Neela Martines, Connectivity Coordinator, at . We appreciate the opportunity to care for your patients. If you would like additional information, please call the emergency department directly at . Sincerely, Wes Badillo MD Division of Emergency Medicine [place], [place] [facility] EMERGENCY DEPARTMENT AND TRAUMA CENTER [place] PEDIATRIC TRAUMA C[facility] Provider contact with the patient: 04/02/2014 14:37 Josselyn Arndt [id number] [facility] EMERGENCY DEPARTMENT History Chief Complaint Patient presents [...] Decision Making Clinical Impression Final diagnoses: Gastroenteritis M STATION SUPERVISOR * Greer Moreland, - 04/02/2014 2:33 PM CST Provider contact with the patient: 04/02/2014 14:33 Josselyn Arndt [id number] [facility] EMERGENCY DEPARTMENT History Chief Complaint Patient presents with ??? Nausea pt is 4 months , here with son, very nauseas and having h/a. I have read the resident/FOOT WORKER history. Unless appended by me below, I [...] lb) Physical Exam I have reviewed the resident/FOOT WORKER physical exam. Unless appended by me below, [...] my note. Clinical Impression 1. Nausea 2. M STATION SUPERVISOR * Divine Reyes RN - 04/02/2014 2:[address] Moreland aware of pt. M STATION SUPERVISOR documented in this encounter Plan of Treatment [...] at 1500 $ Given 04/02/2014 2:49 PM STEAM STATION SUPERVISOR 4 mg documented in this encounter Active and Recently Administered Medications Times are shown in STEAM STATION SUPERVISOR. Scheduled Medication Order 03/31/2014 04/01/2014 04/02/2014 ondansetron (disintegrating) (ZOFRAN ODT) tablet 4 mg (COMPLETED) 4 mg, Sublingual, ONCE, 1 dose, On Maria Fernanda 04/02/14 at 1500 1449 ($ Given - Prov ider: Bianca Davila RN) documented in this encounter Care Teams Agricultural Service Technician Relationship Specialty Start Date End Date Jo Cardenas MD PCP - General Family Medicine 04/02/14 documented as of this encounter
--- OUTSIDE RECORDS SUMMARY | 2024-05-07 13:55 | XMS_ITS | Clinical Summary ---
Author Organization [facility] Address [address] [place] [address] Phone Care Team Providers Care Back Seam Stitcher Name Role Phone Jeanie Jewell APRN, MARY Primary Care Provider Allergies [...] age to complete this topic Insurance MEDICAID [facility] Care Teams Back Seam Stitcher Relationship Specialty Start Date End Date Jeanie Jewell, WELCOME HOSTESS, COMPLIANCE MGR [address] [place] [address] [place] [address] PCP - General Certified Nurse Practitioner 10/05/15
--- OUTSIDE RECORDS SUMMARY | 2024-05-07 13:55 | XMS_ITS | Encounter Summary ---
Author Organization [facility] Address [address] [place] [address] Phone Care Team Providers Care Tool/Die Maker Name Role Phone Jeanie Jewell NP Primary Care Provider [phone] Jeanie Jewell STACK YIELD ENGINEER Unavailable [phone] Encounter Details Date Type Department Care Team (Late st Contact Info) Description 11/21/2019 1:15 PM CDT Office Visit [facility] Oncology [address] [place] [address] Scotty Tejada, DO [facility] [address] Lung mass (Primary Dx) Social History Tobacco Use Types Packs/Day Years Used Date Smoking Tobacco: Every Day Cigarettes 0.5 10 Smokeless Tobacco: Never Alcohol Use Standard Drinks/Week Comments Yes 2 (1 standard drink = 0.6 oz pur e alcohol) Comments No Sex and Gender Information Value Date Recorded Sex Assigned at Not on file Legal Sex Female 9:05 AM ISSUER Gender Identity Not on file Sexual Orientation [...] patient was located in her car in [place] in the [facility] [place]. The patient visit started at 1:35 pm and ended at 1:40 pm. Total encounter time was 10 min minutes, which includes time spent today on pre charting, the patient encounter, and post charting. The patient: has been informed that the visit may not be secure and acknowledged the information. The option of participating in a telephone or video visit during the [facility] [place] [address] emergencywas explained to them. After being given [...] Diagnostic test: CT scan of chest at [facility] shows stable 7 mm nodule of [...] chest documented in this encounter Care Teams Tool/Die Maker Relationship Specialty Start Date End Date Jeanie Jewell NP PCP - General 06/17/19 Jeanie Jewell NP 06/17/19 documented as of this encounter
--- OUTSIDE RECORDS SUMMARY | 2024-05-07 13:55 | XMS_ITS | Encounter Summary ---
Author Organization [facility] Address [address] [place] [address] Phone Care Team Providers Care Lead Medical Technologist Name Role Phone Jeanie Jewell NP Primary Care Provider [phone] Jeanie Jewell BAKERY PRODUCTS CHECKER Unavailable [phone] Encounter Details Date Type Department Care Team (Late st Contact Info) Description 02/05/2020 Telephone [facility] Oncology [address] [place] [address] [place] [phone] Yanni Alvarenga, VIDAL Social History Tobacco Use Types Packs/Day Years Used Date Smoking Tobacco: Every Day Cigarettes 0.5 10 Smokeless Tobacco: Never Alcohol Use Standard Drinks/Week Comments Yes 2 (1 standard drink = 0.6 oz pur e alcohol) Comments No Sex and Gender Information Value Date Recorded Sex Assigned at Not on file Legal Sex Female 9:05 AM CONTROLLED ATMOSPHERIC FURNACE BRAZER Gender Identity Not on file Sexual Orientation [...] v/u and will have this done at [facility]. documented in this encounter Plan of Treatment Not on file documented as of this encounter Visit Diagnoses Diagnosis Pulmonary nodule- Primary Other diseases of lung, not elsewhere classified documented in this encounter Care Teams Lead Medical Technologist Relationship Specialty Start Date End Date Jeanie Jewell NP PCP - General 06/17/19 Jeanie Jewell NP 06/17/19 documented as of this encounter
--- OUTSIDE RECORDS SUMMARY | 2024-05-07 13:55 | XMS_ITS | Encounter Summary ---
Author Organization [facility] Address [address] [place] [address] Phone Care Team Providers Care Medical Driver Name Role Phone Jeanie Jewell HITCHER Primary Care Provider [phone] Jeanie Jewell HITCHER Unavailable [phone] Encounter Details Date Type Department Care Team (Late st Contact Info) Description 11/24/2019 Orders Only [facility] Physicians [facility] Oncology [address] [phone] Scotty Tejada DO 1418 [facility] [address] [place], [place] [phone] Pulmonary nodule (Primary Dx) Social History Tobacco Use Types Packs/Day Years Used Date Smoking Tobacco: Every Day Cigarettes 0.5 10 Smokeless Tobacco: Never Alcohol Use Standard Drinks/Week Comments Yes 2 (1 standard drink = 0.6 oz pur e alcohol) Comments No Sex and Gender Information Value Date Recorded Sex Assigned at Not on file Legal Sex Female 9: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
--- OUTSIDE RECORDS SUMMARY | 2024-05-07 13:56 | XMS_ITS | Encounter Summary ---
Author Organization [facility] Healthcare Address [address] [place] [address] Care Team Providers Care Belt Sander Stone Name Role Phone Unavailable Primary Care Provider Unavailabl e Encounter Details Date Type Department Care Team (Late st Contact Info) Description 01/18/2008 3:27 PM CDT - 01/18/2008 11:59 PM CDT Hospital Encounter [facility] Josselyn Lucero MD [address] [address] Social History Tobacco Use Types Packs/Day Years Used Date Smoking Tobacco: Never Assessed Comments Unknown Sex and Gender Information Value Date Recorded Sex Assigned at Not on file Legal Sex Female 9:05 AM OUTSIDE SALES ASSOCIATE Gender Identity Not on file Sexual Orientation Not on file documented as of this encounter Plan of Treatment Not on file documented as of this encounter Visit Diagnoses Not on filedocumented in this encounter
--- OUTSIDE RECORDS SUMMARY | 2024-05-07 13:56 | XMS_ITS | Encounter Summary ---
Author Organization [facility] Address [address] [place] [address] Phone Care Team Providers Care Jetting Machine Operator Name Role Phone Jeanie Jewell NP Primary Care Provider [phone] Jeanie Jewell BACK FACER Unavailable [phone] Encounter Details Date Type Department Care Team (Late st Contact Info) Description 06/17/2019 Telephone [facility] Oncology [address] [phone] Scotty Tejada DO 1418 [facility] [address] [place], [place] [phone] Social History Tobacco Use Types Packs/Day Years Used Date Smoking Tobacco: Every Day Cigarettes 0.5 10 Smokeless Tobacco: Never Alcohol Use Standard Drinks/Week Comments Yes 2 (1 standard drink = 0.6 oz pur e alcohol) Comments No Sex and Gender Information Value Date Recorded Sex Assigned at Not on file Legal Sex Female 9:05 AM ACCOUNT DEVELOPMENT SPECIALIST Gender Identity Not on file Sexual Orientation Not on file documented as of this encounter Miscellaneous Notes * Telephone Encounter - Yanni Alvarenga RN - 06/17/2019 10:01 AM ACCOUNT DEVELOPMENT SPECIALIST Spoke with patient and advised that PET has been denied by Ángel on appeal. Advised that Dr. Tejada would like to do repeat CT chest without contrast in mid June with a follow after scan is done. Patient v/u. UNT DEVELOPMENT SPECIALIST documented in this encounter Plan of Treatment Not on file documented as of this encounter Visit Diagnoses Diagnosis Pulmonary nodule- Primary Other diseases of lung, not elsewhere classified documented in this encounter Care Teams Jetting Machine Operator Relationship Specialty Start Date End Date Jeanie Jewell NP PCP - General 06/17/19 Jeanie Jewell NP 06/17/19 documented as of this encounter
--- OUTSIDE RECORDS SUMMARY | 2024-05-07 13:56 | XMS_ITS | Encounter Summary ---
Author Organization [facility] Healthcare Address [address] [place] [address] Care Team Providers Care Materials Clerk Name Role Phone Unavailable Primary Care Provider [...] on file Legal Sex Female 9:05 AM ASSISTANT CENTER DIRECTOR Gender Identity Not on file Sexual Orientation Not on file documented as of this encounter Plan of Treatment Not on file documented as of this encounter Visit Diagnoses Not on filedocumented in this encounter
--- OUTSIDE RECORDS SUMMARY | 2024-05-07 13:56 | XMS_ITS | Encounter Summary ---
Author Organization [facility] Healthcare Address [address] [place] [address] Care Team Providers Care Web Site Admin Name Role Phone Jeanie Jewell NP Primary Care Provider [phone] Encounter Details Date Type Department Care Team (Late st Contact Info) Description 03/28/2017 7:11 AM DISK SANDER - 03/28/2017 10:42 AM DISK SANDER Emergency [facility] Emergency Department [address] [place] [address] Flavia Singhman Discharge Disposition: Discharge to home or self care Social History Tobacco Use Types Packs/Day Years Used Date Smoking Tobacco: Never Assessed Comments Unknown Sex and Gender Information Value Date Recorded Sex Assigned at Not on file Legal Sex Female 9:05 AM DISK SANDER Gender Identity Not on file Sexual Orientation Not on file documented as of this encounter Discharge Disposition Disposition Code Departure Means Destination Discharge to home or self care documented in this encounter Plan of Treatment Not on file documented as of this encounter Procedures Procedure Name Priority Date/Time Associated Diagnosis Comments XR SHOULDER 2+ VW Routine 03/28/2017 3:0 9 PM DISK SANDER XR SPINE 1 VW Routine 03/28/2017 3:09 PM DISK SANDER documented in this encounter Results * XR Spine 1 VW (03/28/2017 3:09 PM DISK SANDER) Anatomical Region Laterality Modality Spine N/A Radiographic Virgen ging 03/28/2017 3:09 PM DISK SANDER Narrative 03/28/2017 3:23 PM DISK SANDER XR Thoracic Spine 2 View [id number] ??Acc#: ??[id number] DATE OF EXAM: ??Mar 28 2017 ?? XR Thoracic Spine 2 View [id number] HISTORY: Trauma. ??Mid back pain status post [...] ??FLAVIA SINGH Requesting Fax: ??-- Attending Fax: ??[phone] Attending ID: ??[id number] Requesting ID: ??[id number] Report To 1 ID: ??[id number] Report To 1 Name: ??FLAVIA SINGH Report To 1 FAX: ??-- NextGen Order #: ?? Procedure Note Miscellaneous, Not In File - 03/28/2017 XR Thoracic Spine 2 View [id number] Acc#: [id number] DATE OF EXAM: Mar 28 2017 XR Thoracic Spine 2 View [id number] HISTORY: Trauma. Mid back pain status post [...] SINGH Requesting Fax: -- Attending Attending ID: [id number] Requesting ID: [id number] Report To 1 ID: [id number] Report To 1 Name: FLAVIA SINGH Report To 1 FAX: -- NextGen Order #: us Physician No IMG XR PROCEDURES Edited Result - Final * XR Shoulder 2+ Vw (03/28/2017 3:09 PM DISK SANDER) Anatomical Region Laterality Modality Shoulder N/A Radiographic Virgen ging 03/28/2017 3:09 PM DISK SANDER Narrative 03/28/2017 3:22 PM DISK SANDER XR Shoulder Min 2 Views R ??[id number] ??Acc#: ??[id number] DATE OF EXAM: ??Mar 28 2017 ?? XR Shoulder Min 2 Views R ??[id number] HISTORY: Injury. ??Right shoulder pain status post [...] ??FLAVIA SINGH Requesting Fax: ??-- Attending Fax: ??[phone] Attending ID: ??[id number] Requesting ID: ??[id number] Report To 1 ID: ??[id number] Report To 1 Name: ??FLAVIA SINGH Report To 1 FAX: ??-- NextGen Order #: ?? Procedure Note Miscellaneous, Not In File - 03/28/2017 XR Shoulder Min 2 Views R [id number] Acc#: [id number] DATE OF EXAM: Mar 28 2017 XR Shoulder Min 2 Views R [id number] HISTORY: Injury. Right shoulder pain status post [...] on: Mar 28 2017 9:22A Transcribed by: [facility] On: Mar 28 2017 9:20A Approved Electronically by: MIREYA Sanford, DR FLORENCE on: Mar 28 2017 9:20A Ordering DR: FLAVIA SINGH Attending DR: FLAVIA SINGH Attending: FLAVIA SINGH Requesting: FLAVIA SINGH Requesting Fax: -- Attending Attending ID: [id number] Requesting ID: [id number] Report To 1 ID: [id number] Report To 1 Name: FLAVIA SINGH Report To 1 FAX: -- NextGen Order #: us Physician No IMG XR PROCEDURES Edited Result - Final documented in this encounter Visit Diagnoses Not on filedocumented in this encounter Care Teams Web Site Admin Relationship Specialty Start Date End Date Jeanie Jewell NP PCP - General 03/28/17 06/16/19 documented as of this encounter
--- OUTSIDE RECORDS SUMMARY | 2024-05-07 13:56 | XMS_ITS | Encounter Summary ---
Author Organization [facility] Healthcare Address [address] [place] [address] Care Team Providers Care Reeling Machine Operator Name Role Phone Jeanie Jewell NP Primary Care Provider [phone] Reason for Visit * Reason Comments Chest Pain Encounter Details Date Type Department Care Team (Late st Contact Info) Description 03/31/2019 3:24 PM DRILL OPERATOR PNEUMATIC - 03/31/2019 5:21 PM DRILL OPERATOR PNEUMATIC Emergency [facility] Emergency Department [address] [place] [address] Chest pain, unspecified type (Primary Dx) Discharge Disposition: Discharge to home or self care Social History Tobacco Use Types Packs/Day Years Used Date Smoking Tobacco: Every Day Smokeless Tobacco: Never Comments No Sex and Gender Information Value Date Recorded Sex Assigned at Not on file Legal Sex Female 9:05 AM DRILL OPERATOR PNEUMATIC Gender Identity Not on file Sexual Orientation Not on file documented as of this encounter Last Filed Vital Signs Vital Sign Reading Time Taken Comments Blood Pressure 162/95 03/31/2019 5:12 PM DRILL OPERATOR PNEUMATIC Pulse 87 03/31/2019 5:12 PM DRILL OPERATOR PNEUMATIC Temperature 36.9 ??C (98.4 ??F) 03/31/2019 1:32 PM CS T Respiratory Rate 20 03/31/2019 5:12 PM DRILL OPERATOR PNEUMATIC Oxygen Saturation 99% 03/31/2019 5:12 PM DRILL OPERATOR PNEUMATIC Inhaled Oxygen Concentration - - Weight 124.7 kg (275 lb) 03/31/2019 1:32 PM DRILL OPERATOR PNEUMATIC Height 172.7 cm (5' 8 ) 03/31/2019 1:32 PM DRILL OPERATOR PNEUMATIC Body Mass Index 41.81 03/31/2019 1:32 PM DRILL OPERATOR PNEUMATIC documented in this encounter Discharge Diagnoses Diagnosis Chest pain, unspecified - CHEST PAIN, UNSPECIFIED Essential (primary) hypertension - ESSENTIAL (PRIMARY) HYPERTENSION Unspecified essential hypertension Nicotine dependence, unspecified, uncomplicated - NICOTINE DEPENDENCE, UNSPECIFIED, UNCOMPLICATED Other oysterman (current) drug therapy - OTHER CHERRY DIPPER (CURRENT) DRUG THERAPY documented in this encounter Discharge Instructions * Discharge Instructions* Eve Barnett NP - 03/31/2019 4:54 PM DRILL OPERATOR PNEUMATIC Use over the counter Tylenol and Motrin per manufacturers guidelines for relief of pain and fever. Follow up with Dr. Reyes and Dr. Jewell without fail. L OPERATOR PNEUMATIC L OPERATOR PNEUMATIC * Attachments The following attachments cannot be sent through Care Everywhere. * Chest Pain (AfterCare(R) Instructions(ER/ED)) (Gambian) documented in this encounter Medications at Time [...] ear normal. Nose: Nose normal. Mouth/Throat: Lips: [place]. Mouth: Mucous membranes are moist. Eyes: General: [...] and Memory: Cognition normal. Judgment: Judgment normal. [facility] ED Course as of Apr 15 [...] Yasir Trinidad MD at 04/17/2019 3:50 PM DRILL OPERATOR PNEUMATIC L OPERATOR PNEUMATIC L OPERATOR PNEUMATIC L OPERATOR PNEUMATIC L OPERATOR PNEUMATIC Associated attestation - Yasir Trinidad MD - 04/17/2019 3:50 PM DRILL OPERATOR PNEUMATIC ED Attestation I agree with management. * Carrie Duckworth, VIDAL - 03/31/2019 1:30 PM CST Chest pain x 2 days that radiates down left arm L OPERATOR PNEUMATIC documented in this encounter Plan of Treatment Not on file documented as of this encounter Procedures Procedure Name Priority Date/Time Associated Diagnosis Comments INFLUENZA A/B AND RSV PCR STAT 03/31/2019 3:54 PM DRILL OPERATOR PNEUMATIC ECG 12-LEAD STAT 03/31/2019 2:55 PM DRILL OPERATOR PNEUMATIC EGFR STAT 03/31/2019 2:02 PM DRILL OPERATOR PNEUMATIC DIFFERENTIAL AUTO STAT 03/31/2019 2:0 2 PM DRILL OPERATOR PNEUMATIC PRO B-TYPE NATRIURETIC PEPTIDE STAT 03/31/2019 2:02 PM DRILL OPERATOR PNEUMATIC CBC WITH AUTO DIFFERENTIAL STAT 03/31/2019 2:02 PM DRILL OPERATOR PNEUMATIC APTT STAT 03/31/2019 2:02 PM DRILL OPERATOR PNEUMATIC TROPONIN T STAT 03/31/2019 2:02 PM DRILL OPERATOR PNEUMATIC TSH STAT 03/31/2019 2:02 PM DRILL OPERATOR PNEUMATIC COMPREHENSIVE METABOLIC PANEL STAT 03/31/2019 2:02 PM DRILL OPERATOR PNEUMATIC ECG 12-LEAD STAT 03/31/2019 1:59 PM DRILL OPERATOR PNEUMATIC XR CHEST PA LATERAL 2 VIEWS ED 03/31/2019 1:53 PM DRILL OPERATOR PNEUMATIC documented in this encounter Results * Influenza A/B and RSV PCR Nasopharyngeal (03/31/2019 3:54 PM DRILL OPERATOR PNEUMATIC) Influenza A RNA Not Detected Not Detected CERNER [facility] ([place]) Influenza B RNA Not Detected Not Detected [facility] ([place]) RSV RNA Not Detected Not Detected [facility] ER [facility] ([place]) Nasopharyngeal 03/31/2019 3: 54 PM DRILL OPERATOR PNEUMATIC 03/31/2019 4:02 PM DRILL OPERATOR PNEUMATIC Narrative ANNETTA MENG ([place]) - 03/31/2019 4:48 PM DRILL OPERATOR PNEUMATIC This test is performed using the [employer] Xpert Flu/RSV Assay. This is a multiplex, real-time reverse transcriptase PCR assay that detects influenza A, influenza B, and respiratory syncytial virus RNA. This assay has been cleared by the [place] Food and Drug Administration, and its performance characteristics have been verified by the [facility]. Eve Barnett NP LAB MICROBIOLOGY - GENERAL ORDERABLES Final Result Performing Organization Address City/[facility]/ZIP Co de Phone Number ANNETTA GUZMAN) 1 [facility] [place] [address] * ECG 12 lead (03/31/2019 2:55 PM DRILL OPERATOR PNEUMATIC) 03/31/2019 2:55 PM DRILL OPERATOR PNEUMATIC Narrative [facility] - 04/01/2019 12:43 PM DRILL OPERATOR PNEUMATIC Vent Rate: 95 bpm RR Interval: 627 msec AL Interval: 129 msec QRS Duration: 86 msec QT Interval: 328 msec QTC Interval: 381 msec P-R-T [place]: 33 - 11 - 18 degrees SINUS RHYTHM NORMAL ECG WARNING: DATA QUALITY MAY AFFECT INTERPRETATION Compared to 03/31/2019 no change Electronically Signed By: Dr Scotty Nova Doreen Blanc MD ECG ORDERABLES Final Res ult Performing Organization Address City/[facility]/ZIP Co de Phone Number [facility] [employer] [facility] * eGFR (03/31/2019 2:02 PM DRILL OPERATOR PNEUMATIC) eGFR 121 mL/min/1.7 3 m2 ANNETTA MENG ([place]) Comment: Interpretive Data Reference Interval Normal ?>/= 90 mL/min/1.73m2 Mildly decreased* ? 60 - 89 mL/min/1.73m2 Mildly to moderately decreased ?45 - 59 mL/min/1.73m2 Moderately to severely decreased ??30 - 44 mL/min/1.73m2 Severely decreased ?15 - 29 mL/min/1.73m2 Kidney Failure ?< 15 ??mL/min/1.73m2 *Relative to young adult level If -Maltese multiply value by 1.16. Estimated glomerular filtration [...] 2015. Blood specimen (specimen) 03/31/2019 2:02 PM DRILL OPERATOR PNEUMATIC 03/31/2019 2:10 PM DRILL OPERATOR PNEUMATIC us Doreen Blanc MD LAB BLOOD ORDERABLES Cheryl farias Result ANNETTA [facility] ([place]) 1 [facility] [place] [address] * (ABNORMAL) Differential, auto (03/31/2019 2:02 PM DRILL OPERATOR PNEUMATIC) Neutrophil abs 9.4(H) 1.7 - 6.5 K/cumm [...] 2017. Blood specimen (specimen) 03/31/2019 2:02 PM DRILL OPERATOR PNEUMATIC 03/31/2019 2:10 PM DRILL OPERATOR PNEUMATIC us Doreen Blanc MD LAB BLOOD ORDERABLES Cheryl l Result ANNETTA MENG ([place]) 1 [facility] Department of Laboratories [place], [place] [id number] * Pro B-type natriuretic peptide (03/31/2019 2:02 PM DRILL OPERATOR PNEUMATIC) NT-proBNP 43 <=300 pg/mL ANNETTA MENG ([place]) [...] 2017. Blood specimen (specimen) 03/31/2019 2:02 PM DRILL OPERATOR PNEUMATIC 03/31/2019 2:10 PM DRILL OPERATOR PNEUMATIC Doreen Blanc MD LAB BLOOD ORDERABLES Cheryl l Result ANNETTA MENG ([place]) 1 [facility] [place] [address] * TSH (03/31/2019 2:02 PM DRILL OPERATOR PNEUMATIC) Thyroid Stimulating Hormone 3.11 0.30 - 4.20 mcIUnit/mL ANNETTA MENG ([place]) Blood specimen (specimen) 03/31/2019 2:02 PM DRILL OPERATOR PNEUMATIC 03/31/2019 2:10 PM DRILL OPERATOR PNEUMATIC Doreen Blanc MD LAB BLOOD ORDERABLES Cheryl l Result Performing Organization Address City/[facility]/ZIP Co de Phone Number ANNETTA MENG ([place]) 1 [facility] [place] [address] * aPTT (03/31/2019 2:02 PM DRILL OPERATOR PNEUMATIC) Pathologist [facility] aPTT 32.2 25.0 - 37.0 sec ANNETTA MENG ([place]) Blood specimen (specimen) 03/31/2019 2:02 PM DRILL OPERATOR PNEUMATIC 03/31/2019 2:10 PM DRILL OPERATOR PNEUMATIC Doreen Blanc MD LAB BLOOD ORDERABLES Cheryl l Result Performing Organization Address City/[facility] Co de Phone Number ANNETTA MENG ([place]) [address] [facility] [employer] [place] [address] * Troponin T (03/31/2019 2:02 PM DRILL OPERATOR PNEUMATIC) Troponin T <0.01 0.00 - 0.01 ng/mL [...] limit for troponin assay. ??Journal of the [place] College [employer] Cardiology 2012;60:1581-98. Current Interpretive Data Last Revised Date: 2017. Blood specimen (specimen) 03/31/2019 2:02 PM DRILL OPERATOR PNEUMATIC 03/31/2019 2:10 PM DRILL OPERATOR PNEUMATIC Doreen Blanc MD LAB BLOOD ORDERABLES Cheryl dinora Result [facility] ([place]) 1 [facility] [place] [address] * Comprehensive metabolic panel (03/31/2019 2:02 PM DRILL OPERATOR PNEUMATIC) Sodium 137 135 - 145 mmol/L CERNER [...] ([place]) Blood specimen (specimen) 03/31/2019 2:02 PM DRILL OPERATOR PNEUMATIC 03/31/2019 2:10 PM DRILL OPERATOR PNEUMATIC Doreen Blanc MD LAB BLOOD ORDERABLES Cheryl l Result Performing Organization Address City/[facility]/ZIP Co de Phone Number [facility] ([place]) [address] [facility] [place] [address] * (ABNORMAL) CBC with auto differential (03/31/2019 2:02 PM DRILL OPERATOR PNEUMATIC) WBC 12.7(H) 3.8 - 9.9 K/cumm CERNER [...] ([place]) Blood specimen (specimen) 03/31/2019 2:02 PM DRILL OPERATOR PNEUMATIC 03/31/2019 2:10 PM DRILL OPERATOR PNEUMATIC Doreen Blanc MD LAB BLOOD ORDERABLES Cheryl l Result Performing Organization Address City/[facility]/ZIP Co de Phone Number [facility] ([place]) [address] [place] [address] * ECG 12 lead (03/31/2019 1:59 PM DRILL OPERATOR PNEUMATIC) 03/31/2019 1:59 PM DRILL OPERATOR PNEUMATIC Narrative [facility] - 04/01/2019 1:21 PM DRILL OPERATOR PNEUMATIC Vent Rate: 96 bpm RR Interval: 624 msec AL Interval: 124 msec QRS Duration: 86 msec QT Interval: 319 msec QTC Interval: 372 msec P-R-T [place]: 18 - 14 - 16 degrees SINUS RHYTHM NORMAL ECG NO PREVIOUS TRACING IS AVAILABLE FOR COMPARISON Electronically Signed By: Dr Mark Reyes Doreen Blanc MD ECG ORDERABLES Final Res ult [facility] * XR Chest Pa Lateral 2 Views (03/31/2019 1:53 PM DRILL OPERATOR PNEUMATIC) Anatomical Region Laterality Modality Body, Chest N/A Computed Radiogr aphy 03/31/2019 1:58 PM DRILL OPERATOR PNEUMATIC Impressions 03/31/2019 2:03 PM DRILL OPERATOR PNEUMATIC NO ACTIVE DISEASE. Electronically signed by: Carl Vera M.D. Narrative 03/31/2019 2:03 PM DRILL OPERATOR PNEUMATIC XR CHEST PA LATERAL 2 VIEWS HISTORY: [...] SyndromeIndications:Acute Coronary Syndrome Given 03/31/2019 1:41 PM DRILL OPERATOR PNEUMATIC 324 mg documented in this encounter Active and Recently Administered Medications Times are shown in DRILL OPERATOR PNEUMATIC. Scheduled Medication Order 03/29/2019 03/30/2019 03/31/2019 aspirin chewable tablet 324 mg (COMPLETED) 324 mg, oral, Once, On Sun03/31/19 at 1337, For 1 dose, Indications: Acute Coronary Syndrome 1341 (Given - Provid er: Carrie Duckworth RN) documented in this encounter Care Teams Reeling Machine Operator Relationship Specialty Start Date End Date Jeanie Jewell NP PCP - General 03/28/17 06/16/19 documented as of this encounter
--- OUTSIDE RECORDS SUMMARY | 2024-05-07 13:56 | XMS_ITS | Encounter Summary ---
Author Organization [facility] Care Team Providers Care Telephone Solicitor Name Role Phone Jeanie Jewell NP Primary Care Provider [phone] Jeanie Jewell CARPET LAYER Unavailable [phone] Encounter Details Date Type Department Care Team [...] on file Legal Sex Female 9:05 AM YOUTH SERVICES SPECIALIST Gender Identity Not on file Sexual [...] on filedocumented in this encounter Care Teams Telephone Solicitor Relationship Specialty Start Date End Date Jeanie Jewell NP PCP - General 06/17/19 Jeanie Jewell NP 06/17/19 documented as of this encounter
--- OUTSIDE RECORDS SUMMARY | 2024-05-07 13:56 | XMS_ITS | Encounter Summary ---
Author Organization [facility] Healthcare Address [address] [place] [address] Care Team Providers Care Senior Qa Tester Name Role Phone Jeanie Jewell NP Primary Care Provider [phone] Jeanie Jewell NP Unavailable [phone] Reason for Visit * Reason Comments Flu Symptoms Encounter Details Date Type Department Care Team ([facility] st Contact Info) Description 07/23/2019 7:41 PM CDT - 07/23/2019 10:22 PM CDT Emergency [facility] Emergency Department [address] [place] [address] Nausea vomiting and diarrhea (Primary Dx); Body [...] on file Legal Sex Female 9:05 AM QUALITY ASSURANCE INSPECTOR Gender Identity Not on file Sexual [...] * Discharge Instructions* Eve Barnett NP - 07/23/2019 9:34 PM CDT Use over the counter Tylenol and Motrin per manufacturers guidelines for relief of pain and fever. Follow up with Jeanie Jewell without fail. * Attachments The following attachments cannot be sent through Care Everywhere. * Viral Syndrome (AfterCare(R) Instructions(ER/ED)) (Chilean) * Acute Nausea and Vomiting (AfterCare(R) Instructions(ER/ED)) (Chilean) * Musculoskeletal Pain (References) (Chilean) documented in this encounter Medications at Time [...] tenderness or frontal sinus tenderness. Mouth/Throat: Lips: [place]. Mouth: Mucous membranes are moist. Pharynx: Oropharynx [...] and Memory: Cognition normal. Judgment: Judgment normal. [facility] ED Course as of Jul 22 2132 [...] 07/23/2019 documented in this encounter Care Teams Senior Qa Tester Relationship Specialty Start Date End Date Jeanie Jewell NP PCP - General 06/17/19 Jeanie Jewell NP 06/17/19 documented as of this encounter
--- OUTSIDE RECORDS SUMMARY | 2024-05-07 13:56 | XMS_ITS | Encounter Summary ---
Author Organization [facility] Healthcare Address [address] [place] [address] Care Team Providers Care Terminal Superintendent Name Role Phone Unavailable Primary Care Provider Unavailabl e Encounter Details Date Type Department Care Team (Late st Contact Info) Description 03/18/2008 6:07 PM REGULATORY COMPLIANCE DIRECTOR - 03/21/2008 12:10 PM REGULATORY COMPLIANCE DIRECTOR Hospital Encounter [facility] Josselyn Lucero MD [address] [facility] [address] [place] [address] Social History Tobacco Use Types Packs/Day Years Used Date Smoking Tobacco: Never Assessed Comments Unknown Sex and Gender Information Value Date Recorded Sex Assigned at Not on file Legal Sex Female 9:05 AM REGULATORY COMPLIANCE DIRECTOR Gender Identity Not on file Sexual Orientation Not on file documented as of this encounter Plan of Treatment Not on file documented as of this encounter Visit Diagnoses Not on filedocumented in this encounter
--- OUTSIDE RECORDS SUMMARY | 2024-05-07 13:56 | XMS_ITS | Encounter Summary ---
Author Organization [facility] Healthcare Address [address] [place] [address] Care Team Providers Care Security Compliance Engineer Name Role Phone Unavailable Primary Care Provider Unavailabl e Encounter Details Date Type Department Care Team (Latest Contact Info) Description 01/26/2012 11:44 AM CDT - 01/26/2012 2:00 PM CDT Hospital Encounter [facility] Hadley Arredondo MD [address] [facility] [address] [place] [address] Other specified noninflammatory disorder of vagina Social History Tobacco Use Types Packs/Day Years Used Date Smoking Tobacco: Never Assessed Comments Unknown Sex and Gender Information Value Date Recorded Sex Assigned at Not on file Legal Sex Female 9:05 AM TYPING CHECKER Gender Identity Not on file Sexual Orientation Not on file documented as of this encounter Plan of Treatment Not on file documented as of this encounter Visit Diagnoses Diagnosis Other specified noninflammatory disorder of vagina documented in this encounter
--- OUTSIDE RECORDS SUMMARY | 2024-05-07 13:56 | XMS_ITS | Encounter Summary ---
Author Organization [facility] Healthcare Address [address] [place] [address] Care Team Providers Care Electronic News Gathering Editor Name Role Phone Unavailable Primary Care Provider Unavailabl e Encounter Details Date Type Department Care Team (Late st Contact Info) Description 02/22/2012 8:17 PM CDT - 02/22/2012 8:42 PM CDT Hospital Encounter [facility] Aliza Batres MD [address] [place] [address] [place] [address] Disorder of teeth and supporting structures Social History Tobacco Use Types Packs/Day Years Used Date Smoking Tobacco: Never Assessed Comments Unknown Sex and Gender Information Value Date Recorded Sex Assigned at Not on file Legal Sex Female 9:05 AM VP CORPORATE DEVELOPMENT Gender Identity Not on file Sexual Orientation Not on file documented as of this encounter Plan of Treatment Not on file documented as of this encounter Visit Diagnoses Diagnosis Disorder of teeth and supporting structures Unspecified disorder of the teeth and supporting structures documented in this encounter
--- OUTSIDE RECORDS SUMMARY | 2024-05-07 13:56 | XMS_ITS | Encounter Summary ---
Author Organization [facility] Healthcare Address [address] [place] [address] Care Team Providers Care Rework Operator Name Role Phone Jeanie Jewell NP Primary Care Provider [phone] Encounter Details Date Type Department Care Team (Latest Contact Info) Description 03/31/2019 1:37 PM VOLUNTEER SERVICES ASSISTANT - 03/31/2019 3:23 PM VOLUNTEER SERVICES ASSISTANT Hospital Encounter [facility] [address] [place] [address] Doreen Blanc MD 1 [facility] [place] [address] Discharge Disposition: Discharge to home or self care Social History Tobacco Use Types Packs/Day Years Used Date Smoking Tobacco: Every Day Smokeless Tobacco: Never Comments No Sex and Gender Information Value Date Recorded Sex Assigned at Not on file Legal Sex Female 9:05 AM VOLUNTEER SERVICES ASSISTANT Gender Identity Not on file Sexual [...] LATERAL 2 VIEWS ED 03/31/2019 1:53 PM VOLUNTEER SERVICES ASSISTANT documented in this encounter Results * XR Chest Pa Lateral 2 Views (03/31/2019 1:53 PM VOLUNTEER SERVICES ASSISTANT) Anatomical Region Laterality Modality Body, Chest N/A Computed Radiogr aphy 03/31/2019 1:58 PM VOLUNTEER SERVICES ASSISTANT Impressions 03/31/2019 2:03 PM VOLUNTEER SERVICES ASSISTANT NO ACTIVE DISEASE. Electronically signed by: Carl Vera M.D. Narrative 03/31/2019 2:03 PM VOLUNTEER SERVICES ASSISTANT XR CHEST PA LATERAL 2 VIEWS HISTORY: [...] on filedocumented in this encounter Care Teams Rework Operator Relationship Specialty Start Date End Date Jeanie Jewell NP PCP - General 03/28/17 06/16/19 documented as of this encounter
--- OUTSIDE RECORDS SUMMARY | 2024-05-07 13:56 | XMS_ITS | Encounter Summary ---
Author Organization [facility] Healthcare Address [address] [place] [address] Care Team Providers Care Director Hr Communications Name Role Phone Unavailable Primary Care Provider [...] on file Legal Sex Female 9:05 AM INNOVATIONS PARAPROFESSIONAL Gender Identity Not on file Sexual Orientation Not on file documented as of this encounter Plan of Treatment Not on file documented as of this encounter Visit Diagnoses Diagnosis Urinary tract infection Urinary tract infection, site not specified Tobacco use disorder documented in this encounter
--- OUTSIDE RECORDS SUMMARY | 2024-05-07 13:56 | XMS_ITS | Encounter Summary ---
Author Organization [facility] Address [address] [place] [address] Phone Care Team Providers Care Floriculture Professor Name Role Phone Jeanie Jewell NP Primary Care Provider [phone] Jeanie Jewell HEEL PACKER Unavailable [phone] Encounter Details Date Type Department Care Team (Late st Contact Info) Description 11/06/2019 Telephone [facility] Oncology [address] [place] [address] [place] [phone] Antonella Wu, [facility] Social History Tobacco Use Types Packs/Day Years Used Date Smoking Tobacco: Every Day Cigarettes 0.5 10 Smokeless Tobacco: Never Alcohol Use Standard Drinks/Week Comments Yes 2 (1 standard drink = 0.6 oz pur e alcohol) Comments No Sex and Gender Information Value Date Recorded Sex Assigned at Not on file Legal Sex Female 9:05 AM ASBESTOS SIDING INSTALLER Gender Identity Not on file Sexual Orientation Not on file documented as of this encounter Miscellaneous Notes * Telephone Encounter - Antonella Wu, [place] - 11/06/2019 8:34 AM CDT Patient is scheduled for October for her CT Chest at 5:00pm with a 4:30pm arrival. At [facility] no prep patient needs to go to outpatient registration. With her insurance card and ID and make sure she has a mask and she has to come by herself . I then scheduled her for a doctors apt on October in [place] at 1:15pm. Asked patient to call back and confirm she got the message and to let us know if this all worked ok for her. Antonella STEPHENS * Telephone Encounter - Antonella Wu MA - 11/06/2019 8:34 AM CDT ----- Message from Yanni Alvarenga RN sent at 11/05/2019 4:37 PM CDT ----- Please call [facility] and schedule patient for a CT chest Order is from June. Not sure what happened with this. Patient was never contacted. Please schedule after 4:00 pm and she would like it [facility]. Theywere already closed. Sorry. Zayas documented in this encounter Plan of Treatment Not on file documented as of this encounter Visit Diagnoses Not on filedocumented in this encounter Care Teams Floriculture Professor Relationship Specialty Start Date End Date Jeanie Jewell NP PCP - General 06/17/19 Jeanie Jewell NP 06/17/19 documented as of this encounter
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
--- OUTSIDE RECORDS SUMMARY | 2024-05-07 13:56 | XMS_ITS | Encounter Summary ---
Author Organization [facility] Healthcare Address [address] [place] [address] Care Team Providers Care Brim Stiffener Name Role Phone Unavailable Primary Care Provider [...] on file Legal Sex Female 9:05 AM ATMOSPHERIC TECHNICIAN Gender Identity Not on file Sexual Orientation Not on file documented as of this encounter Plan of Treatment Not on file documented as of this encounter Visit Diagnoses Diagnosis Decreased movements affecting management of mother, antepartum Other threatened labor, antepartum documented in this encounter
--- OUTSIDE RECORDS SUMMARY | 2024-05-07 13:56 | XMS_ITS | Encounter Summary ---
Author Organization [facility] Healthcare Address [address] [place] [address] Care Team Providers Care Forging Press Lever Tender Name Role Phone Unavailable Primary Care Provider [...] on file Legal Sex Female 9:05 AM FRUIT PACKER FACE AND FILL Gender Identity Not on file Sexual Orientation Not on file documented as of this encounter Plan of Treatment Not on file documented as of this encounter Visit Diagnoses Not on filedocumented in this encounter
--- OUTSIDE RECORDS SUMMARY | 2024-05-07 13:56 | XMS_ITS | Encounter Summary ---
Author Organization [facility] Healthcare Address [address] [place] [address] Care Team Providers Care Almond Blancher Name Role Phone Unavailable Primary Care Provider Unavailabl e Encounter Details Date Type Department Care Team (Late st Contact Info) Description 09/20/2011 2:00 PM CDT - 09/20/2011 11:59 PM CDT Hospital Encounter [facility] Carlito Lynne MD [address] [place] [address] [address] Personal history of methicillin resistant Staphylococcus aureus Social History Tobacco Use Types Packs/Day Years Used Date Smoking Tobacco: Never Assessed Comments Unknown Sex and Gender Information Value Date Recorded Sex Assigned at Not on file Legal Sex Female 9:05 AM BALANCE RECESSER Gender Identity Not on file Sexual Orientation Not on file documented as of this encounter Plan of Treatment Not on file documented as of this encounter Visit Diagnoses Diagnosis Personal history of methicillin resistant Staphylococcus aureus Personal history of Methicillin resistant Staphylococcus aureus documented in this encounter
--- OUTSIDE RECORDS SUMMARY | 2024-05-07 13:56 | XMS_ITS | Encounter Summary ---
Author Organization [facility] Healthcare Address [address] [place] [address] Care Team Providers Care Fish And Game Warden Name Role Phone Unavailable Primary Care Provider Unavailabl e Encounter Details Date Type Department Care Team (Late st Contact Info) Description 09/19/2011 2:15 PM CDT - 09/19/2011 3:45 PM CDT Hospital Encounter [facility] Josselyn Lucero MD [address] [address] Other and unspecified uterine inertia, antepartum Social History Tobacco Use Types Packs/Day Years Used Date Smoking Tobacco: Never Assessed Comments Unknown Sex and Gender Information Value Date Recorded Sex Assigned at Not on file Legal Sex Female 9:05 AM DOLLY PUSHER Gender Identity Not on file Sexual Orientation Not on file documented as of this encounter Plan of Treatment Not on file documented as of this encounter Visit Diagnoses Diagnosis Other and unspecified uterine inertia, antepartum documented in this encounter
--- OUTSIDE RECORDS SUMMARY | 2024-05-07 13:56 | XMS_ITS | Encounter Summary ---
Author Organization [facility] Healthcare Address [address] [place] [address] Care Team Providers Care Special Effects Person Name Role Phone Unavailable Primary Care Provider Unavailabl e Encounter Details Date Type Department Care Team (Late st Contact Info) Description 08/05/2010 8:20 PM CDT - 08/05/2010 9:19 PM CDT Hospital Encounter [facility] Paolo Burns MD [address] [place] [address] Augie Herman Otitis media Social History Tobacco Use Types Packs/Day Years Used Date Smoking Tobacco: Never Assessed Comments Unknown Sex and Gender Information Value Date Recorded Sex Assigned at Not on file Legal Sex Female 9:05 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
--- OUTSIDE RECORDS SUMMARY | 2024-05-07 13:56 | XMS_ITS | Encounter Summary ---
Author Organization [facility] Healthcare Address [address] [place] [address] Care Team Providers Care Gas Golf Cart Repairer Name Role Phone Jeanie Jewell NP Primary Care Provider [phone] Reason for Visit * Reason Comments Leg Pain Encounter Details Date Type Department Care Team (Late st Contact Info) Description 06/12/2018 5:51 PM COAT OPERATOR INSULATOR - 06/12/2018 7:29 PM COAT OPERATOR INSULATOR Emergency [facility] Emergency Department [address] [place] [address] Left hamstring strain, initial encounter (Primary Dx) Discharge Disposition: Discharge to home or self care Social History Tobacco Use Types Packs/Day Years Used Date Smoking Tobacco: Every Day Smokeless Tobacco: Never Comments No Sex and Gender Information Value Date Recorded Sex Assigned at Not on file Legal Sex Female 9:05 AM COAT OPERATOR INSULATOR Gender Identity Not on file Sexual Orientation Not on file documented as of this encounter Last Filed Vital Signs Vital Sign Reading Time Taken Comments Blood Pressure 161/99 06/12/2018 5:32 PM COAT OPERATOR INSULATOR Pulse 102 06/12/2018 5:32 PM COAT OPERATOR INSULATOR Temperature 36.4 ??C (97.6 ??F) 06/12/2018 5:32 PM CS T Respiratory Rate 20 06/12/2018 5:32 PM COAT OPERATOR INSULATOR Oxygen Saturation 99% 06/12/2018 5:32 PM COAT OPERATOR INSULATOR Inhaled Oxygen Concentration - - Weight 124.7 kg (275 lb) 06/12/2018 5:32 PM COAT OPERATOR INSULATOR Height 172.7 cm (5' 8 ) 06/12/2018 5:32 PM COAT OPERATOR INSULATOR Body Mass Index 41.81 06/12/2018 5:32 PM COAT OPERATOR INSULATOR documented in this encounter Discharge Instructions * Attachments The following attachments cannot be sent through Care Everywhere. * Muscle Strain (American Sign Language Interpreter) (Icelandic) documented in this encounter Medications at Time of Discharge hydroCHLOROthiazid e (HYDRODIURIL) 25 mg tablet Take 25 mg by mouth daily. losartan (COZAAR) 25 mg tablet Take 25 mg by mouth daily. documented as of this encounter Discharge Disposition Disposition Code Departure Means Destination Discharge to home or self care documented in this encounter ED Notes * Lisa Mcclelland VP STRATEGIC PARTNERSHIPS - 06/12/2018 7:23 PM CST HPI Chief [...] mL/min/1.73m2 *Relative to young adult level If -[place] Island[place] multiply value by 1.16. Estimated glomerular [...] Yasir Morales MD at 06/12/2018 9:19 PM COAT OPERATOR INSULATOR OPERATOR INSULATOR OPERATOR INSULATOR Associated attestation - Yasir Morales MD - 06/12/2018 9:19 PM COAT OPERATOR INSULATOR ED Attestation Based on the medical record [...] leg. Pt denies and falls or injury. OPERATOR INSULATOR documented in this encounter Plan of Treatment Not on file documented as of this encounter Procedures Procedure Name Priority Date/Time Associated Diagnosis Comments EGFR STAT 06/12/2018 6:46 PM COAT OPERATOR INSULATOR DIFFERENTIAL AUTO STAT 06/12/2018 6:4 6 PM COAT OPERATOR INSULATOR CBC WITH AUTO DIFFERENTIAL STAT 06/12/2018 6:46 PM COAT OPERATOR INSULATOR PROTIME-INR STAT 06/12/2018 6:46 PM COAT OPERATOR INSULATOR D-DIMER, QUANTITATIVE STAT 06/12/2018 6:46 PM COAT OPERATOR INSULATOR COMPREHENSIVE METABOLIC PANEL STAT 06/12/2018 6:46 PM COAT OPERATOR INSULATOR documented in this encounter Results * eGFR (06/12/2018 6:46 PM COAT OPERATOR INSULATOR) eGFR 117 mL/min/1.7 3 m2 ANNETTA [facility] ([place]) Comment: Interpretive Data Reference Interval Normal ?>/= 90 mL/min/1.73m2 Mildly decreased* ? 60 - 89 mL/min/1.73m2 Mildly to moderately decreased ?45 - 59 mL/min/1.73m2 Moderately to severely decreased ??30 - 44 mL/min/1.73m2 Severely decreased ?15 - 29 mL/min/1.73m2 Kidney Failure ?< 15 ??mL/min/1.73m2 *Relative to young adult level If -[place] multiply value by 1.16. Estimated glomerular [...] 2015. Blood specimen (specimen) 06/12/2018 6:46 PM COAT OPERATOR INSULATOR 06/12/2018 6:50 PM COAT OPERATOR INSULATOR Narrative [facility] ([facility]) - 06/12/2018 7:12 PM COAT OPERATOR INSULATOR us Lisa Mcclelland VP [employer] LAB BLOOD ORDERABLES Final Result [facility] ([place]) 1 [facility] Department [place] [address] * (ABNORMAL) Differential, auto (06/12/2018 6:46 PM COAT OPERATOR INSULATOR) Neutrophil abs 8.4(H) 1.7 - 6.5 K/cumm [...] 2017. Blood specimen (specimen) 06/12/2018 6:46 PM COAT OPERATOR INSULATOR 06/12/2018 6:50 PM COAT OPERATOR INSULATOR Narrative ANNETTA M[facility] ([place]) - 06/12/2018 6:53 PM COAT OPERATOR INSULATOR us Lisa Mcclelland NP LAB BLOOD ORDERABLES Final Result [facility]NETTA [facility] ([place]) 1 [facility] Department [place] [address] * (ABNORMAL) Protime-INR (06/12/2018 6:46 PM COAT OPERATOR INSULATOR) PT 14.1(H) 9.5 - 13.0 sec ANNETTA [...] 2014. Blood specimen (specimen) 06/12/2018 6:46 PM COAT OPERATOR INSULATOR 06/12/2018 6:50 PM COAT OPERATOR INSULATOR Narrative [facility] ([place]) - 06/12/2018 7:01 PM COAT OPERATOR INSULATOR Lisa Mcclelland VP [employer] LAB BLOOD ORDERABLES Final Result ANNETTA MENG ([place]) 1 [facility] [place] [address] * (ABNORMAL) D-dimer, quantitative (06/12/2018 6:46 PM COAT OPERATOR INSULATOR) D-dimer <150(L) 150 - 230 ng/mL D-DU [...] 2014. Blood specimen (specimen) 06/12/2018 6:46 PM COAT OPERATOR INSULATOR 06/12/2018 6:50 PM COAT OPERATOR INSULATOR Narrative ANNETTA MENG ([place]) - 06/12/2018 7:03 PM COAT OPERATOR INSULATOR Lisa Mcclelland VP [employer] LAB BLOOD ORDERABLES Final Result ANNETTA MENG ([place]) 1 [facility] [place] [address] * Comprehensive metabolic panel (06/12/2018 6:46 PM COAT OPERATOR INSULATOR) Sodium 138 135 - 145 mmol/L [facility] ([facility]) Potassium, pl 3.7 3.3 [...] ([place]) Blood specimen (specimen) 06/12/2018 6:46 PM COAT OPERATOR INSULATOR 06/12/2018 6:50 PM COAT OPERATOR INSULATOR Narrative [facility] ([place]) - 06/12/2018 7:12 PM COAT OPERATOR INSULATOR us Lisa Mcclelland VP [employer] LAB BLOOD ORDERABLES Final Result [facility] ([place]) 1 [facility] Department of Laboratories [place], [place] [id number] * (ABNORMAL) CBC with auto differential (06/12/2018 6:46 PM COAT OPERATOR INSULATOR) WBC 12.1(H) 3.8 - 9.9 K/cumm [facility] ([place]) Hgb 12.8 11.9 - 15.5 g/dL [facility] ([place]) Hct 38.7 35.6 - 45.5 % [facility] ([place]) Plt 326 150 - 400 K/cumm [facility] ([place]) MPV 9.2 9.1 - 12.3 fL [facility] ([place]) RBC 4.83 3.90 - 5.20 M/cumm [...] ([place]) Blood specimen (specimen) 06/12/2018 6:46 PM COAT OPERATOR INSULATOR 06/12/2018 6:50 PM COAT OPERATOR INSULATOR Narrative [facility] ([place]) - 06/12/2018 6:53 PM COAT OPERATOR INSULATOR us Lisa Mcclelland NP LAB BLOOD ORDERABLES Final Result ANNETTA MENG ([place]) 1 [facility] [place] [address] documented in this encounter Visit Diagnoses Diagnosis Left hamstring strain, initial encounter- Primary documented in this encounter Historical Medications * This list may reflect changes made after this encounter. hydroCHLOROthiazid e (HYDRODIURIL) 25 mg tablet Take 25 mg by mouth daily. losartan (COZAAR) 25 mg tablet Take 25 mg by mouth daily. added in this encounter Care Teams Gas Golf Cart Repairer Relationship Specialty Start Date End Date Jeanie Jewell NP PCP - General 03/28/17 06/16/19 documented as of this encounter
--- OUTSIDE RECORDS SUMMARY | 2024-05-07 13:56 | XMS_ITS | Encounter Summary ---
Author Organization [facility] Healthcare Address [address] [place] [address] Care Team Providers Care Emergency Vehicle Technician Name Role Phone Unavailable Primary Care Provider Unavailabl e Encounter Details Date Type Department Care Team (Late st Contact Info) Description 01/25/2007 4:01 PM CDT - 01/25/2007 4:40 PM CDT Hospital Encounter [facility] [place] Social History Tobacco Use Types Packs/Day Years Used Date Smoking Tobacco: Never Assessed Comments Unknown Sex and Gender Information Value Date Recorded Sex Assigned at Not on file Legal Sex Female 9:05 AM MANAGER COSMETICS Gender Identity Not on file Sexual Orientation Not on file documented as of this encounter Plan of Treatment Not on file documented as of this encounter Visit Diagnoses Not on filedocumented in this encounter
--- OUTSIDE RECORDS SUMMARY | 2024-05-07 13:56 | XMS_ITS | Encounter Summary ---
Author Organization [facility] Healthcare Address [address] [place] [address] Care Team Providers Care Staff Air Defense Officer Name Role Phone Unavailable Primary Care Provider Unavailabl e Encounter Details Date Type Department Care Team (Late st Contact Info) Description 09/10/2013 11:03 PM CDT - 09/11/2013 2:03 AM CDT Hospital Encounter [facility] Eugene Matthew MD [address] [facility] [place] [address] [place] [address] Urticaria; Personal history of methicillin resistant Staphylococcus aureus; Tobacco use disorder Social History Tobacco Use Types Packs/Day Years Used Date Smoking Tobacco: Never Assessed Comments Unknown Sex and Gender Information Value Date Recorded Sex Assigned at Not on file Legal Sex Female 9:05 AM CLINICAL NURSE LEADER Gender Identity Not on file Sexual Orientation Not on file documented as of this encounter Plan of Treatment Not on file documented as of this encounter Visit Diagnoses Diagnosis Urticaria Unspecified urticaria Personal history of methicillin resistant Staphylococcus aureus Personal history of Methicillin resistant Staphylococcus aureus Tobacco use disorder documented in this encounter
--- OUTSIDE RECORDS SUMMARY | 2024-05-07 13:56 | XMS_ITS | Encounter Summary ---
Author Organization [facility] Healthcare Address [address] [place] [address] Care Team Providers Care Rehabilitation Assistant Name Role Phone Unavailable Primary Care Provider Unavailabl e Encounter Details Date Type Department Care Team (Late st Contact Info) Description 01/17/2008 1:42 PM CDT - 01/17/2008 4:00 PM CDT Hospital Encounter [facility] Josselyn Lucero MD [address] [address] Social History Tobacco Use Types Packs/Day Years Used Date Smoking Tobacco: Never Assessed Comments Unknown Sex and Gender Information Value Date Recorded Sex Assigned at Not on file Legal Sex Female 9:05 AM FOUR ROLL CALENDER OPERATOR Gender Identity Not on file Sexual Orientation Not on file documented as of this encounter Plan of Treatment Not on file documented as of this encounter Visit Diagnoses Not on filedocumented in this encounter
--- OUTSIDE RECORDS SUMMARY | 2024-05-07 13:56 | XMS_ITS | Encounter Summary ---
Author Organization [facility] Healthcare Address [address] [place] [address] Care Team Providers Care Second Butler Name Role Phone Unavailable Primary Care Provider Unavailabl e Encounter Details Date Type Department Care Team (Late st Contact Info) Description 07/23/2010 6:49 PM CDT - 07/23/2010 7:27 PM CDT Hospital Encounter [facility]INA Paolo Albert MD [address] [place] [address] Augie Herman Chronic sinusitis; Otitis media; Infective otitis externa Social History Tobacco Use Types Packs/Day Years Used Date Smoking Tobacco: Never Assessed Comments Unknown Sex and Gender Information Value Date Recorded Sex Assigned at Not on file Legal Sex Female 9:05 AM COLORIST DYER Gender Identity Not on file Sexual Orientation Not on file documented as of this encounter Plan of Treatment Not on file documented as of this encounter Visit Diagnoses Diagnosis Chronic sinusitis Unspecified sinusitis (chronic) Otitis media Unspecified otitis media Infective otitis externa documented in this encounter
--- OUTSIDE RECORDS SUMMARY | 2024-05-07 13:56 | XMS_ITS | Encounter Summary ---
Author Organization [facility] Address [address] [place] [address] Phone Care Team Providers Care Investment Specialist Name Role Phone Jeanie Jewell NP Primary Care Provider [phone] Jeanie Jewell GLOBAL SECURITY ARCHITECT Unavailable [phone] Encounter Details Date Type Department Care Team (Late st Contact Info) Description 11/06/[address] [facility] Oncology [address] [facility] [address] [place] [phone] Jaclyn Sloan CMA Social History Tobacco Use Types Packs/Day Years Used Date Smoking Tobacco: Every Day Cigarettes 0.5 10 Smokeless Tobacco: Never Alcohol Use Standard Drinks/Week Comments Yes 2 (1 standard drink = 0.6 oz pur e alcohol) Comments No Sex and Gender Information Value Date Recorded Sex Assigned at Not on file Legal Sex Female 9:05 AM GOLF CLUB MAKER Gender Identity Not on file Sexual [...] HAVE SCAN'S DONE WHEN ORDERED BY [facility] R[facility]OLPH[facility] documented in this encounter Plan of Treatment Not on file documented as of this encounter Visit Diagnoses Not on filedocumented in this encounter Care Teams Investment Specialist Relationship Specialty Start Date End Date Jeanie Jewell NP PCP - General 06/17/19 Jeanie Jewell NP 06/17/19 documented as of this encounter
--- OUTSIDE RECORDS SUMMARY | 2024-05-07 13:56 | XMS_ITS | Encounter Summary ---
Author Organization [facility] Healthcare Address [address] [place] [address] Care Team Providers Care Contact Acid Plant Operator Helper Name Role Phone Unavailable Primary Care Provider Unavailabl e Encounter Details Date Type Department Care Team (Late st Contact Info) Description 03/05/2011 5:38 PM FIELD OPERATIONS TECHNICIAN - 03/05/2011 8:01 PM FIELD OPERATIONS TECHNICIAN Hospital Encounter [facility] Андрей Mendez MD [address] [place] [address] Diarrhea Social History Tobacco Use Types Packs/Day Years Used Date Smoking Tobacco: Never Assessed Comments Unknown Sex and Gender Information Value Date Recorded Sex Assigned at Not on file Legal Sex Female 9:05 AM FIELD OPERATIONS TECHNICIAN Gender Identity Not on file Sexual Orientation Not on file documented as of this encounter Plan of Treatment Not on file documented as of this encounter Visit Diagnoses Diagnosis Diarrhea documented in this encounter
--- OUTSIDE RECORDS SUMMARY | 2024-05-07 13:56 | XMS_ITS | Encounter Summary ---
Author Organization [facility] Healthcare Address [address] [place] [address] Care Team Providers Care Rn Outpatient Surgery Name Role Phone Unavailable Primary Care Provider Unavailabl e Encounter Details Date Type Department Care Team (Late st Contact Info) Description 10/09/2011 2:24 PM CDT - 10/09/2011 3:55 PM CDT Hospital Encounter [facility] Josselyn Lucero MD [address] [facility] [address] [place] [address] Other threatened labor, antepartum Social History Tobacco Use Types Packs/Day Years Used Date Smoking Tobacco: Never Assessed Comments Unknown Sex and Gender Information Value Date Recorded Sex Assigned at Not on file Legal Sex Female 9:05 AM SENIOR HEALTH EDUCATOR Gender Identity Not on file Sexual Orientation Not on file documented as of this encounter Plan of Treatment Not on file documented as of this encounter Visit Diagnoses Diagnosis Other threatened labor, antepartum documented in this encounter
--- OUTSIDE RECORDS SUMMARY | 2024-05-07 13:56 | XMS_ITS | Encounter Summary ---
Author Organization [facility] Healthcare Address [address] [place] [address] Care Team Providers Care Ortho Assistant Name Role Phone Unavailable Primary Care Provider Unavailabl e Encounter Details Date Type Department Care Team (Late st Contact Info) Description 01/09/2010 5:59 AM CDT - 01/09/2010 7:32 AM CDT Hospital Encounter [facility] Андрей Mendez MD [address] [place] [address] Mejia Dominguez MD [address] [place] [address] Sprain and strain of shoulder and upper arm; Accident; External cause status Social History Tobacco Use Types Packs/Day Years Used Date Smoking Tobacco: Never Assessed Comments Unknown Sex and Gender Information Value Date Recorded Sex Assigned at Not on file Legal Sex Female 9:05 AM LARRY OPERATOR Gender Identity Not on file Sexual Orientation Not on file documented as of this encounter Plan of Treatment Not on file documented as of this encounter Visit Diagnoses Diagnosis Sprain and strain of shoulder and upper arm Accident Unspecified accident External cause status documented in this encounter
--- OUTSIDE RECORDS SUMMARY | 2024-05-07 13:56 | XMS_ITS | Encounter Summary ---
Author Organization [facility] Address [address] [place] [address] Phone Care Team Providers Care Ore Crushing Dust Collector Name Role Phone Jeanie Jewell PRODUCT GRADER Primary Care Provider [phone] Reason for Visit * Reason Comments Consult * Oncology (Routine) - Closed Specialty Diagnoses / Procedures Referred By Audi t Referred To Contact Oncology Diagnoses Lung mass Jeanie Jewell NP Phone: tel: fax: [facility] Oncology [address] [place] [phone] Phone: tel: fax: Referral ID Status Reason Start Date Expiration Date V isits Requested Visits Authorized [id number] Closed Specialty Services Required 05/23/2019 12/01/2020 99 99 Encounter Details Date Type Department Care Team (Late st Contact Info) Description 06/09/2019 4:00 PM HALVER MACHINE OPERATOR Office Visit [facility] Oncology [address] [place] [phone] Scotty Tejada, [address] [place] [phone] Lung mass (Primary Dx); Pulmonary nodule Social History Tobacco Use Types Packs/Day Years Used Date Smoking Tobacco: Every Day Cigarettes 0.5 10 Smokeless Tobacco: Never Alcohol Use Standard Drinks/Week Comments Yes 2 (1 standard drink = 0.6 oz pur e alcohol) Comments No Sex and Gender Information Value Date Recorded Sex Assigned at Not on file Legal Sex Female 9:05 AM HALVER MACHINE OPERATOR Gender Identity Not on file Sexual Orientation Not on file documented as of this encounter Last Filed Vital Signs Vital Sign Reading Time Taken Comments Blood Pressure 148/82 06/09/2019 4:03 PM HALVER MACHINE OPERATOR Pulse 110 06/09/2019 4:03 PM HALVER MACHINE OPERATOR Temperature 37.2 ??C (98.9 ??F) 06/09/2019 4:03 PM CS T Respiratory Rate 20 06/09/2019 4:03 PM HALVER MACHINE OPERATOR Oxygen Saturation 99% 06/09/2019 4:03 PM HALVER MACHINE OPERATOR Inhaled Oxygen Concentration - - Weight 152.9 kg (337 lb) 06/09/2019 4:03 PM HALVER MACHINE OPERATOR Height 172.7 cm (5' 7.99 ) 06/09/2019 4:03 PM CS T Body Mass Index 51.25 06/09/2019 4:03 PM HALVER MACHINE OPERATOR documented in this encounter Progress Notes * Scotty Tejada, DO - 06/09/2019 4:00 PM CST Patient ID: Josselyn Arndt is a 34 y.o. female. Referring Physician: Jeanie Jewell NP [address] [place] [address] Primary Care Provider: Jeanie Jewell NP Assessment/Plan [...] newly diagnosed pulmonary nodule. Patient presented to [facility] on May 08 with chest pain, [...] 03/31/2019 32 10 - 45 Units/L Final ER MACHINE OPERATOR documented in this encounter Plan of Treatment [...] 06/09/2019 documented in this encounter Care Teams Ore Crushing Dust Collector Relationship Specialty Start Date End Date Jeanie Jewell NP PCP - General 03/28/17 06/16/19 documented as of this encounter
--- OUTSIDE RECORDS SUMMARY | 2024-05-07 13:56 | XMS_ITS | Encounter Summary ---
Author Organization [facility] Facility Care Team Providers Care Engineering Faculty Member Name Role Phone Jeanie Jewell NP Primary Care Provider [phone] Encounter Details Date Type Department Care Team (Latest Contact Info) Description 03/31/2019 Travel Social History Tobacco Use Types Packs/Day Years Used Date Smoking Tobacco: Every Day Smokeless Tobacco: Never Comments No Sex and Gender Information Value Date Recorded Sex Assigned at Not on file Legal Sex Female 9:05 AM GAS ENGINE OPERATOR Gender Identity Not on file Sexual Orientation Not on file documented as of this encounter Plan of Treatment Not on file documented as of this encounter Visit Diagnoses Not on filedocumented in this encounter Care Teams Engineering Faculty Member Relationship Specialty Start Date End Date Jeanie Jewell NP PCP - General 03/28/17 06/16/19 documented as of this encounter
--- OUTSIDE RECORDS SUMMARY | 2024-05-07 13:56 | XMS_ITS | Encounter Summary ---
Author Organization [facility] Healthcare Address [address] [place] [address] Care Team Providers Care Rn Or Lvn Name Role Phone Unavailable Primary Care Provider [...] on file Legal Sex Female 9:05 AM ACID TREATER Gender Identity Not on file Sexual Orientation Not on file documented as of this encounter Plan of Treatment Not on file documented as of this encounter Visit Diagnoses Diagnosis Urinary tract infection Urinary tract infection, site not specified documented in this encounter
--- OUTSIDE RECORDS SUMMARY | 2024-05-07 13:56 | XMS_ITS | Encounter Summary ---
Author Organization [facility] Healthcare Address [address] [place] [address] Care Team Providers Care Certified Legal Secretary Specialist Name Role Phone Unavailable Primary Care Provider Unavailabl e Encounter Details Date Type Department Care Team (Latest Contact Info) Description 10/20/2011 11:24 PM CDT - 10/21/2011 5:35 AM CDT Hospital Encounter [facility] Josselyn Lucero MD [address] [facility] [address] [place] [address] Other threatened labor, antepartum; Infection of genitourinary tract antepartum; Urinary tract infection Social History Tobacco Use Types Packs/Day Years Used Date Smoking Tobacco: Never Assessed Comments Unknown Sex and Gender Information Value Date Recorded Sex Assigned at Not on file 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
--- OUTSIDE RECORDS SUMMARY | 2024-05-07 13:56 | XMS_ITS | Encounter Summary ---
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
--- OUTSIDE RECORDS SUMMARY | 2024-05-07 13:56 | XMS_ITS | Encounter Summary ---
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
--- OUTSIDE RECORDS SUMMARY | 2024-05-07 13:56 | XMS_ITS | Encounter Summary ---
Author Organization [facility] Healthcare Address [address] [place] [address] Care Team Providers Care Fish Hatchery Supervisor Name Role Phone Unavailable Primary Care Provider Unavailabl e Encounter Details Date Type Department Care Team (Late st Contact Info) Description 01/11/2011 6:21 PM CDT - 01/11/2011 7:45 PM CDT Hospital Encounter [facility]INAV Paolo Albert MD [address] [place] [address] Augie Herman Inflammatory disease of breast; Rash and other nonspecific skin eruption Social History Tobacco Use Types Packs/Day Years Used Date Smoking Tobacco: Never Assessed Comments Unknown Sex and Gender Information Value Date Recorded Sex Assigned at Not on file 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
--- OUTSIDE RECORDS SUMMARY | 2024-05-07 13:56 | XMS_ITS | Encounter Summary ---
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
--- OUTSIDE RECORDS SUMMARY | 2024-05-07 13:56 | XMS_ITS | Encounter Summary ---
Author Organization [facility] Healthcare Address [address] [place] [address] Care Team Providers Care Fryer Line Helper Name Role Phone Unavailable Primary Care Provider Unavailabl e Encounter Details Date Type Department Care Team (Late st Contact Info) Description 09/05/2013 12:00 PM CDT - 09/05/2013 2:10 PM CDT Hospital Encounter [facility] Batool Mai MD [address] [place] [address] Cellulitis and abscess of trunk; Personal history of methicillin resistant Staphylococcus aureus; Tobacco use disorder Social History Tobacco Use Types Packs/Day Years Used Date Smoking Tobacco: Never Assessed Comments Unknown Sex and Gender Information Value Date Recorded Sex Assigned at Not on file 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 [facility] Patient Name: JOSSELYN ARNDT ?[facility] Age: 28 YRS ?: 1985 ?Sex:F ?[address] )[id number] ?? Adm Dt: 09/05/2013 ?[place], [place] ??[address] Created: 09/09/2013 ??0037 ?? Pt. Type: E [...] RESULTS - 09/09/2013 12:37 AM CDT ? [facility] ?CLINICAL LABORATORIES ? MICROBIOLOGY REPORT PATIENT NAME: ??JOSSELYN ARNDT ?MED RECORD#: ??[id number] BIRTHDATE: ??1985 ?? AGE: ??28 YRS SEX: F ?PATIENT#: ? [id number] ADMITTING DR: ??BATOOL GAINES MD ? ATTENDING DR: ??BATOOL GAINES MD ? ACCESSION#: ?? [id number] CREATED: ??09/09/13 ?? 0036 ? ADMIT DATE: [...] - 09/07/2013 2:33 AM CDT Patient No: [id number] ? [facility] Patient Name: JOSSELYN ARNDT ?[facility] Age: 28 YRS ?: 1985 ?Sex:F ?[address] )[id number] ?? Adm Dt: 09/05/2013 ?[place], [place] ??[address] Created: 09/07/2013 ??0233 ?? Pt. Type: E [...]
== END 2024-04-30 18:34 | disposition home or self-care (01) ==
PROVIDERS: Emergency Provider Emergency Medicine; PCP Nurse Practitioner Family
DX: L27.0 Generalized skin eruption due to drugs and medicaments taken internally (principal); T36.8X5A Adverse effect of other systemic antibiotics, initial encounter; K21.9 Gastro-esophageal reflux disease without esophagitis; F17.210 Nicotine dependence, cigarettes, uncomplicated
CPT/HCPCS: 36415; 71045; 80053; 85025; 96361; 96374; 96375; 99284; J1200; J2919; J7030

== ENCOUNTER 2024-09-07 03:01 | Emergency (ER) | payer OTHER, SELFPAY ==
[2024-09-07] VITALS (37 sets, daily range): BP systolic 130–200; BP diastolic 89–162; PULSE 72–97; RESP 12–19; TEMP 36.4–36.6; O2SAT 93–100
--- NOTE | ~2024-09-07 | XR_ITS ---
EXAMINATION: XR chest 2V 09/07/2024 03:52 INDICATION: Chest pain PROCEDURE: 2 view chest COMPARISON: Comparison to multiple prior studies sequentially, with oldest reviewed study dated 09/19. FINDINGS: The lungs are clear. The cardiomediastinal silhouette is within normal limits. There are no pleural effusions. There is no pneumothorax suspected. IMPRESSION: 1: NO ACUTE CARDIOPULMONARY DISEASE. Reviewed, dictated and finalized at location A.
--- NOTE | ~2024-09-07 | CT_ITS ---
EXAMINATION: CTA chest PE protocol DATE: 09/07/2024 5:54 CDT INDICATION: Left-sided chest pain. TECHNIQUE: Computed tomographic angiography (CTA) of the chest was performed with 100 mL Omnipaque-35 0 intravenous contrast. The dose-length product was 923.11 mGy-cm. Maximum intensity projection 3D-re constructions of the aorta and other arteries were constructed by the technologist on a separate work station. COMPARISON: CT dated 08/13/2023. FINDINGS: Heart size normal. No significant pleural or pericardial effusion. No thoracic lymphadenopa thy. Study is technically adequate without evidence for pulmonary embolism. No thoracic lymphadenopat hy. No pneumothorax. No endobronchial lesions. There is a 5 mm fissural nodule on the right which is unchanged. No focal airspace consolidation. There is a 2 mm left lower lobe nodule, stable. IMPRESSION: 1. No acute cardiopulmonary disease. No evidence for pulmonary embolism. 2: Bilateral pulmonary nodules, likely benign. Reviewed, dictated and finalized at location A.
--- OUTSIDE RECORDS SUMMARY | 2024-09-07 03:03 | XMS_ITS | Clinical Summary ---
Author Organization [facility] Address [address] [place] [address] Phone Care Team Providers Care Rotary Soil Stabilizer Operator Name Role Phone Jeanie Jewell APRN, MARY [...] 104 07/19/2017 10:06 AM CDT Temperature 36.3 C (97.4 F) 07/19/2017 10:06 AM CDT Respiratory Rate 18 07/19/2017 10:06 AM CDT [...] of 3 - 19+ 3-dose series) 2006 Influenza Immunization (#1) 2023 SARS-COV-2 Immunization ( [...] age to complete this topic Insurance MEDICAID [facility] Care Teams Rotary Soil Stabilizer Operator Relationship Specialty Start Date End Date Jeanie Jewell, CAPTAIN ROOM SERVICE, VOLLEYBALL REFEREE [address] [place] [address] PCP - General Certified Nurse Practitioner 10/05/15
--- OUTSIDE RECORDS SUMMARY | 2024-09-07 03:03 | XMS_ITS | Clinical Summary ---
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 Gender Identity Not on file Sexual Orientation Not on file Obstetrics History Last Filed Vital Signs Vital Sign Reading Time Taken Comments Blood Pressure 149/81 07/23/2019 8:05 PM CDT Pulse 102 07/23/2019 8:05 PM CDT Temperature 37.1 C (98.7 F) 07/23/2019 8:05 PM CDT Respiratory Rate 17 07/23/2019 8:05 PM CDT Oxygen Saturation 95% 07/23/2019 8:05 PM CDT Inhaled Oxygen Concentration - - Weight 129.3 kg (285 lb) 07/23/2019 8:05 PM CDT Height 172.7 cm (5' 8 ) 07/23/2019 8:05 PM CDT Body Mass Index 43.33 07/23/2019 8:05 PM CDT Plan of Treatment Not on file Insurance Care Teams Principal Systems Architect Relationship Specialty Start Date End Date Jeanie Jewell NP PCP - General 06/17/19 Jeanie Jewell NP 06/17/19
--- OUTSIDE RECORDS SUMMARY | 2024-09-07 03:03 | XMS_ITS | Data Portability ---
Author Organization [facility] [place] Address [address] [place] [address] Assessment No assessment recorded. Plan of Treatment Reminders Order Date Submit Date Provider Last Modified By Organization Details Last Modified Time Details Appointments None recorded. Lab SARS CoV 2 RNA (COVID-19), QL, hydro operator-PCR, respiratory specimen - cough, sore throat, exposed to pos COVID person. [facility] 1230 2019 020 [facility] (Lab), [address] [place], [address], 0 08:46:03 SARS CoV 2 RNA (COVID-19), QL, hydro operator-PCR, respiratory specimen - denies having any COVID-19 symptoms. 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 [email or web address] 2019 020 [facility] (Lab), [address] [place], [address], 0 20:21:40 Referral None recorded. Procedures None recorded. Surgeries None recorded. Imaging None recorded. Medication Orders None recorded. Patient TargetsNo targets recorded. Patient Instructions Encounter Date Encounter Id Patient Instructions Last Modified By Organization Details Last Modified Time 02/03/2020 [id number] Reviewed the following recommendations: -Stay home and [...] started. [email or web address] Not available 02/03/2020 14:47:44 03/03/2020 [id number] Reviewed the following recommendations: -Stay home and [...] CoV 2 RNA (COVI D-19) , QL, hydro operator-P CR, respi rator y speci men sars - cov - 2 PCR NEGATI VE mL Not Available [facility] (Lab) [address] [place], [address], 02/05/2020 20:21:39 02/04/20 20 02/04/2020 SARS CoV 2 RNA (COVI D-19) , QL, hydro operator-P CR, respi rator y speci men covidcom1 COMME NTS: This assay is desig jutsin to detec t the RdRp and N [...] of this test metho d. Not Available [facility] (Lab) [address] [facility], [place], [address], 02/05/2020 20:21:39 02/04/20 20 02/04/2020 SARS CoV 2 RNA (COVI D-19) , QL, hydro operator-P CR, respi rator y speci men covidcom2 Posit barbara resul ts are indic ative of the prese nce of SARS- CoV-2 RNA and do not rule out bacte rial infec tion or co-in fecti on with other virus es. Not Available [facility] (Lab) [address] [place], [address], 02/05/2020 20:21:39 02/04/20 20 02/04/2020 SARS CoV 2 RNA (COVI D-19) , QL, hydro operator-P CR, respi rator y speci men covidcom3 Test resul ts shoul d be used along with other clini jessica obser vatio ns, patie nt histo ry, epide miolo gical infor matio n and labor atory data in [facility] g the diagn osis. Not Available [facility] (Lab) [address] [facility], [place], [address], 02/05/2020 20:21:39 02/04/20 20 02/04/2020 SARS CoV 2 RNA (COVI D-19) , QL, hydro operator-P CR, respi rator y speci men covidcom4 [...] or revok ed soone r. Not Available [facility] (Lab) [address] [place], [address], 02/05/2020 20:21:39 02/04/20 20 02/04/2020 SARS CoV 2 RNA (COVI D-19) , QL, hydro operator-P CR, respi rator y speci men covidcom5 [facility] atory is certi fied under CLIA- 88 as quali fied to perfo rm high compl exity testi ng. This testi ng was perfo rmed in the [facility] [place] [address] (CLIA Licen se #[id number] 5, CAP #[id number], AU-ID #[id number]). Not Available [facility] (Lab) [address] [place], [address], 02/05/2020 20:21:39 02/04/20 20 02/04/2020 SARS CoV 2 RNA (COVI D-19) , QL, hydro operator-P CR, respi rator y speci men covidcom6 Facts heet for healt hcare provi ders: https ://ww w.fda .gov/ media /1362 56/do wnloa d Facts heet for patie nts: https ://[employer] w.fda .gov/ media /1362 57/do wnloa d Not Available [facility] (Lab) [address] [facility], [place], [address], 02/05/2020 20:21:39 03/03/20 20 03/03/2020 SARS CoV 2 RNA (COVI D-19) , QL, hydro operator-P CR, respi rator y speci men sars - cov - 2 PCR NEGATI VE mL Not Available [facility] (Lab) [address] [place], [address], 03/08/2020 08:46:03 03/03/20 20 03/03/2020 SARS CoV 2 RNA (COVI D-19) , QL, hydro operator-P CR, respi rator y speci men covidcom1 [...] of this test metho d. Not Available [facility] (Lab) [address] [facility], [place], [address], 03/08/2020 08:46:03 03/03/20 20 03/03/2020 SARS CoV 2 RNA (COVI D-19) , QL, hydro operator-P CR, respi rator y speci men covidcom2 Posit barbara resul ts are indic ative of the prese nce of SARS- CoV-2 RNA and do not rule out bacte rial infec tion or co-in fecti on with other virus es. Not Available [facility] (Lab) [address] [facility], [place], [address], 03/08/2020 08:46:03 03/03/20 20 03/03/2020 SARS CoV 2 RNA (COVI D-19) , QL, hydro operator-P CR, respi rator y speci men covidcom3 Test resul ts shoul d be used along with other clini jessica obser vatio ns, patie nt histo ry, epide miolo gical infor matio n and labor atory data in [facility] g the diagn osis. Not Available [facility] (Lab) [address] [facility], [place], [address], 03/08/2020 08:46:03 03/03/20 20 03/03/2020 SARS CoV 2 RNA (COVI D-19) , QL, hydro operator-P CR, respi rator y speci men covidcom4 [...] or revok ed soone r. Not Available [facility] (Lab) [address] [place], [address], 03/08/2020 08:46:03 03/03/20 20 03/03/2020 SARS CoV 2 RNA (COVI D-19) , QL, hydro operator-P CR, respi rator y speci men covidcom5 [facility] is certi fied under CLIA- 88 as quali fied to perfo rm high compl exity testi ng. This testi ng was perfo rmed in the [facility] [place] [address] (CLIA Licen se #[id number] 5, CAP #[id number], AU-ID #[id number]). Not Available [facility] (Lab) [address] [place], [address], 03/08/2020 08:46:03 03/03/20 20 03/03/2020 SARS CoV 2 RNA (COVI D-19) , QL, hydro operator-P CR, respi rator y speci men covidcom6 Facts heet for healt hcare provi ders: https ://ww w.fda .gov/ media /1362 56/do wnloa d Facts heet for patie nts: https ://ww w.fda .gov/ media /1362 57/do wnloa d Not Available [facility] (Lab) [address] [place], [address], 03/08/2020 08:46:03 Result Notes None recorded. Medical [...] SNOMED-CT Code Diagnosis ICD10 Code Diagnosis Note [id number] MD Jennifer Villalobos [address] [place] [address] 02/03/2020 14:23:25 02/05/2020 07:32:41 Viral screening 069298883 Z11.59 D/w pt the current pandemic of COVID-19 and call for social isolation in order to blunt the curve and minimize risk and spread. Encouraged patient and family to take restrictio ns seriously. They have verbalized understand ing of such. Viral syndrome [id number] B34.9 [id number] MD Jennifer Villalobos [address] [place] [address] 03/03/2020 09:01:02 03/05/2020 10:35:01 Viral screening [id number] Z11.59 D/w pt the current pandemic of [...] León Member ID Guarantor Name 02/03/2020 1 [facility] - DOS PRIOR TO 2020 (MEDICAID REPLACEMENT - HMO) Josselyn Arndt [id number] Josselyn Arndt 03/03/2020 1 [facility] - DOS PRIOR TO 2020 (MEDICAID REPLACEMENT - HMO) Josselyn Arndt [id number] Josselyn Arndt Notes Date Note Type Note [...] healthcare worker. ZAHRA Cruz NP Attn: Accounting,[address] [place], [address], [facility] 02/03/2020 14:48:11 03/03/2020 text/html [...] Cruz NP Attn: Accounting,[address] [facility], [place], [address], [facility] 03/03/2020 10:44:11 OBGyn Episode No OBEpisode recorded.
--- OUTSIDE RECORDS SUMMARY | 2024-09-07 03:03 | XMS_ITS | Referral Summary ---
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
--- OUTSIDE RECORDS SUMMARY | 2024-09-07 03:03 | XMS_ITS | Data Portability ---
Author Organization [facility] [place], Main Office Address [address] [place] [address] Assessment No assessment recorded. Plan of Treatment Reminders Order Date Submit Date Provider Last Modified By Organization Details Last Modified Time Details Appointments None recorded. Lab test, urine [address] [facility] [address], [place], [address], 3 16:33:32 vitamin D, 25-hydroxy, total, serum [address] (Lab), [address] [place], [address], 3 16:35:38 TSH, serum, reflex free T4 [address] (Lab), [address] [place], [address], 3 16:51:12 CBC [address] (Lab), [address] [place], [address], 3 16:52:19 iron + TIBC + ferritin, serum [address] (Lab), [address] [place], [address], 3 16:41:15 vitamin B12 + folate, serum or blood 2022 023 [email or web address] [facility] (Lab), [address] [place], [address], 16:36:10 Referral None recorded. Procedures None recorded. Surgeries None recorded. Imaging None recorded. Medication Orders sumatriptan 100 mg tablet 2022 023 [id number], [address], [place], [place], [id number], 3 12:40:58 ondansetron 8 mg disintegrat ing tablet 2022 023 [facility] #[id number], [address], [place], [place], [id number], 3 12:40:58 phentermine 37.5 mg tablet 2022 023 [facility] #[id number], [address], [place], [place], [id number], 3 12:41:25 Patient TargetsNo targets recorded. Patient InstructionsNo instructions recorded. Reason for Referral None Reported. Results Created Date Observation Date Name Description Value Unit Range Abnormal Flag Note LastModifiedBy Organization Detail LastModifiedTime 12/15/19 22 12/15/2021 QUANT IFERO N-TB GOLD PLUS quantiferon incubation incuba tion perfor med. Not Available [facility] ([facility]) [address], [place], [address], 12/17/2021 14:11:45 12/15/19 22 12/15/2021 QUANT IFERO N-TB GOLD PLUS quantiferon criteria commen t Quant iFERO N-TB Gold Plus is a quali tativ e indir ect test for M tuber culos is infec tion (incl uding disea se) and is inten ded for use in conju nctio n with risk asses sment , radio graph y, and other medic al and diagn ostic evalu ation s. The Quant iFERO N-TB Gold Plus resul t is deter mined by subtr actin g the Nil value from eithe r TB antig en (Ag) value . The Mitog en tube serve s as a contr ol for the test. Not Available [facility] ([facility]) [address] [place], [address], 12/17/2021 14:11:45 12/15/19 22 12/17/2021 QUANT IFERO N-TB GOLD PLUS quantiferon TB1 Ag value 0.03 IU/mL Not Available [facility] ([facility]) [address] [place], [address], 12/17/2021 14:11:45 12/15/19 22 12/17/2021 QUANT IFERO N-TB GOLD PLUS quantiferon TB2 Ag value 0.04 IU/mL Not Available [facility] ([facility]) [address] [place], [address], 12/17/2021 14:11:45 12/15/19 22 12/17/2021 QUANT IFERO N-TB GOLD PLUS quantiferon nil value 0.05 IU/mL Not Available [facility] ([facility]) [address] [place], [address], 12/17/2021 14:11:45 12/15/19 22 12/17/2021 QUANT IFERO N-TB GOLD PLUS quantiferon mitogen value >10.00 IU/mL Not Available [facility] ([facility]) [address] [place], [address], 12/17/2021 14:11:45 12/15/19 22 12/17/2021 QUANT IFERO N-TB GOLD PLUS quantiferon- TB gold plus negati ve negati ve No respo nse to M tuber culos is antig ens detec walker. Infec tion with M tuber culos is is unlik cleo, but high risk indiv idual s shoul d be consi dered for addit ional testi ng (ATS/ IDSA/ CDC Clini jessica Pract ice Guide lines , 2017) . The refer ence range is an Antig en minus Nil resul t of <0.35 IU/mL . Chemi lumin escen ce immun oassa y metho dolog y Not Available [facility] ([facility]) [address] [facility], [place], [address], 12/17/2021 14:11:45 07/27/19 23 07/26/2022 pregn amando test, urine HCG negati ve Not Available [facility] [address], [place], [address], 07/26/2022 12:31:32 04/25/20 24 04/25/2024 imagi ng/di agnos tic resul t No observ ation record ed. [facility] [address] [place], [address], 04/25/2024 12:14:19 04/30/19 25 04/30/2024 imagi ng/di agnos tic resul t No observ ation record ed. [facility] [address], [place], [address], 04/30/2024 18:03:43 Result Notes None recorded. Problems Name Problem SNOMED Code Status Onset Date Resolution Date Notes Provider Name and Address Organization Details Recorded Time Screening - NAD 237124152 Active Not Available [facility] 3 17:13:15 Headache 12456448 Active Not Available [facility] 3 17:13:15 Shoulder joint pain 390751194 Active Not Available [facility] 3 17:13:15 Sinusitis 84836394 Active Not Available [facility] 3 17:13:15 Hypertensive disorder 74331723 Active Not Available [facility] 3 17:13:15 Obesity 202876106 Active Not Available [facility] 3 17:13:15 Type 2 diabetes mellitus 78596286 Active 2019 Not Available [facility] 3 17:13:15 Upper respiratory infection 11330601 Active Not Available [facility] 3 17:13:15 Migraine 30982124 Active 2022 ROSANA Coffey [address], [place] [address], [place], [address] , [facility] [employer] [facility] 3 12:29:50 Fatigue 41119591 Active 2022 ROSANA Coffey [address], [place] [address], [place], [address] , [employer] 3 12:29:54 Cobalamin deficiency 788743161 Active 2022 ROSANA Coffey [address], [place] [address], [place], [address] , [facility] 3 12:30:56 Vitamin D deficiency 97079051 Active 2022 ROSANA Coffey [address], [address], [address] , [facility] 3 12:31:04 Iron deficiency 93592219 Active 2022 ROSANA Coffey [address], [address], [address] , [facility] 3 20:21:13 Problem Notes None recorded. Procedures Surgical History None recorded. Imaging Results Imaging Date Name Status LastModified by Organiz ation Details LastModified Time 04/25/2024 imaging/diagn ostic result active [facility] [address] [facility] [place], [address], 04/25/2024 12:14:19 04/30/2024 imaging/diagn ostic result active [address], [address], 04/30/2024 18:03:43 Procedure Notes None recorded. Medical Equipment None Reported. Allergies Allergen ID Allergen Name Allergen Category Reaction Reaction Severity Criticality Documentation Date Start Date Code Code System Note Provider Name and Address Organization Details Recorded Time 94232 Substance with sulfonami de structure and antibacte rial mechanism of action (substanc e) medicatio n hives Not available Not available 06/28/2022 89178 8003 SNOMED Not Available [facility] 3 17:14:17 59061 clindamyc in Not available Not available Not available Not available 06/28/2022 2582 RxNorm Not Available [facility] 3 17:14:17 Medications Name Sig Start Date Stop Date Status Note LastModified by Organization Details LastModified Time losartan 50 mg tablet TAKE 1 TABLET BY MOUTH EVERY DAY 10/14 completed Not Available Not Available Not Available amoxicillin 500 mg capsule Take 1 capsule every 12 hours by oral route for 7 days. 08/25 completed Not Available Not Available Not Available clindamycin HCl 300 mg capsule TK 1 C PO Q 8 H FOR 7 DAYS active Not Available Not Available No t Available azithromyci n 250 mg tablet TAKE 2 TABLETS (500 MG) BY ORAL ROUTE ONCE DAILY FOR 1 DAY THEN 1 TABLET (250 MG) BY ORAL ROUTE ONCE DAILY FOR 4 DAYS 10/14 completed Not Available Not Available Not Available fluconazole 150 mg tablet TK 1 T PO ONCE FOR 1 DAY active Not Available Not Available No t Available benzonatate 200 mg capsule Take 1 capsule 3 times a day by oral route as needed for 10 days. 10/14 completed Not Available Not Available Not Available sumatriptan 100 mg tablet TAKE 1 TABLET BY MOUTH NEEDED FOR MIGRAINE DIRECTED active Not Available Not Available No t Available hydrocodone 5 mg-acetamin ophen 325 mg tablet TAKE ONE TO TWO TS PO EVERY FOUR HOURS PRN P 03/30 completed Not Available Not Available Not Available Claritin 10 mg tablet Take 1 tablet every day by oral route. 07/26 completed Not Available Not Available Not Available phenazopyri dine 200 mg tablet 10/14 completed Not Available Not Available Not Available ondansetron HCl 4 mg tablet 10/14 completed Not Available Not Available Not Available Medrol ([place]) 4 mg tablets in a dose pack Take 1 dose pk by oral route as directed. 10/14 completed Not Available Not Available Not Available prednisone 20 mg tablet 10/14 completed Not Available Not Available Not Available Tubersol 5 tub. unit/0.1 mL intradermal injection solution Inject 0.1 mL every day by intraderm al route for 1 day. 07/26 completed Not Available Not Available Not Available Doc-Q-Lace 100 mg capsule TAKE ONE C PO BID active Not Available Not Available No t Available permethrin 5 % topical cream APPLY (THOROUGH LY MASSAGE INTO SKIN FROM HEAD TO SOLES OF FEET) BY TOPICAL ROUTE ONCE LEAVE ON FOR 8-14 HR, THEN REMOVE BY THOROUGH WASHING active Not Available Not Available No t Available penicillin V potassium 500 mg tablet TK 1 T PO BID FOR 10 DAYS active Not Available Not Available No t Available phentermine 37.5 mg tablet TAKE 1 TABLET BY MOUTH EVERY DAY active Not Available Not Available No t Available ciprofloxac in 500 mg tablet TK 1 T PO Q 12 H FOR 5 DAYS active Not Available Not Available No t Available sulfamethox azole 800 mg-trimetho prim 160 mg tablet Take 1 tablet every 12 hours by oral route for 7 days. active Not Available Not Available No t Available tramadol 50 mg tablet 03/30 completed Not Available Not Available Not Available ketorolac 30 mg/mL (1 mL) injection solution Inject 1 mL every day by intramusc ular route. 10/14 completed Not Available Not Available Not Available ondansetron 8 mg disintegrat ing tablet DISSOLVE 1 TABLET ON THE TONGUE TWICE DAILY NEEDED active Not Available Not Available No t Available amoxicillin 875 mg tablet TAKE 1 TABLET BY MOUTH EVERY 12 HOURS FOR 10 DAYS 07/26 completed Not Available Not Available Not Available Claritin-D 24 Hour 10 mg-240 mg tablet,exte nded release Take 1 tablet every day by oral route for 90 days. 10/14 completed Not Available Not Available Not Available prochlorper azine 25 mg rectal suppository 10/14 completed Not Available Not Available Not Available baclofen 10 mg tablet TAKE 1 TABLET BY MOUTH FOUR TIMES DAILY NEEDED 10/14 completed Not Available Not Available Not Available doxycycline monohydrate 100 mg capsule 10/14 completed Not Available Not Available Not Available cephalexin 500 mg capsule TAKE ONE CAPSULE BY MOUTH TWICE DAILY 12/09 completed Not Available Not Available Not Available losartan 25 mg tablet TAKE 1 TABLET BY MOUTH EVERY DAY 10/14 completed Not Available Not Available Not Available cephalexin 500 mg tablet Take 1 tablet twice a day by oral route for 7 days. 12/09 completed Not Available Not Available Not Available hydrochloro thiazide 25 mg tablet TAKE 1 TABLET BY MOUTH EVERY DAY 10/14 completed Not Available Not Available Not Available ibuprofen 600 mg tablet TAKE ONE T PO EVERY SIX HOURS PRN P active Not Available Not Available No t Available ondansetron 4 mg disintegrat ing tablet 10/14 completed Not Available Not Available Not Available fluticasone propionate 50 mcg/actuati on nasal spray,suspe nsion INT ONE SPRAY IEN BID active Not Available Not Available No t Available doxycycline hyclate 100 mg tablet Take 1 tablet twice a day by oral route for 14 days. active Not Available Not Available No t Available chlorhexidi ne gluconate 4 % topical liquid Use to wash skin daily 10/14 completed Not Available Not Available Not Available naproxen 500 mg tablet Take 1 tablet twice a day by oral route for 30 days. 10/14 completed Not Available Not Available Not Available amoxicillin 875 mg-potassiu m clavulanate 125 mg tablet 10/14 completed Not Available Not Available Not Available azithromyci n 500 mg tablet TK 1 T PO ONCE FOR 1 DAY UTD active Not Available Not Available No t Available Fannie 0.35 mg tablet 03/30 completed Not Available Not Available Not Available topiramate 50 mg tablet Take 1 tablet twice a day by oral route for 30 days. active Not Available Not Available No t Available ProAir HFA 90 mcg/actuati on aerosol inhaler 10/14 completed Not Available Not Available Not Available cholecalcif lora (vitamin D3) 1,250 mcg (50,000 unit) capsule TAKE ONE CAPSULE BY MOUTH EVERY WEEK active Not Available Not Available No t Available FeroSul 325 mg (65 mg iron) tablet TAKE 1 TABLET BY MOUTH EVERY OTHER DAY active Not Available Not Available No t Available Plus (calcium carbonate) 27 mg iron-1 mg tablet TK 1 T PO ONCE D active Not Available Not Available No t Available Virtussin AC 10 mg-100 mg/5 mL oral liquid 03/30 completed Not Available Not Available Not Available Fluzone Quad (PF) 60 mcg (15 mcg x 4)/0.5 mL IM syringe ADM 0.5ML IM UTD 10/14 completed Not Available Not Available Not Available Vitals Date Recorded Body mass index (BMI) Body height Oxygen saturation Oxygen saturation in Arterial blood by Pulse oximetry Heart rate Body temperature Body weight Systolic blood pressure Diastolic blood pressure Provider Name and Address Organization Details Last Updated DateTime 2 46.8 kg/m2 172.72 cm 95 % 95 % 85 /min 97.2 [degF] 082193. 45 g 140 mm[Hg] 100 mm[Hg] Not Available [facility] 3 17:12:46 Date Recorded Body mass index (BMI) Body height Oxygen saturation Oxygen saturation in Arterial blood by Pulse oximetry Heart rate Body temperature Body weight Systolic blood pressure Diastolic blood pressure Provider Name and Address Organization Details Last Updated DateTime 2 45.6 kg/m2 172.72 cm 97 % 97 % 83 /min 96.9 [degF] 041255. 71 g 136 mm[Hg] 78 mm[Hg] Not Available [facility] 3 17:12:46 Date Recorded Body mass index (BMI) Body height Oxygen saturation Oxygen saturation in Arterial blood by Pulse oximetry Heart rate Body temperature Body weight Systolic blood pressure Diastolic blood pressure Provider Name and Address Organization Details Last Updated DateTime 2 43.9 kg/m2 172.72 cm 98 % 98 % 78 /min 97.3 [degF] 645915. 19 g 146 mm[Hg] 82 mm[Hg] Not Available [facility] 3 17:12:46 Date Recorded Body mass index (BMI) Body height Body weight Provider Name and Address Organization Details Last Updated DateTime 05/22/2022 42.9 kg/m2 172.72 cm 488782.05 g Not Available [facility] 06/28/2022 17:12:50 Date Recorded Body height Body mass index (BMI) Body weight Body temperature Heart rate Oxygen saturation Oxygen saturation in Arterial blood by Pulse oximetry Systolic blood pressure Diastolic blood pressure Provider Name and Address Organization Details Last Updated DateTime 3 172.72 cm 42.1 kg/m2 651344. 09 g 97.5 [degF] 89 /min 98 % 98 % 130 mm[Hg] 100 mm[Hg] BREANNA Healy - [facility] [employer] [facility] 3 12:15:54 Social History Question Answer Notes LastModified by Organizat ion Details LastModified Time Tobacco Smoking Status Current Every Day Smoker Not Available [facility] 06/28/2022 17:12:27 What Is Your Level Of Alcohol Consumption? Occasional [id number] Information not available 06/28/2022 In The 14 Days Before Symptom Onset, Have You Had Close Contact With A Laboratory-confir med COVID-19 While That Case Was Ill? No [id number] Information not available 06/28/2022 In The 14 Days Before Symptom Onset, Have You Had Close Contact With A Person Who Is Under Investigation For COVID-19 While That Person Was Ill? No [id number] Information not available 06/28/2022 What Type Of Diet Are You Following? REGULAR [id number] Information not available 06/28/2022 Have You Ever Been Counseled For Unhealthy Alcohol Use? No [id number] Information not available 06/28/2022 Do You Use Any Illicit Or Recreational Drugs? No [id number] Information not available 06/28/2022 Has Tobacco Cessation Counseling Been Provided? No [id number].[id number] Information not available 06/28/2022 Have You Recently Traveled Abroad? No [id number] Information not available 06/28/2022 Do You Or Have You Ever Used Any Other Forms Of Tobacco Or Nicotine? No [id number] Information not available 06/28/2022 Sex: Unknown Functional Status Question Answer Note LastModified by [employer] Details LastModified Time What is your exercise level? Moderate [id number] Information not available 06/28/2022 Mental Status None recorded. Family History Nothing Reported. Medical History Condition Response MRSA Y Gynecological History Statement/Question Response Abnormal Pap N Sexually Active? Y Dislike of Light during Menstrual Headac he N Menses Monthly N STIs/STDs N Current Control Method BCPs Desired Control Method IUD Breast Problems no Discharge no Obstetrics History GPAL:G 0 P 0 0 0 0 Past Encounters Encounter ID Performer Location Encounter Start Date Encounter Closed Date Diagnosis/Indication Diagnosis SNOMED-CT Code Diagnosis ICD10 Code Diagnosis Note [id number] Carrie Salazar MD [facility] [place] [address] [place] [address] [address] [facility] [place] [address] 12/03/2020 00:00:00 12/03/2020 13:54:58 [id number] ROSANA Coffey [facility] [place] [address] [place] [address] 04/04/2021 00:00:00 04/04/2021 19:52:25 [id number] Humberto silvestre MD [facility] General Surgery [address] [facility] [place] [address] 04/07/2021 00:00:00 04/07/2021 13:02:06 [id number] ROSANA Coffey [facility] [place] [address] [place] [address] 12/12/2021 00:00:00 12/12/2021 13:34:42 [id number] ROSANA Coffey [facility] [place] [address] [place] [address] 02/13/2022 00:00:00 02/13/2022 10:54:27 [id number] ROSANA Coffey [facility] [place] [address] [place] [address] 03/22/2022 00:00:00 03/22/2022 12:25:41 [id number] ROSANA Coffey [facility] [place] [address] [place] [address] 05/22/2022 00:00:00 05/22/2022 11:18:03 [id number] ROSANA Coffey [facility] [place] [address] [place] [address] 07/26/2022 12:07:34 07/26/2022 12:48:20 Dietary management surveillance 155759218 Z71.3 Down 5lbs since last visit. She has been off medication for the last month and has been able to maintain weight loss. Goal weight is around 215lbs, but mainly getting under 250lbs.BP/ HR stable. Will get her started back on 3 month cycle of phentermin e. 03/22/22: Has been on phentermin e for 1 month.Down 11lbs.She is still working on healthy diet and exercise. She has been trying to eat more consistent ly and throughout the day. Still has not been able to increase exercise due to time constraint s.She has been checking BP at work and it has been stable around 135/85.Miguel l have her continue the phentermin e for 2 months and then have 1 month off.F/u in 3 months. 02/13/22: Pt. has been working on weight loss. She is down 8lbs since visit in November, but has been having trouble continuing to lose the weight. She is interestin g in [facility] treatment for weight loss.Discu ssed healthy eating and exercise. She was given healthy eating packet today in office. States she does not do a lot of carbs/pato ds, will do pasta on occasion. She drinks at least 80oz of water daily, states she does not do sodas or other calory filled beverages. Advised she work on more frequent, smaller meals. She does not think she is eating more calories than she is burning, but still not losing weight. Advised she start tracking calories. She works 2 jobs and states she walks all day long at work, but not doing much exercise outside of work. She does do walks a few times a week.Will do trial of phentermin e. BP/HR stable.F/u in 4 weeks. Migraine 06979824 G43.90 9 Has been occurring about 3-4 times a week. She has also noticed an associated ringing in her ears and vomiting. 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 Cannot take NSAIDs due to GI issues. Will do trial of triptan. Advised if lifestyle changes and medication not controllin g symptoms well, may need to consider maintenanc e medication (has been on topiramate and did not tolerate well). Fatigue 69065372 R53.83 Encouraged her to continue to work on weight loss and increasing sleep.Hx of iron deficiency during but normalized afterwards .Will get labs to r/o physiologi c causes. Cobalamin deficiency 190 905641 E53.8 Not currently on supplement . Vitamin D deficiency 347 97996 E55.9 Not currently on supplement . Missed period 98905889 N 92.5 Health Concerns Section Related Observation LastModified by Organization Detai ls LastModified Time None Recorded Concern Status LastModified by Organization Details LastModified Time None Recorded Advance Directives Directive None Recorded Payers Encounter Date Sequence Insurance Name Policy Number Policy De León Covered Member ID De León Member ID Guarantor Name 07/26/2022 1 [facility] - DOS ON OR AFTER 20 (MEDICAID REPLACEMENT - HMO) Josselyn Arndt [id number] Josselyn Arndt Notes Date Note Type Note Provider Name and Address Organization Details Recorded Time 07/26/2022 text/html Pt. here to follow-up on weight loss. She has been off the phentermine for 1 month.She is complaining of increased fatigue but admits she works nights and has kids and knows she does not get enough sleep. She has also noticed her migraines getting worse, now having them 3-4 times a week and getting associated vomiting. ROSANA Coffey [address] [place] [address], [facility] [address], [place], [address], [place] - [facility] 07/26/2022 13:26:01 OBGyn Episode No OBEpisode recorded.
--- OUTSIDE RECORDS SUMMARY | 2024-09-07 03:03 | XMS_ITS | CONTINUITY OF CARE DOCUMENT ---
Author Name sanjay grace Address Unknown Organization [facility] Address [address] [place] [address] Phone [phone] Care Team Providers Care Cabin Crew Name Role Phone Richard ORELLANA, Mejia Unavailable [phone] Mejia Ramos MD Unavailable PROBLEMS Condition Status [...] In-person encounter Office Visit Mejia Ramos MD [facility] Morbid obesityHTN essentialChest painSmokerAbnormal EKGFatigueSnoringFamily Hx premature heart diseaseAbnormal glucoseNear syncopePVC'sLeg edema, bilateral VITAL SIGNS Date Observation Value Provider weight E&M 337 [lb_av] [employer] Body Mass Index (Ratio) 51.24 kg/m2 Terrie [...] Policy type / Coverage type Shantelle red democrat [place] MEDICA[place] (2) Medicaid [id number] ADVANCE DIRECTIVES Name Date DISCUSSED - NO [...]
--- OUTSIDE RECORDS SUMMARY | 2024-09-07 03:04 | XMS_ITS | Clinical Summary ---
Author Organization [facility] Address [address] [place] [address] Care Team Providers Care Snow Blower Name Role Phone Jo Cardenas MD Primary Care Provider [phone] Source Comments [facility],non-owned Affiliates and Associated Physician Practices is amultiple site organization consisting of ambulatory clinics and hospital sitesin [place], [place], [place] and [place]. This disclosure is being madepursuant to the Care Everywhere program and may not contain all information available regarding this patient. Last updated 18.[facility] Allergies No known active allergies Medications * Be aware that medications may not be up to date on this document. Alwaysverify current medications with the patient. Vit-Fe Fumarate-FA ( VITAMIN) 28-0.8 MG tablet Take 1 Tab by mouth once daily. Active Social History Tobacco Use Types Packs/Day Years Used Date Smoking Tobacco: Never Alcohol Use Standard Drinks/Week Comments No 0 (1 standard drink = 0.6 oz pur e alcohol) Comments Yes Sex and Gender Information Value Date Recorded Sex Assigned at Not on file Legal Sex Female 1:52 PM HAT RENOVATOR Gender Identity Not on file Sexual Orientation Not on file Last Filed Vital Signs Vital Sign Reading Time Taken Comments Blood Pressure 122/64 04/02/2014 3:33 PM HAT RENOVATOR Pulse 124 04/02/2014 3:33 PM HAT RENOVATOR Temperature 37.1 C (98.8 F) 04/02/2014 3:33 PM HAT RENOVATOR Respiratory Rate 16 04/02/2014 3:33 PM HAT RENOVATOR Oxygen Saturation - - Inhaled Oxygen Concentration - - Weight 131.5 kg (290 lb) 04/02/2014 1:53 PM HAT RENOVATOR Height - - Body Mass Index - - Plan of Treatment Health Maintenance Due Date Last Done Comments HIV SCREENING 2002 HEPATITIS C SCREENING 04/30/2005 DTAP/TDAP/TD VACCINES (1 - Tdap) 2006 HEPATITIS B VACCINE (1 of 3 - 19+ 3-dose series) 2006 COVID-19 VACCINE (1 - 2023-2 5 season) 2023 DEPRESSION SCREENING 04/30/2024 INFLUENZA VACCINE (Season Ended) 2024 ZOSTER VACCINE (1 of 2) 2037 Respiratory Syncytial Virus (RSV) Vaccine Pt: or over 60 yrs (1 - 1-dose 75+ series) 2062 HIB VACCINE Aged Out No longer eligi ble based on patient's age to complete this topic HPV VACCINE Aged Out No longer eligi ble based on patient's age to complete this topic MENINGOCOCCAL (Group B) VACC INE SHARED DECISION-MAKING Aged Out No longer eligibl e based on patient's age to complete this topic MENINGOCOCCAL GROUPS A/C/Y/W VACCINE Aged Out No longer eligible b ased on patient's age to complete this topic PNEUMOCOCCAL VACCINE Aged Out No long er eligible based on patient's age to complete this topic Insurance Care Teams Snow Blower Relationship Specialty Start Date End Date Jo Cardenas MD PCP - General Family Medicine 04/02/14
--- NOTE | 2024-09-07 03:10 | ECG_ITS ---
Test Date: 2024-09-07 03:09:16 Measurements Intervals [place] Rate: 88 P: 47 MS: 137 QRS: 19 QRSD: 85 T: 50 QT: 335 QTc: 407 Interpretive Statements SINUS RHYTHM No previous ECG available for comparison Electronically Signed On 09-08-2024 16:13:30 CDT by Bryant Phipps M.D.
--- NOTE | 2024-09-07 03:26 | PC.NURSE ---
rn attempt iv access x 1 with no luck. Able to draw blood, not flush iv in
--- OUTSIDE RECORDS SUMMARY | 2024-09-07 03:40 | XMS_ITS | Clinical Summary ---
Author Organization [facility] Address [address] [place] [address] Care Team Providers Care Operator Bearer Systems Name Role Phone Jeanie Jewell NP Primary Care Provider [phone] Jeanie Jewell NP Unavailable [phone] Allergies No known active allergies Medications losartan [...] on file Legal Sex Female 9:05 AM RECOVERY ASSISTANT Gender Identity Not on file Sexual [...] Treatment Not on file Insurance Care Teams Operator [employer] Relationship Specialty Start Date End Date Jeanie Jewell NP PCP - General 06/17/19 Jeanie Jewell NP 06/17/19
--- OUTSIDE RECORDS SUMMARY | 2024-09-07 03:40 | XMS_ITS | Referral Summary ---
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
--- OUTSIDE RECORDS SUMMARY | 2024-09-07 03:40 | XMS_ITS | Clinical Summary ---
Author Organization [facility] Address [address] [place] [address] Phone Care Team Providers Care Ledge Man Name Role Phone Jeanie Jewell APRN, MARY [...] this topic Insurance MEDICAID [facility] Care Teams Ledge Man Relationship Specialty Start Date End Date Jeanie Jewell, NETWORK AND THREAT SUPPORT SPECIALIST, TANK CHARGER [address] [place] [address] PCP - General Certified Nurse Practitioner 10/05/15
--- OUTSIDE RECORDS SUMMARY | 2024-09-07 03:40 | XMS_ITS | CONTINUITY OF CARE DOCUMENT ---
Author Name sanjay grace Address Unknown Organization [facility] Address [address] [place] [address] Phone [phone] Care Team Providers Care Toby Maker Name Role Phone Richard ORELLANA, Mejia Unavailable [phone] Mejia Ramos MD Unavailable [phone] PROBLEMS Condition Status Date Provider Notes Morbid [...] In-person encounter Office Visit Mejia Ramos MD [place] [facility] Morbid obesityHTN essentialChest painSmokerAbnormal EKGFatigueSnoringFamily Hx premature heart diseaseAbnormal glucoseNear syncopePVC'sLeg edema, bilateral VITAL SIGNS Date Observation Value Provider weight E&M 337 [lb_av] Cara Ruthton Body Mass Index (Ratio) 51.24 kg/m2 Terrie [...] Policy type / Coverage type Shantelle red green party ID [employer] MEDICAID (2) Medicaid [id number] ADVANCE DIRECTIVES Name Date DISCUSSED - NO [...]
--- OUTSIDE RECORDS SUMMARY | 2024-09-07 03:41 | XMS_ITS | Clinical Summary ---
Author Organization [facility] [employer] Address [address] [place] [address] Care Team Providers Care Seat Covers Trimmer Name Role Phone Jo Cardenas MD Primary Care Provider [phone] Source Comments [facility] [employer],non-owned Affiliates and Associated Physician Practices is amultiple site organization consisting of ambulatory clinics and hospital sitesin [place], [place], [place] and [place]. This disclosure is being madepursuant to the Care Everywhere program and may not contain all information available regarding this patient. Last updated 18.[facility] [employer] Allergies No known active allergies Medications * [...] on file Legal Sex Female 1:52 PM MANAGER ENVIRONMENTAL Gender Identity Not on file Sexual Orientation Not on file Last Filed Vital Signs Vital Sign Reading Time Taken Comments Blood Pressure 122/64 04/02/2014 3:33 PM MANAGER ENVIRONMENTAL Pulse 124 04/02/2014 3:33 PM MANAGER ENVIRONMENTAL Temperature 37.1 C (98.8 F) 04/02/2014 3:33 PM MANAGER ENVIRONMENTAL Respiratory Rate 16 04/02/2014 3:33 PM MANAGER ENVIRONMENTAL Oxygen Saturation - - Inhaled Oxygen Concentration - - Weight 131.5 kg (290 lb) 04/02/2014 1:53 PM MANAGER ENVIRONMENTAL Height - - Body Mass Index - [...] to complete this topic Insurance Care Teams Seat Covers Trimmer Relationship Specialty Start Date End Date Jo Cardenas MD PCP - General Family Medicine 04/02/14
[2024-09-07 03:45] LABS: Basophils Percent Auto 0.3 % (0.2-1.2); Eosinophils Absolute Auto 0.2 K/mm3 (0-0.3); Eosinophils Percent Auto 1.4 % (0-4.4); Hematocrit 41.6 % (37.0-47.0); Hemoglobin 13.3 g/dL (12.0-15.0); Immature Granulocyte Absolute 0.02 K/mm3 (0.00-0.031); Immature Granulocyte Percent A 0.2 % (0-0.5); Immature Platelet Fraction Pct 2.7 % (0.9-11.2); Lymphocytes Absolute Auto 2.94 K/mm3 (0.9-3.2); Lymphocytes Percent Auto 28.2 % (18.3-44.2); Mean Corpuscular Volume 84.6 fl (80-100); Mean Platelet Volume 10.1 fl (7.4-10.4); Monocytes Absolute Auto 0.9 K/mm3 (0.1-0.6); Monocytes Percent Auto 8.7 % (2.6-8.5); Neutrophils Absolute Auto 6.4 K/mm3 (1.3-6.7); Neutrophils Percent Auto 61.2 % (45.5-73.1); Platelet Count Result 361 k/mm3 (150-375); Red Blood Count 4.92 M/mm3 (4.2-5.4); White Blood Count 10.4 K/mm3 (4.5-10.0)
--- NOTE | 2024-09-07 03:46 | PC.NURSE ---
pt to imaging via stretcher. no distress noted.
[2024-09-07 03:58] LABS: Prothrombin Time 13.2 Seconds (11.1-14.7)
[2024-09-07 04:02] LABS: NT Pro B Type Natriuretic Pept 82 pg/mL (19.9-100); Troponin I < 0.012 ng/mL (0.000-0.034)
[2024-09-07 04:09] LABS: Anisocytosis 1+; Ovalocytes 1+; Platelet Estimate Adequate (Adequate); Schistocytes None Seen
[2024-09-07 04:12] LABS: Alanine Aminotransferase 39 U/L (6-35); Albumin Level 4.3 g/dL (3.5-5.1); Alkaline Phosphatase 44 U/L (38-126); Anion Gap 8 mmol/L (4-12); Aspartate Amino Transferase 39 U/L (14-36); Bilirubin,Total 0.4 mg/dL (0.2-1.3); Blood Urea Nitrogen 15 mg/dL (7-17); Calcium 9.1 mg/dL (8.4-10.2); Carbon Dioxide 27 mmol/L (22-30); Chloride 104 mmol/L (98-107); Estimated CRCL calculation 142 ml/min; Estimated Glomerular Filt Rate > 60; Glucose 104 mg/dL (65-110); Lipase 37 U/L (23-300); Potassium 3.9 mmol/L (3.4-5.0); Sodium 139 mmol/L (137-145)
[2024-09-07 04:14] LABS: Influenza A QL RT-PCR Negative (Negative); Influenza B QL RT-PCR Negative (Negative); RSV RNA, RT-PCR Negative (Negative); SARS-CoV-2 RNA PCR Negative (Negative)
[2024-09-07] MEDS: HYDROmorphone HCL INJ (*CRX) 2 MG/ML VIAL 0.5 MG IV PUSH (04:33)
[2024-09-07] MEDS: KETOROLAC 15 MG/ML VIAL (*BKC) IV PUSH (04:35)
[2024-09-07 05:08] LABS: BEDSIDEPREGUCG Negative (Negative)
--- NOTE | 2024-09-07 05:46 | PC.NURSE ---
rounded on pt. pt verbalized that pain medications are not worth the side since they do not do anything for the pain. Made me worse.
--- NOTE | 2024-09-07 06:45 | ED.GENADULT ---
HPI - General Adult General Chief complaint: Chest Pain Stated complaint: high blood pressure, chest pains Time Seen by Provider: 09/07/24 03:14 History of Present Illness HPI narrative: This is a 39-year-old female history of pleurisy presenting for left-sided chest pain. Patient says she has not felt well over the last several days. She has had fatigued, bad reflux and felt tired work. She then developed sharp pain on the left side of her chest that radiates into her neck. Is moderate intensity. It comes and goes throughout the day. She has had this many times over the last year and has actually been evaluated by physical therapy manager who was unable to find a definitive cause of her symptoms. Patient states that she had a nodule in her lung that was being followed by oncologist but then her insurance would no longer cover her CT scans she is not sure what is its current status. She denies history of DVT PE. She denies fevers chills or productive cough. Related Data Allergies Allergy/AdvReac Type Severity Reaction Status Date / Time clindamycin Allergy Severe Anaphylaxis Verified 09/07/24 03:11 cephalexin (From Keflex) Allergy Intermediate Anaphylactic Verified 09/07/24 03:11 Shock Sulfa (Sulfonamide Allergy Intermediate Anaphylaxis Verified 09/07/24 03:11 Antibiotics) [facility] Past Medical History Medical History Allergies Vaginal delivery 03/19/08, , full term, male, 8#3 09/23/11, , full term, male, 9#15 09/10/14, , full term, female, 8#13 Migraines Acid reflux Surgical History Surgical History History of adenoidectomy History of tonsillectomy History of ovarian cystectomy Family History Family History Mother Cancer when she was diagnosed it was spread all over her body, origin unknown Grandparent Cervical cancer Breast cancer Ovarian cancer Social History Social History Smoking status: Former smoker Tobacco type: cigarettes Second hand tobacco smoke exposure: No Additional smoking assessment comments: Off and on since 2009 Alcohol intake: current Drinks per week: 1 Substance use: never Living arrangements: with family Occupation/Education: occupation Gender identity (if verbalized by the patient): Female Exam Narrative: APPEARANCE: No apparent distress. Head: atraumatic. EYES: EOMI, NOSE: Atraumatic NECK: Trachea midline RESPIRATORY: No increased rate of breathing clear to auscultation CARDIOVASCULAR: RRR, no peripheral edema ABDOMINAL: Non-distended soft nontender MUSCULOSKELETAl: No obvious deformities NEURO: Alert. Moving 4/4 extremities SKIN:: Warm, dry. Normal color PSYCHIATRIC: Normal affect Course Vital Signs Vital signs: Vital Signs Temperature 97.9 F 09/07/24 03:06 Pulse Rate 92 09/07/24 03:06 Respiratory Rate 19 09/07/24 03:06 Blood Pressure 172/115 H 09/07/24 03:06 Pulse Oximetry 100 09/07/24 03:06 Oxygen Delivery Room Air 09/07/24 03:06 Temperature 97.9 F 09/07/24 03:06 Pulse Rate 77 09/07/24 05:46 Respiratory Rate 14 09/07/24 05:46 Blood Pressure 152/104 H 09/07/24 05:46 Pulse Oximetry 100 09/07/24 05:46 Oxygen Delivery Room Air 09/07/24 03:13 Medical Decision Making [facility] Narrative Medical decision making narrative: -Course: 39-year-old female presenting with left-sided chest pain. CTA PE, laboratory studies including troponin x2, BNP and viral swabs were all negative. She was initially hypertensive although that improved with pain medication. Patient received Dilaudid and Toradol with her pain which said did not help. She is given Tylenol and Maalox as she has been having increased reflux lately. After discussing results with patient patient says she has had this many times in past and she was hoping to find some relief today. No definitive cause of her pain although She is comfortable being discharged to follow-up with her physical therapy manager. Heart score 1. -DDX includes but is not limited to: Pleurisy, PE, dissection, ACS, pneumonia, pneumothorax, esophageal rupture Independent EKG interpretation: Rhythm [sinus], Rate [88], [place] -[normal], [place] -[normal], QRS [narrow], QTC [normal], T waves -[negative for concerning inversions], ST Segments - [Negative for concerning elevations] Final interpretations: [Normal Sinus Rhythm] Vital Signs Vital Signs: Vital Signs Temperature 97.9 F 09/07/24 03:06 Pulse Rate 92 09/07/24 03:06 Respiratory Rate 19 09/07/24 03:06 Blood Pressure 172/115 H 09/07/24 03:06 Pulse Oximetry 100 09/07/24 03:06 Oxygen Delivery Room Air 09/07/24 03:06 Temperature 97.9 F 09/07/24 03:06 Pulse Rate 77 09/07/24 05:46 Respiratory Rate 14 09/07/24 05:46 Blood Pressure 152/104 H 09/07/24 05:46 Pulse Oximetry 100 09/07/24 05:46 Oxygen Delivery Room Air 09/07/24 03:13 Lab Data 09/07/24 03:20 09/07/24 03:20 Labs: Lab Results 09/07/24 09/07/24 09/07/24 Range/Units 03:20 03:21 03:22 WBC 10.4 H (4.5-10.0) K/mm3 RBC 4.92 (4.2-5.4) M/mm3 Hgb 13.3 (12.0-15.0) g/dL Hct 41.6 (37.0-47.0) % MCV 84.6 (80-100) fl MCH 27.0 (26-34) pg MCHC 32.0 (32-36) g/dl RDW 13.0 (11.5-14.5) % Plt Count 361 (150-375) k/mm3 MPV 10.1 (7.4-10.4) fl Immature Gran % (Auto) 0.2 (0-0.5) % Neut % (Auto) 61.2 (45.5-73.1) % Lymph % (Auto) 28.2 (18.3-44.2) % [place] % (Auto) 8.7 H (2.6-8.5) % Eos % (Auto) 1.4 (0-4.4) % Baso % (Auto) 0.3 (0.2-1.2) % Lymph # (Auto) 2.94 (0.9-3.2) K/mm3 [place] # (Auto) 0.9 H (0.1-0.6) K/mm3 Eos # (Auto) 0.2 (0-0.3) K/mm3 Baso # (Auto) 0.0 (0.0-0.1) K/mm3 Abs Immat Gran (auto) 0.02 (0.00-0.031) K/mm3 Absolute Neuts (auto) 6.4 (1.3-6.7) K/mm3 Absolute Nucleated RBC 0.000 (0.0-0.012) K/mm3 Band Neutrophils % Not Reportable Nucleated RBC % 0.0 (0.0-0.2) % Platelet Estimate Adequate (Adequate) % Immature Plt Fraction 2.7 (0.9-11.2) % Anisocytosis 1+ Ovalocytes 1+ Schistocytes None seen PT 13.2 (11.1-14.7) Seconds INR 1.0 APTT 20.0 L (22.3-36.8) Seconds D-Dimer Cancelled Sodium 139 (137-145) mmol/L Potassium 3.9 (3.4-5.0) mmol/L Chloride 104 (98-107) mmol/L Carbon Dioxide 27 (22-30) mmol/L Anion Gap 8 (4-12) mmol/L BUN 15 (7-17) mg/dL Creatinine 0.71 (0.7-1.0) mg/dL Estim Creat Clear Calc 142 ml/min Estimated GFR > 60 (59 - ) Glucose 104 (65-110) mg/dL Calcium 9.1 (8.4-10.2) mg/dL Total Bilirubin 0.4 (0.2-1.3) mg/dL AST 39 H (14-36) U/L ALT 39 H (6-35) U/L Alkaline Phosphatase 44 (38-126) U/L Troponin I < 0.012 (0.000-0.034) ng/mL NT-Pro-B Natriuret Pep 82 Cancelled (19.9-100) pg/mL Total Protein 8.0 (6.3-8.2) g/dL Albumin 4.3 (3.5-5.1) g/dL Lipase 37 (23-300) U/L POC Urine HCG, Qual (Negative) Influenza A (RT-PCR) Negative (Negative) Influenza B (RT-PCR) Negative (Negative) RSV (RT-PCR) Negative (Negative) SARS-CoV-2 RNA (RT-PCR) Negative (Negative) 09/07/24 Range/Units 05:06 WBC (4.5-10.0) K/mm3 RBC (4.2-5.4) M/mm3 Hgb (12.0-15.0) g/dL Hct (37.0-47.0) % MCV (80-100) fl MCH (26-34) pg MCHC (32-36) g/dl RDW (11.5-14.5) % Plt Count (150-375) k/mm3 MPV (7.4-10.4) fl Immature Gran % (Auto) (0-0.5) % Neut % (Auto) (45.5-73.1) % Lymph % (Auto) (18.3-44.2) % [place] % (Auto) (2.6-8.5) % Eos % (Auto) (0-4.4) % Baso % (Auto) (0.2-1.2) % Lymph # (Auto) (0.9-3.2) K/mm3 [place] # (Auto) (0.1-0.6) K/mm3 Eos # (Auto) (0-0.3) K/mm3 Baso # (Auto) (0.0-0.1) K/mm3 Abs Immat Gran (auto) (0.00-0.031) K/mm3 Absolute Neuts (auto) (1.3-6.7) K/mm3 Absolute Nucleated RBC (0.0-0.012) K/mm3 Band Neutrophils % Nucleated RBC % (0.0-0.2) % Platelet Estimate (Adequate) % Immature Plt Fraction (0.9-11.2) % Anisocytosis Ovalocytes Schistocytes PT (11.1-14.7) Seconds INR APTT (22.3-36.8) Seconds D-Dimer Sodium (137-145) mmol/L Potassium (3.4-5.0) mmol/L Chloride (98-107) mmol/L Carbon Dioxide (22-30) mmol/L Anion Gap (4-12) mmol/L BUN (7-17) mg/dL Creatinine (0.7-1.0) mg/dL Estim Creat Clear Calc ml/min Estimated GFR (59 - ) Glucose (65-110) mg/dL Calcium (8.4-10.2) mg/dL Total Bilirubin (0.2-1.3) mg/dL AST (14-36) U/L ALT (6-35) U/L Alkaline Phosphatase (38-126) U/L Troponin I (0.000-0.034) ng/mL NT-Pro-B Natriuret Pep (19.9-100) pg/mL Total Protein (6.3-8.2) g/dL Albumin (3.5-5.1) g/dL Lipase (23-300) U/L POC Urine HCG, Qual Negative (Negative) Influenza A (RT-PCR) (Negative) Influenza B (RT-PCR) (Negative) RSV (RT-PCR) (Negative) SARS-CoV-2 RNA (RT-PCR) (Negative) Discharge Plan Discharge Clinical Impression: Atypical chest pain Patient Disposition: Home Condition: Stable Instructions: Antibiotic Form, Chest Pain (ED) Additional Instructions: He was seen emergency department for chest pain. Please use Motrin and Tylenol as needed for pain. Please follow-up with your physical therapy manager for further management. If you develop any new or worsening symptoms, or if you feel your condition is getting worse please return to the ED for re-evaluation. Patient Language: Citizen Of [place] Prescriptions: No Action fluticasone propionate [Allergy Relief (fluticasone)] 50 mcg/actuation spray,suspension 1 spray NASAL BID Qty: 16 0RF Rx Instructions: administer into each nostril penicillin V potassium 500 mg tablet 500 mg PO BID 10 Days Qty: 20 0RF famotidine [Pepcid] 20 mg tablet 20 mg PO BID Qty: 14 0RF diphenhydramine HCl [Benadryl Allergy] 25 mg tablet 25 mg PO TID PRN (Reason: allergic reaction) Qty: 20 0RF prednisone 10 mg tablet See Rx Instructions .Route .COMPLEX Qty: 45 0RF Rx Instructions: 50 mg x 3 days, then 40 mg x 3 days, then 30 mg x 3 days, then 20 mg x 3 days, then 10 mg x 3 days. prednisone 10 mg tablet See Rx Instructions .ROUTE .COMPLEX Qty: 45 0RF Rx Instructions: 50 mg x 3 days, then 40 mg x 3 days, then 30 mg x 3 days, then 20 mg x 3 days, then 10 mg x 3 days. Follow-up/Referrals: PHYSICIAN,HUMAN SERVICES MANAGER [Primary Care Provider] - Quality HEART score for chest pain patients History: slightly suspicious ECG: normal Age: < or = to 45 years Risk factors: 1 or 2 risk factors Troponin: < or = to 1x normal limit Heart score: 1
[2024-09-07] MEDS: MAG HYDROX/AL HYDROX/SIMETH 30 ML UDC PO (06:48)
--- NOTE | 2024-09-07 07:01 | ECG_ITS ---
Test Date: 2024-09-07 07:05:01 Measurements Intervals [place] Rate: 74 P: 37 AR: 144 QRS: 6 QRSD: 82 T: 33 QT: 373 QTc: 414 Interpretive Statements SINUS RHYTHM Compared to ECG 09/07/2024 03:09:16 No significant changes Electronically Signed On 09-09-2024 14:02:22 CDT by Jocelyn Cheney M.D.
[2024-09-07 07:25] LABS: Troponin I < 0.012 ng/mL (0.000-0.034)
== END 2024-09-07 08:21 | disposition home or self-care (01) ==
PROVIDERS: Emergency Provider Emergency Medicine
DX: R07.89 Other chest pain (principal); Z87.891 Personal history of nicotine dependence; Z20.822 Contact with and (suspected) exposure to COVID-19
CPT/HCPCS: 36415; 71046; 71275; 80053; 81025; 83690; 83880; 84484; 85025; 85055; 85610; 85730; 87637; 93005; 96374; 96375; 99284; A9270; J1171; J1885; Q9967